=== PATIENT | female | born 1990 | race Caucasian/White ===

== ENCOUNTER 2016-10-24 19:29 | Observation (INO) | payer MEDICAID ==
[2016-10-24 19:59] LABS: APPEARANCE,URINE SLIGHTLY-CLOUDY; BILIRUBIN,URINE NEGATIVE (NEGATIVE); GLUCOSE, URINE NEGATIVE (NEGATIVE); KETONES,URINE TRACE mg/dL (NEGATIVE); LEUKOCYTE ESTERASE,URINE SMALL (NEGATIVE); NITRITE,URINE NEGATIVE (NEGATIVE); PROTEIN,URINE NEGATIVE (NEGATIVE); URINE SPECIFIC GRAVITY 1.021; UROBILINOGEN,URINE NEGATIVE mg/dL (<2.0)
--- NOTE | 2016-10-24 20:00 | L&D Flow Sheet ---
LD Flowsheet Datetime Report Generated by CPN: 10/24/2016 20:00 Datetime: 10/24/2016 19:47 Vital Signs NBP Sys/Jud/Mean (mmHg): 124 (QS system process) : 73 (QS system process) : 87 (QS system process) Pulse: 91 (QS system process) Communication LaborFlag: OB Triage (QS system process) Datetime: 10/24/2016 19:41 Pain Pain Scale: 4 (Crystal Анна, RN) Pain Presence: Constant (Crystal [place]vas, RN) Pain Type: Ache (Crystal [place]vas, RN) Pain Location: Perineum; Right Hip; Left Hip (Crystal Анна, RN) Pain Goal: 2 (Crystal Анна, RN) Pain Relief Measures: Comfort Measures (Crystal [place]vas, RN) Vaginal Exam Vaginal Bleeding: None (Crystal [place]vas, RN) Maternal Assessment Level of Consciousness: Fully Conscious (Crystal Анна, RN) DTR's/Clonus: DTRs 2+; No Clonus (Crystal Анна, RN) Headache: Denies (Crystal [place]vas, RN) Breath Sounds, Right: Clear and Equal (Crystal [place]vas, RN) Nausea/Vomiting: Denies (Crystal Анна, RN) RUQ Epigastric Pain: Denies (Crystal Анна, RN) Communication LaborFlag: OB Triage (QS system process)
[2016-10-24] MEDS ORDERED: ZOLPIDEM TARTRATE 5 MG TABLET PO ONE (20:18)
[2016-10-24 20:48] LABS: URINE BARBITURATES SCREEN NEGATIVE; URINE METHADONE SCREEN NEGATIVE; URINE PHENCYCLIDINE SCREEN NEGATIVE
[2016-10-24] MEDS ORDERED: ZOLPIDEM TARTRATE 5 MG TABLET ONE (21:00)
[2016-10-24 21:22] LABS: HEMATOCRIT 33.9 % (36.0-47.0); HEMOGLOBIN 11.4 g/dL (12.0-15.5); HGB HCT DIFFERENCE 0.3; MEAN CORPUSCULAR HEMOGLOBIN 29.2 pg (27.0-33.4); MEAN CORPUSCULAR HGB CONC 33.7 g/dL (32.0-36.0); MEAN CORPUSCULAR VOLUME 87 fl (80-97); RED BLOOD COUNT 3.91 10^6/uL (3.72-5.28); RED CELL DISTRIBUTION WIDTH 12.8 % (11.5-14.0); WHITE BLOOD COUNT 12.4 10^3/uL (4.0-10.5)
[2016-10-24 21:30] LABS: PROTHROMBIN TIME 12.8 SEC (11.4-15.4)
[2016-10-24 21:31] LABS: PARTIAL THROMBOPLASTIN TIME 28.5 SEC (23.5-35.8)
[2016-10-24 21:44] LABS: BAND NEUTROPHILS % (MANUAL) 2 % (3-5); BASOPHILS % (MANUAL) 1 % (0-2); EOSINOPHILS % (MANUAL) 2 % (0-6); LYMPHOCYTES % (MANUAL) 22 % (13-45); TOTAL CELLS COUNTED 100
[2016-10-24 21:45] LABS: TOXIC GRANULATION SLIGHT
[2016-10-24 23:26] LABS: TOTAL RBC COUNT 2103; TYPE IN FILE? TYPE IN FILE; VOL OF FETOMATERNAL HEMORRHAGE 0 ML (0)
--- NOTE | 2016-10-25 06:06 | L&D General Admission ---
General Admit Datetime Report Generated by CPN: 10/25/2016 04:45 CARE Height (in): 62 (10/24/2016 20:04:QS system process) Height (in): 62 (10/24/2016 19:41:QS system process) LABS Hemoglobin: 11.4 L (10/24/2016 21:09:QS system process) Hematocrit: 33.9 L (10/24/2016 21:09:QS system process) MCV: 87 (10/24/2016 21:09:QS system process)
--- NOTE | 2016-10-25 06:06 | L&D Current Admission ---
Current Admit Datetime Report Generated by CPN: 10/25/2016 04:45 ADMISSION INFORMATION Current Admit Date/Time: 10/24/2016 21:11 (10/24/2016 21:11:Nya Jj RN) Reason for Admission: Observation (10/24/2016 21:11:Nya Jj RN) Chief Complaint: Trauma or Fall (10/24/2016 21:11:Nya Jj RN) Chief Complaint: Trauma or Fall (10/24/2016 19:41:Nya Jj RN) Meds During -Oth: Valtrex (10/24/2016 21:11:Nya Jj RN) EGA per Dates: 38.0 (10/24/2016 21:11:QS system process) Reason for Induction: Not Applicable (10/24/2016 21:11:Nya Jj RN) Records Available: Yes (10/24/2016 21:11:Nya Jj RN) General Admission Information: Reviewed (10/24/2016 21:11:Nya Jj RN) General Admission Reviewed By: Benita Jj RN (10/24/2016 21:11:Nya Jj RN) BELONGINGS/ADVANCED DIRECTIVES Valuables/Personal Effects: Cell Phone (10/24/2016 21:11:Nya Jj RN) Disposition of Belongings: Kept with Patient (10/24/2016 21:11:Nya Jj RN) Advance Direct for Healthcare: No, and Wants No Information (10/24/2016 21:11:Nya Jj RN) Durable Power of Electrical Assemblies Supervisor: No (10/24/2016 21:11:Nya Jj RN) Living Will: No (10/24/2016 21:11:Nya Jj RN) Organ Donor: Yes (10/24/2016 21:11:Nya Jj RN) Pt Rights Information Given: Yes (10/24/2016 21:11:Nya Jj RN) Pt Understands Pt Rights: Yes (10/24/2016 21:11:Nya Jj RN) LEARNING ASSESSMENT Knowledge Level: Understands L_D Process; Understands Care Activities; Had Pre-Hospital Education; Understands Diagnosis (10/24/2016 21:11:Nya Jj RN) Barriers to Learning: None (10/24/2016 21:11:Nya Jj RN) Learning Readiness: Motivated (10/24/2016 21:11:Nya Jj RN) Learns Best By: 1 to 1 Instruction (10/24/2016 21:11:Nya Jj RN) DOMESTIC VIOLANCE SCREENING Dom Viol Threatened/Hurt: No (10/24/2016 21:11:Nya Jj RN) Hx of Abuse/Neglect past 2yrs: No (10/24/2016 21:11:Nya Jj RN) Feel Unsafe Going Home: No (10/24/2016 21:11:Nya Jj RN) Addt'l Observ Indicating Abuse: No (10/24/2016 21:11:Nya Jj RN) Reason Unable to Complete Screen: N/A, Screen Completed (10/24/2016 21:11:Nya Jj RN) Considered Personal Harm/Suicide: No (10/24/2016 21:11:Nya Jj RN) NUTRITIONAL/FUNCTIONAL SCREENING Problem with Appetite >5 Days: No (10/24/2016 21:11:Nya Jj RN) Chew/Swallow Difficulties: No (10/24/2016 21:11:Nya Jj RN) Inappropriate Wt Gain/Loss: No (10/24/2016 21:11:Nya Jj RN) Presence Skin Breakdown/Ulcer: No (10/24/2016 21:11:Nya Jj RN) Special Diet: No (10/24/2016 21:11:Nya Jj RN) Pt Requests Spine Surgeon Visit: No (10/24/2016 21:11:Nya Jj RN) Hx of Any of the Following?: N/A (10/24/2016 21:11:Nya Jj RN) New Diagnosis of: N/A (10/24/2016 21:11:Nya Jj RN) Requires Assist w/Ambulation: No (10/24/2016 21:11:Nya Jj RN) Uses Assist Device to Ambulate: No (10/24/2016 21:11:Nya Jj RN) Pt Requires Help w/ADL's: No (10/24/2016 21:11:Nya Jj RN)
--- NOTE | 2016-10-25 06:06 | L&D Admission Assessment ---
LD ADM ASMT Datetime Report Generated by CPN: 10/25/2016 04:45 PATIENT ASSESSMENT Assessment Type: Triage (10/24/2016 19:41:Crystal [place], RN) WEIGHT Weight (lb): 176 (10/24/2016 20:04:QS system process) Weight (lb): 176 (10/24/2016 19:41:QS system process) Weight (kg): 80.0 (10/24/2016 20:04:QS system process) Weight (kg): 80.0 (10/24/2016 19:41:QS system process) BMI: 32.2 (10/24/2016 20:04:QS system process) BMI: 32.2 (10/24/2016 19:41:QS system process) PAIN Pain Scale: 4 (10/24/2016 19:41:Crystal [place], RN) Pain Presence: Constant (10/24/2016 19:41:Crystal [place], RN) Pain Type: Ache (10/24/2016 19:41:Crystal Анна, RN) Pain Location: Perineum; Right Hip; Left Hip (10/24/2016 19:41:Crystal [place], RN) Pain Goal: 2 (10/24/2016 19:41:Crystal Анна, RN) Pain Related to Contraction: No (10/24/2016 19:41:Crystal Анна, RN) CONTRACTIONS Frequency (min): 1 (10/25/2016 04:15:Crystal [place], RN) Frequency (min): 0 (10/25/2016 03:15:Crystal Анна, RN) Frequency (min): 0 (10/25/2016 02:15:Crystal Анна, RN) Frequency (min): 0 (10/25/2016 01:15:Crystal Анна, RN) Frequency (min): 0 (10/25/2016 00:15:Crystal Анна, RN) Frequency (min): 0 (10/24/2016 23:15:Crystal [place], RN) Frequency (min): 0 (10/24/2016 22:00:Crystal [place], RN) Frequency (min): 0 (10/24/2016 21:00:Crystal [place], RN) Frequency (min): 0 (10/24/2016 20:00:Crystal [place], RN) Duration (sec): 110 (10/25/2016 04:15:Crystal [place], RN) Resting Tone [place]: Relaxed (10/25/2016 04:15:Crystal Анна, RN) Resting Tone [place]: Relaxed (10/25/2016 03:15:Crystal Анна, RN) Resting Tone [place]: Relaxed (10/25/2016 02:15:Crystal Анна, RN) Resting Tone [place]: Relaxed (10/25/2016 01:15:Crystal Анна, RN) Resting Tone [place]: Relaxed (10/25/2016 00:15:Crystal [place], RN) Resting Tone [place]: Relaxed (10/24/2016 23:15:Crystal Анна, RN) Resting Tone [place]: Relaxed (10/24/2016 22:00:Crystal Анна, RN) Resting Tone [place]: Relaxed (10/24/2016 21:00:Crystal Анна, RN) Resting Tone [place]: Relaxed (10/24/2016 20:00:Crystal [place], RN) NEURO Level of Consciousness: Fully Conscious (10/24/2016 19:41:Crystal Анна, RN) DTR's/Clonus: DTRs 2+; No Clonus (10/24/2016 19:41:Crystal [place], RN) Headache: Denies (10/24/2016 19:41:Crystal Анна, RN) Dizziness: No (10/24/2016 19:41:Crystal [place], RN) Blurred Vision: No (10/24/2016 19:41:Crystal Анна, RN) Extremity Numbness/Tingling : None (10/24/2016 19:41:Crystal Анна, RN) Extremity Movement: Full Range of Motion (10/24/2016 19:41:Crystal [place], RN) CARDIOVASCULAR Heart Rhythm: Regular (10/24/2016 19:41:Crystal [place], RN) Nailbeds: [place] (10/24/2016 19:41:Crystal Анна, RN) Capillary Refill: Less than 3 Seconds (10/24/2016 19:41:Crystal Анна, RN) Lower Extremities Edema: None (10/24/2016 19:41:Crystal Анна, RN) Lower Extremities Edema Degree: None (10/24/2016 19:41:Crystal [place], RN) Upper Extremities Edema: None (10/24/2016 19:41:Crystal [place], RN) Upper Extremities Edema Degree: None (10/24/2016 19:41:Nya Jj RN) Facial Edema: None (10/24/2016 19:41:Nya Jj RN) Elif's Sign Left Leg: Negative (10/24/2016 19:41:Nya Jj RN) Elif's Sign Right Leg: Negative (10/24/2016 19:41:Nya Jj RN) DVT RISK ASSESSMENT DVT Risk Age: Age less than 41 years (10/24/2016 19:41:Nya Jj RN) DVT Risk BMI: BMI<31 (10/24/2016 19:41:Nya Jj RN) DVT Risk Surgery: Minor Surgery Planned (10/24/2016 19:41:Nya Jj RN) DVT Risk Other: DNC 2015 (10/24/2016 19:41:Nya Jj RN) RESPIRATORY Respiratory Effort: Unlabored; Regular Rhythm; Equal Expansion (10/24/2016 19:41:Nya Jj RN) Breath Sounds, Right: Clear and Equal (10/24/2016 19:41:Crystal Анна RN) Cough Productivity: None (10/24/2016 19:41:Crystal Анна, RN) GASTROINTESTINAL Nausea/Vomiting: Denies (10/24/2016 19:41:Nya Jj RN) Bowel Sounds: Normoactive (10/24/2016 19:41:Nya WhiteergROBERT penny) RUQ Epigastric Pain: Denies (10/24/2016 19:41:Nya Jj RN) Response to Antacids: Pain Relieved (10/24/2016 19:41:Crystal Анна RN) Bowel Patterns: Soft, Formed Stool (10/24/2016 19:41:Nya Jj RN) Hemorrhoids: None (10/24/2016 19:41:Nya Jj RN) Diet Type: Regular diet (10/24/2016 19:41:Crystal [place], RN) Last Meal: 10/24/2016 18:00 (10/24/2016 19:41:Crystal Анна RN) GENITOURINARY Bladder: Nondistended (10/24/2016 19:41:Crystal [place], RN) Frequency of Urination: No (10/24/2016 19:41:Crystal Анна, RN) Urination Burning: No (10/24/2016 19:41:Crystal Анна, RN) CVA Tenderness: No (10/24/2016 19:41:Crystal Анна, RN) Vaginal Bleeding: None (10/24/2016 19:41:Crystal Анна, RN) Vaginal Discharge Amount: Small (10/24/2016 19:41:Crystal Анна, RN) Vaginal Discharge Color: Yellow (10/24/2016 19:41:Crystal Анна, RN) Vaginal Discharge Character: Thick (10/24/2016 19:41:Crystal [place], RN) INTEGUMENTARY Skin Color: Normal for Race (10/24/2016 19:41:Crystal Анна, RN) Skin Temperature: Warm (10/24/2016 19:41:Crystal [place], RN) Skin Moisture: Dry (10/24/2016 19:41:Crystal Анна, RN) Body Piercings/Tattoos: Tattoos (10/24/2016 19:41:Crystal Анна, RN) KARLENE SKIN ASSESSMENT Karlene Scale Sensory Perception: No Impairment- Responds to verbal commands. Has no sensory deficit which would limit ability to feel or voice pain or discomfort (10/24/2016 19:41:Nya Jj RN) Karlene Scale Moisture: Rarely Moist- Skin is usually dry. Linen only requires changing at routine intervals (10/24/2016 19:41:Nya Jj RN) Karlene Scale Activity: Walks Frequently- Walks outside the room at least twice a day and inside room at least every 2 hours during the day. (10/24/2016 19:41:Nya Jj RN) Karlene Scale Mobility: No Limitations- Makes major and frequent changes in position without assistance (10/24/2016 19:41:Nya Jj RN) Karlene Scale Nutrition: Excellent- Eats most of every meal. Never refuses a meal. Usually eats a total of 4 or more servings of meat and dairy products. Occasionally eats between meals. Does not require supplementation (10/24/2016 19:41:Nya Jj RN) Karlene Scale Friction and Shear: No Apparent Problem- Moves in bed and in chair independently and has sufficient muscle strength to lift up completely during move. Maintains good position in bed or chair at all times (10/24/2016 19:41:Nya Jj RN) Karlene Scale Total: 23 (10/24/2016 19:41:QS system process) Karlene Scale Risk: No Risk of Pressure Ulcer Noted at this Time (10/24/2016 19:41:QS system process) SUPPORT Family Support: Family supportive (10/24/2016 19:41:Nya Jj RN) Emotional State: Calm/Relaxed (10/24/2016 19:41:Crystal Анна, RN) SAFETY Call [place] Within Reach: Yes (10/24/2016 19:41:Nya Jj RN) Side Rails Up: Yes (10/24/2016 19:41:Nya Jj RN) Bed Wheels Locked: Yes (10/24/2016 19:41:Nya Jj RN) Arm Bands Present: Yes (10/24/2016 19:41:Nya Jj RN) FALL SCREEN Fall Risk History of Falling: (25) Yes (10/24/2016 19:41:Nya Jj RN) Fall Risk Secondary Diagnosis: (0) No (10/24/2016 19:41:Nya Jj RN) Fall Risk Ambulatory Aid: (0) None/Bedrest/Wheelchair/Nurse Assist (10/24/2016 19:41:Nya Jj RN) Fall Risk IV Therapy: (0) No (10/24/2016 19:41:Nya Jj RN) Fall Risk Gait: (0) Normal/Bedrest/Immobile (10/24/2016 19:41:Nya Jj RN) Fall Risk Mental Status: (0) Oriented to Own Ability (10/24/2016 19:41:Nya Jj RN) Fall Risk Score: 25 (10/24/2016 19:41:QS system process) Fall Risk Score Definition: Low Risk: Please see standard fall prevention interventions (10/24/2016 19:41:QS system process) RECENT TRAVEL/INFECTIOUS DISEASE Recent Exp Communicable Disease: No (10/24/2016 19:41:Nya Jj RN) Cough or Fever: No (10/24/2016 19:41:Nya Jj RN) Foreign Travel Past 10 Days: No (10/24/2016 19:41:Nya Jj RN) Open Wounds or Sores: No (10/24/2016 19:41:Nya Jj RN) Prior Antibiotic Resistance Tx: No (10/24/2016 19:41:Nya Jj RN) Cultures Obtained: Not Applicable (10/24/2016 19:41:Nya Jj RN) Isolation Initiated: No (10/24/2016 19:41:Nya Jj RN) Pt/Family Education: Not Applicable (10/24/2016 19:41:Nya Jj RN) BABY A FHR Baseline Rate (bpm) Baby A: 120 (10/25/2016 04:15:Nya Whiteerghemalatha RN) FHR Baseline Rate (bpm) Baby A: 125 (10/25/2016 03:15:Nya Whiteerghemalatha RN) FHR Baseline Rate (bpm) Baby A: 125 (10/25/2016 02:15:Nya Анна, RN) FHR Baseline Rate (bpm) Baby A: 120 (10/25/2016 01:15:Nya Whiteerghemalatha RN) FHR Baseline Rate (bpm) Baby A: 120 (10/25/2016 00:15:Crystal Анна RN) FHR Baseline Rate (bpm) Baby A: 130 (10/24/2016 23:15:Crystal [place] RN) FHR Baseline Rate (bpm) Baby A: 130 (10/24/2016 22:15:Crystal Анна RN) FHR Baseline Rate (bpm) Baby A: 125 (10/24/2016 22:00:Crystal [place], RN) FHR Baseline Rate (bpm) Baby A: 150 (10/24/2016 21:00:Crystal Анна RN) FHR Baseline Rate (bpm) Baby A: 130 (10/24/2016 20:00:Crystal [place], RN) Variability Baby A: Moderate 6-25 bpm (10/25/2016 04:15:Crystal [place] RN) Variability Baby A: Moderate 6-25 bpm (10/25/2016 03:15:Crystal Анна RN) Variability Baby A: Moderate 6-25 bpm (10/25/2016 02:15:Crystal [place] RN) Variability Baby A: Moderate 6-25 bpm (10/25/2016 01:15:Crystal [place], RN) Variability Baby A: Moderate 6-25 bpm (10/25/2016 00:15:Crystal [place], RN) Variability Baby A: Moderate 6-25 bpm (10/24/2016 23:15:Crystal Анна, RN) Variability Baby A: Moderate 6-25 bpm (10/24/2016 22:15:Crystal [place], RN) Variability Baby A: Moderate 6-25 bpm (10/24/2016 22:00:Crystal Анна, RN) Variability Baby A: Moderate 6-25 bpm (10/24/2016 21:00:Crystal Анна, RN) Variability Baby A: Moderate 6-25 bpm (10/24/2016 20:00:Crystal [place], RN) Accelerations Baby A: 15X15 (10/25/2016 04:15:Crystal Анна, RN) Accelerations Baby A: 15X15 (10/25/2016 03:15:Crystal Анна, RN) Accelerations Baby A: 15X15 (10/25/2016 02:15:Crystal [place], RN) Accelerations Baby A: 15X15 (10/25/2016 01:15:Crystal Анна, RN) Accelerations Baby A: 15X15 (10/25/2016 00:15:Crystal Анна, RN) Accelerations Baby A: 15X15 (10/24/2016 23:15:Crystal [place], RN) Accelerations Baby A: 15X15 (10/24/2016 22:15:Crystal Анна, RN) Accelerations Baby A: 15X15 (10/24/2016 22:00:Crystal [place], RN) Accelerations Baby A: 15X15 (10/24/2016 21:00:Crystal Анна, RN) Accelerations Baby A: 15X15 (10/24/2016 20:00:Crystal [place], RN) Decelerations Baby A: None (10/25/2016 04:15:Crystal Анна, RN) Decelerations Baby A: None (10/25/2016 03:15:Crystal Анна, RN) Decelerations Baby A: None (10/25/2016 02:15:Crystal [place], RN) Decelerations Baby A: None (10/25/2016 01:15:Nya Jj RN) Decelerations Baby A: None (10/25/2016 00:15:Nya Jj RN) Decelerations Baby A: None (10/24/2016 23:15:Nya Jj RN) Decelerations Baby A: None (10/24/2016 22:00:Nya Jj RN) Decelerations Baby A: None (10/24/2016 21:00:Nya Jj RN) Decelerations Baby A: None (10/24/2016 20:00:Nya jJ RN)
--- NOTE | 2016-10-25 06:06 | L&D Flow Sheet ---
LD Flowsheet Datetime Report Generated by CPN: 10/25/2016 04:45 Datetime: 10/25/2016 04:15 Uterine Activity Monitor Mode: External; Palpation (Crystal Анна, RN) Frequency (min): 1 (Crystal [place], RN) Duration (sec): 110 (Crystal [place], RN) Resting Tone ([place]): Relaxed (Crystal Анна, RN) Assessment A Monitor Mode: External US (Crystal [place], RN) FHR Baseline Rate : 120 (Crystal [place], RN) Variability: Moderate 6-25 bpm (Crystal [place], RN) Accelerations: 15X15 (Crystal Анна, RN) Decelerations: None (Crystal Анна, RN) Datetime: 10/25/2016 03:15 NBP Sys/Jud/Mean (mmHg): 97 (QS system process) : 56 (QS system process) : 70 (QS system process) Pulse: 83 (QS system process) Uterine Activity Monitor Mode: External (Crystal [place], RN) Frequency (min): 0 (Crystal Анна, RN) Resting Tone (Palpate): Relaxed (Crystal Анна, RN) Assessment A Monitor Mode: External US (Crystal Анна, RN) FHR Baseline Rate : 125 (Crystal Анна, RN) Variability: Moderate 6-25 bpm (Crystal [place], RN) Accelerations: 15X15 (Crystal Анна, RN) Decelerations: None (Crystal Анна, RN) LaborFlag: Antepartum (QS system process) Datetime: 10/25/2016 02:15 Uterine Activity Monitor Mode: External (Crystal Анна, RN) Frequency (min): 0 (Crystal Анна, RN) Resting Tone ([place]): Relaxed (Crystal [place], RN) Assessment A Monitor Mode: External US (Crystal Анна, RN) FHR Baseline Rate : 125 (Crystal Анна, RN) Variability: Moderate 6-25 bpm (Crystal [place], RN) Accelerations: 15X15 (Crystal Анна, RN) Decelerations: None (Crystal Анна, RN) Datetime: 10/25/2016 01:15 NBP Sys/Jud/Mean (mmHg): 107 (QS system process) : 53 (QS system process) : 73 (QS system process) Pulse: 76 (QS system process) Uterine Activity Monitor Mode: External (Crystal [place], RN) Frequency (min): 0 (Crystal [place], RN) Resting Tone ([place]): Relaxed (Crystal [place], RN) Assessment A Monitor Mode: External US (Crystal Анна, RN) FHR Baseline Rate : 120 (Crystal [place], RN) Variability: Moderate 6-25 bpm (Crystal [place], RN) Accelerations: 15X15 (Crystal [place], RN) Decelerations: None (Crystal Анна, RN) LaborFlag: Antepartum (QS system process) Datetime: 10/25/2016 00:15 Uterine Activity Monitor Mode: External; Palpation (Crystal Анна, RN) Frequency (min): 0 (Crystal Анна, RN) Resting Tone ([place]pate): Relaxed (Crystal Анна, RN) Assessment A Monitor Mode: External US (Crystal [place], RN) FHR Baseline Rate : 120 (Crystal Анна, RN) Variability: Moderate 6-25 bpm (Crystal [place], RN) Accelerations: 15X15 (Crystal Анна, RN) Decelerations: None (Crystal [place], RN) Datetime: 10/25/2016 00:09 Vital Signs Stage of : Antepartum (Crystal Анна, RN) Medication Comments: Rhogam given right gluteus (Crystal Анна, RN) Datetime: 10/24/2016 23:45 Provider Reviewed Strip: Yes (Crystal Анна, RN) Communication Communication: Provider Orders Received (Crystal Анна, RN) Provider Notified (Name): Neilsen (Crystal [place], RN) Notification Reason: Lab/Diagnostic Study (Crystal [place], RN) Communication Comments: Received orders to give rhogam. (Crystal [place], RN) Datetime: 10/24/2016 23:27 Vital Signs Stage of : Antepartum (Crystal Анна, RN) Patient Care IV/Blood Work: KB negative (Crystal Анна, RN) Datetime: 10/24/2016 23:16 NBP Sys/Jud/Mean (mmHg): 93 (QS system process) : 53 (QS system process) : 65 (QS system process) Pulse: 83 (QS system process) LaborFlag: OB Triage (QS system process) Datetime: 10/24/2016 23:15 Uterine Activity Monitor Mode: External; Palpation (Crystal Анна, RN) Frequency (min): 0 (Crystal [place], RN) Resting Tone (Palpate): Relaxed (Crystal Анна, RN) Assessment A Monitor Mode: External US (Crystal [place], RN) FHR Baseline Rate : 130 (Crystal Анна, RN) Variability: Moderate 6-25 bpm (Crystal [place], RN) Accelerations: 15X15 (Crystal Анна, RN) Decelerations: None (Crystal [place], RN) Patient Position/Activity: Left Lateral; Semi-Fowlers (Crystal Анна, RN) Datetime: 10/24/2016 22:15 Assessment A Monitor Mode: External US (Crystal [place], RN) Monitor Interventions for FHR: Ultrasound Adjusted (Crystal [place], RN) FHR Baseline Rate : 130 (Crystal [place], RN) Variability: Moderate 6-25 bpm (Crystal [place], RN) Accelerations: 15X15 (Crystal Анна, RN) Comments: Pt coughing and lying flat on her back. (Crystal Анна, RN) Datetime: 10/24/2016 22:00 Uterine Activity Monitor Mode: External; Palpation (Crystal Анна, RN) Frequency (min): 0 (Crystal [place], RN) Resting Tone (Palpate): Relaxed (Crystal [place], RN) Assessment A Monitor Mode: External US (Crystal Анна, RN) FHR Baseline Rate : 125 (Crystal Анна, RN) Variability: Moderate 6-25 bpm (Crystal [place], RN) Accelerations: 15X15 (Crystal [place], RN) Decelerations: None (Crystal [place], RN) Patient Position/Activity: Left Lateral; Semi-Fowlers (Crystal [place], RN) Datetime: 10/24/2016 21:49 I/O Interventions: Clear Liquids Given (Crystal Анна, RN) Patient Care Comments: Crackers given (Crystal [place], RN) Datetime: 10/24/2016 21:35 Temperature (F): 98.5 (Crystal Анна, RN) Temperature (C): 36.9 (QS system process) LaborFlag: OB Triage (QS system process) Datetime: 10/24/2016 21:02 Medications Analgesics/Sedatives: Ambien (mg) @ 10 (Crystal [place], RN) Datetime: 10/24/2016 21:00 Uterine Activity Monitor Mode: External; Palpation (Crystal Анна, RN) Frequency (min): 0 (Crystal [place], RN) Resting Tone (Palpate): Relaxed (Crystal [place], RN) Assessment A Monitor Mode: External US (Crystal Анна, RN) FHR Baseline Rate : 150 (Crystal [place], RN) Variability: Moderate 6-25 bpm (Crystal [place], RN) Accelerations: 15X15 (Crystal Анна, RN) Decelerations: None (Crystal [place], RN) Datetime: 10/24/2016 20:30 Vital Signs Stage of : OB Triage (Crystal Анна, RN) Communication Comments: Pt taken off of the monitors to go to ultrasound. (Crystal Анна, RN) Datetime: 10/24/2016 20:14 Communication Communication: Provider at Bedside (Crystal [place], RN) Provider Notified (Name): Neilsen (Crystal [place], RN) Datetime: 10/24/2016 20:00 Vital Signs Stage of : OB Triage (Crystal Анна, RN) Uterine Activity Monitor Mode: External; Palpation (Crystal Анна, RN) Frequency (min): 0 (Crystal Анна, RN) Resting Tone (Palpate): Relaxed (Crystal Анна, RN) Assessment A Monitor Mode: External US (Nya Coulter RN) Monitor Interventions for FHR: Ultrasound Adjusted (Nya Coulter RN) FHR Baseline Rate : 130 (Nya Coulter RN) Variability: Moderate 6-25 bpm (Nya Coulter RN) Accelerations: 15X15 (Nya Coulter RN) Decelerations: None (Nya Coulter RN) Patient Position/Activity: Right Tilt; Semi-Fowlers (Nya Coulter RN) I/O Interventions: Clear Liquids Given (Nya Coulter RN) Provider Reviewed Strip: Yes (Nya Coulter RN) Strip Reviewed by: Benita coulter RN (Nya Coulter RN) Communication Communication: Call/Page Placed to Provider (Nya Coulter RN) Provider Notified (Name): Abby (Nya Coulter RN) Notification Reason: Status Update; Status; Labor Status; Membrane Status; Uterine Activity; Pain (Nya Coulter RN) Communication Comments: Report given on pt status. (Nya Coulter RN) Datetime: 10/24/2016 19:47 NBP Sys/Jud/Mean (mmHg): 124 (QS system process) : 73 (QS system process) : 87 (QS system process) Pulse: 91 (QS system process) LaborFlag: OB Triage (QS system process) Datetime: 10/24/2016 19:41 Pain Pain Scale: 4 (Crystal Анна, RN) Pain Presence: Constant (Crystal [place], RN) Pain Type: Ache (Crystal [place], RN) Pain Location: Perineum; Right Hip; Left Hip (Crystal [place], RN) Pain Goal: 2 (Crystal [place], RN) Pain Relief Measures: Comfort Measures (Crystal Анна, RN) Vaginal Exam Vaginal Bleeding: None (Crystal [place], RN) Maternal Assessment Level of Consciousness: Fully Conscious (Crystal Анна, RN) DTR's/Clonus: DTRs 2+; No Clonus (Nya [place], RN) Headache: Denies (Nya Анна, RN) Breath Sounds, Right: Clear and Equal (Nya Анна, RN) Nausea/Vomiting: Denies (Crystal Анна, RN) RUQ Epigastric Pain: Denies (Nya [place], RN) LaborFlag: OB Triage (QS system process)
--- NOTE | 2016-10-25 06:07 | Non Stress Test Report ---
Non Stress Test Datetime Report Generated by CPN: 10/25/2016 05:59 DEMOGRAPHIC Test Number: 1 EGA NST: 38.0 INDICATION Indication for Study: Ordered by Provider; Other Indication for Study (NST) Other: Fall VITAL SIGNS Temperature - NST: 98.5 Pulse - NST: 91 RESP - NST: 18 NBPSYS NST: 124 NBPDIA NST: 73 MONITORING Monitor Explained: Monitor Explained; Test Explained; Patient Verbalized Understanding Time on Monitor: 10/24/2016 19:46 Time off Monitor: 10/25/2016 05:47 NST Duration: 601 NST INTERVENTIONS NST Interventions: PO Hydration Physician Notified NST: [place] BABY A: [id number] BABY A Movement : Present Contraction Frequency : 1 FHR Baseline : 135 Accelerations : 15X15 Decelerations : None Variability : Moderate 6-25bpm NST Review: Meets Criteria for Reactive NST NST Review and Verified By : Que Kerr, RNC NST Results: Reactive NST REPORT Report Trigger: Send Report
--- NOTE | 2016-10-25 06:24 | L&D Current Admission ---
Current Admit Datetime Report Generated by CPN: 10/25/2016 06:00 ADMISSION INFORMATION Current Admit Date/Time: 10/24/2016 21:11 (10/24/2016 21:11:Nya Jj RN) Reason for Admission: Observation (10/24/2016 21:11:Nya Jj RN) Chief Complaint: Trauma or Fall (10/24/2016 21:11:Nya Jj RN) Meds During -Oth: Valtrex (10/24/2016 21:11:Nya Jj RN) EGA per Dates: 38.0 (10/24/2016 21:11:QS system process) Reason for Induction: Not Applicable (10/24/2016 21:11:Nya Jj RN) Records Available: Yes (10/24/2016 21:11:Nya Jj RN) General Admission Information: Reviewed (10/24/2016 21:11:Nya Jj RN) General Admission Reviewed By: Benita Jj RN (10/24/2016 21:11:Nya Jj RN) BELONGINGS/ADVANCED DIRECTIVES Valuables/Personal Effects: Cell Phone (10/24/2016 21:11:Nya Jj RN) Disposition of Belongings: Kept with Patient (10/24/2016 21:11:Nya Jj RN) Advance Direct for Healthcare: No, and Wants No Information (10/24/2016 21:11:Nya Jj RN) Durable Power of Telephone Collector: No (10/24/2016 21:11:Nya Jj RN) Living Will: No (10/24/2016 21:11:Nya Jj RN) Organ Donor: Yes (10/24/2016 21:11:Nya Jj RN) Pt Rights Information Given: Yes (10/24/2016 21:11:Nya Jj RN) Pt Understands Pt Rights: Yes (10/24/2016 21:11:Nya Jj RN) LEARNING ASSESSMENT Knowledge Level: Understands L_D Process; Understands Care Activities; Had Pre-Hospital Education; Understands Diagnosis (10/24/2016 21:11:Nya Jj RN) Barriers to Learning: None (10/24/2016 21:11:Nya Jj RN) Learning Readiness: Motivated (10/24/2016 21:11:Nya Jj RN) Learns Best By: 1 to 1 Instruction (10/24/2016 21:11:Nya Jj RN) DOMESTIC VIOLANCE SCREENING Dom Viol Threatened/Hurt: No (10/24/2016 21:11:Nya Jj RN) Hx of Abuse/Neglect past 2yrs: No (10/24/2016 21:11:Nya Jj RN) Feel Unsafe Going Home: No (10/24/2016 21:11:Nya Jj RN) Addt'l Observ Indicating Abuse: No (10/24/2016 21:11:Nya Jj RN) Reason Unable to Complete Screen: N/A, Screen Completed (10/24/2016 21:11:Nya Jj RN) Considered Personal Harm/Suicide: No (10/24/2016 21:11:Nya Jj RN) NUTRITIONAL/FUNCTIONAL SCREENING Problem with Appetite >5 Days: No (10/24/2016 21:11:Nya Jj RN) Chew/Swallow Difficulties: No (10/24/2016 21:11:Nya Jj RN) Inappropriate Wt Gain/Loss: No (10/24/2016 21:11:Nya Jj RN) Presence Skin Breakdown/Ulcer: No (10/24/2016 21:11:Nya Jj RN) Special Diet: No (10/24/2016 21:11:Nya Jj RN) Pt Requests Sales Office Administrator Visit: No (10/24/2016 21:11:Nya Jj RN) Hx of Any of the Following?: N/A (10/24/2016 21:11:Nya Jj RN) New Diagnosis of: N/A (10/24/2016 21:11:Nya Jj RN) Requires Assist w/Ambulation: No (10/24/2016 21:11:Nya Jj RN) Uses Assist Device to Ambulate: No (10/24/2016 21:11:Nya Jj RN) Pt Requires Help w/ADL's: No (10/24/2016 21:11:Nya Jj RN)
--- NOTE | 2016-10-25 06:24 | L&D General Admission ---
General Admit Datetime Report Generated by CPN: 10/25/2016 06:00 INFORMATION Patient Age: 24 (09/27/2015 15:47:QS system process) EDC: 11/07/2016 00:00 (06/29/2016 19:47:Crystal [place], RN) : 5 (06/29/2016 19:47:Crystal Анна, RN) Para: 3 (10/25/2016 05:51:Crystal Анна RN) Term: 3 (06/29/2016 19:47:Crystal [place] RN) Baby, Number in Womb: 1 (10/25/2016 05:51:Crystal [place] RN) CARE Primary Soils Analyst: [facility] (06/29/2016 19:47:Nya Jj RN) Adequate Care: Yes (06/29/2016 19:47:Nya Jj RN) Height (in): 62 (10/24/2016 20:04:QS system process) ALLERGIES Medication Allergy: No (06/29/2016 19:47:Crystal ROBERT Jj) Medication Allergies: No Known Allergies (09/25/2016) (09/25/2016 19:01:QS system process) Latex Allergy: No Latex Allergies (06/29/2016 19:47:Crystal Анна RN) Food Allergies: NA (06/29/2016 19:47:Nya Jj RN) Environmental Allergies: NA (06/29/2016 19:47:Crystal Анна RN) COMMUNICATION Primary Language: Slovak (06/29/2016 19:47:Nya Jj RN) Medical Tx Preferred Language: Slovak (06/29/2016 19:47:Nya Jj RN) DEMOGRAPHICS Address: [facility] [place] [address] (06/22/2016 16:50:QS system process) Zipcode: [address] (09/27/2014 15:47:QS system process) Home (06/22/2016 16:50:QS system process) Work (08/15/2016 18:25:QS system process) SSN: [id number] (09/27/2014 15:47:QS system process) Next of Kin Name: ZAFAR ROLLE (04/21/2016 15:55:QS system process) Next of Kin (04/21/2016 15:55:QS system process) Next of Kin Relationship: MO (04/21/2016 15:55:QS system process) Date of : 1990 (09/27/2014 15:47:QS system process) Marital Status: Single (09/27/2014 15:47:QS system process) Sex: Female (09/27/2014 15:47:QS system process) Race: (09/27/2014 15:47:QS system process) Ethnicity: Non- or (09/27/2014 15:47:QS system process) Hinduism: None (04/21/2016 15:55:QS system process) DRUG AND ALCOHOL USE Alcohol: No (06/29/2016 19:47:Nya Jj RN) Cigarettes: Former Smoker. [id number] (06/29/2016 19:47:Nya Jj RN) Marijuana: No (06/29/2016 19:47:Nya Jj RN) Cocaine: No (06/29/2016 19:47:Nya Jj RN) Other Illicit Drugs: No (06/29/2016 19:47:Nya Jj RN) VACCINE HISTORY Influenza Vaccine: Uncertain (06/29/2016 19:47:Nya Jj RN) Influenza Date: 2012 (06/29/2016 19:47:Nya Jj RN) Pneumococcal Vaccine: Uncertain (06/29/2016 19:47:Nya Jj RN) Tetanus Vaccine: Uncertain (06/29/2016 19:47:Nya Jj RN) Tdap Vaccine: Uncertain (06/29/2016 19:47:Nya Jj RN) Hepatitis B Vaccine: Uncertain (06/29/2016 19:47:Nya Jj RN) Cake Mixer: [facility] (06/29/2016 19:47:Nya Jj RN) Feeding Preference: Formula (06/29/2016 19:47:Nya Jj RN) Benefit of Breast Feed Discussed: Yes (06/29/2016 19:47:Nya Jj RN) Circumcision: N/A (06/29/2016 19:47:Nya Jj RN) Classes Attended: No (06/29/2016 19:47:Nya Jj RN) Tubal Ligation: Yes (06/29/2016 19:47:Nya Jj RN) Tubal Authorization Signed: No (06/29/2016 19:47:Nya Jj RN) Consent: N/A (06/29/2016 19:47:yNa Jj RN) Consent Signed: N/A (06/29/2016 19:47:Nya Jj RN) Pain Management Plans: Natural (06/29/2016 19:47:Nya Jj RN) Plans for Labor and Delivery: None (06/29/2016 19:47:Nya Jj RN) Support Person: Ca Rolle (06/29/2016 19:47:Nya Jj RN) Support Person Relationship: Mother (06/29/2016 19:47:Nya Jj RN) Cultural/Spritual Practice: No (06/29/2016 19:47:Nya Jj RN) Spir/Cult Dietary Needs: No (06/29/2016 19:47:Nya Jj RN) LIVING SITUATION/DISCHARGE PLAN Living Arrangements: House (06/29/2016 19:47:Nya Jj RN) Adequate Access to:: Electric; Heat; Refrigeration; Plumbing/Running water; Phone; Transportation (06/29/2016 19:47:Nya Jj RN) WIC Program: Yes (06/29/2016 19:47:Nya Jj RN) Discharge Logistics Vice President Person: Ca Rolle (06/29/2016 19:47:Nya Jj RN) Person to Help after Discharge: Ca Rolle (06/29/2016 19:47:Nya Jj RN) Currently Using Commun Resources: Yes (06/29/2016 19:47:Nya Jj RN) Outside Agency/Trip Follower: No (06/29/2016 19:47:Nya Jj RN) Car Seat for Discharge: N/A (06/29/2016 19:47:Nya Jj RN) Adoption Requested: No (06/29/2016 19:47:Nya Jj RN) Pt Contact w/infant Post : N/A (06/29/2016 19:47:Nya Jj RN) LABS Blood Type: O Negative (06/29/2016 19:47:Nerissa Strickland RN) Antibody Screen: negative (06/29/2016 19:47:Nerissa Strickland RN) Rho(G) this : Yes (06/29/2016 19:47:Laney Lozada RN) Date Rho(G) Given: 10/25/2016 (06/29/2016 19:47:Nya Jj RN) Hemoglobin: 11.4 L (10/24/2016 21:09:QS system process) Hematocrit: 33.9 L (10/24/2016 21:09:QS system process) MCV: 87 (10/24/2016 21:09:QS system process) Group Beta Strep: positive (Annotations: Data stored by CPN on behalf of user) (06/29/2016 19:47:Bev Kerr RN) Gonorrhea: Negative (06/29/2016 19:47:Nerissa Strickland RN) Chlamydia: Negative (06/29/2016 19:47:Nerissa Strickland RN) HIV Results: Negative (06/29/2016 19:47:Nerissa Strickland RN) Hepatitis B: Negative (06/29/2016 19:47:Nerissa Strickland RN) Herpes Culture: Positive (06/29/2016 19:47:Nya Jj RN) Rubella: Immune (06/29/2016 19:47:Nerissa Strickland RN) Varicella: Non Susceptible (06/29/2016 19:47:Nerissa Strickland RN) OB/PREVIOUS HISTORY History of Previous : No (06/29/2016 19:47:Nya Jj RN) History of Gestational Diabetes: No (06/29/2016 19:47:Nya Jj RN) History of PIH: No (06/29/2016 19:47:Nya Jj RN) History of Incompetent Cervix: No (06/29/2016 19:47:Nya Jj RN) History of Placenta Previa/Abrup: No (06/29/2016 19:47:Nya Jj RN) History of Macrosomia: No (06/29/2016 19:47:Nya Jj RN) History of IUGR: No (06/29/2016 19:47:Nya Jj RN) History of Hemorrhage: No (06/29/2016 19:47:Nya Jj RN) History of Loss/Stillborn: No (06/29/2016 19:47:Nya Jj RN) History of : No (06/29/2016 19:47:Nya Jj RN) History of D (Rh) Sensitization: No (06/29/2016 19:47:Nya Jj RN) History Recurrent Loss/Stillborn: No (06/29/2016 19:47:Nya Jj RN) History Depression/PP Depression: Yes (06/29/2016 19:47:Nerissa Strickland RN) History of Uterine Anomaly/GRETCHEN: No (06/29/2016 19:47:Nya Jj RN) History of Infertility: No (06/29/2016 19:47:Nya Jj RN) History of ART Treatment: No (06/29/2016 19:47:Nya Jj RN) History of GRETCHEN: No (06/29/2016 19:47:Nya Jj RN) Comments Obstetrical History: G1: 2008 40 wk G2: 2010 41 wk G3: 2012 41 wk G4: 2014 missed SAB and emergency DNC G5: current CPS issues, will need d/c planning (06/29/2016 19:47:Nerissa Strickland RN) MEDICAL HISTORY Med Hx Diabetes: No (06/29/2016 19:47:Nya Jj RN) Med Hx Hypertension: No (06/29/2016 19:47:Nya Jj RN) Med Hx Heart Disease: No (06/29/2016 19:47:Nya Jj RN) Med Hx Autoimmune Disorder: No (06/29/2016 19:47:Nya Jj RN) Med Hx Kidney Disease/UTI: No (06/29/2016 19:47:Nya Jj RN) Med Hx Neurologic/Epilepsy: No (06/29/2016 19:47:Nya Jj RN) Med Hx Psychiatric Disorders: No (06/29/2016 19:47:Nya Jj RN) Med Hx Hepatitis/Liver Disease: No (06/29/2016 19:47:Nya Jj RN) Med Hx Varicosities/Phlebitis: No (06/29/2016 19:47:Nya Jj RN) Med Hx Thyroid Dysfunction: No (06/29/2016 19:47:Nya Jj RN) Med Hx Trauma/Violence: No (06/29/2016 19:47:Nya Jj RN) Med Hx Blood Transfusion: No (06/29/2016 19:47:Nya Jj RN) Med Hx Pulmonary (Asthma,TB): No (06/29/2016 19:47:Nya Jj RN) Med Hx Breast: No (06/29/2016 19:47:Nya Jj RN) Med Hx FINANCIAL INVESTMENT ADVISER Surgery: No (06/29/2016 19:47:Nya Jj RN) Med Hx Hospitalization/Surgery: No (06/29/2016 19:47:Nya Jj RN) Med Hx Anesthetic Complications: No (06/29/2016 19:47:Nya Jj RN) Med Hx Abnormal Pap Smear: No (06/29/2016 19:47:Nya Jj RN) Other Medical Diseases: No (06/29/2016 19:47:Nya Jj RN) Med Hx Significant Family Hx: No (06/29/2016 19:47:Nya Jj RN) INFECTIOUS HISTORY Inf Hx Gonorrhea: Yes (06/29/2016 19:47:Nerissa Strickland RN) Inf Hx Chlamydia: No (06/29/2016 19:47:Nya Jj RN) Inf Hx Syphilis: No (06/29/2016 19:47:Nya Jj RN) Inf Hx HIV/AIDS: No (06/29/2016 19:47:Nya Jj RN) Inf Hx Human Papilloma Virus: No (06/29/2016 19:47:Nya Jj RN) Inf Hx Pt/Partner Genital Herpes: Yes (06/29/2016 19:47:Nerissa Strickland RN) Inf Hx Tuberculosis/Exposure: No (06/29/2016 19:47:Nya Jj RN) Inf Hx Hepatitis B,C: No (06/29/2016 19:47:Nya Jj RN) Inf Hx Rash or Viral Illness: No (06/29/2016 19:47:Nya Jj RN) Details of Infectious Hx: 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 (06/29/2016 19:47:Nerissa Strickland RN) GENETIC HISTORY Gen Hx Age >=35 at MEHRAN: No (06/29/2016 19:47:Nya Jj RN) Gen Hx Thalassemia: No (06/29/2016 19:47:Nya Jj RN) Gen Hx Congenital Heart Defect: No (06/29/2016 19:47:Nya Jj RN) Gen Hx Neural Tube Defect: No (06/29/2016 19:47:Nya Jj RN) Gen Hx Down's Syndrome: No (06/29/2016 19:47:Nya Jj RN) Gen Hx Pop-Sachs: No (06/29/2016 19:47:Nya Jj RN) Gen Hx Amparo: No (06/29/2016 19:47:Nya jJ RN) Gen Hx Familial Dysautonomia: No (06/29/2016 19:47:Nya Jj RN) Gen Hx Sickle Cell Disease/Trait: No (06/29/2016 19:47:Nya Jj RN) Gen Hx Hemophilia/Blood Disorder: No (06/29/2016 19:47:Nya Jj RN) Gen Hx Muscular Dystrophy: No (06/29/2016 19:47:Nya Jj RN) Gen Hx Cystic Fibrosis: No (06/29/2016 19:47:Nya Jj RN) Gen Hx Huntingtons Chorea: No (06/29/2016 19:47:Nya Jj RN) Gen Hx Mental Retardation/Autism: No (06/29/2016 19:47:Nya Jj RN) Gen Hx Tested for Fragile X: No (06/29/2016 19:47:Nya Jj RN) Gen Hx Other Inher/Chromosomal: No (06/29/2016 19:47:Nya Jj RN) Gen Hx Maternal Metabolic DO: No (06/29/2016 19:47:Nya Jj RN) Gen Hx Pt Father or FOB Defect: No (06/29/2016 19:47:Nya Jj RN) Gen Hx Other Genetic History: No (06/29/2016 19:47:Nya Jj RN) Gen Hx Drugs/Meds since LMP: No (06/29/2016 19:47:Nya Jj RN)
--- NOTE | 2016-10-25 07:56 | Admission Physical ---
Datetime Report Generated by CPN: 10/25/2016 07:56 CURRENT ADMISSION Hx Assessment: The History has been Reviewed and is Current Chief Complaint: Trauma/Fall Admit Plan: Observation/Evaluation ALLERGIES Medication Allergies: No Medication Allergies: No Known Allergies (09/25/2016) Latex: No Latex Allergies Food Allergies: NA Environmental Allergies: NA OBSTETRICAL HISTORY EDC: 11/07/2016 00:00 : 5 Para: 3 Term: 3 Gestational Diabetes: No Rh Sensitization: No Incompetent Cervix: No GRETCHEN: No Infertility: No ART Treatment: No Uterine Anomaly: No IUGR: No Hx Previous C/S: No Macrosomia: No Hx Loss/Stillborn: No PIH: No Hx : No Placenta Previa/Abruption: No Depression/PP Depression: Yes PTL/PROM: No Post Hemorrhage: No Obstetrical History Comments: G1: 2008 40 wk G2: 2010 41 wk G3: 2012 41 wk G4: 2014 missed SAB and emergency DNC G5: current CPS issues, will need d/c planning SEE RECORDS Alcohol: No Marijuana : No Cocaine: No Other Illicit Drugs: No Cigarettes: Former Smoker. [id number] MEDICAL HISTORY Diabetes: No Blood Transfusion: No Pulmonary Disease (Asthma, TB): No Breast Disease: No Hypertension: No Metallurgical Tester Surgery: No Heart Disease: No Hosp/Surgery: No Autoimmune Disorder: No Anesthetic Complications: No Kidney Disease: No Abnormal Pap Smear: No Neuro/Epilepsy: No Psychiatric Disorders: No Other Medical Diseases: No Hepatitis/Liver Disease: No Significant Family History: No Varicosities/Phlebitis: No Trauma/Violence : No Thyroid Dysfunction: No INFECTIOUS HISTORY Gonorrhea: Yes Genital Herpes: Yes Chlamydia: No Tuberculosis: No Syphilis: No Hepatitis: No HIV/AIDS Exposure: No Rash or Viral Illness: No HPV: No Infectious History Comments: 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
--- NOTE | 2016-10-25 08:00 | L&D Flow Sheet ---
LD Flowsheet Datetime Report Generated by CPN: 10/25/2016 08:00 Datetime: 10/25/2016 05:47 Stage of : Antepartum (Nya Coulter RN) Provider Reviewed Strip: Yes (Nya Coulter RN) Strip Reviewed by: Benita coulter RN (Nya Coulter RN) Communication: RN Reviewed Strip; Provider Orders Received; Call/Page Placed to Provider (Nya Coulter RN) Provider Notified (Name): Abby (Nya Coulter RN) Notification Reason: Status Update; Status; Membrane Status; Uterine Activity; Pain; Lab/Diagnostic Study (Nya Coulter RN) Communication Comments: Received orders for pt to DC, Pt may take tylenol for pain if needed, KIck counts, Term labor and trauma education given. Pt verbalized understanding. (Nya Coulter RN) Datetime: 10/25/2016 05:15 NBP Sys/Jud/Mean (mmHg): 99 (QS system process) : 54 (QS system process) : 69 (QS system process) Pulse: 73 (QS system process) Monitor Mode: External; Palpation (Crystal Trenton, RN) Frequency (min): 0 (Crystal Анна, RN) Resting Tone (Palpate): Relaxed (Crystal Trenton, RN) Monitor Mode: External US (Crystal Trenton, RN) FHR Baseline Rate : 130 (Crystal Анна, RN) Variability: Moderate 6-25 bpm (Crystal Анна, RN) Accelerations: 15X15 (Crystal Trenton, RN) Decelerations: None (Crystal Анна, RN) LaborFlag: Antepartum (QS system process) Datetime: 10/25/2016 04:56 I/O Interventions: Up to BR (Crystal Анна, RN) Datetime: 10/25/2016 04:15 Monitor Mode: External; Palpation (Crystal Trenton, RN) Frequency (min): 1 (Crystal Trenton, RN) Duration (sec): 110 (Crystal Trenton, RN) Resting Tone (Palpate): Relaxed (Crystal Анна, RN) Monitor Mode: External US (Crystal Trenton, RN) FHR Baseline Rate : 120 (Crystal Анна, RN) Variability: Moderate 6-25 bpm (Crystal Trenton, RN) Accelerations: 15X15 (Crystal Trenton, RN) Decelerations: None (Crystal Анна, RN) Datetime: 10/25/2016 03:15 NBP Sys/Jud/Mean (mmHg): 97 (QS system process) : 56 (QS system process) : 70 (QS system process) Pulse: 83 (QS system process) Monitor Mode: External (Crystal Анна, RN) Frequency (min): 0 (Crystal Trenton, RN) Resting Tone (Palpate): Relaxed (Crystal Анна, RN) Monitor Mode: External US (Crystal Trenton, RN) FHR Baseline Rate : 125 (Crystal Trenton, RN) Variability: Moderate 6-25 bpm (Crystal Trenton, RN) Accelerations: 15X15 (Crystal Анна, RN) Decelerations: None (Crystal Trenton, RN) LaborFlag: Antepartum (QS system process) Datetime: 10/25/2016 02:15 Monitor Mode: External (Crystal Trenton, RN) Frequency (min): 0 (Crystal Анна, RN) Resting Tone (Palpate): Relaxed (Crystal Анна, RN) Monitor Mode: External US (Crystal Trenton, RN) FHR Baseline Rate : 125 (Crystal Trenton, RN) Variability: Moderate 6-25 bpm (Crystal Trenton, RN) Accelerations: 15X15 (Crystal Trenton, RN) Decelerations: None (Crystal Анна, RN) Datetime: 10/25/2016 01:15 NBP Sys/Jud/Mean (mmHg): 107 (QS system process) : 53 (QS system process) : 73 (QS system process) Pulse: 76 (QS system process) Monitor Mode: External (Crystal Анна, RN) Frequency (min): 0 (Crystal Trenton, RN) Resting Tone (Palpate): Relaxed (Crystal Trenton, RN) Monitor Mode: External US (Crystal Анна, RN) FHR Baseline Rate : 120 (Crystal Анна, RN) Variability: Moderate 6-25 bpm (Crystal Анна, RN) Accelerations: 15X15 (Crystal Анна, RN) Decelerations: None (Crystal Анна, RN) LaborFlag: Antepartum (QS system process) Datetime: 10/25/2016 00:15 Monitor Mode: External; Palpation (Crystal Анна, RN) Frequency (min): 0 (Crystal Trenton, RN) Resting Tone (Palpate): Relaxed (Crystal Trenton, RN) Monitor Mode: External US (Crystal Анна, RN) FHR Baseline Rate : 120 (Crystal Trenton, RN) Variability: Moderate 6-25 bpm (Crystal Анна, RN) Accelerations: 15X15 (Crystal Trenton, RN) Decelerations: None (Crystal Анна, RN) Datetime: 10/25/2016 00:09 Stage of : Antepartum (Crystal Анна, RN) Medication Comments: Rhogam given right gluteus (Crystal Trenton, RN) Datetime: 10/24/2016 23:45 Provider Reviewed Strip: Yes (Nya Coulter RN) Communication: Provider Orders Received (Nya Coulter RN) Provider Notified (Name): Ne[place]en (Nya Coulter RN) Notification Reason: Lab/Diagnostic Study (Nya Coulter RN) Communication Comments: Received orders to give rhogam. (Nya Coulter, ROBERT) Datetime: 10/24/2016 23:27 Stage of : Antepartum (Nya Coulter, ROBERT) IV/Blood Work: KB negative (Nya [place]er[place], RN) Datetime: 10/24/2016 23:16 NBP Sys/Jud/Mean (mmHg): 93 (QS system process) : 53 (QS system process) : 65 (QS system process) Pulse: 83 (QS system process) LaborFlag: OB Triage (QS system process) Datetime: 10/24/2016 23:15 Monitor Mode: External; Palpation (Crystal Trenton, RN) Frequency (min): 0 (Crystal Trenton, RN) Resting Tone (Palpate): Relaxed (Crystal Trenton, RN) Monitor Mode: External US (Crystal Trenton, RN) FHR Baseline Rate : 130 (Crystal Trenton, RN) Variability: Moderate 6-25 bpm (Crystal Trenton, RN) Accelerations: 15X15 (Crystal Анна, RN) Decelerations: None (Crystal Анна, RN) Patient Position/Activity: Left Lateral; Semi-Fowlers (Crystal Анна, RN) Datetime: 10/24/2016 22:15 Monitor Mode: External US (Crystal Trenton, RN) Monitor Interventions for FHR: Ultrasound Adjusted (Crystal Trenton, RN) FHR Baseline Rate : 130 (Crystal Анна, RN) Variability: Moderate 6-25 bpm (Crystal Анна, RN) Accelerations: 15X15 (Crystal Анна, RN) Comments: Pt coughing and lying flat on her back. (Crystal Trenton, RN) Datetime: 10/24/2016 22:00 Monitor Mode: External; Palpation (Crystal Trenton, RN) Frequency (min): 0 (Crystal Анна, RN) Resting Tone (Palpate): Relaxed (Crystal Анна, RN) Monitor Mode: External US (Crystal Анна, RN) FHR Baseline Rate : 125 (Crystal Trenton, RN) Variability: Moderate 6-25 bpm (Crystal Анна, RN) Accelerations: 15X15 (Crystal Анна, RN) Decelerations: None (Crystal Trenton, RN) Patient Position/Activity: Left Lateral; Semi-Fowlers (Crystal Trenton, RN) Datetime: 10/24/2016 21:49 I/O Interventions: Clear Liquids Given (Crystal Trenton, RN) Patient Care Comments: Crackers given (Crystal Trenton, RN) Datetime: 10/24/2016 21:35 Temperature (F): 98.5 (Crystal Анна, RN) Temperature (C): 36.9 (QS system process) LaborFlag: OB Triage (QS system process) Datetime: 10/24/2016 21:02 Analgesics/Sedatives: Ambien (mg) @ 10 (Crystal Trenton, RN) Datetime: 10/24/2016 21:00 Monitor Mode: External; Palpation (Crystal Анна, RN) Frequency (min): 0 (Crystal Trenton, RN) Resting Tone (Palpate): Relaxed (Crystal Анна, RN) Monitor Mode: External US (Crystal Анна, RN) FHR Baseline Rate : 150 (Crystal Анна, RN) Variability: Moderate 6-25 bpm (Crystal Trenton, RN) Accelerations: 15X15 (Crystal Анна, RN) Decelerations: None (Crystal Анна, RN) Datetime: 10/24/2016 20:30 Stage of : OB Triage (Crystal Trenton, RN) Communication Comments: Pt taken off of the monitors to go to ultrasound. (Crystal Trenton, RN) Datetime: 10/24/2016 20:14 Communication: Provider at Bedside (Nya Coulter RN) Provider Notified (Name): Abby (Nya Coulter RN) Datetime: 10/24/2016 20:00 Stage of : OB Triage (Nya Coulter RN) Monitor Mode: External; Palpation (Nya Coulter RN) Frequency (min): 0 (Nya Coulter RN) Resting Tone (Palpate): Relaxed (Nya Coulter RN) Monitor Mode: External US (Nya Coulter RN) Monitor Interventions for FHR: Ultrasound Adjusted (Nya Coulter RN) FHR Baseline Rate : 130 (Nya Coulter RN) Variability: Moderate 6-25 bpm (Nya Coulter RN) Accelerations: 15X15 (Nya Coulter RN) Decelerations: None (Nya Coulter RN) Patient Position/Activity: Right Tilt; Semi-Fowlers (Nya Coulter RN) I/O Interventions: Clear Liquids Given (Nya Coulter RN) Provider Reviewed Strip: Yes (Nya Coulter RN) Strip Reviewed by: Benita coulter RN (Nya Coulter, RN) Communication: Call/Page Placed to Provider (Nya Coulter RN) Provider Notified (Name): Abby (Nya Coulter RN) Notification Reason: Status Update; Status; Labor Status; Membrane Status; Uterine Activity; Pain (Nya Coulter RN) Communication Comments: Report given on pt status. (Nya Coulter RN)
--- NOTE | 2016-10-30 16:35 | Antepartum Discharge Summary ---
Antepartum DC Datetime Report Generated by CPN: 10/30/2016 16:35 DIET/ACTIVITY/RESTRICTIONS Diet: Regular (10/25/2016 05:51:Crystal King Salmon, RN) Activity: Normal Activity (10/25/2016 05:51:Crystal Анна, RN) TEACHING/INSTRUCTIONS/REFERRALS Instructions Given To: Solange Cortezks (10/25/2016 05:51:Crystal Анна, RN) Instructions Understood: Patient Verbalized Understanding (10/25/2016 05:51:Crystal King Salmon, RN) Referrals: None (10/25/2016 05:51:Nya Jj RN) DISCHARGE INFORMATION Discharge Date/Time: 10/25/2016 05:52 (10/25/2016 05:51:Nya Jj RN) Discharged To: Home (10/25/2016 05:51:Nya Jj RN) Discharge Provider Name: [facility] (10/25/2016 05:51:Nya Jj RN) Discharge Method: Ambulatory (10/25/2016 05:51:Nya Jj RN) Condition: Stable (10/25/2016 05:51:Nya Jj RN) FOLLOW UP INFORMATION Follow Up With: [facility] (10/25/2016 05:51:Nya Jj RN) Follow Up On: As Scheduled (10/25/2016 05:51:Nya Jj RN) Follow Up Phone Number: [facility] - (10/25/2016 05:51:Nya Jj RN)
--- NOTE | 2016-10-30 16:40 | L&D Discharge Summary ---
OB Discharge Summary Datetime Report Generated by CPN: 10/30/2016 16:40 DISCHARGE DIAGNOSIS Diagnosis/Symptoms: False Labor; Trauma/Fall Diagnoses/Symptoms Other: Received orders for pt to DC, Pt may take tylenol for pain if needed, KIck counts, Term labor and trauma education given. Pt verbalized understanding Gestation: 38.1 Number of Babies in Womb: 1 Parity: 3 DIET/ACTIVITY/RESTRICTIONS Diet: Regular Activity: Normal Activity TEACHING/INSTRUCTIONS/REFERRALS Instructions Given To: Solange Hatfield Instructions Understood: Patient Verbalized Understanding Referrals: None Educational Materials- Other: Kick counts, dehydration, round ligament pain DISCHARGE INFORMATION Discharged AMA: No Discharge Date/Time: 10/25/2016 05:52 Discharged To: Home Discharge Provider Name: Neilsen Accompanied By: Self Discharge Method: Ambulatory Condition: Stable FOLLOW UP INFORMATION Follow Up With: [facility] Follow Up On: As Scheduled Follow Up Phone Number: [facility] - Comments: See flowsheet for education GENERAL INSTR-CALL PROVIDER IF: Contractions: Contractions or cramps become more frequent than 8 in one hour or 4 in 20 minutes Pressure: Pressure in your vagina or lower abdomen that may feel like the baby is pushing down Period Like Cramps: Period-like cramps or low dull backache that may come and go Cramps/Diarrhea: Abdominal cramps that may be accompanied by diarrhea Gush of Fluid/Blood: Gush of fluid or blood from your vagina (it is normal to have spotting after vaginal exam or intercourse) Vaginal Discharge: Change in the type or amount of vaginal discharge Decreased Movement: Your baby is not moving as much as usual- 4 movements in 1 hour after drinking and resting on side Temperature: Temperature greater than 100.0(F) orally
== END 2016-10-25 06:06 | disposition home or self-care (01) ==
LOC: LC 19:29 → LR 20:23
PROVIDERS: ADMIT Specialist; ATTEND Specialist
PROC: 4A1HXCZ Monitoring of Products of Conception, Cardiac Rate, External Approach (ICD-10-PCS; principal; 2016-10-24)
DX: Z34.93 Encounter for supervision of normal pregnancy, unspecified, third trimester (principal); Z3A.38 38 weeks gestation of pregnancy
CPT/HCPCS: 59025; 86900; 86901; 36415; 86870; 86850; 85025; 85610; 85730; 81005; 85460; 80307; 76815; G0378 ×2; G0379; J2790; J3490

== ENCOUNTER 2016-11-04 18:57 | Outpatient (CLI) | payer MEDICAID ==
[2016-11-04 19:46] LABS: APPEARANCE,URINE CLOUDY; BILIRUBIN,URINE NEGATIVE (NEGATIVE); GLUCOSE, URINE NEGATIVE (NEGATIVE); KETONES,URINE TRACE mg/dL (NEGATIVE); LEUKOCYTE ESTERASE,URINE MODERATE (NEGATIVE); NITRITE,URINE NEGATIVE (NEGATIVE); PROTEIN,URINE 30 mg/dL (NEGATIVE); URINE SPECIFIC GRAVITY 1.026; UROBILINOGEN,URINE NEGATIVE mg/dL (<2.0)
[2016-11-04 19:59] LABS: AMNISURE (ROM) NEGATIVE (NEGATIVE)
[2016-11-04 20:00] LABS: URINE BARBITURATES SCREEN NEGATIVE; URINE METHADONE SCREEN NEGATIVE; URINE PHENCYCLIDINE SCREEN NEGATIVE
--- NOTE | 2016-11-04 20:00 | L&D Flow Sheet ---
LD Flowsheet Datetime Report Generated by CPN: 11/04/2016 20:00 Datetime: 11/04/2016 19:48 NBP Sys/Jud/Mean (mmHg): 96 (QS system process) : 52 (QS system process) : 67 (QS system process) Pulse: 78 (QS system process) LaborFlag: Antepartum (QS system process) Datetime: 11/04/2016 19:37 Vaginal Exam Dilatation (cm): 2.0 (Constance Morales, RN) Effacement (%): 50 (Constance Morales, RN) Station: -2 (Constance Morales, RN) Exam by: B Morales, RN (Constance Morales, RN) Vaginal Bleeding: None (Constance Morales, RN) Cervix, Consistency: Moderate (Constance Morales, RN) Cervix, Position: Posterior (Constance Morales, RN) Datetime: 11/04/2016 19:30 Vital Signs Stage of : Antepartum (Constance Morales, RN) Uterine Activity Monitor Mode: External; Palpation (Constance Morales, RN) Frequency (min): x1 (Constance Morales, RN) Quality: Mild (Constance Morales, RN) Duration (sec): 120 (Constance Morales, RN) Pattern: Normal: <= 5 Contractions in 10 Minutes (Constance Morales, RN) Resting Tone (Palpate): Relaxed (Constance Morales, RN) Assessment A Monitor Mode: External US (Constance Morales, RN) FHR Baseline Rate : 140 (Constance Morales, RN) FHR Baseline Changes: No Baseline Change (Constance Morales, RN) Variability: Moderate 6-25 bpm (Constance Morales, RN) Accelerations: 15X15 (Constance Morales, RN) Decelerations: None (Constance Morales, RN) Communication Communication: RN at Bedside; RN Reviewed Strip (Constance Morales, RN) Datetime: 11/04/2016 19:18 NBP Sys/Jud/Mean (mmHg): 108 (QS system process) : 63 (QS system process) : 79 (QS system process) Pulse: 78 (QS system process) LaborFlag: Antepartum (QS system process) Datetime: 11/04/2016 19:17 Patient Care Patient Position/Activity: Left Tilt; Semi-Fowlers (Constance Morales, RN) Datetime: 11/04/2016 19:14 Pain Pain Scale: 3 (Constance Morales, RN) Pain Presence: Intermittent (Constance Morales, RN) Pain Type: Contraction (Constance Morales, RN) Pain Location: Abdomen (Constance Morales, RN) Pain Goal: 1 (Constance Morales, RN) Pain Relief Measures: Comfort Measures (Constance Morales, RN) Vaginal Bleeding: None (Constance Morales, RN) Maternal Assessment Level of Consciousness: Fully Conscious (Constance Morales, RN) DTR's/Clonus: DTRs 2+; No Clonus (Constance Morales, RN) Headache: Frontal (Constance Morales, RN) Breath Sounds, Left: Clear and Equal (Constance Morales, RN) Breath Sounds, Right: Clear and Equal (Constance Morales, RN) Nausea/Vomiting: Denies (Constance Morales, RN) RUQ Epigastric Pain: Denies (Constance Morales, RN) LaborFlag: Antepartum (QS system process) Datetime: 11/04/2016 19:13 Teaching Instructional Method: Verbal; Patient Instructed; Verbalized Understanding (Constance Morales, RN) Plan of Care: Plan of Care Discussed (Constance Morales RN) Unit Routine: [place] to Room; Call Pierre; Bed; Unit Personnel (Constance Morales RN)
--- NOTE | 2016-11-04 21:06 | Non Stress Test Report ---
Non Stress Test Datetime Report Generated by CPN: 11/04/2016 21:05 DEMOGRAPHIC EGA NST: 39.4 INDICATION Indication for Study: Ordered by Provider URINE RESULTS Urine Protein, NST: Positive Urine Ketones - NST: Positive Urine Glucose - NST: Negative Urine Blood - NST: Positive MONITORING Monitor Explained: Monitor Explained; Test Explained; Patient Verbalized Understanding Time on Monitor: 11/04/2016 19:13 Time off Monitor: 11/04/2016 20:46 NST Duration: 93 NST INTERVENTIONS NST Interventions: PO Hydration Physician Notified NST: [place] BABY A: [id number] BABY A Movement : Present Contraction Frequency : irregular FHR Baseline : 125 Accelerations : 15X15 Decelerations : None Variability : Moderate 6-25bpm NST Review: Meets Criteria for Reactive NST NST Review and Verified By : Anais Jerez RN NST Results: Reactive NST REPORT Report Trigger: Send Report
--- NOTE | 2016-11-05 04:46 | L&D Flow Sheet ---
LD Flowsheet Datetime Report Generated by CPN: 11/05/2016 04:45 Datetime: 11/04/2016 20:46 Vital Signs Stage of : Antepartum (Constance ROBERT Morales) NBP Sys/Jud/Mean (mmHg): 112 (QS system process) : 66 (QS system process) : 83 (QS system process) Pulse: 67 (QS system process) Respirations: 18 (Constance Morales RN) Temperature (F): 98.4 (Constance Morales, RN) Temperature (C): 36.9 (QS system process) Uterine Activity Monitor Mode: External; Palpation (Constance Morales, RN) Frequency (min): x1 (Constance Morales, RN) Quality: Mild (Constance Morales, RN) Duration (sec): 100 (Constance Morales, RN) Pattern: Normal: <= 5 Contractions in 10 Minutes (Constance Morales, RN) Resting Tone (Palpate): Relaxed (Constance Morales, RN) Assessment A Monitor Mode: External US (Constance Morales, RN) FHR Baseline Rate : 130 (Constance Morales, RN) FHR Baseline Changes: No Baseline Change (Constance Morales, RN) Variability: Moderate 6-25 bpm (Constance Morales, RN) Accelerations: 15X15 (Constance Morales, RN) Decelerations: None (Constance Morales, RN) Communication Communication: RN at Bedside; RN Reviewed Strip (Constance Morales, RN) LaborFlag: Antepartum (QS system process) Datetime: 11/04/2016 20:44 Vaginal Exam Dilatation (cm): 2.0 (Constance Morales, RN) Effacement (%): 50 (Constance Morales, RN) Station: -2 (Constance Morales, RN) Exam by: B ROBERT Morales (Constance Morales, RN) Vaginal Bleeding: None (Constance Morales, RN) Cervix, Consistency: Moderate (Constance Morales, RN) Cervix, Position: Posterior (Constance Morales, RN) Datetime: 11/04/2016 20:32 Monitor Interventions for FHR: Ultrasound Adjusted (Constance Morales, RN) Datetime: 11/04/2016 20:30 Vital Signs Stage of : Antepartum (Constance Morales, RN) Uterine Activity Monitor Mode: External (Constance Morales, RN) Frequency (min): x3 (Constance Morales, RN) Quality: Mild (Constance Morales, RN) Duration (sec): 90-120 (Constance Morales, RN) Pattern: Normal: <= 5 Contractions in 10 Minutes (Constance Morales, RN) Resting Tone (Palpate): Relaxed (Constance Morales, RN) Assessment A Monitor Mode: External US (Constance Morales, RN) FHR Baseline Rate : 125 (Constance Morales, RN) FHR Baseline Changes: No Baseline Change (Constance Morales, RN) Variability: Moderate 6-25 bpm (Constance Morales, RN) Accelerations: 15X15 (Constance Morales, RN) Decelerations: None (Constance Morales, RN) Pain Pain Scale: 2 (Constance Morales, RN) Pain Presence: Intermittent (Constance Morales, RN) Pain Type: Contraction (Constance Morales, RN) Pain Location: Abdomen (Constance Morales, RN) Pain Goal: 1 (Constance Morales, RN) Pain Relief Measures: Comfort Measures (Constance Morales, RN) Pain Coping: Talking Through Contractions (Constance Morales, RN) Comfort Measures: Breathing/Relaxation (Constance Morales, RN) Communication Communication: RN at Bedside; RN Reviewed Strip (Constance Morales, RN) LaborFlag: Antepartum (QS system process) Datetime: 11/04/2016 20:27 Patient Care Patient Position/Activity: Right Tilt; Semi-Fowlers (Constance Morales, RN) Datetime: 11/04/2016 20:18 NBP Sys/Jud/Mean (mmHg): 101 (QS system process) : 61 (QS system process) : 75 (QS system process) Pulse: 82 (QS system process) LaborFlag: Antepartum (QS system process) Datetime: 11/04/2016 20:12 Communication Communication: Provider Orders Received (Constance Morales, RN) Communication Comments: Report given to Zunilda Francine re: patient pain, contraction pattern, Cervical exams, and FHR status. Orders received to recheck cervix at 2040 and D/C home if exam unchanged. Return PRN. (Constance Morales, RN) Datetime: 11/04/2016 20:00 Vital Signs Stage of : Antepartum (Constance Morales, RN) Uterine Activity Monitor Mode: External; Palpation (Constance Morales, RN) Frequency (min): 5-8 (Constance Morales, RN) Quality: Mild (Constance Morales, RN) Duration (sec): 90-120 (Constance Morales, RN) Pattern: Normal: <= 5 Contractions in 10 Minutes (Constance Morales, RN) Resting Tone (Palpate): Relaxed (Constance Morales, RN) Assessment A Monitor Mode: External US (Constance Morales, RN) FHR Baseline Rate : 125 (Constance Morales, RN) FHR Baseline Changes: No Baseline Change (Constance Morales, RN) Variability: Moderate 6-25 bpm (Constance Morales, RN) Accelerations: 15X15 (Constance Morales, RN) Decelerations: None (Constance Morales, RN) Communication Communication: RN at Bedside; RN Reviewed Strip (Constance Morales, RN) Datetime: 11/04/2016 19:48 NBP Sys/Jud/Mean (mmHg): 96 (QS system process) : 52 (QS system process) : 67 (QS system process) Pulse: 78 (QS system process) LaborFlag: Antepartum (QS system process) Datetime: 11/04/2016 19:37 Vaginal Exam Dilatation (cm): 2.0 (Constance Morales, RN) Effacement (%): 50 (Constance Morales, RN) Station: -2 (Constance Morales, RN) Exam by: B Morales, RN (Constance Morales, RN) Vaginal Bleeding: None (Constance Morales, RN) Cervix, Consistency: Moderate (Constance Morales, RN) Cervix, Position: Posterior (Constance Morales, RN) Datetime: 11/04/2016 19:30 Vital Signs Stage of : Antepartum (Constance Morales, RN) Uterine Activity Monitor Mode: External; Palpation (Constance Morales, RN) Frequency (min): x1 (Constance Morales, RN) Quality: Mild (Constance Morales, RN) Duration (sec): 120 (Constance Morales, RN) Pattern: Normal: <= 5 Contractions in 10 Minutes (Constance Morales, RN) Resting Tone (Palpate): Relaxed (Constance Morales, RN) Assessment A Monitor Mode: External US (Constance Morales, RN) FHR Baseline Rate : 140 (Constance Morales, RN) FHR Baseline Changes: No Baseline Change (Constance Morales, RN) Variability: Moderate 6-25 bpm (Constance Morales, RN) Accelerations: 15X15 (Constance Morales, RN) Decelerations: None (Constance Morales, RN) Communication Communication: RN at Bedside; RN Reviewed Strip (Constance Morales, RN) Datetime: 11/04/2016 19:18 NBP Sys/Jud/Mean (mmHg): 108 (QS system process) : 63 (QS system process) : 79 (QS system process) Pulse: 78 (QS system process) LaborFlag: Antepartum (QS system process) Datetime: 11/04/2016 19:17 Patient Care Patient Position/Activity: Left Tilt; Semi-Fowlers (Constance Morales, RN) Datetime: 11/04/2016 19:14 Pain Pain Scale: 3 (Constance Morales, RN) Pain Presence: Intermittent (Constance Morales, RN) Pain Type: Contraction (Constance Morales, RN) Pain Location: Abdomen (Constance Morales, RN) Pain Goal: 1 (Constance Morales, RN) Pain Relief Measures: Comfort Measures (Constance Morales, RN) Vaginal Bleeding: None (Constance Morales, RN) Maternal Assessment Level of Consciousness: Fully Conscious (Constance Morales, RN) DTR's/Clonus: DTRs 2+; No Clonus (Constance Morales, RN) Headache: Frontal (Constance Morales, RN) Breath Sounds, Left: Clear and Equal (Constance Morales RN) Breath Sounds, Right: Clear and Equal (Constance Morales RN) Nausea/Vomiting: Denies (Constance Morales RN) RUQ Epigastric Pain: Denies (Constance Morales RN) LaborFlag: Antepartum (QS system process) Datetime: 11/04/2016 19:13 Teaching Instructional Method: Verbal; Patient Instructed; Verbalized Understanding (Constance Morales RN) Plan of Care: Plan of Care Discussed (Constance Morales RN) Unit Routine: [place] to Room; Call Pierre; Bed; Unit Personnel (Constance Morales RN)
--- NOTE | 2016-11-05 04:46 | L&D Discharge Summary ---
OB Discharge Summary Datetime Report Generated by CPN: 11/05/2016 04:45 DISCHARGE DIAGNOSIS Diagnosis/Symptoms: False Labor Diagnoses/Symptoms Other: negative amnisure Gestation: 39.4 Number of Babies in Womb: 1 Parity: 3 DIET/ACTIVITY/RESTRICTIONS Diet: Regular Activity: Normal Activity TEACHING/INSTRUCTIONS/REFERRALS Instructions Given To: Patient Instructions Understood: Patient Verbalized Understanding Referrals: None Educational Materials- Other: Kick Counts and Round ligament pain DISCHARGE INFORMATION Discharged AMA: No Discharge Date/Time: 11/04/2016 20:58 Discharged To: Home Discharge Provider Name: Escamilla Accompanied By: self Discharge Method: Ambulatory (Annotations: Data stored by N on behalf of user) Condition: Stable FOLLOW UP INFORMATION Follow Up With: [facility] Follow Up On: As Scheduled Follow Up Phone Number: [facility] - Comments: Patient without questions at this time. Advised patient to return for decreased movement, bleeding like a period, leaking of fluid, and/or contractions every 5 minutes for an hour. GENERAL INSTR-CALL PROVIDER IF: Contractions: Contractions or cramps become more frequent than 8 in one hour or 4 in 20 minutes Pressure: Pressure in your vagina or lower abdomen that may feel like the baby is pushing down Period Like Cramps: Period-like cramps or low dull backache that may come and go Cramps/Diarrhea: Abdominal cramps that may be accompanied by diarrhea Gush of Fluid/Blood: Gush of fluid or blood from your vagina (it is normal to have spotting after vaginal exam or intercourse) Vaginal Discharge: Change in the type or amount of vaginal discharge Decreased Movement: Your baby is not moving as much as usual- 4 movements in 1 hour after drinking and resting on side Temperature: Temperature greater than 100.0(F) orally
--- NOTE | 2016-11-05 04:46 | L&D Admission Assessment ---
LD ADM ASMT Datetime Report Generated by CPN: 11/05/2016 04:45 PATIENT ASSESSMENT Assessment Type: Triage (11/04/2016 19:14:Constance Morales, RN) WEIGHT Weight (lb): 176 (11/04/2016 19:08:QS system process) Weight (kg): 80.0 (11/04/2016 19:08:QS system process) BMI: 32.2 (11/04/2016 19:08:QS system process) PAIN Pain Scale: 2 (11/04/2016 20:30:Constance Morales, RN) Pain Scale: 3 (11/04/2016 19:14:Constance Morales, RN) Pain Presence: Intermittent (11/04/2016 20:30:Constance Morales, RN) Pain Presence: Intermittent (11/04/2016 19:14:Constance Morales, RN) Pain Type: Contraction (11/04/2016 20:30:Constance Morales, RN) Pain Type: Contraction (11/04/2016 19:14:Constance Morales, RN) Pain Location: Abdomen (11/04/2016 20:30:Constance Morales, RN) Pain Location: Abdomen (11/04/2016 19:14:Constance Morales, RN) Pain Goal: 1 (11/04/2016 20:30:Constance Morales, RN) Pain Goal: 1 (11/04/2016 19:14:Constance Morales, RN) Pain Related to Contraction: Yes (11/04/2016 19:14:Constance Morales, RN) CONTRACTIONS Frequency (min): x1 (11/04/2016 20:46:Constance Morales, RN) Frequency (min): x3 (11/04/2016 20:30:Constance Morales, RN) Frequency (min): 5-8 (11/04/2016 20:00:Constance Morales, RN) Frequency (min): x1 (11/04/2016 19:30:Constance Morales, RN) Duration (sec): 100 (11/04/2016 20:46:Constance Morales, RN) Duration (sec): 90-120 (11/04/2016 20:30:Constance Morales, RN) Duration (sec): 90-120 (11/04/2016 20:00:Constance Morales, RN) Duration (sec): 120 (11/04/2016 19:30:Constance Morales, RN) Quality: Mild (11/04/2016 20:46:Constance Morales, RN) Quality: Mild (11/04/2016 20:30:Constance Morales, RN) Quality: Mild (11/04/2016 20:00:Constance Morales, RN) Quality: Mild (11/04/2016 19:30:Constance Morales, RN) Pattern: Normal: <= 5 Contractions in 10 Minutes (11/04/2016 20:46:Constance Morales, RN) Pattern: Normal: <= 5 Contractions in 10 Minutes (11/04/2016 20:30:Constance Morales, RN) Pattern: Normal: <= 5 Contractions in 10 Minutes (11/04/2016 20:00:Constance Morales, RN) Pattern: Normal: <= 5 Contractions in 10 Minutes (11/04/2016 19:30:Constance Morales, RN) Resting Tone [place]: Relaxed (11/04/2016 20:46:Constance Morales, RN) Resting Tone [place]: Relaxed (11/04/2016 20:30:Constance Morales, RN) Resting Tone [place]: Relaxed (11/04/2016 20:00:Constance Morales, RN) Resting Tone [place]: Relaxed (11/04/2016 19:30:Constance Morales, RN) VAGINAL EXAM Dilatation (cm): 2.0 (11/04/2016 20:44:Constance Morales, RN) Dilatation (cm): 2.0 (11/04/2016 19:37:Constance Morales, RN) Effacement (%): 50 (11/04/2016 20:44:Constance Morales, RN) Effacement (%): 50 (11/04/2016 19:37:Constance Morales, RN) Station: -2 (11/04/2016 20:44:Constance Morales, RN) Station: -2 (11/04/2016 19:37:Constance Morales, RN) NEURO Level of Consciousness: Fully Conscious (11/04/2016 19:14:Constance Morales, RN) DTR's/Clonus: DTRs 2+; No Clonus (11/04/2016 19:14:Constance Morales, RN) Headache: Frontal (11/04/2016 19:14:Constance Morales, RN) Dizziness: No (11/04/2016 19:14:Constance Morales, RN) Blurred Vision: No (11/04/2016 19:14:Constance Morales RN) Extremity Numbness/Tingling : None (11/04/2016 19:14:Constance Morales RN) Extremity Movement: Full Range of Motion (11/04/2016 19:14:Constance Morales, RN) CARDIOVASCULAR Heart Rhythm: Regular (11/04/2016 19:14:Constance Morales RN) Nailbeds: [place] (11/04/2016 19:14:Constance Morales RN) Capillary Refill: Less than 3 Seconds (11/04/2016 19:14:Constance Morales RN) Lower Extremities Edema: Bilateral Lower Extremities (11/04/2016 19:14:Constance Morales RN) Lower Extremities Edema Degree: Pitting; 1+ (11/04/2016 19:14:Constance Morales RN) Upper Extremities Edema: None (11/04/2016 19:14:Constance Morales RN) Upper Extremities Edema Degree: None (11/04/2016 19:14:Constance Morales RN) Facial Edema: None (11/04/2016 19:14:Constance Morales RN) Elif's Sign Left Leg: Negative (11/04/2016 19:14:Constance Morales RN) Elif's Sign Right Leg: Negative (11/04/2016 19:14:Constance Morales RN) DVT RISK ASSESSMENT DVT Risk Age: Age less than 41 years (11/04/2016 19:14:Constance Morales RN) DVT Risk BMI: BMI<31 (11/04/2016 19:14:Constance Morales RN) DVT Risk Surgery: None Applicable (11/04/2016 19:14:Constance Morales RN) DVT Risk Other: Women Only- or (<1 month) (11/04/2016 19:14:Constance Morales RN) DVT Risk Total: 1 (11/04/2016 19:14:QS system process) DVT Risk Text: Low Risk (<10%) No specific measures, early ambulation (11/04/2016 19:14:QS system process) RESPIRATORY Respiratory Effort: Unlabored; Regular Rhythm; Equal Expansion (11/04/2016 19:14:Constance Morales, RN) Breath Sounds, Left: Clear and Equal (11/04/2016 19:14:Constance Morales, RN) Breath Sounds, Right: Clear and Equal (11/04/2016 19:14:Constance Morales, RN) Cough Productivity: None (11/04/2016 19:14:Constance Morales, RN) GASTROINTESTINAL Nausea/Vomiting: Denies (11/04/2016 19:14:Constance Morales, RN) Bowel Sounds: Normoactive; All Quadrants (11/04/2016 19:14:Constance Morales, RN) RUQ Epigastric Pain: Denies (11/04/2016 19:14:Constance Morales, RN) Bowel Patterns: Constipation (11/04/2016 19:14:Constance Morales, RN) Hemorrhoids: None (11/04/2016 19:14:Constance Morales, RN) Diet Type: Regular diet (11/04/2016 19:14:Constance Morales, RN) Last Meal: 11/04/2016 13:00 (11/04/2016 19:14:Constance Morales, RN) GENITOURINARY Bladder: Nondistended (11/04/2016 19:14:Constance Morales, RN) Frequency of Urination: No (11/04/2016 19:14:Constance Morales, RN) Urination Burning: No (11/04/2016 19:14:Constance Morales, RN) CVA Tenderness: No (11/04/2016 19:14:Constance Morales, RN) INTEGUMENTARY Skin Color: Normal for Race (11/04/2016 19:14:Constance Morales RN) Skin Temperature: Warm (11/04/2016 19:14:Constance Morales, RN) Skin Moisture: Dry (11/04/2016 19:14:Constance Morales, RN) Body Piercings/Tattoos: none Tattoos- x12 (11/04/2016 19:14:Constance Morales, RN) KARLENE SKIN ASSESSMENT Karlene Scale Sensory Perception: No Impairment- Responds to verbal commands. Has no sensory deficit which would limit ability to feel or voice pain or discomfort (11/04/2016 19:14:Constance Morales RN) Karlene Scale Moisture: Rarely Moist- Skin is usually dry. Linen only requires changing at routine intervals (11/04/2016 19:14:Constance Morales RN) Karlene Scale Activity: Walks Frequently- Walks outside the room at least twice a day and inside room at least every 2 hours during the day. (11/04/2016 19:14:Constance Morales RN) Karlene Scale Mobility: No Limitations- Makes major and frequent changes in position without assistance (11/04/2016 19:14:Constance Morales RN) Karlene Scale Nutrition: Excellent- Eats most of every meal. Never refuses a meal. Usually eats a total of 4 or more servings of meat and dairy products. Occasionally eats between meals. Does not require supplementation (11/04/2016 19:14:Constance Morales RN) Karlene Scale Friction and Shear: No Apparent Problem- Moves in bed and in chair independently and has sufficient muscle strength to lift up completely during move. Maintains good position in bed or chair at all times (11/04/2016 19:14:Constance Morales RN) Karlene Scale Total: 23 (11/04/2016 19:14:QS system process) Karlene Scale Risk: No Risk of Pressure Ulcer Noted at this Time (11/04/2016 19:14:QS system process) SUPPORT Emotional State: Calm/Relaxed (11/04/2016 19:14:Constance Morales RN) SAFETY Call Pierre Within Reach: Yes (11/04/2016 19:14:Constance Morales RN) Side Rails Up: Yes (11/04/2016 19:14:Constance Morales RN) Bed Wheels Locked: Yes (11/04/2016 19:14:Constance Morales RN) Arm Bands Present: Yes (11/04/2016 19:14:Constance Morales RN) Isolation: [place] (11/04/2016 19:14:Constance Morales RN) FALL SCREEN Fall Risk History of Falling: (0) No (11/04/2016 19:14:Constance Morales RN) Fall Risk Secondary Diagnosis: (0) No (11/04/2016 19:14:Constance Morales RN) Fall Risk Ambulatory Aid: (0) None/Bedrest/Wheelchair/Nurse Assist (11/04/2016 19:14:Constance Morales RN) Fall Risk IV Therapy: (0) No (11/04/2016 19:14:Constance Morales RN) Fall Risk Gait: (0) Normal/Bedrest/Immobile (11/04/2016 19:14:Constance Morales RN) Fall Risk Mental Status: (0) Oriented to Own Ability (11/04/2016 19:14:Constance Morales RN) Fall Risk Score: 0 (11/04/2016 19:14:QS system process) Fall Risk Score Definition: No Risk: No action required (11/04/2016 19:14:QS system process) RECENT TRAVEL/INFECTIOUS DISEASE Recent Exp Communicable Disease: No (11/04/2016 19:14:Constance Morales RN) Cough or Fever: No (11/04/2016 19:14:Constance Mroales RN) Foreign Travel Past 10 Days: No (11/04/2016 19:14:Constance Morales RN) Open Wounds or Sores: No (11/04/2016 19:14:Constance Morales RN) Prior Antibiotic Resistance Tx: No (11/04/2016 19:14:Constance Morlaes RN) Cultures Obtained: Not Applicable (11/04/2016 19:14:Constance Morales RN) Isolation Initiated: No (11/04/2016 19:14:Constance Morales RN) Pt/Family Education: Handwashing Hygiene (11/04/2016 19:14:Constacne Morales RN) BABY A FHR Baseline Rate (bpm) Baby A: 130 (11/04/2016 20:46:Constancejimmy Morales RN) FHR Baseline Rate (bpm) Baby A: 125 (11/04/2016 20:30:Constance Morales RN) FHR Baseline Rate (bpm) Baby A: 125 (11/04/2016 20:00:Constance Morales RN) FHR Baseline Rate (bpm) Baby A: 140 (11/04/2016 19:30:Constance Morales RN) Variability Baby A: Moderate 6-25 bpm (11/04/2016 20:46:Constance Morales RN) Variability Baby A: Moderate 6-25 bpm (11/04/2016 20:30:Constance Morales RN) Variability Baby A: Moderate 6-25 bpm (11/04/2016 20:00:Constance Moralse RN) Variability Baby A: Moderate 6-25 bpm (11/04/2016 19:30:Constance Morales RN) Accelerations Baby A: 15X15 (11/04/2016 20:46:Constance Morales RN) Accelerations Baby A: 15X15 (11/04/2016 20:30:Constance Morales RN) Accelerations Baby A: 15X15 (11/04/2016 20:00:Constance Morales RN) Accelerations Baby A: 15X15 (11/04/2016 19:30:Constance Morales RN) Decelerations Baby A: None (11/04/2016 20:46:Constance Morales RN) Decelerations Baby A: None (11/04/2016 20:30:Constance Morales RN) Decelerations Baby A: None (11/04/2016 20:00:Constance Morales RN) Decelerations Baby A: None (11/04/2016 19:30:Constance Morales RN)
--- NOTE | 2016-11-05 04:46 | L&D Current Admission ---
Current Admit Datetime Report Generated by CPN: 11/05/2016 04:45 ADMISSION INFORMATION Chief Complaint: Contractions (11/04/2016 19:14:Constance Morales, RN)
--- NOTE | 2016-11-05 04:46 | L&D General Admission ---
General Admit Datetime Report Generated by CPN: 11/05/2016 04:45 INFORMATION Para: 3 (11/04/2016 20:53:Constance Morales, RN) Para: 3 (10/25/2016 05:51:Crystal Boron, RN) Baby, Number in Womb: 1 (11/04/2016 20:53:Constance Morales, RN) Baby, Number in Womb: 1 (10/25/2016 05:51:Crystal Boron, RN) CARE Height (in): 62 (11/04/2016 19:08:QS system process) ALLERGIES Medication Allergies: No Known Allergies (11/04/2016) (11/04/2016 19:07:QS system process)
--- NOTE | 2016-11-05 04:46 | Antepartum Discharge Summary ---
Antepartum DC Datetime Report Generated by CPN: 11/05/2016 04:45 DIET/ACTIVITY/RESTRICTIONS Diet: Regular (11/04/2016 20:53:Constance Morales, RN) Activity: Normal Activity (11/04/2016 20:53:Constance Morales, RN) TEACHING/INSTRUCTIONS/REFERRALS Instructions Given To: Patient (11/04/2016 20:53:Constance Morales, RN) Instructions Understood: Patient Verbalized Understanding (11/04/2016 20:53:Constance Morales, RN) Referrals: None (11/04/2016 20:53:Constance Morales RN) Educational Materials- Other: Kick Counts and Round ligament pain (11/04/2016 20:53:Constance Morales RN) DISCHARGE INFORMATION Discharged AMA: No (11/04/2016 20:53:Constance Morales RN) Discharge Date/Time: 11/04/2016 20:58 (11/04/2016 20:53:Constance Morales RN) Discharged To: Home (11/04/2016 20:53:Constance Morales RN) Discharge Provider Name: Escamilla (11/04/2016 20:53:Constance Morales RN) Accompanied By: self (11/04/2016 20:53:Constance Morales RN) Discharge Method: Ambulatory (Annotations: Data stored by N on behalf of user) (11/04/2016 20:53:Constance Morales RN) Condition: Stable (11/04/2016 20:53:Constance Morales RN) FOLLOW UP INFORMATION Follow Up With: [facility] (11/04/2016 20:53:Constance Morales RN) Follow Up On: As Scheduled (11/04/2016 20:53:Constance Morales RN) Comments: Patient without questions at this time. Advised patient to return for decreased movement, bleeding like a period, leaking of fluid, and/or contractions every 5 minutes for an hour. (11/04/2016 20:53:Constance Morales RN)
== END 2016-11-04 20:58 | disposition home or self-care (01) ==
LOC: LC 18:57
PROVIDERS: ATTEND Student in an Organized Health Care Education/Training Program
PROC: 4A1HXCZ Monitoring of Products of Conception, Cardiac Rate, External Approach (ICD-10-PCS; principal; 2016-11-04)
DX: O47.1 False labor at or after 37 completed weeks of gestation (principal); Z3A.39 39 weeks gestation of pregnancy
CPT/HCPCS: 80307; 81005; 84112

== ENCOUNTER 2016-11-06 06:04 | Inpatient (IN) | payer MEDICAID ==
[~2016-11-06 06:04] MED LIST: PENICILLIN G POTASSIUM 5,000,000 UNIT in DEXTROSE 5%-WATER 100 ML IV ONE
[2016-11-06] MEDS ORDERED: OXYTOCIN/NORMAL SALINE 20 UNIT/1,000 ML RTUINJ ONE (06:12)
[2016-11-06] MEDS ORDERED: PENICILLIN G-K 5 MILLION UNIT VIAL ONE ×2 (06:12→11:48)
--- NOTE | 2016-11-06 06:23 | L&D General Admission ---
General Admit Datetime Report Generated by CPN: 11/06/2016 06:00 INFORMATION Patient Age: 24 (09/27/2014 15:47:QS system process) EDC: 11/07/2016 00:00 (06/29/2016 19:47:Nya Jj RN) : 5 (06/29/2016 19:47:Nya Jj RN) Para: 3 (11/04/2016 20:53:Constance Morales RN) Term: 3 (06/29/2016 19:47:Nya Jj RN) : 0 (06/29/2016 19:47:Constance Morales RN) Spontaneous Abortions: 0 (06/29/2016 19:47:Constance Morales RN) Induced Abortions: 1 (06/29/2016 19:47:Constance Morales RN) Livin (06/29/2016 19:47:Constance Morales RN) Cesareans: 0 (06/29/2016 19:47:Constance Morales RN) VBACs: 0 (06/29/2016 19:47:Constance Morales RN) Ectopic: 0 (06/29/2016 19:47:Constance Morales RN) Multiple Births: 0 (06/29/2016 19:47:Constance Morales RN) Baby, Number in Womb: 1 (11/04/2016 20:53:Consatnce Morales RN) CARE Primary Supervisor Powdered Metal: [facility] (06/29/2016 19:47:Nya Jj RN) Adequate Care: Yes (06/29/2016 19:47:Nya Jj RN) Height (in): 62 (11/04/2016 19:08:QS system process) ALLERGIES Medication Allergy: No (06/29/2016 19:47:Nya Jj RN) Medication Allergies: No Known Allergies (11/04/2016) (11/04/2016 19:07:QS system process) Latex Allergy: No Latex Allergies (06/29/2016 19:47:Nya Jj RN) Food Allergies: NA (06/29/2016 19:47:Nya Jj RN) Environmental Allergies: NA (06/29/2016 19:47:Crystal Анна, RN) COMMUNICATION Primary Language: Egyptian (06/29/2016 19:47:Nya Jj RN) Medical Tx Preferred Language: Egyptian (06/29/2016 19:47:Crystal Анна RN) DEMOGRAPHICS Address: [address] [place] [id number] (06/22/2016 16:50:QS system process) Zipcode: [address] (09/27/2014 15:47:QS system process) Home (06/22/2016 16:50:QS system process) Work (08/15/2016 18:25:QS system process) SSN: [id number] (09/27/2014 15:47:QS system process) Next of Kin Name: ZAFAR ROLLE (04/21/2016 15:55:QS system process) Next of Kin (04/21/2016 15:55:QS system process) Next of Kin Relationship: MO (04/21/2016 15:55:QS system process) Date of : 1990 (09/27/2014 15:47:QS system process) Marital Status: Single (09/27/2014 15:47:QS system process) Sex: Female (09/27/2014 15:47:QS system process) Race: (09/27/2014 15:47:QS system process) Ethnicity: Non- or (09/27/2014 15:47:QS system process) Yarsanism: None (04/21/2016 15:55:QS system process) DRUG AND ALCOHOL USE Alcohol: No (06/29/2016 19:47:Nya Jj RN) Cigarettes: Former Smoker. [id number] (06/29/2016 19:47:Nya Jj RN) Marijuana: No (06/29/2016 19:47:Nya Jj RN) Cocaine: No (06/29/2016 19:47:Nya jJ RN) Other Illicit Drugs: No (06/29/2016 19:47:Nya Jj RN) VACCINE HISTORY Influenza Vaccine: Uncertain (06/29/2016 19:47:Nya Jj RN) Influenza Date: 2012 (06/29/2016 19:47:Nya Jj RN) Pneumococcal Vaccine: Uncertain (06/29/2016 19:47:Nya Jj RN) Tetanus Vaccine: Uncertain (06/29/2016 19:47:Nya Jj RN) Tdap Vaccine: Uncertain (06/29/2016 19:47:Nya Jj RN) Hepatitis B Vaccine: Uncertain (06/29/2016 19:47:Nya Jj RN) Outdoor Studies Professor: [facility] (06/29/2016 19:47:Nya Jj RN) Feeding Preference: Formula (06/29/2016 19:47:Nya Jj RN) Benefit of Breast Feed Discussed: Yes (06/29/2016 19:47:Nya Jj RN) Circumcision: N/A (06/29/2016 19:47:Nya Jj RN) Classes Attended: No (06/29/2016 19:47:Nya Jj RN) Tubal Ligation: Yes (06/29/2016 19:47:yNa Jj RN) Tubal Authorization Signed: No (06/29/2016 19:47:Nya Jj RN) Consent: N/A (06/29/2016 19:47:Nya Jj RN) Consent Signed: N/A (06/29/2016 19:47:Nya Jj RN) Pain Management Plans: Natural (06/29/2016 19:47:Nya Jj RN) Plans for Labor and Delivery: None (06/29/2016 19:47:Nya Jj RN) Support Person: Ca Rolle (06/29/2016 19:47:Nya Jj RN) Support Person Relationship: Mother (06/29/2016 19:47:Nya Jj RN) Cultural/Spritual Practice: No (06/29/2016 19:47:Nya Jj RN) Spir/Cult Dietary Needs: No (06/29/2016 19:47:Nya Jj RN) LIVING SITUATION/DISCHARGE PLAN Living Arrangements: House (06/29/2016 19:47:Nya Jj RN) Adequate Access to:: Electric; Heat; Refrigeration; Plumbing/Running water; Phone; Transportation (06/29/2016 19:47:Nya Jj RN) WIC Program: Yes (06/29/2016 19:47:Nya Jj RN) Discharge Fishing Rod Trimmer Person: Ca Rolle (06/29/2016 19:47:Nya Jj RN) Person to Help after Discharge: Ca Rolle (06/29/2016 19:47:Nya Jj RN) Currently Using Commun Resources: Yes (06/29/2016 19:47:Nya Jj RN) Outside Agency/Remote Control Assembler: No (06/29/2016 19:47:Nya Jj RN) Car Seat for Discharge: N/A (06/29/2016 19:47:Nya Jj RN) Adoption Requested: No (06/29/2016 19:47:Nya Jj RN) Pt Contact w/ Post : N/A (06/29/2016 19:47:Nya Jj RN) LABS Blood Type: O Negative (06/29/2016 19:47:Nerissa Strickland RN) Antibody Screen: negative (06/29/2016 19:47:Nerissa Strickland RN) Rho(G) this : Yes (06/29/2016 19:47:Laney Lozada RN) Date Rho(G) Given: 10/25/2016 (06/29/2016 19:47:Nya Jj RN) Hemoglobin: 11.4 L (10/24/2016 21:09:QS system process) Hematocrit: 33.9 L (10/24/2016 21:09:QS system process) MCV: 87 (10/24/2016 21:09:QS system process) Group Beta Strep: positive (Annotations: Data stored by N on behalf of user) (06/29/2016 19:47:Bev Kerr RN) Gonorrhea: Negative (06/29/2016 19:47:Nerissa Strickland RN) Chlamydia: Negative (06/29/2016 19:47:Nerissa Strickland RN) RPR/VDRL: Nonreactive (06/29/2016 19:47:Sherlyn Jerez RN) HIV Results: Negative (06/29/2016 19:47:Nerissa Strickland RN) Hepatitis B: Negative (06/29/2016 19:47:Nerissa Strickland RN) Herpes Culture: Positive (06/29/2016 19:47:Nya Jj RN) Rubella: Immune (06/29/2016 19:47:Nerissa Strickland RN) Varicella: Non Susceptible (06/29/2016 19:47:Nerissa Strickland RN) OB/PREVIOUS HISTORY Previous Procedures: Ultrasound; NST (06/29/2016 19:47:Constance Morales RN) Current Procedures: Ultrasound; NST (06/29/2016 19:47:Constance Morales RN) History of Previous : No (06/29/2016 19:47:Nya Jj RN) History of Gestational Diabetes: No (06/29/2016 19:47:Nya Jj RN) History of PIH: No (06/29/2016 19:47:Nya Jj RN) History of Incompetent Cervix: No (06/29/2016 19:47:yNa Jj RN) History of Placenta Previa/Abrup: No (06/29/2016 19:47:Nya Jj RN) History of Macrosomia: No (06/29/2016 19:47:Nya Jj RN) History of IUGR: No (06/29/2016 19:47:Nya Jj RN) History of Hemorrhage: No (06/29/2016 19:47:Nya Jj RN) History of Loss/Stillborn: No (06/29/2016 19:47:Nya Jj RN) History of : No (06/29/2016 19:47:Nya Jj RN) History of D (Rh) Sensitization: No (06/29/2016 19:47:Nya Jj RN) History Recurrent Loss/Stillborn: No (06/29/2016 19:47:Nya Jj RN) History Depression/PP Depression: Yes (06/29/2016 19:47:Nerissa Strickland RN) History of Uterine Anomaly/GRETCHEN: No (06/29/2016 19:47:Nya Jj RN) History of Infertility: No (06/29/2016 19:47:Nya Jj RN) History of ART Treatment: No (06/29/2016 19:47:Nya Jj RN) History of GRETCHEN: No (06/29/2016 19:47:Nya Jj RN) Comments Obstetrical History: G1: 2008 40 wk G2: 2010 41 wk G3: 2012 41 wk G4: 2014 missed SAB and emergency DNC G5: current CPS issues, will need d/c planning (06/29/2016 19:47:Nerissa Strickland RN) MEDICAL HISTORY Med Hx Diabetes: No (06/29/2016 19:47:Nya Jj RN) Med Hx Hypertension: No (06/29/2016 19:47:Nya Jj RN) Med Hx Heart Disease: No (06/29/2016 19:47:Nya Jj RN) Med Hx Autoimmune Disorder: No (06/29/2016 19:47:Nya Jj RN) Med Hx Kidney Disease/UTI: No (06/29/2016 19:47:Nya Jj RN) Med Hx Neurologic/Epilepsy: No (06/29/2016 19:47:Nya Jj RN) Med Hx Psychiatric Disorders: No (06/29/2016 19:47:Nya Jj RN) Med Hx Hepatitis/Liver Disease: No (06/29/2016 19:47:Nya Jj RN) Med Hx Varicosities/Phlebitis: No (06/29/2016 19:47:Nya Jj RN) Med Hx Thyroid Dysfunction: No (06/29/2016 19:47:Nya Jj RN) Med Hx Trauma/Violence: No (06/29/2016 19:47:Nya Jj RN) Med Hx Blood Transfusion: No (06/29/2016 19:47:Nya Jj RN) Med Hx Pulmonary (Asthma,TB): No (06/29/2016 19:47:Nya Jj RN) Med Hx Breast: No (06/29/2016 19:47:Nya Jj RN) Med Hx RN FAMILY Surgery: No (06/29/2016 19:47:Nya Jj RN) Med Hx Hospitalization/Surgery: No (06/29/2016 19:47:Nya Jj RN) Med Hx Anesthetic Complications: No (06/29/2016 19:47:Nya Jj RN) Med Hx Abnormal Pap Smear: No (06/29/2016 19:47:Nya Jj RN) Other Medical Diseases: No (06/29/2016 19:47:Nya Jj RN) Med Hx Significant Family Hx: No (06/29/2016 19:47:Nya Jj RN) Details of Med/Surg Hx: Depression not treated- with second (06/29/2016 19:47:Constance Morales RN) INFECTIOUS HISTORY Inf Hx Gonorrhea: Yes (06/29/2016 19:47:Nerissa Strickland RN) Inf Hx Chlamydia: No (06/29/2016 19:47:Nya Jj RN) Inf Hx Syphilis: No (06/29/2016 19:47:Nya Jj RN) Inf Hx HIV/AIDS: No (06/29/2016 19:47:Nya Jj RN) Inf Hx Human Papilloma Virus: No (06/29/2016 19:47:Nya Jj RN) Inf Hx Pt/Partner Genital Herpes: Yes (06/29/2016 19:47:Nerissa Strickland RN) Inf Hx Tuberculosis/Exposure: No (06/29/2016 19:47:Nya Jj RN) Inf Hx Hepatitis B,C: No (06/29/2016 19:47:Nya Jj RN) Inf Hx Rash or Viral Illness: No (06/29/2016 19:47:Nya Jj RN) Details of Infectious Hx: 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 (06/29/2016 19:47:Nerissa Strickland RN) GENETIC HISTORY Gen Hx Age >=35 at MEHRAN: No (06/29/2016 19:47:Nya Jj RN) Gen Hx Thalassemia: No (06/29/2016 19:47:Nya Jj RN) Gen Hx Congenital Heart Defect: No (06/29/2016 19:47:Nya Jj RN) Gen Hx Neural Tube Defect: No (06/29/2016 19:47:Nya Jj RN) Gen Hx Down's Syndrome: No (06/29/2016 19:47:Nya Jj RN) Gen Hx Pop-Sachs: No (06/29/2016 19:47:Nya Jj RN) Gen Hx Amparo: No (06/29/2016 19:47:Nya Jj RN) Gen Hx Familial Dysautonomia: No (06/29/2016 19:47:Nya Jj RN) Gen Hx Sickle Cell Disease/Trait: No (06/29/2016 19:47:Nya Jj RN) Gen Hx Hemophilia/Blood Disorder: No (06/29/2016 19:47:Nya Jj RN) Gen Hx Muscular Dystrophy: No (06/29/2016 19:47:Nya Jj RN) Gen Hx Cystic Fibrosis: No (06/29/2016 19:47:Nya Jj RN) Gen Hx Huntingtons Chorea: No (06/29/2016 19:47:Nya Jj RN) Gen Hx Mental Retardation/Autism: No (06/29/2016 19:47:Nya Jj RN) Gen Hx Tested for Fragile X: No (06/29/2016 19:47:Nya jJ RN) Gen Hx Other Inher/Chromosomal: No (06/29/2016 19:47:Nya Jj RN) Gen Hx Maternal Metabolic DO: No (06/29/2016 19:47:Nya Jj RN) Gen Hx Pt Father or FOB Defect: No (06/29/2016 19:47:Nya Jj RN) Gen Hx Other Genetic History: No (06/29/2016 19:47:Nya Jj RN) Gen Hx Drugs/Meds since LMP: No (06/29/2016 19:47:Nya Jj RN)
--- NOTE | 2016-11-06 06:23 | L&D Current Admission ---
Current Admit Datetime Report Generated by CPN: 11/06/2016 06:00 ADMISSION INFORMATION Current Admit Date/Time: 10/24/2016 21:11 (10/24/2016 21:11:Nya Jj RN) Reason for Admission: Observation (10/24/2016 21:11:Nya Jj RN) Chief Complaint: Contractions (11/04/2016 19:14:Constance Morales RN) Meds During -Oth: Valtrex (10/24/2016 21:11:Nya Jj RN) EGA per Dates: 38.0 (10/24/2016 21:11:QS system process) Reason for Induction: Not Applicable (10/24/2016 21:11:Nya Jj RN) Records Available: Yes (10/24/2016 21:11:Nya Jj RN) General Admission Information: Reviewed (10/24/2016 21:11:Nya Jj RN) General Admission Reviewed By: Benita Jj RN (10/24/2016 21:11:Nya Jj RN) BELONGINGS/ADVANCED DIRECTIVES Valuables/Personal Effects: Cell Phone (10/24/2016 21:11:Nya Jj RN) Disposition of Belongings: Kept with Patient (10/24/2016 21:11:Nya Jj RN) Advance Direct for Healthcare: No, and Wants No Information (10/24/2016 21:11:Nya Jj RN) Durable Power of Population Health Coach: No (10/24/2016 21:11:Nya Jj RN) Living Will: No (10/24/2016 21:11:Nya Jj RN) Organ Donor: Yes (10/24/2016 21:11:Nya Jj RN) Pt Rights Information Given: Yes (10/24/2016 21:11:Nya Jj RN) Pt Understands Pt Rights: Yes (10/24/2016 21:11:Nya Jj RN) LEARNING ASSESSMENT Knowledge Level: Understands L_D Process; Understands Care Activities; Had Pre-Hospital Education; Understands Diagnosis (10/24/2016 21:11:Nya Jj RN) Barriers to Learning: None (10/24/2016 21:11:Nya Jj RN) Learning Readiness: Motivated (10/24/2016 21:11:Nya Jj RN) Learns Best By: 1 to 1 Instruction (10/24/2016 21:11:Nya Jj RN) DOMESTIC VIOLANCE SCREENING Dom Viol Threatened/Hurt: No (10/24/2016 21:11:Nya Jj RN) Hx of Abuse/Neglect past 2yrs: No (10/24/2016 21:11:Nya Jj RN) Feel Unsafe Going Home: No (10/24/2016 21:11:Nya Jj RN) Addt'l Observ Indicating Abuse: No (10/24/2016 21:11:Nya Jj RN) Reason Unable to Complete Screen: N/A, Screen Completed (10/24/2016 21:11:Nya Jj RN) Considered Personal Harm/Suicide: No (10/24/2016 21:11:Nya Jj RN) NUTRITIONAL/FUNCTIONAL SCREENING Problem with Appetite >5 Days: No (10/24/2016 21:11:Nya Jj RN) Chew/Swallow Difficulties: No (10/24/2016 21:11:Nya Jj RN) Inappropriate Wt Gain/Loss: No (10/24/2016 21:11:Nya Jj RN) Presence Skin Breakdown/Ulcer: No (10/24/2016 21:11:Nya Jj RN) Special Diet: No (10/24/2016 21:11:Nya Jj RN) Pt Requests Buffing Machine Tender Visit: No (10/24/2016 21:11:Nya Jj RN) Hx of Any of the Following?: N/A (10/24/2016 21:11:Nya Jj RN) New Diagnosis of: N/A (10/24/2016 21:11:Nya Jj RN) Requires Assist w/Ambulation: No (10/24/2016 21:11:Nya Jj RN) Uses Assist Device to Ambulate: No (10/24/2016 21:11:Nya Jj RN) Pt Requires Help w/ADL's: No (10/24/2016 21:11:Nya Jj RN)
[2016-11-06] MEDS ORDERED: OXYTOCIN/NORMAL SALINE 1,000 ML IV PRN ×2 (06:33→15:19)
[2016-11-06 06:52] LABS: APPEARANCE,URINE CLOUDY; BILIRUBIN,URINE NEGATIVE (NEGATIVE); GLUCOSE, URINE NEGATIVE (NEGATIVE); KETONES,URINE NEGATIVE (NEGATIVE); LEUKOCYTE ESTERASE,URINE SMALL (NEGATIVE); NITRITE,URINE NEGATIVE (NEGATIVE); PROTEIN,URINE NEGATIVE (NEGATIVE); URINE SPECIFIC GRAVITY 1.016; UROBILINOGEN,URINE NEGATIVE mg/dL (<2.0)
[2016-11-06 07:07] LABS: URINE BARBITURATES SCREEN NEGATIVE; URINE METHADONE SCREEN NEGATIVE; URINE PHENCYCLIDINE SCREEN NEGATIVE
[2016-11-06 07:22] LABS: ABSOLUTE BASOPHILS # (AUTO) 0.1 10^3/uL (0.0-0.2); ABSOLUTE EOSINOPHILS # (AUTO) 0.2 10^3/uL (0.0-0.6); ABSOLUTE LYMPHOCYTES (AUTO) 3.1 10^3/uL (0.5-4.7); ABSOLUTE MONOCYTES (AUTO) 1.2 10^3/uL (0.1-1.4); ABSOLUTE NEUT (AUTO) 8.7 10^3/uL (1.7-8.2); BASOPHILS % (AUTO) 0.4 % (0-2); EOSINOPHILS % (AUTO) 1.5 % (0-6); HEMATOCRIT 33.1 % (36.0-47.0); HEMOGLOBIN 11.3 g/dL (12.0-15.5); HGB HCT DIFFERENCE 0.8; LYMPHOCYTES % (AUTO) 23.1 % (13-45); MEAN CORPUSCULAR HEMOGLOBIN 29.7 pg (27.0-33.4); MEAN CORPUSCULAR HGB CONC 34.2 g/dL (32.0-36.0); MEAN CORPUSCULAR VOLUME 87 fl (80-97); MONOCYTES % (AUTO) 9.4 % (3-13); RED BLOOD COUNT 3.81 10^6/uL (3.72-5.28); RED CELL DISTRIBUTION WIDTH 13.2 % (11.5-14.0); SEGMENTED NEUTROPHILS % (AUTO) 65.6 % (42-78); WHITE BLOOD COUNT 13.2 10^3/uL (4.0-10.5)
[2016-11-06] MEDS ORDERED: PENICILLIN G POTASSIUM 2,500,000 UNIT in DEXTROSE 5%-WATER 50 ML IV SCH (07:52)
--- NOTE | 2016-11-06 08:00 | L&D Flow Sheet ---
LD Flowsheet Datetime Report Generated by CPN: 11/06/2016 08:00 Datetime: 11/06/2016 07:50 NBP Sys/Jud/Mean (mmHg): 101 (QS system process) : 64 (QS system process) : 77 (QS system process) Pulse: 78 (QS system process) LaborFlag: Antepartum (QS system process) Datetime: 11/06/2016 07:35 NBP Sys/Jud/Mean (mmHg): 108 (QS system process) : 65 (QS system process) : 81 (QS system process) Pulse: 80 (QS system process) LaborFlag: Antepartum (QS system process) Datetime: 11/06/2016 07:26 Stage of : Antepartum (Ibeth Almanzar RN) Respirations: 18 (Ibeth Almanzar RN) Monitor Mode: External (Ibeth Almanzar RN) Frequency (min): OCC (Ibeth Almanzar RN) Quality: Mild (Ibeth Almanzar RN) Duration (sec): 60-80 (Ibeth Almanzar RN) Resting Tone (Palpate): Relaxed (Ibeth Almanzar RN) Monitor Mode: External US (Ibeth Almanzar RN) Monitor Interventions for FHR: Ultrasound Adjusted (Ibeth Almanzar RN) FHR Baseline Rate : 125 (Ibeth Almanzar RN) FHR Baseline Changes: No Baseline Change (Ibeth Almanzar RN) Variability: Moderate 6-25 bpm (Ibeth Almanzar RN) Accelerations: 15X15 (Ibeth Almanzar, ROBERT) Decelerations: None (Ibeth Almanzar, ROBERT) Pain Scale: 0 (Ibeth Almanzar RN) Pain Presence: None/Denies (Ibeth Almanzar RN) Pain Type: N/A (Ibeth Almanzar RN) Pain Relief Measures: Comfort Measures (Ibeth Almanzar RN) Pain Coping: Talking Through Contractions (Ibeth Almanzar RN) Antibiotics: Penicillin IV (Units) @ 5 MILLION (Ibeth Almanzar, RN) IV/Blood Work: IV Started; IV Bolus Started; New IV Bag Hung (Ibeth Almanzar, RN) Patient Position/Activity: Right Tilt; Semi-Fowlers (Ibeth Almanzar, RN) Comfort Measures: Family Support (Ibeth Almanzar, RN) I/O Interventions: Clear Liquids Given (Ibeth Almanzar, RN) Instructional Method: Verbal; Patient Instructed; Family/Support Person Instructed; Verbalized Understanding (Ibeth Almanzar, RN) Plan of Care: Plan of Care Discussed; Induction (Ibeth Almanzar, RN) Unit Routine: [place] to Room; [place]; Bed; Visiting Policy; Phone/Cell Phone Use; Photography; Unit Personnel; Handwashing; Monitoring; Safety/Fall Risk Prevention; Diet/Nutrition Services; Bathroom Privileges (Ibeth Almanzar, RN) Labor/Induction: Labor Stages; Induction (Ibeth Almanzar, RN) Pain Management: IV Narcotics; Epidural; Pain Scale/Goals; Comfort Measures (Ibeth Almanzar, RN) Medications: Antibiotics; Pitocin (Ibeth Almanzar, RN) Related: Common Discomforts of ; Maternal Physical Changes; Maternal Emotional Changes; Nutrition; Hydration; Activity and Rest (Ibeth Almanzar, RN) Communication: RN at Bedside; RN Reviewed Strip (Ibeth Almanzar, RN) LaborFlag: Antepartum (QS system process) Datetime: 11/06/2016 07:20 NBP Sys/Jud/Mean (mmHg): 110 (QS system process) : 69 (QS system process) : 84 (QS system process) Pulse: 83 (QS system process) LaborFlag: Antepartum (QS system process) Datetime: 11/06/2016 07:08 NBP Sys/Jud/Mean (mmHg): 117 (QS system process) : 76 (QS system process) : 91 (QS system process) Pulse: 78 (QS system process) LaborFlag: Antepartum (QS system process) Datetime: 11/06/2016 06:52 Pain Scale: 0 (Zulma De León RN) Pain Presence: None/Denies (Zulma De León RN) Pain Type: N/A (Zulma De León RN) Pain Location: Abdomen (Zulma De León RN) Membrane Status: Intact (Zulma De León RN) Vaginal Bleeding: None (Zulma De León RN) Level of Consciousness: Fully Conscious (Zulma De León RN) DTR's/Clonus: DTRs 1+ (Zulma De León RN) Headache: Denies (Zulma De León RN) Breath Sounds, Left: Clear and Equal (Zulma De León RN) Breath Sounds, Right: Clear and Equal (Zulma De León RN) Nausea/Vomiting: Denies (Zulma De León RN) RUQ Epigastric Pain: Denies (Zulma De León RN) LaborFlag: Antepartum (QS system process) Datetime: 11/06/2016 06:49 NBP Sys/Jud/Mean (mmHg): 112 (QS system process) : 71 (QS system process) : 85 (QS system process) Pulse: 86 (QS system process) LaborFlag: Antepartum (QS system process)
[2016-11-06] MEDS: RINGERS SOLUTION,LACTATED 1,000 ML IV PRN ×2 (08:29→09:20)
--- NOTE | 2016-11-06 12:00 | L&D Flow Sheet ---
LD Flowsheet Datetime Report Generated by CPN: 11/06/2016 12:00 Datetime: 11/06/2016 11:44 Stage of : Labor (Ibeth Almanzar RN) Respirations: 18 (Ibeth Almanzar RN) Monitor Mode: External (Ibeth Almanzar RN) Frequency (min): 2-3 (Ibeth Almanzar RN) Quality: Mild/Moderate (Ibeth Almanzar RN) Duration (sec): 55-70 (Ibeth Almanzar RN) Resting Tone (Palpate): Relaxed (Ibeth Almanzar RN) Monitor Mode: External US (Ibeth Almanzar RN) FHR Baseline Rate : 140 (Ibeth Almanzar RN) FHR Baseline Changes: No Baseline Change (Ibeth Almanzar RN) Variability: Moderate 6-25 bpm (Ibeth Almanzar RN) Accelerations: 15X15 (Ibeth Almanzar RN) Decelerations: None (Ibeth Almanzar RN) Pain Relief Measures: Comfort Measures (Ibeth Almanzar RN) Pain Coping: Talking Through Contractions; Breathing Through Contractions (Ibeth Almanzar RN) Pitocin (milliunit): Pitocin Remains (milliunits) @ 20 (Ibeth Almanzar RN) IV/Blood Work: IV Infusing per Order (Ibeth Almanzar, ROBERT) Patient Position/Activity: Birthing Ball (Ibeth Almanzar RN) Comfort Measures: Family Support (Ibeth Almanzar RN) Communication: RN at Bedside; RN Reviewed Strip (Ibeth Almanzar RN) LaborFlag: Labor (QS system process) Datetime: 11/06/2016 11:30 I/O Interventions: Clear Liquids Given (Ibeth Almanzar RN) Datetime: 11/06/2016 11:29 Stage of : Labor (Ibeth Almanzar RN) NBP Sys/Jud/Mean (mmHg): 121 (QS system process) : 75 (QS system process) : 93 (QS system process) Pulse: 73 (QS system process) Respirations: 18 (Ibeth Almanzar, ROBERT) Monitor Mode: External (Ibeth Almanzar RN) Frequency (min): 2-2.5 (Ibeth Almanzar RN) Quality: Mild/Moderate (Ibeth Almanzar RN) Duration (sec): 55-65 (Ibeth Almanzar, ROBERT) Resting Tone (Palpate): Relaxed (Ibeth Almanzar RN) Monitor Mode: External US (Ibeth Almanzar RN) Monitor Interventions for FHR: Ultrasound Adjusted (Ibeth Almanzar RN) FHR Baseline Rate : 140 (Ibeth Almanzar RN) FHR Baseline Changes: No Baseline Change (Ibeth Almanzar RN) Variability: Moderate 6-25 bpm (Ibeth Almanzar, ORBERT) Accelerations: None (Ibeth Almanzar RN) Decelerations: None (Ibeth Almanzar RN) Pain Scale: 2 (Ibeth Almanzar RN) Pain Presence: Intermittent (Ibeth Almanzar, ROBERT) Pain Type: Cramping (Ibeth Almanzar, ROBERT) Pain Location: Abdomen (Ibeth Almanzar, ROBERT) Pain Relief Measures: Comfort Measures (Ibeth Almanzar, ROBERT) Pain Coping: Breathing Through Contractions (Ibeth Almanzar, ROBERT) Pitocin (milliunit): Pitocin Remains (milliunits) @ 20 (Ibeth Almanzar, ROBERT) IV/Blood Work: IV Infusing per Order (Ibeth Almanzar, ROBERT) Patient Position/Activity: Birthing Ball (Ibeth Almanzar, ROBERT) Comfort Measures: Breathing/Relaxation; Family Support (Ibeth Almanzar, ROBERT) Communication: RN at Bedside; RN Reviewed Strip (Ibeth Almanzar RN) LaborFlag: Labor (QS system process) Datetime: 11/06/2016 11:15 Stage of : Labor (Ibeth Almanzar RN) Monitor Mode: External (Ibeth Almanzar RN) Frequency (min): 2-3 (Ibeth Almanzar, RN) Quality: Mild/Moderate (Ibeth Almanzar, RN) Duration (sec): 55-65 (Ibeth Almanzar, RN) Resting Tone (Palpate): Relaxed (Ibeht Almanzar, RN) Monitor Mode: External US (Ibeth Almanzar, RN) Monitor Interventions for FHR: Ultrasound Adjusted (Ibeth Almanzar RN) FHR Baseline Rate : 140 (Ibeth Almanzar RN) FHR Baseline Changes: No Baseline Change (Ibeth Almanzar, RN) Variability: Moderate 6-25 bpm (Ibeth Almanzar, RN) Accelerations: 15X15 (Ibeth Almanzar, RN) Decelerations: None (Ibeth Almanzar, RN) Pain Relief Measures: Comfort Measures (Ibeth Almanzar, ROBERT) Pain Coping: Talking Through Contractions (Ibeth Almanzar, ROBERT) Pitocin (milliunit): Pitocin Remains (milliunits) @ 20 (Ibeth Almanzar, RN) IV/Blood Work: IV Infusing per Order (Ibeth Almanzar, RN) Patient Position/Activity: Birthing Ball (Ibeth Almanzar, ROBERT) Comfort Measures: Family Support (Ibeth Almanzar, ROBERT) Communication: RN at Bedside; RN Reviewed Strip (Ibeth Almanzar RN) LaborFlag: Labor (QS system process) Datetime: 11/06/2016 11:02 I/O Interventions: Popsicle (Ibeth Almanzar, RN) Datetime: 11/06/2016 11:01 NBP Sys/Jud/Mean (mmHg): 112 (QS system process) : 80 (QS system process) : 91 (QS system process) Pulse: 84 (QS system process) LaborFlag: Labor (QS system process) Datetime: 11/06/2016 11:00 Stage of : Labor (Ibeth Almanzar RN) Respirations: 18 (Ibeth Almanzar RN) Temperature (F): 97.9 (Ibeth Almanzar, ROBERT) Temperature (C): 36.6 (QS system process) Monitor Mode: External (Ibeth Almanzar, ROBERT) Monitor Interventions for UA: [place] Adjusted (Ibeth Almanzar, ROBERT) Frequency (min): 2-2.5 (Ibeth Almanzar, ROBERT) Quality: Mild/Moderate (Ibeth Almanzar RN) Duration (sec): 55-65 (Ibeth Almanzar, ROBERT) Resting Tone (Palpate): Relaxed (Ibeth Almanzar, ROBERT) Monitor Mode: External US (Ibeth Almanzar, ROBERT) Monitor Interventions for FHR: Ultrasound Adjusted (Ibeth Almanzar RN) FHR Baseline Rate : 140 (Ibeth Almanzar, ROBERT) FHR Baseline Changes: No Baseline Change (Ibeth Almanzar, ROBERT) Variability: Moderate 6-25 bpm (Ibeth Almanzar, ROBERT) Accelerations: None (Ibeth Almanzar, ROBERT) Decelerations: None (Ibeth Almanzar, ROBERT) Pain Scale: 2 (Ibeth Almanzar, ROBERT) Pain Presence: Intermittent (Ibeth Almanzar, ROBERT) Pain Type: Cramping (Ibeth Almanzar, ROBERT) Pain Location: Abdomen (Ibeth Almanzar, ROBERT) Pain Relief Measures: Comfort Measures (Ibeth Almanzar, ROBERT) Pain Coping: Talking Through Contractions (Ibeth Almanzar, ROBERT) Pitocin (milliunit): Pitocin Remains (milliunits) @ 20 (Ibeth Almanzar, RN) IV/Blood Work: IV Infusing per Order (Ibeth Almanzar, RN) Patient Position/Activity: Birthing Ball (Ibeth Almanzar, RN) Comfort Measures: Family Support (Ibeth Almanzar, ROBERT) Communication: RN at Bedside; RN Reviewed Strip (Ibeth Almanzar, ROBERT) LaborFlag: Labor (QS system process) Datetime: 11/06/2016 10:45 Stage of : Antepartum (Ibeth Almanzar RN) Respirations: 18 (Ibeth Almanzar RN) Monitor Mode: External (Ibeth Almanzar RN) Frequency (min): 2-3 (Ibeth Almanzar RN) Quality: Mild/Moderate (Ibeth Almanzar RN) Duration (sec): 55-65 (Ibeth Almanzar, ROBERT) Resting Tone (Palpate): Relaxed (Ibeth Almanzar RN) Monitor Mode: External US (Ibeth Almanzar RN) FHR Baseline Rate : 140 (Ibeth Almanzar RN) FHR Baseline Changes: No Baseline Change (Ibeth Almanzar, ROBERT) Variability: Moderate 6-25 bpm (Ibeth Almanzar, ROBERT) Accelerations: None (Ibeth Almanzar, ROBERT) Decelerations: None (Ibeth Almanzar, ROBERT) Pain Relief Measures: Comfort Measures (Ibeth Almanzar RN) Pain Coping: Talking Through Contractions (Ibeth Almanzar, ROBERT) Pitocin (milliunit): Pitocin Remains (milliunits) @ 20 (bIeth Almanzar, RN) IV/Blood Work: IV Infusing per Order (Ibeth Almanzar, ROBERT) Patient Position/Activity: Birthing Ball (Ibeth Almanzar, ROBERT) Comfort Measures: Family Support (Ibeth Almanzar, ROBERT) Communication: RN at Bedside; RN Reviewed Strip (Ibeth Almanzar RN) LaborFlag: Antepartum (QS system process) Datetime: 11/06/2016 10:30 Stage of : Antepartum (Ibeth Almanzar RN) NBP Sys/Jud/Mean (mmHg): 119 (QS system process) : 68 (QS system process) : 87 (QS system process) Pulse: 71 (QS system process) Respirations: 18 (Ibeth Almanzar RN) Monitor Mode: External (Ibeth Almanzar RN) Frequency (min): 2-3 (Ibeth Almanzar RN) Quality: Mild/Moderate (Ibeth Almanzar RN) Duration (sec): 55-65 (Ibeth Almanzar, RN) Resting Tone (Palpate): Relaxed (Ibeth Almanzar, ROBERT) Monitor Mode: External US (Ibeth Almanzar RN) FHR Baseline Rate : 135 (Ibeth Almanzar RN) FHR Baseline Changes: No Baseline Change (Ibeth Almanzar, RN) Variability: Moderate 6-25 bpm (Ibeth Almanzar, RN) Accelerations: 15X15 (Ibeth Almanzar, RN) Decelerations: None (Ibeth Almanzar, RN) Pain Relief Measures: Comfort Measures (Ibeth Almanzar, ROBERT) Pain Coping: Talking Through Contractions (Ibeth Almanzar RN) Pitocin (milliunit): Pitocin Remains (milliunits) @ 20 (Ibeth Almanzar, RN) IV/Blood Work: IV Infusing per Order (Ibeth Almanzar, ROBERT) Patient Position/Activity: Birthing Ball (Ibeth Almanzar, ROBERT) Comfort Measures: Family Support (Ibeth Almanzar RN) Communication: RN at Bedside; RN Reviewed Strip (Ibeth Almanzar RN) LaborFlag: Antepartum (QS system process) Datetime: 11/06/2016 10:15 Stage of : Antepartum (Ibeth Almanzar RN) Respirations: 18 (Ibeth Almanzar RN) Monitor Mode: External (Ibeth Almanzar RN) Frequency (min): 2-2.5 (Ibeth Almanzar RN) Quality: Mild/Moderate (Ibeth Almanzar RN) Duration (sec): 55-65 (Ibeth Almanzar, ROBERT) Resting Tone (Palpate): Relaxed (Ibeth Almanzar RN) Monitor Mode: External US (Ibeth Almanzar RN) FHR Baseline Rate : 135 (Ibeth Almanzar RN) FHR Baseline Changes: No Baseline Change (Ibeth Almanzar RN) Variability: Moderate 6-25 bpm (Ibeth Almanzar RN) Accelerations: 15X15 (Ibeth Almanzar, RN) Decelerations: None (Ibeth Almanzar, ROBERT) Pain Relief Measures: Comfort Measures (Ibeth Almanzar RN) Pain Coping: Talking Through Contractions (Ibeth Almanzar RN) Pitocin (milliunit): Pitocin Increased to (milliunits) @ 20 (Ibeth Almanzar, ROBERT) IV/Blood Work: IV Infusing per Order (Ibeth Almanzar RN) Patient Position/Activity: Birthing Ball (Ibeth Almanzar RN) Comfort Measures: Family Support (Ibeth Almanzar, ROBERT) Communication: RN at Bedside; RN Reviewed Strip (Ibeth Almanzar RN) LaborFlag: Antepartum (QS system process) Datetime: 11/06/2016 10:00 Stage of : Antepartum (Ibeth Almanzar RN) Respirations: 18 (Ibeth Almanzar RN) Monitor Mode: External (Ibeth Almanzar RN) Monitor Interventions for UA: [place] Adjusted (Ibeth Almanzar RN) Frequency (min): 2-2.5 (Ibeth Almanzar RN) Quality: Mild/Moderate (Ibeth Almanzar RN) Duration (sec): 55-65 (Ibeth Almanzar, ROBERT) Resting Tone (Palpate): Relaxed (Ibeth Almanzar, ROBERT) Monitor Mode: External US (Ibeth Almanzar RN) FHR Baseline Rate : 135 (Ibeth Almanzar RN) FHR Baseline Changes: No Baseline Change (Ibeth Almanzar, ROBERT) Variability: Moderate 6-25 bpm (Ibeth Almanzar, ROBERT) Accelerations: None (Ibeth Almanzar RN) Decelerations: None (Ibeth Almanzar RN) Pain Scale: 0 (Ibeth Almanzar RN) Pain Presence: Intermittent (Ibeth Almanzar RN) Pain Type: Cramping (Ibeth Almanzar RN) Pain Location: Abdomen (Ibeth Almanzar RN) Pain Relief Measures: Comfort Measures (Ibeth Almanzar RN) Pain Coping: Talking Through Contractions (Ibeth Almanzar RN) Pitocin (milliunit): Pitocin Increased to (milliunits) @ 18 (Ibeth Almanzar, ROBERT) IV/Blood Work: IV Infusing per Order (Ibeth Almanzar, RN) Patient Position/Activity: Birthing Ball (Ibeth Almanzar RN) Comfort Measures: Family Support (Ibeth Almanzar RN) Communication: RN at Bedside; RN Reviewed Strip (Ibeth Almanzar RN) LaborFlag: Antepartum (QS system process) Datetime: 11/06/2016 09:59 NBP Sys/Jud/Mean (mmHg): 112 (QS system process) : 76 (QS system process) : 86 (QS system process) Pulse: 78 (QS system process) LaborFlag: Antepartum (QS system process) Datetime: 11/06/2016 09:45 Stage of : Antepartum (Ibeth Almanzar RN) Respirations: 18 (Ibeth Almanzar RN) Monitor Mode: External (Ibeth Almanzar RN) Frequency (min): 2-2.5 (Ibeth Almanzar RN) Quality: Mild/Moderate (Ibeth Almanzar RN) Duration (sec): 55-65 (Ibeth Almanzar RN) Resting Tone (Palpate): Relaxed (Ibeth Almanzar RN) Monitor Mode: External US (Ibeth Almanzar RN) FHR Baseline Rate : 145 (Ibeth Almanzar RN) FHR Baseline Changes: No Baseline Change (Ibeth Almanzar RN) Variability: Moderate 6-25 bpm (Ibeth Almanzar RN) Accelerations: None (Ibeth Almanzar RN) Decelerations: None (Ibeth Almanzar RN) Pain Relief Measures: Comfort Measures (Ibeth Almanzar RN) Pain Coping: Talking Through Contractions (Ibeth Almanzar, ROBERT) Pitocin (milliunit): Pitocin Increased to (milliunits) @ 16 (Ibeth Almanzar, RN) IV/Blood Work: IV Infusing per Order (Ibeth Almanzar, ROBERT) Patient Position/Activity: Birthing Ball (Ibeth Almanzar, ROBERT) Comfort Measures: Family Support (Ibeth Almanzar RN) Communication: RN at Bedside; RN Reviewed Strip (Ibeth Almanzar RN) LaborFlag: Antepartum (QS system process) Datetime: 11/06/2016 09:30 Stage of : Antepartum (Ibeth Almanzar RN) NBP Sys/Jud/Mean (mmHg): 151 (QS system process) : 81 (QS system process) : 105 (QS system process) Pulse: 76 (QS system process) Respirations: 18 (Ibeth Almanzar, ROBERT) Monitor Mode: External (Ibeth Almanzar, RN) Monitor Interventions for UA: [place] Adjusted (Ibeth Almanzar RN) Frequency (min): 1.5-3 (Ibeth Almanzar, ROBERT) Quality: Mild (Ibeth Almanzar, RN) Resting Tone (Palpate): Relaxed (Ibeth Almanzar, ROBERT) Monitor Mode: External US (Ibeth Almanzar RN) Monitor Interventions for FHR: Ultrasound Adjusted (Ibeth Almanzar RN) FHR Baseline Rate : 145 (Ibeth Almanzar, ROBERT) FHR Baseline Changes: No Baseline Change (Ibeth Almanzar, ROBERT) Variability: Moderate 6-25 bpm (Ibeth Almanzar, ROBERT) Accelerations: None (Ibeth Almanzar, ROBERT) Decelerations: None (Ibeth Almanzar, ROBERT) Pain Scale: 1 (Ibeth Almanzar RN) Pain Presence: Intermittent (Ibeth Almanzar, ROBERT) Pain Type: Cramping (Ibeth Almanzar, ROBERT) Pain Location: Abdomen (Ibeth Almanzar, ROBERT) Pain Relief Measures: Comfort Measures (Ibeth Almanzar, ROBERT) Pain Coping: Talking Through Contractions (Ibeth Almanzar, ROBERT) Pitocin (milliunit): Pitocin Increased to (milliunits) @ 14 (Ibeth Almanzar, RN) IV/Blood Work: IV Infusing per Order (Ibeth Almanzar, ROBERT) Patient Position/Activity: Birthing Ball (Ibeth Almanzar, ROBERT) Comfort Measures: Family Support (Ibeth Almanzar, ROBERT) Communication: RN at Bedside; RN Reviewed Strip (Ibeth Almanzar RN) LaborFlag: Antepartum (QS system process) Datetime: 11/06/2016 09:15 Stage of : Antepartum (Ibeth Almanzar RN) Respirations: 18 (Ibeth Almanzar RN) Monitor Mode: External (Ibeth Almanzar RN) Monitor Interventions for UA: [place] Adjusted (Ibeth Almanzar RN) Frequency (min): irreg (Ibeth Almanzar, ROBERT) Quality: Mild (Ibeth Almanzar RN) Duration (sec): 55-70 (Ibeth Almanzar, RN) Resting Tone (Palpate): Relaxed (Ibeth Almanzar, ROBERT) Monitor Mode: External US (Ibeth Almanzar RN) Monitor Interventions for FHR: Ultrasound Adjusted (Ibeth Almanzar RN) FHR Baseline Rate : 125 (Ibeth Almanzar RN) FHR Baseline Changes: No Baseline Change (Ibeth Almanzar, ROBERT) Variability: Moderate 6-25 bpm (Ibeth Almanzar, RN) Accelerations: 15X15 (Ibeth Almanzar, RN) Decelerations: None (Ibeth Almanzar, RN) Pain Relief Measures: Comfort Measures (Ibeth Almanzar, ROBERT) Pain Coping: Talking Through Contractions (Ibeth Almanzar, ROBERT) Pitocin (milliunit): Pitocin Increased to (milliunits) @ 12 (Ibeth Almanzar, ROBERT) IV/Blood Work: IV Infusing per Order; New IV Bag Hung (Ibeth Almanzar, ROBERT) Patient Position/Activity: Right Lateral; Low Fowlers (Ibeth Almanzar RN) Comfort Measures: Family Support (Ibeth Almanzar RN) I/O Interventions: Up to BR (Ibeth Almanzar RN) Communication: RN at Bedside; RN Reviewed Strip (Ibeth Almanzar RN) LaborFlag: Antepartum (QS system process) Datetime: 11/06/2016 09:05 NBP Sys/Jud/Mean (mmHg): 113 (QS system process) : 71 (QS system process) : 86 (QS system process) Pulse: 86 (QS system process) LaborFlag: Antepartum (QS system process) Datetime: 11/06/2016 09:00 Stage of : Antepartum (Ibeth Almanzar RN) Respirations: 18 (Ibeth Almanzar RN) Monitor Mode: External (Ibeth Almanzar RN) Frequency (min): occ (Ibeth Almanzar RN) Quality: Mild (Ibeth Almanzar RN) Resting Tone (Palpate): Relaxed (Ibeth Gail Roulund, RN) Monitor Mode: External US (Ibeth Almanzar RN) FHR Baseline Rate : 125 (Ibeth Almanzar, RN) FHR Baseline Changes: No Baseline Change (Ibeth Almanzar RN) Variability: Moderate 6-25 bpm (Ibeth Almanzar, RN) Accelerations: 15X15 (Ibeth Almanzar, RN) Decelerations: None (Ibeth Almanzar RN) Pain Scale: 1 (Ibeth Almanzar RN) Pain Presence: Intermittent (Ibeth Almanzar, RN) Pain Type: Cramping (Ibeth Almanzar, RN) Pain Location: Abdomen (Ibeth Almanzar, RN) Pain Relief Measures: Comfort Measures (Ibeth Almanzar, ROBERT) Pain Coping: Talking Through Contractions (Ibeth Almanzar, RN) Pitocin (milliunit): Pitocin Increased to (milliunits) @ 10 (Ibeth Almanzar, RN) IV/Blood Work: IV Infusing per Order (Ibeth Almanzar, RN) Patient Position/Activity: Right Lateral; Low Fowlers (Ibeth Almanzar, RN) Comfort Measures: Family Support (Ibeth Almanzar, RN) Instructional Method: Verbal; Patient Instructed; Family/Support Person Instructed; Verbalized Understanding (Ibeth Almanzar, ROBERT) Plan of Care: Plan of Care Discussed; Labor (Ibeth Almanzar, RN) Labor/Induction: Labor Stages (Ibeth Almanzar, RN) Communication: RN at Bedside; RN Reviewed Strip (Ibeth Almanzar, RN) LaborFlag: Antepartum (QS system process) Datetime: 11/06/2016 08:50 NBP Sys/Jud/Mean (mmHg): 111 (QS system process) : 72 (QS system process) : 87 (QS system process) Pulse: 78 (QS system process) LaborFlag: Antepartum (QS system process) Datetime: 11/06/2016 08:45 Stage of : Antepartum (Ibeth Almanzar RN) Respirations: 18 (Ibeth Almanzar RN) Monitor Mode: External (Ibeth Almanzar RN) Frequency (min): OCC (Ibeth Almanzar RN) Quality: Mild (Ibeth Almanzar RN) Duration (sec): 50-60 (Ibeth Almanzar RN) Resting Tone (Palpate): Relaxed (Ibeth Almanzar RN) Monitor Mode: External US (Ibeth Almanzar RN) FHR Baseline Rate : 125 (Ibeth Almanzar RN) FHR Baseline Changes: No Baseline Change (Ibeth Almanzar RN) Variability: Moderate 6-25 bpm (Ibeth Almanzar RN) Accelerations: 15X15 (Ibeth Almanzar RN) Decelerations: None (Ibeth Almanzar RN) Pain Relief Measures: Comfort Measures (Ibeth Almanzar RN) Pain Coping: Talking Through Contractions (Ibeth Almanzar RN) Pitocin (milliunit): Pitocin Increased to (milliunits) @ 8 (Ibeth Almanzar RN) IV/Blood Work: IV Infusing per Order (Ibeth Almanzar, RN) Patient Position/Activity: Right Tilt; Semi-Fowlers (Ibeth Almanzar, ROBERT) Comfort Measures: Family Support (Ibeth Almanzar, RN) Communication: RN at Bedside; RN Reviewed Strip (Ibeth Almanzar RN) LaborFlag: Antepartum (QS system process) Datetime: 11/06/2016 08:35 NBP Sys/Jud/Mean (mmHg): 114 (QS system process) : 72 (QS system process) : 88 (QS system process) Pulse: 78 (QS system process) LaborFlag: Antepartum (QS system process) Datetime: 11/06/2016 08:30 Stage of : Antepartum (Ibeth Almanzar RN) Respirations: 18 (Ibeth Almanzar RN) Monitor Mode: External (Ibeth Almanzar RN) Monitor Interventions for UA: [place] Adjusted (Ibeth Gail Roulund, RN) Frequency (min): OCC (Ibeth Almanzar, RN) Quality: Mild (Ibeth Almanzar, RN) Duration (sec): 50-90 (Ibeth Almanzar, RN) Resting Tone (Palpate): Relaxed (Ibeth Almanzar, RN) Monitor Mode: External US (Ibeth Almanzar RN) FHR Baseline Rate : 125 (Ibeth Almanzar, RN) FHR Baseline Changes: No Baseline Change (Ibeth Almanzar, ROBERT) Variability: Moderate 6-25 bpm (Ibeth Almanzar, RN) Accelerations: 15X15 (Ibeth Almanzar, RN) Decelerations: None (Ibeth Almanzar, RN) Pain Relief Measures: Comfort Measures (Ibeth Almanzar, RN) Pain Coping: Talking Through Contractions (Ibeth Almanzar, RN) Pitocin (milliunit): Pitocin Increased to (milliunits) @ 6 (Ibeth Almanzar, RN) IV/Blood Work: IV Infusing per Order (Ibeth Almanzar, RN) Patient Position/Activity: Right Tilt; Semi-Fowlers (Ibeth Almanzar, RN) Comfort Measures: Family Support (Ibeth Almanzar, RN) Provider Reviewed Strip: Yes (Ibeth Almanzar, RN) Communication: RN at Bedside; RN Reviewed Strip; Provider at Bedside (Ibeth Almanzar, RN) LaborFlag: Antepartum (QS system process) Datetime: 11/06/2016 08:21 NBP Sys/Jud/Mean (mmHg): 109 (QS system process) : 66 (QS system process) : 82 (QS system process) Pulse: 77 (QS system process) LaborFlag: Antepartum (QS system process) Datetime: 11/06/2016 08:15 Stage of : Antepartum (Ibeth Almanzar RN) Respirations: 18 (Ibeth Almanzar RN) Monitor Mode: External (Ibeth Almanzar RN) Monitor Interventions for UA: [place] Adjusted (Ibeth Almanzar RN) Frequency (min): OCC (Ibeth Almanzar RN) Quality: Mild (Ibeth Almanzar, ROBERT) Resting Tone (Palpate): Relaxed (Ibeth Almanzar, ROBERT) Monitor Mode: External US (Ibeth Almanzar RN) Monitor Interventions for FHR: Ultrasound Adjusted (Ibeth Almanzar RN) FHR Baseline Rate : 125 (Ibeth Almanzar RN) FHR Baseline Changes: No Baseline Change (Ibeth Almanzar RN) Variability: Moderate 6-25 bpm (Ibeth Almanzar, RN) Accelerations: 15X15 (Ibeth Almanzar, RN) Decelerations: None (Ibeth Almanzar, ROBERT) Pain Relief Measures: Comfort Measures (Ibeth Almanzar RN) Pain Coping: Talking Through Contractions (Ibeth Almanzar, ROBERT) Pitocin (milliunit): Pitocin Increased to (milliunits) @ 4 (Ibeth Almanzar RN) IV/Blood Work: IV Infusing per Order (Ibeth Almanzar RN) Patient Position/Activity: Right Tilt; Semi-Fowlers (Ibeth Almanzar RN) Comfort Measures: Family Support (Ibeth Almnazar RN) Communication: RN at Bedside; RN Reviewed Strip (Ibeth Almanzar RN) LaborFlag: Antepartum (QS system process) Datetime: 11/06/2016 08:05 NBP Sys/Jud/Mean (mmHg): 104 (QS system process) : 66 (QS system process) : 81 (QS system process) Pulse: 77 (QS system process) LaborFlag: Antepartum (QS system process) Datetime: 11/06/2016 08:00 Stage of : Antepartum (Ibeth Almanzar RN) Respirations: 18 (Ibeth Almanzar RN) Monitor Mode: External (Ibeth Almanzar RN) Monitor Interventions for UA: [place] Adjusted (Ibeth Almanzar RN) Frequency (min): OCC (Ibeth Almanzar RN) Quality: Mild (Ibeth Almanzar RN) Resting Tone (Palpate): Relaxed (Ibeth Almanzar RN) Monitor Mode: External US (Ibeth Almanzar RN) Monitor Interventions for FHR: Ultrasound Adjusted (Ibeth Almanzar RN) FHR Baseline Rate : 125 (Ibeth Almanzar RN) FHR Baseline Changes: No Baseline Change (Ibeth Almanzar RN) Variability: Moderate 6-25 bpm (Ibeth Almanzar, ROBERT) Accelerations: 15X15 (Ibeth Almanzar, ROBERT) Decelerations: None (Ibeth Almanzar RN) Pain Scale: 0 (Ibeth Almanzar, ROBERT) Pain Presence: None/Denies (Ibeth Almanzar, ROBERT) Pain Type: N/A (Ibeth Almanzar, ROBERT) Pain Relief Measures: Comfort Measures (Ibeth Almanzar RN) Pain Coping: Talking Through Contractions (Ibeth Almanzar, ROBERT) Pitocin (milliunit): Pitocin Started (milliunits) @ 2 (Ibeth Almanzar, ROBERT) IV/Blood Work: IV Infusing per Order (Ibeth Almanzar, ROBERT) Patient Position/Activity: Right Tilt; Low Fowlers (Ibeth Almanzar, ROBERT) Comfort Measures: Family Support (Ibeth Almanzar, ROBERT) Instructional Method: Verbal; Patient Instructed; Family/Support Person Instructed; Verbalized Understanding (Ibeth Almanzar, ROBERT) Plan of Care: Induction (Ibeth Almanzar RN) Labor/Induction: Induction (Ibeth Almanzar, ROBERT) Medications: Pitocin (Ibeth Almanzar, ROBERT) Communication: RN at Bedside; RN Reviewed Strip (Ibeth Almanzar, ROBERT) LaborFlag: Antepartum (QS system process)
--- NOTE | 2016-11-06 14:09 | L&D Progress Notes ---
PROGRESS NOTES Datetime Report Generated by CPN: 11/06/2016 14:08 PROGRESS NOTE Impression: Normal Progression of Labor Procedures: Artificial ROM; Sterile Vag Exam Plan: Continue Present Management Vital Signs : Reviewed; Within Normal Limits Comment: Epidural in place. AROM clear fluid. Comfortable w epidural. VAGINAL EXAM Dilatation: 9 Effacement: 100 Station: -2 MEMBRANES Membranes: Ruptured Amniotic Fluid Color: Clear FETUS A FHR - Baseline: 120 Monitoring: External US Variability: Moderate 6-25bpm SIGNATURE SIGNATURE: [id number] SIGNATURE: [id number] SIGNATURE: ,[id number] SIGNATURE: [id number] SIGNATURE: [id number] Assignment: Jignesh Flores MD Signature: with User ID: Steve Signature: with User ID: Steve : with User ID: Steve : with User ID: Steve : I personally evaluated and examined the patient in conjunction with the MLP and agree with the assessment, treatment plan and disposition.
[2016-11-06] MEDS ORDERED: MAGNESIUM HYDROXIDE SUSP 30 ML UDCUP PO PRN (15:19)
[2016-11-06] MEDS ORDERED: PROMETHAZINE HCL 25 MG TABLET PO PRN (15:19)
[2016-11-06] MEDS ORDERED: ACETAMINOPHEN WITH CODEINE #3 TABLET PO PRN (15:19)
[2016-11-06] MEDS ORDERED: PSEUDOEPHEDRINE HCL 30 MG TABLET PO PRN (15:19)
[2016-11-06] MEDS ORDERED: NA PHOS,M-B/NA PHOS,DI-BA (ADULT) 133 ML ENEMA PR PRN (15:19)
[2016-11-06] MEDS ORDERED: ZOLPIDEM TARTRATE 5 MG TABLET PO PRN (15:19)
[2016-11-06] MEDS ORDERED: PROMETHAZINE HCL 25 MG SUPP.RECT PR PRN (15:19)
[2016-11-06] MEDS ORDERED: BENZOCAINE/MENTHOL AEROSOL SPRAY 56 ML TOP PRN (15:19)
[2016-11-06] MEDS ORDERED: MEASLES,MUMPS&RUBELLA VACC/PF 0.5 ML VIAL SUBCUT PRN (15:19)
[2016-11-06] MEDS ORDERED: PROMETHAZINE HCL INJ 25 MG/1 ML VIAL IV PRN (15:19)
[2016-11-06] MEDS ORDERED: GLYCERIN/WITCH HAZEL LEAF 1 EACH MED..PAD TP PRN (15:19)
[2016-11-06] MEDS ORDERED: DIBUCAINE 1% OINTMENT 28 GM TP PRN (15:19)
[2016-11-06] MEDS ORDERED: ACETAMINOPHEN 650 MG SUPP.RECT PR PRN (15:19)
[2016-11-06] MEDS ORDERED: DIPHENHYDRAMINE HCL 25 MG CAPSULE PO PRN (15:19)
[2016-11-06] MEDS ORDERED: DIPH/PERTUSS(ACELL)/TETANUS VAC/PF 0.5 ML SYR (>=10YO) IM PRN (15:19)
--- NOTE | 2016-11-06 16:00 | L&D Flow Sheet ---
LD Flowsheet Datetime Report Generated by CPN: 11/06/2016 16:00 Datetime: 11/06/2016 15:45 Stage of : Recovery (Ibeth Almanzar RN) NBP Sys/Jud/Mean (mmHg): 98 (QS system process) : 53 (QS system process) : 71 (QS system process) Pulse: 75 (QS system process) Respirations: 18 (Ibeth Almanzar RN) Pain Scale: 0 (Ibeth Almanzar RN) Pain Presence: None/Denies (Ibeth Almanzar RN) Pain Type: N/A (Ibeth Almanzar RN) Pain Relief Measures: Comfort Measures (Ibeth Almanzar RN) Datetime: 11/06/2016 15:34 Stage of : Recovery (Ibeth Almanzar, RN) NBP Sys/Jud/Mean (mmHg): 94 (QS system process) : 55 (QS system process) : 72 (QS system process) Pulse: 72 (QS system process) Respirations: 18 (Ibeth Almanzar, RN) Pain Scale: 0 (Ibeth Almanzar, RN) Pain Presence: None/Denies (Ibeth Johnsonlund, RN) Pain Type: N/A (Ibeth Johnsonlund, RN) Pain Relief Measures: Comfort Measures (Ibeth Johnsonlund, RN) Datetime: 11/06/2016 15:15 Stage of : Recovery (Ibeth Almanzar, RN) Respirations: 18 (Ibeth Almanzar, RN) Pain Scale: 0 (Ibeth Almanzar, RN) Pain Presence: None/Denies (Ibeth Johnsonlund, RN) Pain Type: N/A (Ibeth Johnsonlund, RN) Pain Relief Measures: Comfort Measures (Ibeth Johnsonlund, RN) Datetime: 11/06/2016 15:00 Stage of : Recovery (Ibeth Almanzar RN) NBP Sys/Jud/Mean (mmHg): 103 (QS system process) : 65 (QS system process) : 79 (QS system process) Pulse: 77 (QS system process) Respirations: 18 (Ibeth Almanzar RN) Pain Scale: 0 (Ibeth Almanzar RN) Pain Presence: None/Denies (Ibeth Almanzar RN) Pain Type: N/A (Ibeth Almanzar RN) Pain Goal: 1 (Ibeth Almanzar RN) Pain Relief Measures: Comfort Measures (Ibeth Almanzar RN) Datetime: 11/06/2016 14:53 Pushing: Coached on Pushing; Urge to Push (Ibeth Almanzar RN) Pushing Position: Pushing with Contractions; Pushing Lithotomy (Ibeth Almanzar RN) Pushing Progress: Descent with Pushing; Perineal Bulging; Rectal Bulging; with Pushing; Pushing Effectively with Contractions (Ibeth Almanzar RN) Stage 2 Comments: OF VIABLE MALE @ 1453, APGARS- 8/9. SEE DELIVERY SUMMARY (Ibeth Almanzar RN) Datetime: 11/06/2016 14:52 Stage of : Labor (Ibeth Almanzar RN) I/O Interventions: Nguyen Discontinued (Ibeth Almanzar RN) Pushing: Coached on Pushing; Urge to Push (Ibeth Almanzar RN) Pushing Position: Pushing with Contractions; Pushing Lithotomy (Ibeth Almanzar RN) Communication: RN at Bedside; RN Reviewed Strip; Provider at Bedside (Ibeth Almanzar RN) Datetime: 11/06/2016 14:45 Stage of : Labor (Ibeth Almanzar RN) NBP Sys/Jud/Mean (mmHg): 104 (QS system process) : 63 (QS system process) : 78 (QS system process) Pulse: 78 (QS system process) Respirations: 20 (Ibeth Almanzar RN) Respirations: 18 (Ibeth Almanzar RN) Monitor Mode: External (Ibeth Almanzar RN) Monitor Interventions for UA: Hitchita Adjusted (Ibeth Almanzar, ROBERT) Frequency (min): 1.5-2.5 (Ibeth Almanzar, RN) Quality: Moderate to Strong (Ibeth Almanzar RN) Duration (sec): 55-70 (Ibeth Almanzar, RN) Resting Tone (Palpate): Relaxed (Ibeth Almanzar, RN) Monitor Mode: External US (Ibeth Almanzar, RN) Monitor Interventions for FHR: Ultrasound Adjusted (Ibeth Almanzar RN) FHR Baseline Rate : 135 (Ibeth Almanzar RN) FHR Baseline Changes: No Baseline Change (Ibeth Almanzar, RN) Variability: Moderate 6-25 bpm (Ibeth Almanzar, ROBERT) Accelerations: None (Ibeth Almanzar, RN) Decelerations: None (Ibeth Almanzar, ROBERT) Pain Scale: 1 (Ibeth Almanzar RN) Pain Presence: Intermittent (Ibeth Almanzar RN) Pain Type: Pressure (Ibeth Almnazar, ROBERT) Pain Location: Perineum (Ibeth Almanzar, RN) Pain Relief Measures: Comfort Measures (Ibeth Almanzar, ROBERT) Pain Coping: Talking Through Contractions (Ibeth Almanzar, ROBERT) Pitocin (milliunit): Pitocin Remains (milliunits) @ 20 (Ibeth Almanzar, ROBERT) IV/Blood Work: IV Infusing per Order (Ibeth Almanzar, RN) Patient Position/Activity: Right Tilt; Low Fowlers (Ibeth Almanzar, RN) Comfort Measures: Family Support (Ibeth Almanzar, ROBERT) Communication: RN at Bedside; RN Reviewed Strip (Ibeth Almanzar, ROBERT) LaborFlag: Labor (QS system process) Datetime: 11/06/2016 14:44 Stage of : Labor (Ibeth Almanzar RN) Dilatation (cm): 10.0 (Ibeth Almanzar RN) Effacement (%): 100 (Ibeth Almanzar RN) Station: 3 (Ibeth Almanzar RN) Exam by: EVE ALMANZAR RN (Ibeth Almanzar, RN) Procedures: Sterile Vag Exam (Ibeth Almanzar, ROBERT) Communication: RN at Bedside; RN Reviewed Strip; Report Given to @ Noé NARAYAN CNM (Ibeth Almanzar RN) Notification Reason: Status Update (Ibeth Almanzar RN) Datetime: 11/06/2016 14:31 NBP Sys/Jud/Mean (mmHg): 103 (QS system process) : 65 (QS system process) : 81 (QS system process) Pulse: 88 (QS system process) LaborFlag: Labor (QS system process) Datetime: 11/06/2016 14:30 Stage of : Labor (Ibeth Almanzar RN) Respirations: 20 (Ibeth Almanzar RN) Monitor Mode: External (Ibeth Almanzar RN) Frequency (min): 1.5-2 (Ibeth Almanzar RN) Quality: Moderate to Strong (Ibeth Almanzar RN) Duration (sec): 55-70 (Ibeth Almanzar, ROBERT) Resting Tone (Palpate): Relaxed (Ibeth Almanzar, ROBERT) Monitor Mode: External US (Ibeth Almanzar RN) FHR Baseline Rate : 125 (Ibeth Almanzar RN) FHR Baseline Changes: No Baseline Change (Ibeth Almanzar RN) Variability: Moderate 6-25 bpm (Ibeth Almanzar, ROBERT) Accelerations: None (Ibeth Almanzar RN) Decelerations: None (Ibeth Almanzar, ROBERT) Pain Scale: 1 (Ibeth Almanzar RN) Pain Presence: Intermittent (Ibeth Almanzar RN) Pain Type: Pressure (Ibeth Almanzar, ROBERT) Pain Location: Abdomen; Perineum (Ibeth Almanzar, ROBERT) Pain Relief Measures: Comfort Measures (Ibeth Almanzar, ROBERT) Pain Coping: Talking Through Contractions (Ibeth Almanzar, ROBERT) Pitocin (milliunit): Pitocin Remains (milliunits) @ 20 (Ibeth Almanzar, ROBERT) IV/Blood Work: IV Infusing per Order (Ibeth Almanzar, ROBERT) Patient Position/Activity: Right Tilt; Low Fowlers (Ibeth Almanzar, ROBERT) Comfort Measures: Family Support (Ibeth Almanzar, ROBERT) Communication: RN at Bedside; RN Reviewed Strip (Ibeth Almanzar, RBOERT) LaborFlag: Labor (QS system process) Datetime: 11/06/2016 14:15 Stage of : Labor (Ibeth Almanzar RN) NBP Sys/Jud/Mean (mmHg): 113 (QS system process) : 71 (QS system process) : 87 (QS system process) Pulse: 87 (QS system process) Respirations: 18 (Ibeth Almanzar RN) Monitor Mode: External (Ibeth Almanzar RN) Frequency (min): 1.5-2 (Ibeth Almanzar RN) Quality: Moderate to Strong (Ibeth Almanzar RN) Duration (sec): 55-70 (Ibeth Almanzar RN) Pattern: Normal: <= 5 Contractions in 10 Minutes (Ibeth Almanzar RN) Resting Tone (Palpate): Relaxed (Ibeth Almanzar RN) Monitor Mode: External US (Ibeth Almanzar RN) FHR Baseline Rate : 135 (Ibeth Almanzar RN) FHR Baseline Changes: No Baseline Change (Ibeth Almanzar RN) Variability: Moderate 6-25 bpm (Ibeth Almanzar RN) Accelerations: 15X15 (Ibeth Almanzar RN) Decelerations: Early (Ibeth Almanzar RN) Pain Scale: 0 (Ibeth Almanzar RN) Pain Presence: Intermittent (Ibeth Almanzar RN) Pain Type: Pressure (Ibeth Almanzar RN) Pain Location: Perineum (Ibeth Almanzar RN) Pain Relief Measures: Comfort Measures (Ibeth Almanzar RN) Pain Coping: Talking Through Contractions (Ibeth Almanzar RN) Pitocin (milliunit): Pitocin Remains (milliunits) @ 20 (Ibeth Almanzar, ROBERT) IV/Blood Work: IV Infusing per Order (Ibeth Almanzar RN) Patient Position/Activity: Right Tilt; Low Fowlers (Ibeth Almanzar, ROBERT) Comfort Measures: Family Support (Ibeth Almanzar RN) Communication: RN at Bedside; RN Reviewed Strip (Ibeth Almanzar RN) LaborFlag: Labor (QS system process) Datetime: 11/06/2016 14:11 NBP Sys/Jud/Mean (mmHg): 106 (QS system process) : 68 (QS system process) : 82 (QS system process) Pulse: 76 (QS system process) LaborFlag: Labor (QS system process) Datetime: 11/06/2016 14:05 NBP Sys/Jud/Mean (mmHg): 121 (QS system process) : 71 (QS system process) : 90 (QS system process) Pulse: 71 (QS system process) LaborFlag: Labor (QS system process) Datetime: 11/06/2016 14:02 Stage of : Labor (Ibeth Almanzar RN) Respirations: 18 (Ibeth Almanzar RN) Monitor Mode: External (Ibeth Almanzar RN) Monitor Interventions for UA: Hitchita Adjusted (Ibeth Almanzar RN) Frequency (min): 1.5-2 (Ibeth Almanzar RN) Quality: Moderate (Ibeth Almanzar RN) Duration (sec): 60-70 (Ibeth Almanzar, ROBERT) Resting Tone (Palpate): Relaxed (Ibeth Almanzar, ROBERT) Monitor Mode: External US (Ibeth Almanzar RN) Monitor Interventions for FHR: Ultrasound Adjusted (Ibeth Almanzar RN) FHR Baseline Rate : 125 (Ibeth Almanzar RN) FHR Baseline Changes: No Baseline Change (Ibeth Almanzar, ROBERT) Variability: Moderate 6-25 bpm (Ibeth Almanzar, ROBERT) Accelerations: 10X10 (Ibeth Almanzar, ROBERT) Decelerations: Early (Ibeth Almanzar, ROBERT) Pain Scale: 0 (Ibeth Almanzar RN) Pain Presence: Intermittent (Ibeth Almanzar RN) Pain Type: Pressure (Ibeth Almanzar RN) Pain Location: Abdomen (Ibeth Almanzar RN) Pain Relief Measures: Comfort Measures (Ibeth Almanzar RN) Pain Coping: Talking Through Contractions (Ibeth Gail Roulund, RN) Dilatation (cm): 8.5 (Ibeth Almanzar, ROBERT) Effacement (%): 90 (Ibeth Almanzar, RN) Exam by: Noé NARAYAN CNM (Ibeth Almanzar, ROBERT) Membrane Status: Ruptured (Ibeth Almanzar RN) Membranes Rupture Method: Artificial (Ibeth Almanzar RN) Amniotic Fluid Color: Clear (Ibeth Almanzar, ROBERT) Amniotic Fluid Amount: Moderate (Ibeth Almanzar RN) Amniotic Fluid Odor: None (Ibeth Almanzar, RN) Vaginal Bleeding: None (Ibeth Almanzar RN) Cervix, Consistency: Soft (Ibeth Almanzar, ROBERT) Cervix, Position: Anterior (Ibeth Almanzar, ROBERT) Pitocin (milliunit): Pitocin Remains (milliunits) @ 20 (Ibeth Almanzar, ROBERT) IV/Blood Work: IV Infusing per Order (Ibeth Almanzar, ROBERT) Procedures: Sterile Vag Exam (Ibeth Almanzar, ROBERT) Patient Position/Activity: Right Tilt; Low Fowlers (Ibeth Almanzar, ROBERT) Comfort Measures: Family Support (Ibeth Almanzar, ROBERT) Communication: RN at Bedside; RN Reviewed Strip (Ibeth Almanzar, ROBERT) LaborFlag: Labor (QS system process) Datetime: 11/06/2016 14:01 NBP Sys/Jud/Mean (mmHg): 119 (QS system process) : 76 (QS system process) : 91 (QS system process) Pulse: 75 (QS system process) LaborFlag: Labor (QS system process) Datetime: 11/06/2016 13:57 Stage of : Labor (Ibeth Almanzar RN) NBP Sys/Jud/Mean (mmHg): 122 (QS system process) : 69 (QS system process) : 90 (QS system process) Pulse: 75 (QS system process) Dilatation (cm): 8.0 (Ibeth Almanzar RN) Effacement (%): 90 (Ibeth Almanzar RN) Exam by: EVE ALMANZAR RN (Ibeth Almanzar RN) Vaginal Bleeding: None (Ibeth Almanzar RN) Cervix, Consistency: Soft (Ibeth Almanzar RN) Cervix, Position: Anterior (Ibeth Almanzar RN) Vaginal Exam Comments: BOW PALP (Ibeth Almanzar RN) Communication: Report Given to @ Noé NARAYAN CNM (Ibeth Almanzar RN) Notification Reason: Status Update; Membrane Status; Pain (Ibeth Almanzar RN) LaborFlag: Labor (QS system process) Datetime: 11/06/2016 13:50 NBP Sys/Jud/Mean (mmHg): 116 (QS system process) : 77 (QS system process) : 92 (QS system process) Pulse: 78 (QS system process) I/O Interventions: Nguyen Cath Inserted (Ibeth Almanzar RN) LaborFlag: Labor (QS system process) Datetime: 11/06/2016 13:46 Anesthesia Plans: Epidural (Sanaz Spears RN) Epidural Positioning: Side Lying (Sanaz Spears RN) Epidural Procedure Other: Pump Started (Sanaz Spears RN) Datetime: 11/06/2016 13:45 Stage of : Labor (Ibeth Almanzar RN) Respirations: 22 (Ibeth Almanzar RN) Monitor Mode: External (Ibeth Almanzar RN) Monitor Interventions for UA: Hitchita Adjusted (Ibeth Almanzar RN) Quality: Moderate (Ibeth Almanzar RN) Resting Tone (Palpate): Relaxed (Ibeth Gail Roulund, RN) Monitor Mode: External US (Ibeth Almanzar, RN) Monitor Interventions for FHR: Ultrasound Adjusted (Ibeth Almanzar, RN) FHR Baseline Rate : 125 (Ibeth Almanzar, RN) Pain Scale: 4 (Ibeth Almanzar, RN) Pain Presence: Intermittent (Ibeth Almanzar, RN) Pain Type: Contraction (Ibeth Almanzar, RN) Pain Location: Abdomen (Ibeth Almanzar, RN) Pain Relief Measures: Comfort Measures (Ibeth Almanzar, RN) Pain Coping: Breathing Through Contractions (Ibeth Almanzar, RN) Pitocin (milliunit): Pitocin Remains (milliunits) @ 20 (Ibeth Almanzar, RN) IV/Blood Work: IV Infusing per Order (Ibeth Almanzar, RN) Patient Position/Activity: Low Fowlers (Ibeth Almanzar, RN) Comfort Measures: Breathing/Relaxation; Coaching; Family Support (Ibeth Almanzar, ROBERT) Communication: RN at Bedside; RN Reviewed Strip (Ibeth Almanzar, RN) LaborFlag: Labor (QS system process) Datetime: 11/06/2016 13:44 NBP Sys/Jud/Mean (mmHg): 119 (QS system process) : 71 (QS system process) : 88 (QS system process) Pulse: 131 (QS system process) LaborFlag: Labor (QS system process) Datetime: 11/06/2016 13:43 NBP Sys/Jud/Mean (mmHg): 117 (QS system process) : 66 (QS system process) : 86 (QS system process) Pulse: 75 (QS system process) Anesthesia Plans: Epidural (Sanaz Spears RN) Epidural Positioning: Sitting (Sanaz Spears RN) Epidural Procedure: Loading Dose (Sanaz Spears RN) LaborFlag: Labor (QS system process) Datetime: 11/06/2016 13:42 NBP Sys/Jud/Mean (mmHg): 114 (QS system process) : 59 (QS system process) : 78 (QS system process) Pulse: 75 (QS system process) Pulse: 73 (QS system process) SpO2 (%): 97 (QS system process) Anesthesia Plans: Epidural (Sanaz Spears RN) Epidural Positioning: Sitting (Sanaz Spears RN) Epidural Procedure: Test Dose (Sanaz Spears RN) Epidural Procedure: Cath Placed (Sanaz Spears RN) LaborFlag: Labor (QS system process) Datetime: 11/06/2016 13:41 NBP Sys/Jud/Mean (mmHg): 119 (QS system process) : 57 (QS system process) : 85 (QS system process) Pulse: 84 (QS system process) LaborFlag: Labor (QS system process) Datetime: 11/06/2016 13:40 NBP Sys/Jud/Mean (mmHg): 123 (QS system process) : 72 (QS system process) : 93 (QS system process) Pulse: 73 (QS system process) LaborFlag: Labor (QS system process) Datetime: 11/06/2016 13:39 NBP Sys/Jud/Mean (mmHg): 125 (QS system process) : 81 (QS system process) : 98 (QS system process) Pulse: 84 (QS system process) LaborFlag: Labor (QS system process) Datetime: 11/06/2016 13:38 NBP Sys/Jud/Mean (mmHg): 129 (QS system process) : 64 (QS system process) : 89 (QS system process) Pulse: 77 (QS system process) LaborFlag: Labor (QS system process) Datetime: 11/06/2016 13:37 Pulse: 81 (QS system process) SpO2 (%): 96 (QS system process) LaborFlag: Labor (QS system process) Datetime: 11/06/2016 13:36 NBP Sys/Jud/Mean (mmHg): 131 (QS system process) : 63 (QS system process) : 90 (QS system process) Pulse: 77 (QS system process) Comments: tracing maternal heart rate (Ibeth Almanzar RN) Comments: RN at bedside continuously assessing FHT while epidural being placed (Ibeth Almanzar RN) Procedure Verify: Correct Patient Identity; Correct Side and Site are Marked; Accurate Procedure Consent Form; Agreement on Procedure to be Done; Correct Patient Position; Relevant Images and Results are Properly Labeled and Displayed; Addressed Need to Administer Antibiotics or Fluids for Irrigation; Safety Precautions Based on Patient History or Medication Use (Ibeth Almanzar RN) Procedure Verify: Correct Patient Identity; Correct Side and Site are Marked; Accurate Procedure Consent Form; Agreement on Procedure to be Done; Correct Patient Position (Ibeth Almanzar RN) Anesthesia Plans: Epidural (Ibeth Almanzar RN) Epidural Positioning: Sitting (Ibeth Almanzar RN) Communication: RN at Bedside (Ibeth Almanzar RN) LaborFlag: Labor (QS system process) Datetime: 11/06/2016 13:34 NBP Sys/Jud/Mean (mmHg): 119 (QS system process) NBP Sys/Jud/Mean (mmHg): 130 (QS system process) : 78 (QS system process) : 75 (QS system process) : 92 (QS system process) : 95 (QS system process) Pulse: 88 (QS system process) Pulse: 85 (QS system process) Anesthesia Plans: Epidural (Ibeth Almanzar RN) Epidural Positioning: Sitting (Ibeth Almanzar RN) Anesthesia Comments: Dr. Silva at bedside (Ibeth Almanzar RN) LaborFlag: Labor (QS system process) Datetime: 11/06/2016 13:32 NBP Sys/Jud/Mean (mmHg): 130 (QS system process) : 70 (QS system process) : 93 (QS system process) Pulse: 81 (QS system process) Pulse: 78 (QS system process) SpO2 (%): 97 (QS system process) LaborFlag: Labor (QS system process) Datetime: 11/06/2016 13:30 Stage of : Labor (Ibeth Almanzar RN) Monitor Mode: External (Ibeth Almanzar RN) Monitor Interventions for UA: Hitchita Adjusted (Ibeth Almanzar RN) Frequency (min): 1.5-2 (Ibeth Almanzar RN) Quality: Moderate (Ibeth Almanzar RN) Duration (sec): 60-70 (Ibeth Gail Roulund, RN) Resting Tone (Palpate): Relaxed (Ibeth Almanzar, RN) Comments: UTD- EFM MOVED FREQUENTLY, PT MOVING (Ibeth Almanzar, RN) Pain Scale: 5 (Ibeth Almanzar, RN) Pitocin (milliunit): Pitocin Remains (milliunits) @ 20 (Ibeth Almanzar, RN) IV/Blood Work: IV Infusing per Order (Ibeth Almanzar, RN) Procedure Verify: Correct Patient Identity; Correct Side and Site are Marked; Accurate Procedure Consent Form; Agreement on Procedure to be Done; Correct Patient Position; Relevant Images and Results are Properly Labeled and Displayed (Ibeth Almanzar, RN) Anesthesia Plans: Epidural (Ibeth Almanzar, ROBERT) Epidural Positioning: Sitting (Ibeth Almanzar, RN) Communication: RN at Bedside; RN Reviewed Strip; Provider at Bedside (Ibeth Almanzar, ROBERT) LaborFlag: Labor (QS system process) Datetime: 11/06/2016 13:15 Stage of : Labor (Ibeth Almanzar, ROBERT) Respirations: 22 (Ibeth Almanzar, ROBERT) Monitor Mode: External (Ibeth Almanzar, ROBERT) Frequency (min): 1.5-2 (Ibeth Almanzar, ROBERT) Quality: Moderate (Ibeth Almanzar RN) Duration (sec): 60-80 (Ibeth Almanzar, RN) Resting Tone (Palpate): Relaxed (Ibeth Almanzar, ROBERT) Monitor Mode: External US (Ibeth Almanzar, RN) Monitor Interventions for FHR: Ultrasound Adjusted (Ibeth Almanzar RN) FHR Baseline Rate : 140 (Ibeth Almanzar RN) FHR Baseline Changes: No Baseline Change (Ibeth Almanzar RN) Variability: Moderate 6-25 bpm (Ibeth Almanzar, ROBERT) Accelerations: 15X15 (Ibeth Almanzar, RN) Decelerations: None (Ibeth Almanzar RN) Pain Scale: 5 (Ibeth Almanzar RN) Pain Presence: Intermittent (Ibeth Almanzar RN) Pain Type: Contraction (Ibeth Almanzar, ROBERT) Pain Location: Abdomen (Ibeth Almanzar RN) Pain Relief Measures: Comfort Measures (Ibeth Almanzar RN) Pain Coping: Breathing Through Contractions; Crying; Writhing (Ibeth Almanzar, ROBERT) Pitocin (milliunit): Pitocin Remains (milliunits) @ 20 (Ibeth Almanzar, ROBERT) Patient Position/Activity: Left Lateral; Low Fowlers (Ibeth Almanzar, ROBERT) Comfort Measures: Breathing/Relaxation; Coaching; Family Support (Ibeth Almanzar, ROBERT) Communication: RN at Bedside; RN Reviewed Strip (Ibeth Almanzar RN) LaborFlag: Labor (QS system process) Datetime: 11/06/2016 13:09 Anesthesia Comments: DR SILVA NOTIFIED OF EPIDURAL REQUEST- ANTICIPATES 15-20 MIN (Ibeth Almanzar RN) Datetime: 11/06/2016 13:00 Stage of : Labor (Ibeth Almanzar RN) NBP Sys/Jud/Mean (mmHg): 121 (QS system process) : 71 (QS system process) : 91 (QS system process) Pulse: 75 (QS system process) Respirations: 22 (Ibeth Almanzar RN) Monitor Mode: External (Ibeth Almanzar RN) Frequency (min): 1.5-2 (Ibeth Almanzar RN) Quality: Moderate (Ibeth Almanzar RN) Duration (sec): 55-80 (Ibeth Almanzar RN) Resting Tone (Palpate): Relaxed (Ibeth Almanzar RN) Monitor Mode: External US (Ibeth Almanzar RN) FHR Baseline Rate : 135 (Ibeth Almanzar RN) FHR Baseline Changes: No Baseline Change (Ibeth Almanzar RN) Variability: Moderate 6-25 bpm (Ibeth Almanzar RN) Accelerations: 15X15 (Ibeth Almanzar RN) Decelerations: None (Ibeth Almanzar RN) Pain Scale: 5 (Ibeth Almanzar RN) Pain Presence: Intermittent (Ibeth Almanzar RN) Pain Type: Contraction (Ibeth Almanzar RN) Pain Location: Abdomen (Ibeth Almanzar RN) Pain Relief Measures: Comfort Measures (Ibeth Almanzar RN) Pain Coping: Breathing Through Contractions; Crying; Writhing (Ibeth Almanzar RN) Pitocin (milliunit): Pitocin Remains (milliunits) @ 20 (Ibeth Almanzar, RN) IV/Blood Work: New IV Bag Hung (Ibeth Almanzar, RN) Patient Position/Activity: Left Lateral; Low Fowlers (Ibeth Almanzar, RN) Comfort Measures: Breathing/Relaxation; Coaching; Family Support (Ibeth Almanzar, RN) Procedure Type: EPIDURAL (Ibeth Almanzar, ROBERT) Procedure Verify: Correct Patient Identity; Agreement on Procedure to be Done (Ibeth Almanzar, ROBERT) Anesthesia Plans: Epidural (Ibeth Almanzar, RN) Communication: RN at Bedside; RN Reviewed Strip (Ibeth Almanzar, RN) LaborFlag: Labor (QS system process) Datetime: 11/06/2016 12:45 Stage of : Labor (Ibeth Almanzar RN) Respirations: 18 (Ibeth Almanzar RN) Monitor Mode: External (Ibeth Almanzar RN) Frequency (min): 1.5-2.5 (Ibeth Almanzar RN) Quality: Moderate (Ibeth Almanzar RN) Resting Tone (Palpate): Relaxed (Ibeth Almanzar, ROBERT) Monitor Mode: External US (Ibeth Almanzar RN) FHR Baseline Rate : 135 (Ibeth Almanzar RN) FHR Baseline Changes: No Baseline Change (Ibeth Almanzar RN) Variability: Moderate 6-25 bpm (Ibeth Almanzar, ROBERT) Accelerations: 15X15 (Ibeth Almanzar RN) Decelerations: None (Ibeth Almanzar, ROBERT) Pain Scale: 4 (Ibeth Almanzar, RN) Pain Presence: Intermittent (Ibeth Almanzar, ROBERT) Pain Type: Contraction (Ibeth Almanzar, ROBERT) Pain Location: Abdomen (Ibeth Almanzar, RN) Pain Relief Measures: Comfort Measures (Ibeth Almanzar, RN) Pain Coping: Breathing Through Contractions; Requesting Pain Medication or Epidural (Ibeth Almanzar, RN) Pitocin (milliunit): Pitocin Remains (milliunits) @ 20 (Ibeth Almanzar, RN) IV/Blood Work: IV Bolus Started (Ibeth Almanzar, RN) Patient Position/Activity: Left Tilt; Low Fowlers (Ibeth Almanzar, RN) Comfort Measures: Breathing/Relaxation; Family Support (Ibeth Almanzar, RN) Procedure Type: EPIDURAL (Ibeth Almanzar, RN) Procedure Verify: Correct Patient Identity; Agreement on Procedure to be Done; Relevant Images and Results are Properly Labeled and Displayed (Ibeth Almanzar, ROBERT) Anesthesia Plans: Epidural (Ibeth Almanzar, RN) Communication: RN at Bedside; RN Reviewed Strip; Provider Orders Received; Report Given to @ Noé NARAYAN CNM (Ibeth Almanzar, RN) Notification Reason: Status Update; Labor Status; Membrane Status; Pain (Ibeth Almanzar, ROBERT) LaborFlag: Labor (QS system process) Datetime: 11/06/2016 12:30 Stage of : Labor (Ibeth Almanzar, ROBERT) NBP Sys/Jud/Mean (mmHg): 127 (QS system process) : 86 (QS system process) : 102 (QS system process) Pulse: 72 (QS system process) Respirations: 20 (Ibeth Almanzar RN) Monitor Mode: External (Ibeth Almanzar RN) Frequency (min): 2 (Ibeth Almanzar RN) Quality: Moderate (Ibeth Almanzar RN) Duration (sec): 55-70 (Ibeth Almanzar RN) Resting Tone (Palpate): Relaxed (Ibeth Almanzar RN) Monitor Mode: External US (Ibeth Almanzar RN) FHR Baseline Rate : 135 (Ibeth Almanzar RN) FHR Baseline Changes: No Baseline Change (Ibeth Almanzar RN) Variability: Moderate 6-25 bpm (Ibeth Almanzar RN) Accelerations: 15X15 (Ibeth Almanzar RN) Decelerations: None (Ibeth Almanzar RN) Pain Scale: 3 (Ibeth Almanzar RN) Pain Presence: Intermittent (Ibeth Almanzar RN) Pain Type: Contraction (Ibeth Almanzar, ROBERT) Pain Location: Abdomen (Ibeth Almanzar, ROBERT) Pain Relief Measures: Comfort Measures (Ibeth Almanzar RN) Pain Coping: Breathing Through Contractions (Ibeth Almanzar RN) Pitocin (milliunit): Pitocin Remains (milliunits) @ 20 (Ibeth Almanzar, ROBERT) IV/Blood Work: IV Infusing per Order (Ibeth Almanzar, ROBERT) Patient Position/Activity: Left Tilt; Low Fowlers (Ibeth Almanzar, RN) Comfort Measures: Breathing/Relaxation; Family Support (Ibeth Almanzar, ROBERT) Communication: RN at Bedside; RN Reviewed Strip (Ibeth Almanzar RN) LaborFlag: Labor (QS system process) Datetime: 11/06/2016 12:16 Stage of : Labor (Ibeth Almanzar RN) Respirations: 18 (Ibeth Almanzar, ROBERT) Monitor Mode: External (Ibeth Almanzar, RN) Monitor Interventions for UA: Hitchita Adjusted (Ibeth Almanzar, ROBERT) Frequency (min): 1.5-2.5 (Ibeth Almanzar, ROBERT) Quality: Moderate (Ibeth Almanzar RN) Duration (sec): 55-70 (Ibeth Almanzar, RN) Resting Tone (Palpate): Relaxed (Ibeth Almanzar, ROBERT) Monitor Mode: External US (Ibeth Almanzar RN) Monitor Interventions for FHR: Ultrasound Adjusted (Ibeth Almanzar, ROBERT) FHR Baseline Rate : 135 (Ibeth Almanzar RN) FHR Baseline Changes: No Baseline Change (Ibeth Almanzar RN) Variability: Moderate 6-25 bpm (Ibeth Almanzar, ROBERT) Accelerations: 15X15 (Ibeth Almanzar, ROBERT) Decelerations: None (Ibeth Almanzar, ROBERT) Pain Relief Measures: Comfort Measures (Ibeth Almanzar RN) Pain Coping: Talking Through Contractions; Breathing Through Contractions (Ibeth Almanzar, ROBERT) Pitocin (milliunit): Pitocin Remains (milliunits) @ 20 (Ibeth Almanzar, ROBERT) IV/Blood Work: IV Infusing per Order (Ibeth Almanzar, ROBERT) Patient Position/Activity: Left Tilt; Low Fowlers (Ibeth Almanzar, ROBERT) Comfort Measures: Breathing/Relaxation; Family Support (Ibeth Almanzar, ROBERT) Communication: RN at Bedside; RN Reviewed Strip (Ibeth Almanzar RN) LaborFlag: Labor (QS system process) Datetime: 11/06/2016 12:04 Stage of : Labor (Ibeth Almanzar RN) Respirations: 18 (Ibeth Almanzar RN) Monitor Mode: External (Ibeth Almanzar RN) Monitor Interventions for UA: [place] Adjusted (Ibeth Almanzar RN) Frequency (min): 1.5-2.5 (Ibeth Almanzar RN) Quality: Moderate (Ibeth Almanzar RN) Duration (sec): 55-70 (Ibeth Almanzar RN) Resting Tone (Palpate): Relaxed (Ibeth Almanzar RN) Monitor Mode: External US (Ibeth Almanzar RN) Monitor Interventions for FHR: Ultrasound Adjusted (Ibeth Almanzar RN) FHR Baseline Rate : 135 (Ibeth Almanzar RN) FHR Baseline Changes: No Baseline Change (Ibeth Almanzar RN) Variability: Moderate 6-25 bpm (Ibeth Almanzar RN) Accelerations: 15X15 (Ibeth Almanzar, ROBERT) Decelerations: None (Ibeth Almanzar RN) Pain Scale: 3 (Ibeth Almanzar RN) Pain Presence: Intermittent (Ibeth Almanzar RN) Pain Type: Contraction (Ibeth Almanzar RN) Pain Location: Abdomen (Ibeth Almanzar RN) Pain Relief Measures: Comfort Measures (Ibeth Gail Roulund, RN) Pain Coping: Talking Through Contractions; Breathing Through Contractions (Ibeth Almanzar, RN) Dilatation (cm): 3.0 (Ibeth Almanzar, RN) Effacement (%): 50 (Ibeth Almanzar, RN) Station: -1 (Ibeth Almanzar, ROBERT) Exam by: Noé NARAYAN CNWes (Ibeth Almanzar, RN) Membrane Status: Ruptured (Ibeth Almanzar RN) Membranes Rupture Method: Artificial (Ibeth Almanzar RN) Amniotic Fluid Amount: None (Ibeth Almanzar, ROBERT) Vaginal Bleeding: None (Ibeth Almanzar, ROBERT) Cervix, Consistency: Moderate (Ibeth Almanzar, ROBERT) Cervix, Position: Posterior (Ibeth Almanzar, RN) Membrane Comments: CNM ATTEMPTED AROM- NO FLUID NOTED (Ibeth Almanzar, ROBERT) Pitocin (milliunit): Pitocin Remains (milliunits) @ 20 (Ibeth Almanzar, ROBERT) IV/Blood Work: IV Infusing per Order (Ibeth Almanzar, ROBERT) Procedures: Sterile Vag Exam (Ibeth Almanzar, ROBERT) Patient Position/Activity: Left Tilt; Low Fowlers (Ibeth Almanzar, RN) Comfort Measures: Breathing/Relaxation; Family Support (Ibeth Almanzar, ROBERT) Provider Reviewed Strip: Yes (Ibeth Almanzar, ROBERT) Instructional Method: Verbal; Patient Instructed; Family/Support Person Instructed; Verbalized Understanding (Ibeth Almanzar, ROBERT) Plan of Care: Plan of Care Discussed; Labor (Ibeth Almanzar, ROBERT) Labor/Induction: Artificial Rupture of Membranes (Ibeth Almanzar, RN) Pain Management: Epidural; Pain Scale/Goals; Comfort Measures (Ibeth Almanzar, ROBERT) Communication: RN at Bedside; RN Reviewed Strip; Provider at Bedside (Ibeth Almanzar, ROBERT) LaborFlag: Labor (QS system process) Datetime: 11/06/2016 12:01 NBP Sys/Jud/Mean (mmHg): 125 (QS system process) : 78 (QS system process) : 98 (QS system process) Pulse: 74 (QS system process) LaborFlag: Labor (QS system process)
--- NOTE | 2016-11-06 16:27 | Delivery Summary ---
Del Sum A-C Datetime Report Generated by CPN: 11/06/2016 16:27 ADMISSION DATA Chief Complaint: Trauma/Fall Admission Impression: Observation/Evaluation Admit Provider Comments: obs-check abruption labs and sono DELIVERY PERSONNEL Delivery Doctor:: Yumiko De Leon CNM Labor and Delivery Nurse:: Ibeth Almanzar RN Labor and Delivery Nurse:: Laney Sorensen RN Rotogravure Press Operator/SHOPPING INSPECTOR: Jennifer Morgan CNA II Rotogravure Press Operator/SHOPPING INSPECTOR: Cha Youngblood, TURBO OPERATOR MATERNAL INFORMATION Delivery Anesthesia: Epidural Medications After Delivery: Pitocin Bolus-Please Comment; Pitocin Drip 20 Units/1000ml NSS Estimated Blood Loss (ml): 175 Maternal Complications: None Provider Comments: live male in vertex OA to KHADRA at 1453 under epidural anesthesia. Compound right hand presentation reduced before delivery of shoulders. Spontaneous respirations and cry. 3 vessel cord. Apgars 8-9. Cord clamped x2, after 2 min delay, then cut by female visitor. Placenta, membranes, and cord expelled at 1500, Styles presentation. Perineum intact. FF at U-2. Patient tolerated procedure well. LABOR SUMMARY EDC: 11/01/2016 00:00 No. Babies in Womb: 1 Attempted: No Labor Anesthesia: Epidural LABOR INFORMATION Reason for Induction: Post Dates Onset of Labor: 11/06/2016 11:00 Complete Dilatation: 11/06/2016 14:45 Oxytocin: Induction Group B Beta Strep: positive (Annotations: Data stored by [facility] on behalf of user) Antibiotics # of Doses: 2 Antibiotics Time of Last Dose: 1152 Name of Antibiotic Given: PENICILLIN G Steroids Given: None Reason Steroids Not Administered: Not Applicable MEMBRANES Membranes Rupture Method: Artificial Rupture of Membranes: 11/06/2016 14:00 Length of Rupture (hr): 0.88 Amniotic Fluid Color: Clear Amniotic Fluid Amount: Moderate Amniotic Fluid Odor: None STAGES OF LABOR Stage 1 hr: 3 Stage 1 min: 45 Stage 2 hr: 0 Stage 2 min: 8 Stage 3 hr: 0 Stage 3 min: 7 Total Time in Labor hr: 4 Total Time in Labor min: 0 VAGINAL DELIVERY Episiotomy: None Laceration Extension: N/A Laceration Type: None Laceration Repair: Not Applicable Sponge Count Correct: N/A Sharps Count Correct: Yes BABY A INFORMATION Delivery Date/Time: 11/06/2016 14:53 Method of Delivery: Vaginal Born in Route : No : N/A Forceps: N/A Vacuum Extraction: N/A Shoulder Dystocia : No PRESENTATION/POSITION BABY A Presentation: Cephalic Cephalic Presentation: Vertex Vertex Position: Left Occipital Transverse WITH COMPOUND RT HAND Breech Presentation: N/A PLACENTA INFORMATION BABY A Placenta Delivery Time : 11/06/2016 15:00 Placenta Method of Delivery: Spontaneous Placenta Status: Delivered SCORES BABY A Heart Rate 1 min: >100 bpm Resp Effort 1 min: [place] Reflex Irritability 1 min: Cough or Sneeze or Pulls Away Muscle Tone 1 min: Active Motion Color 1 min: Blue/Pale Resuscitation Effort 1 min: Tactile Stimulation SCORE 1 MIN: 8 Heart Rate 5 min: >100 bpm Resp Effort 5 min: [place] Reflex Irritability 5 min: Cough or Sneeze or Pulls Away Muscle Tone 5 min: Active Motion Color 5 min: Body [place], Extremities Blue Resuscitation Effort 5 min: Tactile Stimulation SCORE 5 MIN: 9 INFANT INFORMATION BABY A Gestational Age at Delivery: 40.5 Gestational Status: Full Term- 39- 40.6 Weeks Outcome : Liveborn Infant Condition : Stable Sex: Male IDENTIFICATION BABY A Infant Verification Date/Time: 11/06/2016 15:25 ID Band Number: [id number] Mother's Name Verified: Yes RN Verifying : K Marlett RN/D [place] RNC WEIGHT/LENGTH BABY A Birthweight (gm): 3540 Infant Weight (lb): 7 Weight (oz): 13 Length (in): 19.25 Infant Length (cm): 48.90 CORD INFORMATION BABY A No. Cord Vessels: 3 Nuchal Cord : N/A Cord Blood Taken: Yes-For Eval (Mom's Blood Type - or O+) Suction: Mouth; Nose ASSESSMENT BABY A Complications: None Physical Findings at Delivery: Within Normal Limits Infant Respirations: Appears Normal Skin to Skin: Yes Skin to Skin Time (min): 55 Director Of Compliance/ALS Called : No Infant Care By: Wendy SORENSEN RN Transferred To: [facility] BABY B INFORMATION : N/A SIGNATURES Assignment: Jignesh Flores MD Signature: with User ID: Steve : with User ID: Steve : I personally evaluated and examined the patient in conjunction with the MLP and agree with the assessment, treatment plan and disposition.
[2016-11-06] MEDS ORDERED: BUPIVACAINE HCL 0.25 % INJ/PF (2.5 MG/1 ML) 30 ML VIAL ONE (17:01)
[2016-11-06] MEDS ORDERED: FENTANYL/BUPIVACAINE/NS/PF 200 MCG/100 ML RTUINJ EPI ONE (17:01)
[2016-11-06] MEDS: FERROUS SULFATE 325 MG TABLET PO SCH (18:13)
[2016-11-06] MEDS: ACETAMINOPHEN WITH CODEINE #3 TABLET PO PRN (18:13)
[2016-11-06] MEDS: DOCUSATE SODIUM 100 MG CAPSULE PO SCH (18:13)
--- NOTE | 2016-11-06 19:00 | L&D Flow Sheet ---
LD Flowsheet Datetime Report Generated by CPN: 11/06/2016 19:00 Datetime: 11/06/2016 17:00 Stage of : Recovery (Ibeth Almanzar, ROBERT) Pain Scale: 0 (Ibeth Almanzar, ROEBRT) Pain Presence: None/Denies (Ibeth Almanzar, ROBERT) Pain Type: N/A (Ibeth Almanzar, ROBERT) Pain Relief Measures: Comfort Measures (Ibeth Almanzar, RN) Datetime: 11/06/2016 16:45 NBP Sys/Jud/Mean (mmHg): 112 (QS system process) : 68 (QS system process) : 83 (QS system process) Pulse: 61 (QS system process) Datetime: 11/06/2016 16:30 Stage of : Recovery (Ibeth Almanzar RN) NBP Sys/Jud/Mean (mmHg): 102 (QS system process) : 63 (QS system process) : 78 (QS system process) Pulse: 64 (QS system process) Respirations: 18 (Ibeth Almanzar RN) Pain Scale: 0 (Ibeth Almanzar RN) Pain Presence: None/Denies (Ibeth Almanzar RN) Pain Type: N/A (Ibeth Almanzar RN) Pain Relief Measures: Comfort Measures (Ibeth Almanzar RN) Datetime: 11/06/2016 16:15 NBP Sys/Jud/Mean (mmHg): 101 (QS system process) : 62 (QS system process) : 75 (QS system process) Pulse: 68 (QS system process) Datetime: 11/06/2016 16:00 Stage of : Recovery (Ibeth Almanazr RN) NBP Sys/Jud/Mean (mmHg): 99 (QS system process) : 58 (QS system process) : 74 (QS system process) Pulse: 69 (QS system process) Respirations: 18 (Ibeth Almanzar RN) Pain Scale: 0 (Ibeth Almanzar RN) Pain Presence: None/Denies (Ibeth Almanzar RN) Pain Type: N/A (Ibeth Almanzar RN) Pain Relief Measures: Comfort Measures (Ibeth Almanzar RN) Datetime: 11/06/2016 15:45 Stage of : Recovery (Ibeth Almanzar RN) NBP Sys/Jud/Mean (mmHg): 98 (QS system process) : 53 (QS system process) : 71 (QS system process) Pulse: 75 (QS system process) Respirations: 18 (Ibeth Almanzar RN) Pain Scale: 0 (Ibeth Almanzar RN) Pain Presence: None/Denies (Ibeth Almanzar RN) Pain Type: N/A (Ibeth Almanzar RN) Pain Relief Measures: Comfort Measures (Ibeth Almanzar RN) Datetime: 11/06/2016 15:34 Stage of : Recovery (Ibeth Almanzar RN) NBP Sys/Jud/Mean (mmHg): 94 (QS system process) : 55 (QS system process) : 72 (QS system process) Pulse: 72 (QS system process) Respirations: 18 (Ibeth Almanzar RN) Pain Scale: 0 (Ibeth Almanzar RN) Pain Presence: None/Denies (Ibeth Almanzar RN) Pain Type: N/A (Ibeth Almanzar RN) Pain Relief Measures: Comfort Measures (Ibeth Almanzar RN) Datetime: 11/06/2016 15:15 Stage of : Recovery (Ibeth Almanzar RN) Respirations: 18 (Ibeth Almanzar RN) Pain Scale: 0 (Ibeth Almanzar RN) Pain Presence: None/Denies (Ibeth Almanzar RN) Pain Type: N/A (Ibeth Almanzar RN) Pain Relief Measures: Comfort Measures (Ibeth Almanzar, ROBERT) Datetime: 11/06/2016 15:00 Stage of : Recovery (Ibeth Almanzar RN) NBP Sys/Jud/Mean (mmHg): 103 (QS system process) : 65 (QS system process) : 79 (QS system process) Pulse: 77 (QS system process) Respirations: 18 (Ibeth Almanzar RN) Pain Scale: 0 (Ibeth Almanzar RN) Pain Presence: None/Denies (Ibeth Almanzar RN) Pain Type: N/A (Ibeth Almanzar RN) Pain Goal: 1 (Ibeth Almanzar RN) Pain Relief Measures: Comfort Measures (Ibeth Almanzar RN) Datetime: 11/06/2016 14:53 Pushing: Coached on Pushing; Urge to Push (Ibeth Almanzar RN) Pushing Position: Pushing with Contractions; Pushing Lithotomy (Ibeth Almanzar RN) Pushing Progress: Descent with Pushing; Perineal Bulging; Rectal Bulging; with Pushing; Pushing Effectively with Contractions (Ibeth Almanzar RN) Stage 2 Comments: OF VIABLE MALE @ 1453, APGARS- 8/9. SEE DELIVERY SUMMARY (Ibeth Almanzar RN) Datetime: 11/06/2016 14:52 Stage of : Labor (Ibeth Almanzar RN) I/O Interventions: Nguyen Discontinued (Ibeth Almanzar RN) Pushing: Coached on Pushing; Urge to Push (Ibeth Almanzar RN) Pushing Position: Pushing with Contractions; Pushing Lithotomy (Ibeth Almanzar RN) Communication: RN at Bedside; RN Reviewed Strip; Provider at Bedside (Ibeth Almanzar RN) Datetime: 11/06/2016 14:45 Stage of : Labor (Ibeth Almanzar RN) NBP Sys/Jud/Mean (mmHg): 104 (QS system process) : 63 (QS system process) : 78 (QS system process) Pulse: 78 (QS system process) Respirations: 20 (Ibeth Almanzar RN) Respirations: 18 (Ibeth Almanzar, ROBERT) Monitor Mode: External (Ibeth Almanzar RN) Monitor Interventions for UA: [place] Adjusted (Ibeth Almanzar, ROBERT) Frequency (min): 1.5-2.5 (Ibeth Almanzar RN) Quality: Moderate to Strong (Ibeth Almanzar RN) Duration (sec): 55-70 (Ibeth Almanzar, ROBERT) Resting Tone (Palpate): Relaxed (Ibeth Almanzar RN) Monitor Mode: External US (Ibeth Almanzar RN) Monitor Interventions for FHR: Ultrasound Adjusted (Ibeth Almanzar RN) FHR Baseline Rate : 135 (Ibeth Almanzar RN) FHR Baseline Changes: No Baseline Change (Ibeth Almanzar RN) Variability: Moderate 6-25 bpm (Ibeth Almanzar, ROBERT) Accelerations: None (Ibeth Almanzar RN) Decelerations: None (Ibeth Almanzar, ROBERT) Pain Scale: 1 (Ibeth Almanzar RN) Pain Presence: Intermittent (Ibeth Almanzar RN) Pain Type: Pressure (Ibeth Almanzar, ROBERT) Pain Location: Perineum (Ibeth Almanzar, ROBERT) Pain Relief Measures: Comfort Measures (Ibeth Almanzar, ROBERT) Pain Coping: Talking Through Contractions (Ibeth Almanzar RN) Pitocin (milliunit): Pitocin Remains (milliunits) @ 20 (Ibeth Almanzar, ROBERT) IV/Blood Work: IV Infusing per Order (Ibeth Almanzar RN) Patient Position/Activity: Right Tilt; Low Fowlers (Ibeth Almanzar RN) Comfort Measures: Family Support (Ibeth Almanzar RN) Communication: RN at Bedside; RN Reviewed Strip (Ibeth Almanzar RN) LaborFlag: Labor (QS system process) Datetime: 11/06/2016 14:44 Stage of : Labor (Ibeth Almanzar RN) Dilatation (cm): 10.0 (Ibeth Almanzar RN) Effacement (%): 100 (Ibeth Almanzar RN) Station: 3 (Ibeth Almanzar RN) Exam by: EVE ALMANZAR RN (Ibeth Almanzar, RN) Procedures: Sterile Vag Exam (Ibeth Almanzar RN) Communication: RN at Bedside; RN Reviewed Strip; Report Given to @ Noé NARAYAN CNM (Ibeth Almanzar RN) Notification Reason: Status Update (Ibeth Almanzar RN) Datetime: 11/06/2016 14:31 NBP Sys/Jud/Mean (mmHg): 103 (QS system process) : 65 (QS system process) : 81 (QS system process) Pulse: 88 (QS system process) LaborFlag: Labor (QS system process) Datetime: 11/06/2016 14:30 Stage of : Labor (Ibeth Almanzar RN) Respirations: 20 (Ibeth Almanzar RN) Monitor Mode: External (Ibeth Almanzar RN) Frequency (min): 1.5-2 (Ibeth Almanzar RN) Quality: Moderate to Strong (Ibeth Almanzar RN) Duration (sec): 55-70 (Ibeth Almanzar RN) Resting Tone (Palpate): Relaxed (Ibeth Almanzar RN) Monitor Mode: External US (Ibeth Almanzar RN) FHR Baseline Rate : 125 (Ibeth Almanzar RN) FHR Baseline Changes: No Baseline Change (Ibeth Almanzar RN) Variability: Moderate 6-25 bpm (Ibeth Almanzar RN) Accelerations: None (Ibeth Almanzar RN) Decelerations: None (Ibeth Almanzar RN) Pain Scale: 1 (Ibeth Almanzar RN) Pain Presence: Intermittent (Ibeth Almanzar RN) Pain Type: Pressure (Ibeth Almanzar RN) Pain Location: Abdomen; Perineum (Ibeth Almanzar RN) Pain Relief Measures: Comfort Measures (Ibeth Almanzar RN) Pain Coping: Talking Through Contractions (Ibeth Almanzar RN) Pitocin (milliunit): Pitocin Remains (milliunits) @ 20 (Ibeth Almanzar, RN) IV/Blood Work: IV Infusing per Order (Ibeth Almanzar RN) Patient Position/Activity: Right Tilt; Low Fowlers (Ibeth Almanzar, ROBERT) Comfort Measures: Family Support (Ibeth Almanzar RN) Communication: RN at Bedside; RN Reviewed Strip (Ibeth Almanzar RN) LaborFlag: Labor (QS system process) Datetime: 11/06/2016 14:15 Stage of : Labor (Ibeth Almanzar RN) NBP Sys/Jud/Mean (mmHg): 113 (QS system process) : 71 (QS system process) : 87 (QS system process) Pulse: 87 (QS system process) Respirations: 18 (Ibeth Almanzar RN) Monitor Mode: External (Ibeth Almanzar RN) Frequency (min): 1.5-2 (Ibeth Almanzar RN) Quality: Moderate to Strong (Ibeth Almanzar RN) Duration (sec): 55-70 (Ibeth Almanzar, ROBERT) Pattern: Normal: <= 5 Contractions in 10 Minutes (Ibeth Almanzar RN) Resting Tone (Palpate): Relaxed (Ibeth Almanzar RN) Monitor Mode: External US (Ibeth Almanzar RN) FHR Baseline Rate : 135 (Ibeth Almanzar RN) FHR Baseline Changes: No Baseline Change (Ibeth Almanzar RN) Variability: Moderate 6-25 bpm (Ibeth Almanzar, ROBERT) Accelerations: 15X15 (Ibeth Almanzar, RN) Decelerations: Early (Ibeth Almanzar, ROBERT) Pain Scale: 0 (Ibeth Almanzar, ROBERT) Pain Presence: Intermittent (Ibeth Almanzar, ROBERT) Pain Type: Pressure (Ibeth Almanzar, RN) Pain Location: Perineum (Ibeth Almanzar, RN) Pain Relief Measures: Comfort Measures (Ibeth Almanzar, ROBERT) Pain Coping: Talking Through Contractions (Ibeth Almanzar RN) Pitocin (milliunit): Pitocin Remains (milliunits) @ 20 (Ibeth Almanzar, ROBERT) IV/Blood Work: IV Infusing per Order (Ibeht Almanzar, ROBERT) Patient Position/Activity: Right Tilt; Low Fowlers (Ibeth Almanzar, RN) Comfort Measures: Family Support (Ibeth Almanzar, ROBERT) Communication: RN at Bedside; RN Reviewed Strip (Ibeth Almanzar, ROBERT) LaborFlag: Labor (QS system process) Datetime: 11/06/2016 14:11 NBP Sys/Jud/Mean (mmHg): 106 (QS system process) : 68 (QS system process) : 82 (QS system process) Pulse: 76 (QS system process) LaborFlag: Labor (QS system process) Datetime: 11/06/2016 14:05 NBP Sys/Jud/Mean (mmHg): 121 (QS system process) : 71 (QS system process) : 90 (QS system process) Pulse: 71 (QS system process) LaborFlag: Labor (QS system process) Datetime: 11/06/2016 14:02 Stage of : Labor (Ibeth Almanzar RN) Respirations: 18 (Ibeth Almanzar RN) Monitor Mode: External (Ibeth Almanzar RN) Monitor Interventions for UA: [place] Adjusted (Ibeth Almanzar RN) Frequency (min): 1.5-2 (Ibeth Almanzar RN) Quality: Moderate (Ibeth Almanzar RN) Duration (sec): 60-70 (Ibeth Almanzar, ROBERT) Resting Tone (Palpate): Relaxed (Ibeth Almanzar RN) Monitor Mode: External US (Ibeth Almanzar RN) Monitor Interventions for FHR: Ultrasound Adjusted (Ibeth Almanzar RN) FHR Baseline Rate : 125 (Ibeth Almanzar RN) FHR Baseline Changes: No Baseline Change (Ibeth Almanzar RN) Variability: Moderate 6-25 bpm (Ibeth Almanzar RN) Accelerations: 10X10 (Ibeth Almanzar, ROBERT) Decelerations: Early (Ibeth Almanzar RN) Pain Scale: 0 (Ibeth Almanzar RN) Pain Presence: Intermittent (Ibeth Almanzar RN) Pain Type: Pressure (Ibeth Almanzar RN) Pain Location: Abdomen (Ibeth Almanzar RN) Pain Relief Measures: Comfort Measures (Ibeth Almanzar RN) Pain Coping: Talking Through Contractions (Ibeth Almanzar RN) Dilatation (cm): 8.5 (Ibeth Almanzar RN) Effacement (%): 90 (Ibeth Almanzar RN) Exam by: Noé NARAYAN CNM (Ibeth Almanzar, ROBERT) Membrane Status: Ruptured (Ibeth Almanzar RN) Membranes Rupture Method: Artificial (Ibeth Almanzar RN) Amniotic Fluid Color: Clear (Ibeth Almanzar RN) Amniotic Fluid Amount: Moderate (Ibeth Almanzar RN) Amniotic Fluid Odor: None (Ibeth Almanzar RN) Vaginal Bleeding: None (Ibeth Almanzar RN) Cervix, Consistency: Soft (Ibeth Almanzar RN) Cervix, Position: Anterior (Ibeth Almanzar RN) Pitocin (milliunit): Pitocin Remains (milliunits) @ 20 (Ibeth Almanzar, ROBERT) IV/Blood Work: IV Infusing per Order (Ibeth Almanzar RN) Procedures: Sterile Vag Exam (Ibeth Almanzar RN) Patient Position/Activity: Right Tilt; Low Fowlers (Ibeth Almanzar, ROBERT) Comfort Measures: Family Support (Ibeth Almanzar, ROBERT) Communication: RN at Bedside; RN Reviewed Strip (Ibeth Almanzar RN) LaborFlag: Labor (QS system process) Datetime: 11/06/2016 14:01 NBP Sys/Jud/Mean (mmHg): 119 (QS system process) : 76 (QS system process) : 91 (QS system process) Pulse: 75 (QS system process) LaborFlag: Labor (QS system process) Datetime: 11/06/2016 13:57 Stage of : Labor (Ibeth Almanzar RN) NBP Sys/Jud/Mean (mmHg): 122 (QS system process) : 69 (QS system process) : 90 (QS system process) Pulse: 75 (QS system process) Dilatation (cm): 8.0 (Ibeth Almanzar RN) Effacement (%): 90 (Ibeth Almanzar RN) Exam by: EVE ALMANZAR RN (Ibeth Almanzar, RN) Vaginal Bleeding: None (Ibeth Almanzar RN) Cervix, Consistency: Soft (Ibeth Almanzar RN) Cervix, Position: Anterior (Ibeth Almanzar, RN) Vaginal Exam Comments: BOW PALP (Ibeth Almanzar RN) Communication: Report Given to @ Noé NARAYAN CNM (Ibeth Almanzar RN) Notification Reason: Status Update; Membrane Status; Pain (Ibeth Almanzar RN) LaborFlag: Labor (QS system process) Datetime: 11/06/2016 13:50 NBP Sys/Jud/Mean (mmHg): 116 (QS system process) : 77 (QS system process) : 92 (QS system process) Pulse: 78 (QS system process) I/O Interventions: Nguyen Cath Inserted (Ibeth Almanzar RN) LaborFlag: Labor (QS system process) Datetime: 11/06/2016 13:46 Anesthesia Plans: Epidural (Sanaz Spears RN) Epidural Positioning: Side Lying (Sanaz Spears RN) Epidural Procedure Other: Pump Started (Sanaz Spears, ROBERT) Datetime: 11/06/2016 13:45 Stage of : Labor (Ibeth Almanzar RN) Respirations: 22 (Ibeth Almanzar RN) Monitor Mode: External (Ibeth Almanzar, RN) Monitor Interventions for UA: [place] Adjusted (Ibeth Almanzar RN) Quality: Moderate (Ibeth Almanzar, RN) Resting Tone (Palpate): Relaxed (Ibeth Almanzar, RN) Monitor Mode: External US (Ibeth Almanzar, RN) Monitor Interventions for FHR: Ultrasound Adjusted (Ibeth Almanzar RN) FHR Baseline Rate : 125 (Ibeth Almanzar RN) Pain Scale: 4 (Ibeth Almanzar, RN) Pain Presence: Intermittent (Ibeth Almanzar RN) Pain Type: Contraction (Ibeth Almanzar RN) Pain Location: Abdomen (Ibeth Almanzar, ROBERT) Pain Relief Measures: Comfort Measures (Ibeth Almanzar, ROBERT) Pain Coping: Breathing Through Contractions (Ibeth Almanzar, ROBERT) Pitocin (milliunit): Pitocin Remains (milliunits) @ 20 (Ibeth Almanzar, ROBERT) IV/Blood Work: IV Infusing per Order (Ibeth Almanzar, ROBERT) Patient Position/Activity: Low Fowlers (Ibeth Almanzar, ROBERT) Comfort Measures: Breathing/Relaxation; Coaching; Family Support (Ibeth Almanzar, ROBERT) Communication: RN at Bedside; RN Reviewed Strip (Ibeth Almanzar RN) LaborFlag: Labor (QS system process) Datetime: 11/06/2016 13:44 NBP Sys/Jud/Mean (mmHg): 119 (QS system process) : 71 (QS system process) : 88 (QS system process) Pulse: 131 (QS system process) LaborFlag: Labor (QS system process) Datetime: 11/06/2016 13:43 NBP Sys/Jud/Mean (mmHg): 117 (QS system process) : 66 (QS system process) : 86 (QS system process) Pulse: 75 (QS system process) Anesthesia Plans: Epidural (Sanaz Spears RN) Epidural Positioning: Sitting (Sanaz Spears RN) Epidural Procedure: Loading Dose (Sanaz Spears RN) LaborFlag: Labor (QS system process) Datetime: 11/06/2016 13:42 NBP Sys/Jud/Mean (mmHg): 114 (QS system process) : 59 (QS system process) : 78 (QS system process) Pulse: 75 (QS system process) Pulse: 73 (QS system process) SpO2 (%): 97 (QS system process) Anesthesia Plans: Epidural (Sanaz Spears RN) Epidural Positioning: Sitting (Sanaz Spears RN) Epidural Procedure: Test Dose (Sanaz Spears RN) Epidural Procedure: Cath Placed (Sanaz Spears RN) LaborFlag: Labor (QS system process) Datetime: 11/06/2016 13:41 NBP Sys/Jud/Mean (mmHg): 119 (QS system process) : 57 (QS system process) : 85 (QS system process) Pulse: 84 (QS system process) LaborFlag: Labor (QS system process) Datetime: 11/06/2016 13:40 NBP Sys/Jud/Mean (mmHg): 123 (QS system process) : 72 (QS system process) : 93 (QS system process) Pulse: 73 (QS system process) LaborFlag: Labor (QS system process) Datetime: 11/06/2016 13:39 NBP Sys/Jud/Mean (mmHg): 125 (QS system process) : 81 (QS system process) : 98 (QS system process) Pulse: 84 (QS system process) LaborFlag: Labor (QS system process) Datetime: 11/06/2016 13:38 NBP Sys/Jud/Mean (mmHg): 129 (QS system process) : 64 (QS system process) : 89 (QS system process) Pulse: 77 (QS system process) LaborFlag: Labor (QS system process) Datetime: 11/06/2016 13:37 Pulse: 81 (QS system process) SpO2 (%): 96 (QS system process) LaborFlag: Labor (QS system process) Datetime: 11/06/2016 13:36 NBP Sys/Jud/Mean (mmHg): 131 (QS system process) : 63 (QS system process) : 90 (QS system process) Pulse: 77 (QS system process) Comments: tracing maternal heart rate (Ibeth Almanzar RN) Comments: RN at bedside continuously assessing FHT while epidural being placed (Ibeth Almanzar RN) Procedure Verify: Correct Patient Identity; Correct Side and Site are Marked; Accurate Procedure Consent Form; Agreement on Procedure to be Done; Correct Patient Position; Relevant Images and Results are Properly Labeled and Displayed; Addressed Need to Administer Antibiotics or Fluids for Irrigation; Safety Precautions Based on Patient History or Medication Use (Ibeth Almanzar RN) Procedure Verify: Correct Patient Identity; Correct Side and Site are Marked; Accurate Procedure Consent Form; Agreement on Procedure to be Done; Correct Patient Position (Ibeth Almanzar RN) Anesthesia Plans: Epidural (Ibeth Almanzar RN) Epidural Positioning: Sitting (Ibeth Almanzar RN) Communication: RN at Bedside (Ibeth Almanzar RN) LaborFlag: Labor (QS system process) Datetime: 11/06/2016 13:34 NBP Sys/Jud/Mean (mmHg): 119 (QS system process) NBP Sys/Jud/Mean (mmHg): 130 (QS system process) : 78 (QS system process) : 75 (QS system process) : 92 (QS system process) : 95 (QS system process) Pulse: 88 (QS system process) Pulse: 85 (QS system process) Anesthesia Plans: Epidural (Ibeth Almanzar RN) Epidural Positioning: Sitting (Ibeth Almanzar RN) Anesthesia Comments: Dr. Silva at bedside (Ibeth Almanzar RN) LaborFlag: Labor (QS system process) Datetime: 11/06/2016 13:32 NBP Sys/Jud/Mean (mmHg): 130 (QS system process) : 70 (QS system process) : 93 (QS system process) Pulse: 81 (QS system process) Pulse: 78 (QS system process) SpO2 (%): 97 (QS system process) LaborFlag: Labor (QS system process) Datetime: 11/06/2016 13:30 Stage of : Labor (Ibeth Almanzar, ROBERT) Monitor Mode: External (Ibeth Almanzar, RN) Monitor Interventions for UA: [place] Adjusted (Ibeth Almanzar, RN) Frequency (min): 1.5-2 (Ibeth Almanzar, RN) Quality: Moderate (Ibeth Almanzar, RN) Duration (sec): 60-70 (Ibeth Almanzar, RN) Resting Tone (Palpate): Relaxed (Ibeth Almanzar, RN) Comments: UTD- EFM MOVED FREQUENTLY, PT MOVING (Ibeth Almanzar, RN) Pain Scale: 5 (Ibeth Almanzar, RN) Pitocin (milliunit): Pitocin Remains (milliunits) @ 20 (Ibeth Almanzar, RN) IV/Blood Work: IV Infusing per Order (Ibeth Almanazr, ROBERT) Procedure Verify: Correct Patient Identity; Correct Side and Site are Marked; Accurate Procedure Consent Form; Agreement on Procedure to be Done; Correct Patient Position; Relevant Images and Results are Properly Labeled and Displayed (Ibeth Almanzar, ROBERT) Anesthesia Plans: Epidural (Ibeth Almanzar, ROBERT) Epidural Positioning: Sitting (Ibeth Almanzar, RN) Communication: RN at Bedside; RN Reviewed Strip; Provider at Bedside (Ibeth Almanzar, ROBERT) LaborFlag: Labor (QS system process) Datetime: 11/06/2016 13:15 Stage of : Labor (Ibeth Almanzar RN) Respirations: 22 (Ibeth Almanzar RN) Monitor Mode: External (Ibeth Almanzar RN) Frequency (min): 1.5-2 (Ibeth Almanzar RN) Quality: Moderate (Ibeth Almanzar RN) Duration (sec): 60-80 (Ibeth Almanzar RN) Resting Tone (Palpate): Relaxed (Ibeth Almanzar RN) Monitor Mode: External US (Ibeth Almanzar RN) Monitor Interventions for FHR: Ultrasound Adjusted (Ibeth Almanzar RN) FHR Baseline Rate : 140 (Ibeth Almanzar RN) FHR Baseline Changes: No Baseline Change (Ibeth Almanzar RN) Variability: Moderate 6-25 bpm (Ibeth Almanzar RN) Accelerations: 15X15 (Ibeth Almanzar RN) Decelerations: None (Ibeth Almanzar RN) Pain Scale: 5 (Ibeth Almanzar RN) Pain Presence: Intermittent (Ibeth Almanzar RN) Pain Type: Contraction (Ibeth Almanzar RN) Pain Location: Abdomen (Ibeth Almanzar RN) Pain Relief Measures: Comfort Measures (Ibeth Almanzar RN) Pain Coping: Breathing Through Contractions; Crying; Writhing (Ibeth Almanzar, ROBERT) Pitocin (milliunit): Pitocin Remains (milliunits) @ 20 (Ibeth Almanzar, ROBERT) Patient Position/Activity: Left Lateral; Low Fowlers (Ibeth Almanzar, ROBERT) Comfort Measures: Breathing/Relaxation; Coaching; Family Support (Ibeth Almanzar, ROBERT) Communication: RN at Bedside; RN Reviewed Strip (Ibeth Almanzar RN) LaborFlag: Labor (QS system process) Datetime: 11/06/2016 13:09 Anesthesia Comments: DR SILVA NOTIFIED OF EPIDURAL REQUEST- ANTICIPATES 15-20 MIN (Ibeth Almanzar RN) Datetime: 11/06/2016 13:00 Stage of : Labor (Ibeth Almanzar RN) NBP Sys/Jud/Mean (mmHg): 121 (QS system process) : 71 (QS system process) : 91 (QS system process) Pulse: 75 (QS system process) Respirations: 22 (Ibeth Almanzar RN) Monitor Mode: External (Ibeth Almanzar RN) Frequency (min): 1.5-2 (Ibeth Almanzar RN) Quality: Moderate (Ibeth Almanzar RN) Duration (sec): 55-80 (Ibeth Almanzar RN) Resting Tone (Palpate): Relaxed (Ibeth Almanzar RN) Monitor Mode: External US (Ibeth Almanzar RN) FHR Baseline Rate : 135 (Ibeth Almanzar RN) FHR Baseline Changes: No Baseline Change (Ibeth Almanzar RN) Variability: Moderate 6-25 bpm (Ibeth Gail Roulund, RN) Accelerations: 15X15 (Ibeth Almanzar, ROBERT) Decelerations: None (Ibeth Almanzar, RN) Pain Scale: 5 (Ibeth Almanzar, RN) Pain Presence: Intermittent (Ibeth Almanzar RN) Pain Type: Contraction (Ibeth Almanzar RN) Pain Location: Abdomen (Ibeth Almanzar, RN) Pain Relief Measures: Comfort Measures (Ibeth Almanzar, RN) Pain Coping: Breathing Through Contractions; Crying; Writhing (Ibeth Almanzar, RN) Pitocin (milliunit): Pitocin Remains (milliunits) @ 20 (Ibeth Almanzar, RN) IV/Blood Work: New IV Bag Hung (Ibeth Almanzar, RN) Patient Position/Activity: Left Lateral; Low Fowlers (Ibeth Almanzar, RN) Comfort Measures: Breathing/Relaxation; Coaching; Family Support (Ibeth Almanzar, ROBERT) Procedure Type: EPIDURAL (Ibeth Almanzar, ROBERT) Procedure Verify: Correct Patient Identity; Agreement on Procedure to be Done (Ibeth Almanzar, ROBERT) Anesthesia Plans: Epidural (Ibeth Almanzar, RN) Communication: RN at Bedside; RN Reviewed Strip (Ibeth Almanzar, ROBERT) LaborFlag: Labor (QS system process) Datetime: 11/06/2016 12:45 Stage of : Labor (Ibeth Almanzar RN) Respirations: 18 (Ibeth Almanzar RN) Monitor Mode: External (Ibeth Gail Roulund, RN) Frequency (min): 1.5-2.5 (Ibeth Almanzar RN) Quality: Moderate (Ibeth Almanzar RN) Resting Tone (Palpate): Relaxed (Ibeth Almanzar RN) Monitor Mode: External US (Ibeth Almanzar RN) FHR Baseline Rate : 135 (Ibeth Almanzar RN) FHR Baseline Changes: No Baseline Change (Ibeth Almanzar RN) Variability: Moderate 6-25 bpm (Ibeth Almanzar RN) Accelerations: 15X15 (Ibeth Almanzar RN) Decelerations: None (Ibeth Almanzar RN) Pain Scale: 4 (Ibeth Almanzar RN) Pain Presence: Intermittent (Ibeth Almanzar RN) Pain Type: Contraction (Ibeth Almanzar RN) Pain Location: Abdomen (Ibeth Almanzar RN) Pain Relief Measures: Comfort Measures (Ibeth Almanzar RN) Pain Coping: Breathing Through Contractions; Requesting Pain Medication or Epidural (Ibeth Almanzar, ROBERT) Pitocin (milliunit): Pitocin Remains (milliunits) @ 20 (Ibeth Almanzar, ROBERT) IV/Blood Work: IV Bolus Started (Ibeth Almanzar, ROBERT) Patient Position/Activity: Left Tilt; Low Fowlers (Ibeth Almanzar, ROBERT) Comfort Measures: Breathing/Relaxation; Family Support (Ibeth Almanzar, ROBERT) Procedure Type: EPIDURAL (Ibeth Almanzar RN) Procedure Verify: Correct Patient Identity; Agreement on Procedure to be Done; Relevant Images and Results are Properly Labeled and Displayed (Ibeth Almanzar, ROBERT) Anesthesia Plans: Epidural (Ibeth Almanzar, ROBERT) Communication: RN at Bedside; RN Reviewed Strip; Provider Orders Received; Report Given to @ Noé NARAYAN CNM (Ibeth Almanzar, ROBERT) Notification Reason: Status Update; Labor Status; Membrane Status; Pain (Ibeth Almanzar, ROBERT) LaborFlag: Labor (QS system process) Datetime: 11/06/2016 12:30 Stage of : Labor (Ibeth Almanzar RN) NBP Sys/Jud/Mean (mmHg): 127 (QS system process) : 86 (QS system process) : 102 (QS system process) Pulse: 72 (QS system process) Respirations: 20 (Ibeth Almanzar RN) Monitor Mode: External (Ibeth Almanzar RN) Frequency (min): 2 (Ibeth Almanzar RN) Quality: Moderate (Ibeth Almanzar RN) Duration (sec): 55-70 (Ibeth Almanzar RN) Resting Tone (Palpate): Relaxed (Ibeth Almanzar RN) Monitor Mode: External US (Ibeth Almanzar RN) FHR Baseline Rate : 135 (Ibeth Almanzar RN) FHR Baseline Changes: No Baseline Change (Ibeth Almanzar RN) Variability: Moderate 6-25 bpm (Ibeth Almanzar RN) Accelerations: 15X15 (Ibeth Almanzar RN) Decelerations: None (Ibeth Almanzar RN) Pain Scale: 3 (Ibeth Almanzar RN) Pain Presence: Intermittent (Ibeth Almanzar RN) Pain Type: Contraction (Ibeth Almanzar RN) Pain Location: Abdomen (Ibeth Almanzar RN) Pain Relief Measures: Comfort Measures (Ibeth Almanzar RN) Pain Coping: Breathing Through Contractions (Ibeth Almanzar RN) Pitocin (milliunit): Pitocin Remains (milliunits) @ 20 (Ibeth Almanzar RN) IV/Blood Work: IV Infusing per Order (Ibeth Almanzar, RN) Patient Position/Activity: Left Tilt; Low Fowlers (Ibeth Almanzar, RN) Comfort Measures: Breathing/Relaxation; Family Support (Ibeth Almanzar, RN) Communication: RN at Bedside; RN Reviewed Strip (Ibeth Almanzar, RN) LaborFlag: Labor (QS system process) Datetime: 11/06/2016 12:16 Stage of : Labor (Ibeth Almanzar RN) Respirations: 18 (Ibeth Almanzar, ROBERT) Monitor Mode: External (Ibeth Almanzar, RN) Monitor Interventions for UA: [place] Adjusted (Ibeth Almanzar RN) Frequency (min): 1.5-2.5 (Ibeth Almanzar, ROBERT) Quality: Moderate (Ibeth Almanzar, ROBERT) Duration (sec): 55-70 (Ibeth Almanzar, RN) Resting Tone (Palpate): Relaxed (Ibeth Almanzar, RN) Monitor Mode: External US (Ibeth Almanzar, RN) Monitor Interventions for FHR: Ultrasound Adjusted (Ibeth Almanzar RN) FHR Baseline Rate : 135 (Ibeth Almanzar RN) FHR Baseline Changes: No Baseline Change (Ibeth Almanzar RN) Variability: Moderate 6-25 bpm (Ibeth Almanzar, ROBERT) Accelerations: 15X15 (Ibeth Almanzar RN) Decelerations: None (Ibeth Gail Roulund, RN) Pain Relief Measures: Comfort Measures (Ibeth Almanzar, RN) Pain Coping: Talking Through Contractions; Breathing Through Contractions (Ibeth Almanzar, RN) Pitocin (milliunit): Pitocin Remains (milliunits) @ 20 (Ibeth Almanzar, RN) IV/Blood Work: IV Infusing per Order (Ibeth Almanzar, RN) Patient Position/Activity: Left Tilt; Low Fowlers (Ibeth Almanzar, RN) Comfort Measures: Breathing/Relaxation; Family Support (Ibeth Almanzar, RN) Communication: RN at Bedside; RN Reviewed Strip (Ibeth Almanzar, RN) LaborFlag: Labor (QS system process) Datetime: 11/06/2016 12:04 Stage of : Labor (Ibeth Almanzar, ROBERT) Respirations: 18 (Ibeth Almanzar, ROBERT) Monitor Mode: External (Ibeth Almanzar, RN) Monitor Interventions for UA: [place] Adjusted (Ibeth Almanzar, ROBERT) Frequency (min): 1.5-2.5 (Ibeth Almanzar, RN) Quality: Moderate (Ibeth Almanzar, RN) Duration (sec): 55-70 (Ibeth Almanzar, RN) Resting Tone (Palpate): Relaxed (Ibeth Almanzar, RN) Monitor Mode: External US (Ibeth Almanzar, RN) Monitor Interventions for FHR: Ultrasound Adjusted (Ibeth Almanzar RN) FHR Baseline Rate : 135 (Ibeth Almanzar RN) FHR Baseline Changes: No Baseline Change (Ibeth Almanzar RN) Variability: Moderate 6-25 bpm (Ibeth Almanzar RN) Accelerations: 15X15 (Ibeth Almanzar RN) Decelerations: None (Ibeth Almanzar RN) Pain Scale: 3 (Ibeth Almanzar RN) Pain Presence: Intermittent (Ibeth Almanzar RN) Pain Type: Contraction (Ibeth Almanzar RN) Pain Location: Abdomen (Ibeth Almanzar RN) Pain Relief Measures: Comfort Measures (Ibeth Almanzar RN) Pain Coping: Talking Through Contractions; Breathing Through Contractions (Ibeth Almanzar RN) Dilatation (cm): 3.0 (Ibeth Almanzar RN) Effacement (%): 50 (Ibeth Almanzar RN) Station: -1 (Ibeth Almanzar RN) Exam by: Noé NARAYAN CNWes (Ibeth Almanzar RN) Membrane Status: Ruptured (Ibeth Almanzar RN) Membranes Rupture Method: Artificial (Ibeth Almanzar RN) Amniotic Fluid Amount: None (Ibeth Almanzar RN) Vaginal Bleeding: None (Ibeth Almanzar RN) Cervix, Consistency: Moderate (Ibeth Almanzar RN) Cervix, Position: Posterior (Ibeth Almanzar RN) Membrane Comments: CNM ATTEMPTED AROM- NO FLUID NOTED (Ibeth Almanzar RN) Pitocin (milliunit): Pitocin Remains (milliunits) @ 20 (Ibeth Almanzar, ROBERT) IV/Blood Work: IV Infusing per Order (Ibeth Almanzar, ROBERT) Procedures: Sterile Vag Exam (Ibeth Almanzar RN) Patient Position/Activity: Left Tilt; Low Fowlers (Ibeth Almanzar RN) Comfort Measures: Breathing/Relaxation; Family Support (Ibeth Almanzar RN) Provider Reviewed Strip: Yes (Ibeth Almanzar RN) Instructional Method: Verbal; Patient Instructed; Family/Support Person Instructed; Verbalized Understanding (Ibeth Almanzar RN) Plan of Care: Plan of Care Discussed; Labor (Ibeth Almanzar, RN) Labor/Induction: Artificial Rupture of Membranes (Ibeth Almanzar, RN) Pain Management: Epidural; Pain Scale/Goals; Comfort Measures (Ibeth Almanzar, RN) Communication: RN at Bedside; RN Reviewed Strip; Provider at Bedside (Ibeth Almanzar, ROBERT) LaborFlag: Labor (QS system process) Datetime: 11/06/2016 12:01 NBP Sys/Jud/Mean (mmHg): 125 (QS system process) : 78 (QS system process) : 98 (QS system process) Pulse: 74 (QS system process) LaborFlag: Labor (QS system process) Datetime: 11/06/2016 11:55 Antibiotics: Penicillin IV (Units) @ 2.5 MILLION UNITS (Ibeth Almanzar RN) I/O Interventions: Up to BR (Ibeth Almanzar RN) Datetime: 11/06/2016 11:52 Stage of : Labor (Ibeth Almanzar, ROBERT) Datetime: 11/06/2016 11:44 Stage of : Labor (Ibeth Almanzar RN) Respirations: 18 (Ibeth Almanzar RN) Monitor Mode: External (Ibeth Almanzar RN) Frequency (min): 2-3 (Ibeth Almanzar RN) Quality: Mild/Moderate (Ibeth Almanzar RN) Duration (sec): 55-70 (Ibeth Almanzar RN) Resting Tone (Palpate): Relaxed (Ibeth Almanzar RN) Monitor Mode: External US (Ibeth Almanzar RN) FHR Baseline Rate : 140 (Ibeth Almanzar RN) FHR Baseline Changes: No Baseline Change (Ibeth Almanzar RN) Variability: Moderate 6-25 bpm (Ibeth Almanzar RN) Accelerations: 15X15 (Ibeth Almanzar RN) Decelerations: None (Ibeth Gail Roulund, RN) Pain Relief Measures: Comfort Measures (Ibeth Almanzar RN) Pain Coping: Talking Through Contractions; Breathing Through Contractions (Ibeth Almanzar RN) Pitocin (milliunit): Pitocin Remains (milliunits) @ 20 (Ibeth Almanzar RN) IV/Blood Work: IV Infusing per Order (Ibeth Almanzar RN) Patient Position/Activity: Birthing Ball (Ibeth Almanzar RN) Comfort Measures: Family Support (Ibeth Almanzar RN) Communication: RN at Bedside; RN Reviewed Strip (Ibeth Almanzar RN) LaborFlag: Labor (QS system process) Datetime: 11/06/2016 11:30 I/O Interventions: Clear Liquids Given (Ibeth Almanzar RN) Datetime: 11/06/2016 11:29 Stage of : Labor (Ibeth Almanzar RN) NBP Sys/Jud/Mean (mmHg): 121 (QS system process) : 75 (QS system process) : 93 (QS system process) Pulse: 73 (QS system process) Respirations: 18 (Ibeth Almanzar RN) Monitor Mode: External (Ibeth Almanzar RN) Frequency (min): 2-2.5 (Ibeth Almanzar RN) Quality: Mild/Moderate (Ibeth Almanzar RN) Duration (sec): 55-65 (Ibeth Almanzar, ROBERT) Resting Tone (Palpate): Relaxed (Ibeth Almanzar, ROBERT) Monitor Mode: External US (Ibeth Almanzar RN) Monitor Interventions for FHR: Ultrasound Adjusted (Ibeth Almanzar RN) FHR Baseline Rate : 140 (Ibeth Almanzar RN) FHR Baseline Changes: No Baseline Change (Ibeth Almanzar RN) Variability: Moderate 6-25 bpm (Ibeth Almanzar, ROBERT) Accelerations: None (Ibeth Almanzar RN) Decelerations: None (Ibeth Almanzar, ROBERT) Pain Scale: 2 (Ibeth Almanzar RN) Pain Presence: Intermittent (Ibeth Almanzar, ROBERT) Pain Type: Cramping (Ibeth Almanzar, ROBERT) Pain Location: Abdomen (Ibeth Almanzar, ROBERT) Pain Relief Measures: Comfort Measures (Ibeth Almanzar, ROBERT) Pain Coping: Breathing Through Contractions (Ibeth Almanzar, ROBERT) Pitocin (milliunit): Pitocin Remains (milliunits) @ 20 (Ibeth Almanzar, RN) IV/Blood Work: IV Infusing per Order (Ibeth Almanzar, RN) Patient Position/Activity: Birthing Ball (Ibeth Almanzar, RN) Comfort Measures: Breathing/Relaxation; Family Support (Ibeth Almanzar, ROBERT) Communication: RN at Bedside; RN Reviewed Strip (Ibeth Almanzar, ROBERT) LaborFlag: Labor (QS system process) Datetime: 11/06/2016 11:15 Stage of : Labor (Ibeth Almanzar RN) Monitor Mode: External (Ibeth Almanzar RN) Frequency (min): 2-3 (Ibeth Almanzar RN) Quality: Mild/Moderate (Ibeth Almanzar, RN) Duration (sec): 55-65 (Ibeth Almanzar, RN) Resting Tone (Palpate): Relaxed (Ibeth Almanzar, ROBERT) Monitor Mode: External US (Ibeth Almanzar, ROBERT) Monitor Interventions for FHR: Ultrasound Adjusted (Ibeth Almanzar RN) FHR Baseline Rate : 140 (Ibeth Almanzar RN) FHR Baseline Changes: No Baseline Change (Ibeth Almanzar, ROBERT) Variability: Moderate 6-25 bpm (Ibeth Almanzar, RN) Accelerations: 15X15 (Ibeth Almanzar, ROBERT) Decelerations: None (Ibeth Almanzar, ROBERT) Pain Relief Measures: Comfort Measures (Ibeth Almanzar, ROBERT) Pain Coping: Talking Through Contractions (Ibeth Almanzar, ROBERT) Pitocin (milliunit): Pitocin Remains (milliunits) @ 20 (Ibeth Almanzar, RN) IV/Blood Work: IV Infusing per Order (Ibeth Almanzar, RN) Patient Position/Activity: Birthing Ball (Ibeth Almanzar, ROBERT) Comfort Measures: Family Support (Ibeth Almanzar, ROBERT) Communication: RN at Bedside; RN Reviewed Strip (Ibeth Almanzar RN) LaborFlag: Labor (QS system process) Datetime: 11/06/2016 11:02 I/O Interventions: Popsicle (Ibeth Almanzar, RN) Datetime: 11/06/2016 11:01 NBP Sys/Jud/Mean (mmHg): 112 (QS system process) : 80 (QS system process) : 91 (QS system process) Pulse: 84 (QS system process) LaborFlag: Labor (QS system process) Datetime: 11/06/2016 11:00 Stage of : Labor (Ibeth Almanzar RN) Respirations: 18 (Ibeth Almanzar RN) Temperature (F): 97.9 (Ibeth Almanzar ROBERT) Temperature (C): 36.6 (QS system process) Monitor Mode: External (Ibeth Almanzar, RN) Monitor Interventions for UA: [place] Adjusted (Ibeth Almanzar, ROBERT) Frequency (min): 2-2.5 (Ibeth Almanzar, ROBERT) Quality: Mild/Moderate (Ibeth Almanzar, ROBERT) Duration (sec): 55-65 (Ibeth Almanzar, RN) Resting Tone (Palpate): Relaxed (Ibeth Almanzar, RN) Monitor Mode: External US (Ibeth Almanzar RN) Monitor Interventions for FHR: Ultrasound Adjusted (Ibeth Almanzar RN) FHR Baseline Rate : 140 (Ibeth Almanzar, ROBERT) FHR Baseline Changes: No Baseline Change (Ibeth Almanzar, ROBERT) Variability: Moderate 6-25 bpm (Ibeth Almanzar, ROBERT) Accelerations: None (Ibeth Almanzar, ROBERT) Decelerations: None (Ibeth Almanzar, ROBERT) Pain Scale: 2 (Ibeth Almanzar, ROBERT) Pain Presence: Intermittent (Ibeth Almanzar, RN) Pain Type: Cramping (Ibeth Almanzar, RN) Pain Location: Abdomen (Ibeth Almanzar, ROBERT) Pain Relief Measures: Comfort Measures (Ibeth Almanzar, ROBERT) Pain Coping: Talking Through Contractions (Ibeth Almanzar, ROBERT) Pitocin (milliunit): Pitocin Remains (milliunits) @ 20 (Ibeth Almanzar, RN) IV/Blood Work: IV Infusing per Order (Ibeth Almanzar, RN) Patient Position/Activity: Birthing Ball (Ibeth Almanzar, RN) Comfort Measures: Family Support (Ibeth Almanzar, ROBERT) Communication: RN at Bedside; RN Reviewed Strip (Ibeth Almanzar, ROBERT) LaborFlag: Labor (QS system process) Datetime: 11/06/2016 10:45 Stage of : Antepartum (Ibeth Almanzar RN) Respirations: 18 (Ibeth Almanzar RN) Monitor Mode: External (Ibeth Almanzar RN) Frequency (min): 2-3 (Ibeth Almanzar RN) Quality: Mild/Moderate (Ibeth Almanzar RN) Duration (sec): 55-65 (Ibeth Almanzar, RN) Resting Tone (Palpate): Relaxed (Ibeth Almanzar, ROBERT) Monitor Mode: External US (Ibeth Almanzar RN) FHR Baseline Rate : 140 (Ibeth Almanzar RN) FHR Baseline Changes: No Baseline Change (Ibeth Almanzar, ROBERT) Variability: Moderate 6-25 bpm (Ibeth Almanzar, ROBERT) Accelerations: None (Ibeth Almanzar, ROBERT) Decelerations: None (Ibeth Almanzar, ORBERT) Pain Relief Measures: Comfort Measures (Ibeth Almanzar, ROBERT) Pain Coping: Talking Through Contractions (Ibeth Almanzar, ROBERT) Pitocin (milliunit): Pitocin Remains (milliunits) @ 20 (Ibeth Almanzar, RN) IV/Blood Work: IV Infusing per Order (Ibeth Almanzar, ROBERT) Patient Position/Activity: Birthing Ball (Ibeth Almanzar, ROBERT) Comfort Measures: Family Support (Ibeth Almanzar, ROBERT) Communication: RN at Bedside; RN Reviewed Strip (Ibeth Almanzar RN) LaborFlag: Antepartum (QS system process) Datetime: 11/06/2016 10:30 Stage of : Antepartum (Ibeth Almanzar RN) NBP Sys/Jud/Mean (mmHg): 119 (QS system process) : 68 (QS system process) : 87 (QS system process) Pulse: 71 (QS system process) Respirations: 18 (Ibeth Almanzar RN) Monitor Mode: External (Ibeth Almanzar RN) Frequency (min): 2-3 (Ibeth Almanzar RN) Quality: Mild/Moderate (Ibeth Almanzar RN) Duration (sec): 55-65 (Ibeth Almanzar, ROBERT) Resting Tone (Palpate): Relaxed (Ibeth Almanzar, RN) Monitor Mode: External US (Ibeth Almanzar RN) FHR Baseline Rate : 135 (Ibeth Almanzar RN) FHR Baseline Changes: No Baseline Change (Ibeth Almanzar RN) Variability: Moderate 6-25 bpm (Ibeth Almanzar, RN) Accelerations: 15X15 (Ibeth Almanzar, RN) Decelerations: None (Ibeth Almanzar, ROBERT) Pain Relief Measures: Comfort Measures (Ibeth Almanzar RN) Pain Coping: Talking Through Contractions (Ibeth Almanzar, ROBERT) Pitocin (milliunit): Pitocin Remains (milliunits) @ 20 (Ibeth Almanzar, ROBERT) IV/Blood Work: IV Infusing per Order (Ibeth Almanzar, ROBERT) Patient Position/Activity: Birthing Ball (Ibeth Almanzar, ROBERT) Comfort Measures: Family Support (Ibeth Almanzar, ROBERT) Communication: RN at Bedside; RN Reviewed Strip (Ibeth Almanzar RN) LaborFlag: Antepartum (QS system process) Datetime: 11/06/2016 10:15 Stage of : Antepartum (Ibeth Almanzar RN) Respirations: 18 (Ibeth Almanzar RN) Monitor Mode: External (Ibeth Almanzar RN) Frequency (min): 2-2.5 (Ibeth Almanzar RN) Quality: Mild/Moderate (Ibeth Almanzar RN) Duration (sec): 55-65 (Ibeth Almanzar, RN) Resting Tone (Palpate): Relaxed (Ibeth Almanzar RN) Monitor Mode: External US (Ibeth Almanzar RN) FHR Baseline Rate : 135 (Ibeth Almanzar RN) FHR Baseline Changes: No Baseline Change (Ibeth Almanzar RN) Variability: Moderate 6-25 bpm (Ibeth Almanzar, ROBERT) Accelerations: 15X15 (Ibeth Almanzar, RN) Decelerations: None (Ibeth Almanzar, ROBERT) Pain Relief Measures: Comfort Measures (Ibeth Almanzar, ROBERT) Pain Coping: Talking Through Contractions (Ibeth Almanzar, ROBERT) Pitocin (milliunit): Pitocin Increased to (milliunits) @ 20 (Ibeth Almanzar, RBOERT) IV/Blood Work: IV Infusing per Order (Ibeth Almanzar, ROBERT) Patient Position/Activity: Birthing Ball (Ibeth Almanzar, ROBERT) Comfort Measures: Family Support (Ibeth Almanzar RN) Communication: RN at Bedside; RN Reviewed Strip (Ibeth Almanzar RN) LaborFlag: Antepartum (QS system process) Datetime: 11/06/2016 10:00 Stage of : Antepartum (Ibeth Almanzar RN) Respirations: 18 (Ibeth Almanzar RN) Monitor Mode: External (Ibeth Almanzar RN) Monitor Interventions for UA: [place] Adjusted (Ibeth Almanzar RN) Frequency (min): 2-2.5 (Ibeth Almanzar RN) Quality: Mild/Moderate (Ibeth Almanzar RN) Duration (sec): 55-65 (Ibeth Almanzar, ROBERT) Resting Tone (Palpate): Relaxed (Ibeth Almanzar RN) Monitor Mode: External US (Ibeth Almanzar RN) FHR Baseline Rate : 135 (Ibeth Almanzar RN) FHR Baseline Changes: No Baseline Change (Ibeth Almanzar, ROBERT) Variability: Moderate 6-25 bpm (Ibeth Almanzar, RN) Accelerations: None (Ibeth Almanzar RN) Decelerations: None (Ibeth Almanzar, ROBERT) Pain Scale: 0 (Ibeth Almanzar RN) Pain Presence: Intermittent (Ibeth Almanzar RN) Pain Type: Cramping (Ibeth Almanzar RN) Pain Location: Abdomen (Ibeth Almanzar RN) Pain Relief Measures: Comfort Measures (Ibeth Almanzar RN) Pain Coping: Talking Through Contractions (Ibeth Almanzar RN) Pitocin (milliunit): Pitocin Increased to (milliunits) @ 18 (Ibeth Almanzar RN) IV/Blood Work: IV Infusing per Order (Ibeth Almanzar RN) Patient Position/Activity: Birthing Ball (Ibeth Almanzar RN) Comfort Measures: Family Support (Ibeth Almanzar RN) Communication: RN at Bedside; RN Reviewed Strip (Ibeth Almanzar RN) LaborFlag: Antepartum (QS system process) Datetime: 11/06/2016 09:59 NBP Sys/Jud/Mean (mmHg): 112 (QS system process) : 76 (QS system process) : 86 (QS system process) Pulse: 78 (QS system process) LaborFlag: Antepartum (QS system process) Datetime: 11/06/2016 09:45 Stage of : Antepartum (Ibeth Almanzar RN) Respirations: 18 (Ibeth Almanzar RN) Monitor Mode: External (Ibeth Almanzar RN) Frequency (min): 2-2.5 (Ibeth Almanzar RN) Quality: Mild/Moderate (Ibeth Almanzar RN) Duration (sec): 55-65 (Ibeth Almanzar, RN) Resting Tone (Palpate): Relaxed (Ibeth Almanzar, ROBERT) Monitor Mode: External US (Ibeth Almanzar RN) FHR Baseline Rate : 145 (Ibeth Almanzar RN) FHR Baseline Changes: No Baseline Change (Ibeth Almanzar, ROBERT) Variability: Moderate 6-25 bpm (Ibeth Almanzar, ROBERT) Accelerations: None (Ibeth Almanzar, ROBERT) Decelerations: None (Ibeth Almanzar, ROBERT) Pain Relief Measures: Comfort Measures (Ibeth Almanzar RN) Pain Coping: Talking Through Contractions (Ibeth Almanzar, ROBERT) Pitocin (milliunit): Pitocin Increased to (milliunits) @ 16 (Ibeth Almanzar, RN) IV/Blood Work: IV Infusing per Order (Ibeth Almanzar, RN) Patient Position/Activity: Birthing Ball (Ibeth Almanzar, RN) Comfort Measures: Family Support (Ibeth Almanzar, RN) Communication: RN at Bedside; RN Reviewed Strip (Ibeth Almanzar, RN) LaborFlag: Antepartum (QS system process) Datetime: 11/06/2016 09:30 Stage of : Antepartum (Ibeth Almanzar, ROBERT) NBP Sys/Jud/Mean (mmHg): 151 (QS system process) : 81 (QS system process) : 105 (QS system process) Pulse: 76 (QS system process) Respirations: 18 (Ibeth Almanzar, ROBERT) Monitor Mode: External (Ibeth Almanzar, ROBERT) Monitor Interventions for UA: [place] Adjusted (Ibeth Almanzar, ROBERT) Frequency (min): 1.5-3 (Ibeth Almanzar, ROBERT) Quality: Mild (Ibeth Almanzar, RN) Resting Tone (Palpate): Relaxed (Ibeth Almanzar, RN) Monitor Mode: External US (Ibeth Almanzar, ROBERT) Monitor Interventions for FHR: Ultrasound Adjusted (Ibeth Almanzar RN) FHR Baseline Rate : 145 (Ibeth Almanzar, ROBERT) FHR Baseline Changes: No Baseline Change (Ibeth Almanzar, ROBERT) Variability: Moderate 6-25 bpm (Ibeth Almanzar, ROBERT) Accelerations: None (Ibeth Almanzar, ROBERT) Decelerations: None (Ibeth Almanzar, ROBERT) Pain Scale: 1 (Ibeth Almanzar, ROBERT) Pain Presence: Intermittent (Ibeth Almanzar, ROBERT) Pain Type: Cramping (Ibeth Almanzar, RN) Pain Location: Abdomen (Ibeth Almanzar, ROBETR) Pain Relief Measures: Comfort Measures (Ibeth Almanzar, ROBERT) Pain Coping: Talking Through Contractions (Ibeth Almanzar, ROBERT) Pitocin (milliunit): Pitocin Increased to (milliunits) @ 14 (Ibeth Almanzar, RN) IV/Blood Work: IV Infusing per Order (Ibeth Almanzar, ROBERT) Patient Position/Activity: Birthing Ball (Ibeth Almanzar, ROBERT) Comfort Measures: Family Support (Ibeth Almanzar, ROBERT) Communication: RN at Bedside; RN Reviewed Strip (Ibeth Almanzar, ROBERT) LaborFlag: Antepartum (QS system process) Datetime: 11/06/2016 09:15 Stage of : Antepartum (Ibeth Almanzar, ROBERT) Respirations: 18 (Ibeth Almanzar, RN) Monitor Mode: External (Ibeth Almanzar, RN) Monitor Interventions for UA: [place] Adjusted (Ibeth Almanzar, RN) Frequency (min): irreg (Ibeth Almanzar, RN) Quality: Mild (Ibeth Almanzar, RN) Duration (sec): 55-70 (Ibeth Almanzar, RN) Resting Tone (Palpate): Relaxed (Ibeth Almanzar, ROBERT) Monitor Mode: External US (Ibeth Almanzar, RN) Monitor Interventions for FHR: Ultrasound Adjusted (Ibeth Almanzar RN) FHR Baseline Rate : 125 (Ibeth Almanzar, RN) FHR Baseline Changes: No Baseline Change (Ibeth Almanzar, RN) Variability: Moderate 6-25 bpm (Ibeth Almanzar, RN) Accelerations: 15X15 (Ibeth Almanzar, RN) Decelerations: None (Ibeth Almanzar, RN) Pain Relief Measures: Comfort Measures (Ibeth Almanzar, RN) Pain Coping: Talking Through Contractions (Ibeth Almanzar, ROBERT) Pitocin (milliunit): Pitocin Increased to (milliunits) @ 12 (Ibeth Almanzar, ROBERT) IV/Blood Work: IV Infusing per Order; New IV Bag Hung (Ibeth Almanzar, RN) Patient Position/Activity: Right Lateral; Low Fowlers (Ibeth Almanzar, RN) Comfort Measures: Family Support (Ibeth Almanzar RN) I/O Interventions: Up to BR (Ibeth Almanzar RN) Communication: RN at Bedside; RN Reviewed Strip (Ibeth Almanzar RN) LaborFlag: Antepartum (QS system process) Datetime: 11/06/2016 09:05 NBP Sys/Ujd/Mean (mmHg): 113 (QS system process) : 71 (QS system process) : 86 (QS system process) Pulse: 86 (QS system process) LaborFlag: Antepartum (QS system process) Datetime: 11/06/2016 09:00 Stage of : Antepartum (Ibeth Almanzar RN) Respirations: 18 (Ibeth Almanzar RN) Monitor Mode: External (Ibeth Almanzar RN) Frequency (min): occ (Ibeth Almanzar RN) Quality: Mild (Ibeth Almanzar RN) Resting Tone (Palpate): Relaxed (Ibeth Almanzar RN) Monitor Mode: External US (Ibeth Almanzar RN) FHR Baseline Rate : 125 (Ibeth Almanzar RN) FHR Baseline Changes: No Baseline Change (Ibeth Almanzar RN) Variability: Moderate 6-25 bpm (Ibeth Almanzar, ROBERT) Accelerations: 15X15 (Ibeth Almanzar, RN) Decelerations: None (Ibeth Almanzar, ROBERT) Pain Scale: 1 (Ibeth Almanzar RN) Pain Presence: Intermittent (Ibeth Almanzar, ROBERT) Pain Type: Cramping (Ibeth Almanzar, RN) Pain Location: Abdomen (Ibeth Almanzar, RN) Pain Relief Measures: Comfort Measures (Ibeth Almanzar, ROBERT) Pain Coping: Talking Through Contractions (Ibeth Almanzar, ROBERT) Pitocin (milliunit): Pitocin Increased to (milliunits) @ 10 (Ibeth Almanzar, ROBERT) IV/Blood Work: IV Infusing per Order (Ibeth Almanzar, ROBERT) Patient Position/Activity: Right Lateral; Low Fowlers (Ibeth Almanzar, RN) Comfort Measures: Family Support (Ibeth Almanzar, ROBERT) Instructional Method: Verbal; Patient Instructed; Family/Support Person Instructed; Verbalized Understanding (Ibeth Almanzar, ROBERT) Plan of Care: Plan of Care Discussed; Labor (Ibeth Almanzar, RN) Labor/Induction: Labor Stages (Ibeth Almanzar, ROBERT) Communication: RN at Bedside; RN Reviewed Strip (Ibeth Almanzar RN) LaborFlag: Antepartum (QS system process) Datetime: 11/06/2016 08:50 NBP Sys/Jud/Mean (mmHg): 111 (QS system process) : 72 (QS system process) : 87 (QS system process) Pulse: 78 (QS system process) LaborFlag: Antepartum (QS system process) Datetime: 11/06/2016 08:45 Stage of : Antepartum (Ibeth Almanzar RN) Respirations: 18 (Ibeth Almanzar RN) Monitor Mode: External (Ibeth Almanzar RN) Frequency (min): OCC (Ibeth Almanzar RN) Quality: Mild (Ibeth Almanzar RN) Duration (sec): 50-60 (Ibeth Almanzar RN) Resting Tone (Palpate): Relaxed (Ibeth Almanzar RN) Monitor Mode: External US (Ibeth Almanzar RN) FHR Baseline Rate : 125 (Ibeth Almanzar RN) FHR Baseline Changes: No Baseline Change (Ibeth Almanzar RN) Variability: Moderate 6-25 bpm (Ibeth Almanzar, RN) Accelerations: 15X15 (Ibeth Almanzar RN) Decelerations: None (Ibeth Almanzar RN) Pain Relief Measures: Comfort Measures (Ibeth Almanzar RN) Pain Coping: Talking Through Contractions (Ibeth Almanzar RN) Pitocin (milliunit): Pitocin Increased to (milliunits) @ 8 (Ibeth Almanzar RN) IV/Blood Work: IV Infusing per Order (Ibeth Almanzar RN) Patient Position/Activity: Right Tilt; Semi-Fowlers (Ibeth Almanzar, ROBERT) Comfort Measures: Family Support (Ibeth Almanzar, ROBERT) Communication: RN at Bedside; RN Reviewed Strip (Ibeth Almanzar RN) LaborFlag: Antepartum (QS system process) Datetime: 11/06/2016 08:35 NBP Sys/Jud/Mean (mmHg): 114 (QS system process) : 72 (QS system process) : 88 (QS system process) Pulse: 78 (QS system process) LaborFlag: Antepartum (QS system process) Datetime: 11/06/2016 08:30 Stage of : Antepartum (Ibeth Almanzar RN) Respirations: 18 (Ibeth Almanzar RN) Monitor Mode: External (Ibeth Almanzar RN) Monitor Interventions for UA: [place] Adjusted (Ibeth Almanzar RN) Frequency (min): OCC (Ibeth Almanzar RN) Quality: Mild (Ibeth Almanzar, RN) Duration (sec): 50-90 (Ibeth Almanzar, RN) Resting Tone (Palpate): Relaxed (Ibeth Almanzar, RN) Monitor Mode: External US (Ibeth Almanzar RN) FHR Baseline Rate : 125 (Ibeth Almanzar, RN) FHR Baseline Changes: No Baseline Change (Ibeth Almanzar, ROBERT) Variability: Moderate 6-25 bpm (Ibeth Almanzar, RN) Accelerations: 15X15 (Ibeth Almanzar, RN) Decelerations: None (Ibeth Almanzar, RN) Pain Relief Measures: Comfort Measures (Ibeth Almanzar, RN) Pain Coping: Talking Through Contractions (Ibeth Almanzar, RN) Pitocin (milliunit): Pitocin Increased to (milliunits) @ 6 (Ibeth Almanzar, RN) IV/Blood Work: IV Infusing per Order (Ibeth Almanzar, RN) Patient Position/Activity: Right Tilt; Semi-Fowlers (Ibeth Almanzar, RN) Comfort Measures: Family Support (Ibeth Almanzar, RN) Provider Reviewed Strip: Yes (Ibeth Almanzar, RN) Communication: RN at Bedside; RN Reviewed Strip; Provider at Bedside (Ibeth Almanzar, RN) LaborFlag: Antepartum (QS system process) Datetime: 11/06/2016 08:21 NBP Sys/Jud/Mean (mmHg): 109 (QS system process) : 66 (QS system process) : 82 (QS system process) Pulse: 77 (QS system process) LaborFlag: Antepartum (QS system process) Datetime: 11/06/2016 08:15 Stage of : Antepartum (Ibeth Almanzar RN) Respirations: 18 (Ibeth Almanzar RN) Monitor Mode: External (Ibeth Almanzar RN) Monitor Interventions for UA: [place] Adjusted (Ibeth Almanzar RN) Frequency (min): OCC (Ibeth lAmanzar RN) Quality: Mild (Ibeth Almanzar RN) Resting Tone (Palpate): Relaxed (Ibeth Almanzar, ROBERT) Monitor Mode: External US (Ibeth Almanazr RN) Monitor Interventions for FHR: Ultrasound Adjusted (Ibeth Almanzar RN) FHR Baseline Rate : 125 (Ibeth Almanzar RN) FHR Baseline Changes: No Baseline Change (Ibeth Almanzar, ROBERT) Variability: Moderate 6-25 bpm (Ibeth Almanzar, ROBERT) Accelerations: 15X15 (Ibeth Almanzar, RN) Decelerations: None (Ibeth Almanzar, ROBERT) Pain Relief Measures: Comfort Measures (Ibeth Almanzar RN) Pain Coping: Talking Through Contractions (Ibeth Almanzar RN) Pitocin (milliunit): Pitocin Increased to (milliunits) @ 4 (Ibeth Almanzar, ROBERT) IV/Blood Work: IV Infusing per Order (Ibeth Almanzar RN) Patient Position/Activity: Right Tilt; Semi-Fowlers (Ibeth Almanzar RN) Comfort Measures: Family Support (Ibeth Almanzar RN) Communication: RN at Bedside; RN Reviewed Strip (Ibeth Almanzar RN) LaborFlag: Antepartum (QS system process) Datetime: 11/06/2016 08:05 NBP Sys/Jud/Mean (mmHg): 104 (QS system process) : 66 (QS system process) : 81 (QS system process) Pulse: 77 (QS system process) LaborFlag: Antepartum (QS system process) Datetime: 11/06/2016 08:00 Stage of : Antepartum (Ibeth Almanzar RN) Respirations: 18 (Ibeth Almanzar RN) Monitor Mode: External (Ibeth Almanzar RN) Monitor Interventions for UA: [place] Adjusted (Ibeth Almanzar RN) Frequency (min): OCC (Ibeth Almanzar RN) Quality: Mild (Ibeth Almanzar RN) Resting Tone (Palpate): Relaxed (Ibeth Almanzar, RN) Monitor Mode: External US (Ibeth Almanzar, RN) Monitor Interventions for FHR: Ultrasound Adjusted (Ibeth Almanzar, RN) FHR Baseline Rate : 125 (Ibeth Almanzar, RN) FHR Baseline Changes: No Baseline Change (Ibeth Almanzar, RN) Variability: Moderate 6-25 bpm (Ibeth Almanzar, RN) Accelerations: 15X15 (Ibeth Almanzar, RN) Decelerations: None (Ibeth Almanzar, RN) Pain Scale: 0 (Ibeth Almanzar, RN) Pain Presence: None/Denies (Ibeth Almanzar, RN) Pain Type: N/A (Ibeth Almanzar, RN) Pain Relief Measures: Comfort Measures (Ibeth Almanzar, ROBERT) Pain Coping: Talking Through Contractions (Ibeth Almanzar, RN) Pitocin (milliunit): Pitocin Started (milliunits) @ 2 (Ibeth Almanzar, ROBERT) IV/Blood Work: IV Infusing per Order (Ibeth Almanzar, RN) Patient Position/Activity: Right Tilt; Low Fowlers (Ibeth Almanzar, RN) Comfort Measures: Family Support (Ibeth Almanzar, RN) Instructional Method: Verbal; Patient Instructed; Family/Support Person Instructed; Verbalized Understanding (Ibeth Almanzar, RN) Plan of Care: Induction (Ibeth Almanzar, ROBERT) Labor/Induction: Induction (Ibeth Almanzar, ROBERT) Medications: Pitocin (Ibeth Almanzar, RN) Communication: RN at Bedside; RN Reviewed Strip (Ibeth Almanzar, RN) LaborFlag: Antepartum (QS system process) Datetime: 11/06/2016 07:50 NBP Sys/Jud/Mean (mmHg): 101 (QS system process) : 64 (QS system process) : 77 (QS system process) Pulse: 78 (QS system process) LaborFlag: Antepartum (QS system process) Datetime: 11/06/2016 07:35 NBP Sys/Jud/Mean (mmHg): 108 (QS system process) : 65 (QS system process) : 81 (QS system process) Pulse: 80 (QS system process) LaborFlag: Antepartum (QS system process) Datetime: 11/06/2016 07:26 Stage of : Antepartum (Ibeth Almanzar RN) Respirations: 18 (Ibeth Almanzar RN) Monitor Mode: External (Ibeth Almanzar RN) Frequency (min): OCC (Ibeth Almanzar RN) Quality: Mild (Ibeth Almanzar, ROBERT) Duration (sec): 60-80 (Ibeth Almanzar, RN) Resting Tone (Palpate): Relaxed (Ibeth Almanzar RN) Monitor Mode: External US (Ibeth Almanzar RN) Monitor Interventions for FHR: Ultrasound Adjusted (Ibeth Almanzar RN) FHR Baseline Rate : 125 (Ibeth Almanzar RN) FHR Baseline Changes: No Baseline Change (Ibeth Almanzar RN) Variability: Moderate 6-25 bpm (Ibeth Almanzar, ROBERT) Accelerations: 15X15 (Ibeth Almanzar, RN) Decelerations: None (Ibeth Almanzar RN) Pain Scale: 0 (Ibeth Almanzar RN) Pain Presence: None/Denies (Ibeth Almanzar RN) Pain Type: N/A (Ibeth Almanzar RN) Pain Relief Measures: Comfort Measures (Ibeth Almanzar RN) Pain Coping: Talking Through Contractions (Ibeth Almanzar, ROBERT) Antibiotics: Penicillin IV (Units) @ 5 MILLION (Ibeth Almanzar, ROBERT) IV/Blood Work: IV Started; IV Bolus Started; New IV Bag Hung (Ibeth Almanzar, RN) Patient Position/Activity: Right Tilt; Semi-Fowlers (Ibeth Almanzar, RN) Comfort Measures: Family Support (Ibeth Almanzar RN) I/O Interventions: Clear Liquids Given (Ibeth Almanzar, ROBERT) Instructional Method: Verbal; Patient Instructed; Family/Support Person Instructed; Verbalized Understanding (Ibeth Almanzar, RN) Plan of Care: Plan of Care Discussed; Induction (Ibeth Almanzar, ROBERT) Unit Routine: [place] to Room; [place]; Bed; Visiting Policy; Phone/Cell Phone Use; Photography; Unit Personnel; Handwashing; Monitoring; Safety/Fall Risk Prevention; Diet/Nutrition Services; Bathroom Privileges (Ibeth Almanzar RN) Labor/Induction: Labor Stages; Induction (Ibeth Gail Roulund, RN) Pain Management: IV Narcotics; Epidural; Pain Scale/Goals; Comfort Measures (Ibeth Almanzar RN) Medications: Antibiotics; Pitocin (Ibeth Almanzar RN) Related: Common Discomforts of ; Maternal Physical Changes; Maternal Emotional Changes; Nutrition; Hydration; Activity and Rest (Ibeth Almanzar RN) Communication: RN at Bedside; RN Reviewed Strip (Ibeth Almanzar RN) LaborFlag: Antepartum (QS system process) Datetime: 11/06/2016 07:20 NBP Sys/Jud/Mean (mmHg): 110 (QS system process) : 69 (QS system process) : 84 (QS system process) Pulse: 83 (QS system process) LaborFlag: Antepartum (QS system process) Datetime: 11/06/2016 07:08 NBP Sys/Jud/Mean (mmHg): 117 (QS system process) : 76 (QS system process) : 91 (QS system process) Pulse: 78 (QS system process) LaborFlag: Antepartum (QS system process)
[2016-11-06] MEDS: FAMOTIDINE 20 MG TABLET PO SCH (21:50)
[2016-11-06] MEDS: IBUPROFEN 800 MG TABLET PO SCH (21:51)
[2016-11-07] MEDS: ACETAMINOPHEN WITH CODEINE #3 TABLET PO PRN ×3 (00:51→20:43)
[2016-11-07] MEDS: IBUPROFEN 800 MG TABLET PO SCH ×3 (05:01→21:56)
--- NOTE | 2016-11-07 06:00 | L&D General Admission ---
General Admit Datetime Report Generated by CPN: 11/07/2016 06:00 INFORMATION Patient Age: 24 (09/27/2015 15:47:QS system process) EDC: 11/01/2016 00:00 (06/29/2016 19:47:Ibeth Almanzar RN) : 5 (06/29/2016 19:47:Nya Jj RN) Para: 3 (11/04/2016 20:53:Constance Morales RN) Term: 3 (06/29/2016 19:47:Nya Jj RN) : 0 (06/29/2016 19:47:Constance Morales RN) Spontaneous Abortions: 0 (06/29/2016 19:47:Constance Morales RN) Induced Abortions: 1 (06/29/2016 19:47:Constance Morales RN) Livin (06/29/2016 19:47:Constance Morales RN) Cesareans: 0 (06/29/2016 19:47:Constance Morales RN) VBACs: 0 (06/29/2016 19:47:Constance Morales RN) Ectopic: 0 (06/29/2016 19:47:Constance Morales RN) Multiple Births: 0 (06/29/2016 19:47:Constance Morales RN) Baby, Number in Womb: 1 (11/04/2016 20:53:Constance Morales RN) CARE Primary Manager Staffing: [facility] (06/29/2016 19:47:Nya Jj RN) Adequate Care: Yes (06/29/2016 19:47:Nya Jj RN) Height (in): 62 (11/06/2016 17:38:QS system process) ALLERGIES Medication Allergy: No (06/29/2016 19:47:Nya Jj RN) Medication Allergies: No Known Allergies (11/04/2016) (11/04/2016 19:07:QS system process) Latex Allergy: No Latex Allergies (06/29/2016 19:47:Nya Jj RN) Food Allergies: NA (06/29/2016 19:47:Nya Jj RN) Environmental Allergies: NA (06/29/2016 19:47:Nya Jj RN) COMMUNICATION Primary Language: Albanian (06/29/2016 19:47:Nya Jj RN) Medical Tx Preferred Language: Albanian (06/29/2016 19:47:Nya Jj RN) Communication Barrier(s): None (Annotations: Data stored by N on behalf of user) (06/29/2016 19:47:Ibeth Almanzar RN) DEMOGRAPHICS Address: [address] [place] [id number] (06/22/2016 16:50:QS system process) Zipcode: [address] (09/27/2014 15:47:QS system process) Home (06/22/2016 16:50:QS system process) Work (08/15/2016 18:25:QS system process) [facility]: [phone] (09/27/2014 15:47:QS system process) Next of Kin Name: ZAFAR ROLLE (04/21/2016 15:55:QS system process) Next of Kin (04/21/2016 15:55:QS system process) Next of Kin Relationship: MO (04/21/2016 15:55:QS system process) Date of : 1990 (09/27/2014 15:47:QS system process) Marital Status: Single (09/27/2014 15:47:QS system process) Sex: Female (09/27/2014 15:47:QS system process) Race: (09/27/2014 15:47:QS system process) Ethnicity: Non- or (09/27/2014 15:47:QS system process) Mu-Ism: None (04/21/2016 15:55:QS system process) DRUG AND ALCOHOL USE Alcohol: No (06/29/2016 19:47:Nya Jj RN) Cigarettes: Former Smoker. [id number] (06/29/2016 19:47:Nya Jj RN) Marijuana: No (06/29/2016 19:47:Nya Jj RN) Cocaine: No (06/29/2016 19:47:Nya Jj RN) Other Illicit Drugs: No (06/29/2016 19:47:Nya Jj RN) VACCINE HISTORY Influenza Vaccine: Uncertain (06/29/2016 19:47:Nya Jj RN) Influenza Date: 2012 (06/29/2016 19:47:Nya Jj RN) Pneumococcal Vaccine: Uncertain (06/29/2016 19:47:Nya Jj RN) Tetanus Vaccine: Uncertain (06/29/2016 19:47:Nya Jj RN) Tdap Vaccine: Uncertain (06/29/2016 19:47:Nya Jj RN) Hepatitis B Vaccine: Uncertain (06/29/2016 19:47:Nya Jj RN) Mold Clamper: [facility] (06/29/2016 19:47:Nya Jj RN) Feeding Preference: Formula (06/29/2016 19:47:Nya Jj RN) Benefit of Breast Feed Discussed: Yes (06/29/2016 19:47:Nya Jj RN) Circumcision: N/A (06/29/2016 19:47:Nya Jj RN) Classes Attended: No (06/29/2016 19:47:Nya Jj RN) Tubal Ligation: Yes (06/29/2016 19:47:Nya Jj RN) Tubal Authorization Signed: No (06/29/2016 19:47:Nya Jj RN) Consent: N/A (06/29/2016 19:47:Nya Jj RN) Consent Signed: N/A (06/29/2016 19:47:Nya Jj RN) Pain Management Plans: Natural (06/29/2016 19:47:Nya Jj RN) Plans for Labor and Delivery: None (06/29/2016 19:47:Nya Jj RN) Support Person: Ca Rolle (06/29/2016 19:47:Nya Jj RN) Support Person Relationship: Mother (06/29/2016 19:47:Nya Jj RN) Cultural/Spritual Practice: No (06/29/2016 19:47:Nya jJ RN) Spir/Cult Dietary Needs: No (06/29/2016 19:47:Nya Jj RN) LIVING SITUATION/DISCHARGE PLAN Living Arrangements: House (06/29/2016 19:47:Nya Jj RN) Adequate Access to:: Electric; Heat; Refrigeration; Plumbing/Running water; Phone; Transportation (06/29/2016 19:47:Nya Jj RN) WIC Program: Yes (06/29/2016 19:47:Nya Jj RN) Discharge Oracle Applications Analyst Person: aC Rolle (06/29/2016 19:47:Nya Jj RN) Person to Help after Discharge: Ca Rolle (06/29/2016 19:47:Nya Jj RN) Currently Using Commun Resources: Yes (06/29/2016 19:47:Nya Jj RN) Outside Agency/Project Geophysicist: No (06/29/2016 19:47:Nya Jj RN) Car Seat for Discharge: N/A (06/29/2016 19:47:Nya Jj RN) Adoption Requested: No (06/29/2016 19:47:Nya Jj RN) Pt Contact w/ Post : N/A (06/29/2016 19:47:Nya Jj RN) LABS Blood Type: O Negative (06/29/2016 19:47:Nerissa Strickland RN) Antibody Screen: negative (06/29/2016 19:47:Nerissa Strickland RN) Rho(G) this : Yes (06/29/2016 19:47:Laney Lozada RN) Date Rho(G) Given: 10/25/2016 (06/29/2016 19:47:Nya Jj RN) Hemoglobin: 11.3 L (11/06/2016 07:06:QS system process) Hematocrit: 33.1 L (11/06/2016 07:06:QS system process) MCV: 87 (11/06/2016 07:06:QS system process) Group Beta Strep: positive (Annotations: Data stored by N on behalf of user) (06/29/2016 19:47:Bev Kerr RN) Gonorrhea: Negative (06/29/2016 19:47:Nerissa Strickland RN) Chlamydia: Negative (06/29/2016 19:47:Nerissa Strickland RN) RPR/VDRL: Nonreactive (06/29/2016 19:47:Sherlyn Jerez RN) HIV Results: Negative (06/29/2016 19:47:Nerissa Strickland RN) Hepatitis B: Negative (06/29/2016 19:47:Nerissa Strickland RN) Herpes Culture: Positive (06/29/2016 19:47:Nya Jj RN) Rubella: Immune (06/29/2016 19:47:Nerissa Strickland RN) Varicella: Non Susceptible (06/29/2016 19:47:Nerissa Strickland RN) OB/PREVIOUS HISTORY Previous Procedures: Ultrasound; NST (06/29/2016 19:47:Constance Morales RN) Current Procedures: Ultrasound; NST (06/29/2016 19:47:Constance Morales RN) History of Previous : No (06/29/2016 19:47:Nya Jj RN) History of Gestational Diabetes: No (06/29/2016 19:47:Nya Jj RN) History of PIH: No (06/29/2016 19:47:Nya Jj RN) History of Incompetent Cervix: No (06/29/2016 19:47:Nya Jj RN) History of Placenta Previa/Abrup: No (06/29/2016 19:47:Nya Jj RN) History of Macrosomia: No (06/29/2016 19:47:Nya Jj RN) History of IUGR: No (06/29/2016 19:47:Nya Jj RN) History of Hemorrhage: No (06/29/2016 19:47:Nya Jj RN) History of Loss/Stillborn: No (06/29/2016 19:47:Nya Jj RN) History of : No (06/29/2016 19:47:Nya Jj RN) History of D (Rh) Sensitization: No (06/29/2016 19:47:Nya Jj RN) History Recurrent Loss/Stillborn: No (06/29/2016 19:47:Nya Jj RN) History Depression/PP Depression: Yes (06/29/2016 19:47:Nerissa Strickland RN) History of Uterine Anomaly/GRETCHEN: No (06/29/2016 19:47:Nya Jj RN) History of Infertility: No (06/29/2016 19:47:Nya Jj RN) History of ART Treatment: No (06/29/2016 19:47:Nya Jj RN) History of GRETCHEN: No (06/29/2016 19:47:Nya Jj RN) Comments Obstetrical History: G1: 2008 40 wk G2: 2010 41 wk G3: 2012 41 wk G4: 2014 missed SAB and emergency DNC G5: current CPS issues, will need d/c planning (06/29/2016 19:47:Nerissa Strickland RN) MEDICAL HISTORY Med Hx Diabetes: No (06/29/2016 19:47:Nya Jj RN) Med Hx Hypertension: No (06/29/2016 19:47:Nya Jj RN) Med Hx Heart Disease: No (06/29/2016 19:47:Nya Jj RN) Med Hx Autoimmune Disorder: No (06/29/2016 19:47:Nya Jj RN) Med Hx Kidney Disease/UTI: No (06/29/2016 19:47:Nya Jj RN) Med Hx Neurologic/Epilepsy: No (06/29/2016 19:47:Nya Jj RN) Med Hx Psychiatric Disorders: No (06/29/2016 19:47:Nya Jj RN) Med Hx Hepatitis/Liver Disease: No (06/29/2016 19:47:Nya Jj RN) Med Hx Varicosities/Phlebitis: No (06/29/2016 19:47:Nya Jj RN) Med Hx Thyroid Dysfunction: No (06/29/2016 19:47:Nya Jj RN) Med Hx Trauma/Violence: No (06/29/2016 19:47:Nya Jj RN) Med Hx Blood Transfusion: No (06/29/2016 19:47:Nya Jj RN) Med Hx Pulmonary (Asthma,TB): No (06/29/2016 19:47:Nya Jj RN) Med Hx Breast: No (06/29/2016 19:47:Nya Jj RN) Med Hx REAL ESTATE EXECUTIVE ASSISTANT Surgery: No (06/29/2016 19:47:Nya Jj RN) Med Hx Hospitalization/Surgery: Yes (06/29/2016 19:47:Ibeth Almanzar RN) Med Hx Anesthetic Complications: No (06/29/2016 19:47:Nya Jj RN) Med Hx Abnormal Pap Smear: No (06/29/2016 19:47:Nya Jj RN) Other Medical Diseases: No (06/29/2016 19:47:Nya Jj RN) Med Hx Significant Family Hx: No (06/29/2016 19:47:Nya Jj RN) Details of Med/Surg Hx: Depression not treated- with second CHILDBIRTH (06/29/2016 19:47:Ibeth Almanzar RN) INFECTIOUS HISTORY Inf Hx Gonorrhea: Yes (06/29/2016 19:47:Nerissa Strickland RN) Inf Hx Chlamydia: No (06/29/2016 19:47:Nya Jj RN) Inf Hx Syphilis: No (06/29/2016 19:47:Nya Jj RN) Inf Hx HIV/AIDS: No (06/29/2016 19:47:Nya Jj RN) Inf Hx Human Papilloma Virus: No (06/29/2016 19:47:Nya Jj RN) Inf Hx Pt/Partner Genital Herpes: Yes (06/29/2016 19:47:Nerissa Strickland RN) Inf Hx Tuberculosis/Exposure: No (06/29/2016 19:47:Nya Jj RN) Inf Hx Hepatitis B,C: No (06/29/2016 19:47:Nya Jj RN) Inf Hx Rash or Viral Illness: No (06/29/2016 19:47:Nya Jj RN) Details of Infectious Hx: 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 (06/29/2016 19:47:Nerissa Strickland RN) GENETIC HISTORY Gen Hx Age >=35 at [place]: No (06/29/2016 19:47:Nya Jj RN) Gen Hx Thalassemia: No (06/29/2016 19:47:Nya Jj RN) Gen Hx Congenital Heart Defect: No (06/29/2016 19:47:Nya Jj RN) Gen Hx Neural Tube Defect: No (06/29/2016 19:47:Nya Jj RN) Gen Hx Down's Syndrome: No (06/29/2016 19:47:Nya Jj RN) Gen Hx Pop-Sachs: No (06/29/2016 19:47:Nya Jj RN) Gen Hx Amparo: No (06/29/2016 19:47:Nya Jj RN) Gen Hx Familial Dysautonomia: No (06/29/2016 19:47:Nya Jj RN) Gen Hx Sickle Cell Disease/Trait: No (06/29/2016 19:47:Nya Jj RN) Gen Hx Hemophilia/Blood Disorder: No (06/29/2016 19:47:Nya Jj RN) Gen Hx Muscular Dystrophy: No (06/29/2016 19:47:Nya Jj RN) Gen Hx Cystic Fibrosis: No (06/29/2016 19:47:Nya Jj RN) Gen Hx Huntingtons Chorea: No (06/29/2016 19:47:Nya Jj RN) Gen Hx Mental Retardation/Autism: No (06/29/2016 19:47:Nya Jj RN) Gen Hx Tested for Fragile X: No (06/29/2016 19:47:Nya Jj RN) Gen Hx Other Inher/Chromosomal: No (06/29/2016 19:47:Nya Jj RN) Gen Hx Maternal Metabolic DO: No (06/29/2016 19:47:Nya Jj RN) Gen Hx Pt Father or FOB Defect: No (06/29/2016 19:47:Nya Jj RN) Gen Hx Other Genetic History: No (06/29/2016 19:47:Nya Jj RN) Gen Hx Drugs/Meds since LMP: No (06/29/2016 19:47:Nya Jj RN)
--- NOTE | 2016-11-07 06:00 | L&D Current Admission ---
Current Admit Datetime Report Generated by CPN: 11/07/2016 06:00 ADMISSION INFORMATION Current Admit Date/Time: 11/06/2016 06:12 (11/06/2016 06:52:Ibeth Almanzar RN) Reason for Admission: Induction of Labor (11/06/2016 06:52:Ibeth Almanzar RN) Chief Complaint: Scheduled Induction of Labor (11/06/2016 06:52:Zulma De León RN) Medications During : Vitamin (11/06/2016 06:52:Ibeth Almanzar RN) Meds During -Oth: Valtrex (11/04/2016 19:14:Zulma De León RN) EGA per Dates: 40.5 (11/06/2016 06:52:QS system process) Method of Arrival: Ambulatory (11/06/2016 06:52:Ibeth Almanzar RN) Admitted From: Home (11/04/2016 19:14:Zulma De León RN) Reason for Induction: Other (11/06/2016 06:52:Ibeth Almanzar RN) Reason for Induction- Other: ELECTIVE (11/06/2016 06:52:Ibeth Almanzar RN) Records Available: Yes (11/06/2016 06:52:Ibeth Almanzar RN) General Admission Information: Reviewed (11/06/2016 06:52:Ibeth Almanzar RN) General Admission Reviewed By: Maria D De León RN (11/04/2016 19:14:Zulma De León RN) BELONGINGS/ADVANCED DIRECTIVES Valuables/Personal Effects: Purse/Wallet; Cell Phone; Jewelry (11/04/2016 19:14:Zulma De León RN) Other Belongings: SEE VALUABLES CONSENT (11/06/2016 06:52:Ibeth Almanzar RN) Disposition of Belongings: Kept with Patient (11/06/2016 06:52:Ibeth Almanzar RN) Advance Direct for Healthcare: No, and Wants No Information (11/06/2016 06:52:Ibeth Almanzar RN) Indicate Intent if Not With Pt: RECEIVED IN REGISTRATION (11/06/2016 06:52:Ibeth Almanzar RN) Durable Power of Assistant Casino Shift Manager: No (11/06/2016 06:52:Ibeth Almanzar RN) Living Will: No (11/06/2016 06:52:Ibeth Almanzar RN) Organ Donor: No (11/06/2016 06:52:Ibeth Almanzar RN) Pt Rights Information Given: Yes (11/06/2016 06:52:Ibeth Almanzar RN) Pt Understands Pt Rights: Yes (11/06/2016 06:52:Ibeth Almanzar RN) LEARNING ASSESSMENT Knowledge Level: Understands L_D Process; Understands Care Activities; Understands Diagnosis (11/06/2016 06:52:Ibeth Almanzar RN) Barriers to Learning: None (11/06/2016 06:52:Ibeth Almanzar RN) Learning Readiness: Motivated (11/06/2016 06:52:Ibeth Almanzar RN) Learns Best By: 1 to 1 Instruction; Reading; Videos; Demonstration (11/06/2016 06:52:Ibeth Almanzar RN) Learning Needs: Labor and Delivery Process; Pain Management; Symptoms to Report; Treatment Plan; Medication; Diagnosis; Nutrition; Equipment; Care; Community Resources (11/06/2016 06:52:Ibeth Almanzar RN) DOMESTIC VIOLANCE SCREENING Dom Viol Threatened/Hurt: No (11/06/2016 06:52:Ibeth Almanzar RN) Hx of Abuse/Neglect past 2yrs: No (11/06/2016 06:52:Ibeth Almanzar RN) Feel Unsafe Going Home: No (11/06/2016 06:52:Ibeth Almanzar RN) Addt'l Observ Indicating Abuse: No (11/06/2016 06:52:Ibeth Almanzar RN) Reason Unable to Complete Screen: N/A, Screen Completed (11/06/2016 06:52:Ibeth Almanzar RN) Considered Personal Harm/Suicide: No (11/06/2016 06:52:Ibeth Almanzar RN) NUTRITIONAL/FUNCTIONAL SCREENING Problem with Appetite >5 Days: No (11/06/2016 06:52:Ibeth Almanzar RN) Chew/Swallow Difficulties: No (11/06/2016 06:52:Ibeth Almanzar RN) Inappropriate Wt Gain/Loss: No (11/06/2016 06:52:Ibeth Almanzar RN) Presence Skin Breakdown/Ulcer: No (11/06/2016 06:52:Ibeth Almanzar RN) Special Diet: No (11/06/2016 06:52:Ibeth Almanzar RN) Pt Requests Dressing Room Attendant Visit: No (11/06/2016 06:52:Ibeth Almanzar RN) Hx of Any of the Following?: N/A (11/06/2016 06:52:Ibeth Almanzar RN) New Diagnosis of: N/A (11/06/2016 06:52:Ibeth Almanzar RN) Requires Assist w/Ambulation: No (11/06/2016 06:52:Ibeth Almanzar RN) Uses Assist Device to Ambulate: No (11/06/2016 06:52:Ibeth Almanzar RN) Pt Requires Help w/ADL's: No (11/06/2016 06:52:Ibeth Almanzar RN)
--- NOTE | 2016-11-07 06:23 | L&D Care Plan ---
LD CARE PLANS Datetime Report Generated by CPN: 11/07/2016 06:15 Datetime: 11/06/2016 03:49 Pain State: Risk For (Sherlyn Jerez RN) Related To: Labor and Delivery Process; Surgical Procedure; Complication(s) of ; Disease Process; Treatment and Procedures; Post (Sherlyn Jerez RN) Goal(s): Patients Pain will be Assessed and Managed; Patient will Verbalize Adequate Relief of Pain or the Ability to [place] with Current Pain (Sherlyn Jerez RN) Interventions: Assess Pain Severity on Scale of 0 (None) to 5 (Severe); Assess Type, Location and Intensity of Pain Each Time Client Reports Discomfort and Notify Provider if Unusal Pain Develops; Encourage Proper Breathing and Relaxation Techniques; Offer Alternatives Such as Repositioning, Calm Environment, Massages, Diversional Activities, Ice Pack, Splinting, and Ambulation; Administer Analgesics as Ordered; Assist with Epidural Placement as Appropriate; Evaluate Therapeutic Effectiveness of Medication and Treatments (Sherlyn Jerez RN) Outcome: Patient will Report Absence or Relief of Pain Consistent with Established Pain Goal (Sherlyn Jerez RN) Status: Ongoing (Sherlyn Jerez RN) Outcome: Patient will have a Decrease in Signs and Symptoms of Discomfort (Sherlyn Jerez RN) Status: Ongoing (Sherlyn Jerez RN) Outcome: Pain will be Controlled During Procedures (Sherlyn Jerez RN) Status: Ongoing (Sherlyn Jerez RN) Anxiety State: Risk For (Sherlyn Jerez RN) Related To: Labor and Delivery Process; Surgical Procedure; Perceived or Actual Threat to ; Fear of Unknown; Situational Crisis; Medical Interventions; Significant Life Event (Sherlyn Jerez RN) Goal(s): Patient will have Decreased Anxiety and be able to Function at Acceptable Levels (Sherlyn Jerez RN) Interventions: Assess Verbal and Nonverbal Behavioral Indicators of Anxiety; Assist Patient to Identify and Verbalize Symptoms of Anxiety; Identify and Demonstrate Techniques to Control Anxiety; Assist Patient with Coping Mechanisms to Manage Anxiety; Provide Theraputic Touch for the Patient; Explain to Patient, Using a Calm Reassuring Approach and Nonmedical Terms, All Activities, Procedures, and Concerns; Instruct Patient and Family about Post Discharge Care, Limitations, Symptoms to Report and Resources Available (Sherlyn Jerez RN) Outcome: Patient will Identify, Verbalize and Demonstrate Techniques to Control Anxiety (Sherlyn Jerez RN) Status: Ongoing (Sherlyn Jerez RN) Outcome: Patient's Posture, Facial Expressions, Gestures and Activity Level will Reflect Decreased Anxiety (Sherlyn Jerez RN) Status: Ongoing (Sherlyn Jerez RN) Outcome: Patient will Verbalize a Sense of Control and/or Acceptance of the Situation (Sherlyn Jerez RN) Status: Ongoing (Sherlyn Jerez RN) Outcome: Patient will Identify and Utilize Support Person (Sherlyn Jerez RN) Status: Ongoing (Sherlyn Jerez RN) Knowledge Deficit State: Risk For (Sherlyn Jerez RN) Related To: Labor and Delivery Process; Surgical Procedures; Treatment and Procedures; Impending Alterations in Family Dynamics; Feeding and Infant Care; Community Resources and Available Support Mechanisms (Sherlyn Jerez RN) Goal(s): Patient will Accurately Verbalize Understanding of Plan of Care and Treatment; Patient and Family will Accurately Verbalize Understanding of the Disease Process (Sherlyn Jerez RN) Interventions: Assess Motivation and Willingness of Patient/Family to Learn; Assess Preferred Learning Mode: One to One Instruction, Reading, Videos, Group Discussion or Demonstration; Assess Barriers to Learning: Pain, Emotional State, Language Barrier, Cognitive Impairment, Visual or Hearing Deficits; Assess Patient and Family Knowledge of Disease Process, Medications and Treatment; Discuss Therapy and/or Treatment Options, Describe Rationale Behind Management, Therapy and Treatment Recommendations; Instruct Patient and Family on Signs and Symptoms to Report; Instruct Patient and Family on Medication Effects and Side Effects; Provide Appropriate and Timely Education Using Multiple Techniques; Provide Patient and Family with Support Group Information and Resources; Give Clear and Thorough Explanations and Demonstrations (Sherlyn Jerez RN) Outcome: Patient and Family will Verbalize Understanding of Condition, Treatment and Signs and Symptoms to Report (Sherlyn Jerez RN) Status: Ongoing (Sherlyn Jerez RN) Outcome: Patient will Identify Perceived Learning Needs and Express Motivation to Learn (Sherlyn Jerez RN) Status: Ongoing (Sherlyn Jerez RN) Outcome: Patient will Verbalize Understanding of Desired Content, and/or Performs Desired Skill Prior to Discharge (Sherlyn Jerez RN) Status: Ongoing (Sherlyn Jerez RN) Infection State: Risk For (Sherlyn Jerez RN) Related To: Surgical Procedures; Prolonged Labor or Induction; Premature/Prolonged Rupture of Membranes; Invasive Procedures; Altered Tissue Integrity (Sherlyn Jerez RN) Goal(s): The Patient will be Free of Infection, Vital Signs Stable and Lab Work within Normal Parameters (Sherlyn Jerez RN) Interventions: Instruct and Reinforce Proper Handwashing, Hygiene, and Care Techniques to Patient and Family; Monitor Vital Signs; Monitor Patient for the Following Signs of Infection: Fever, Abdominal Tenderness, Unusual Discharge; Monitor Aminiotic Fluid, Urine and Lochia for Color and Odor; Observe Wounds, Incisions and Invasive Line Sites for Redness, Drainage and Edema; Assess IV Sites per Hospital Policy; Monitor Lab and Test Results and Notify Provider of Abnormal Findings; Assess Nutritional Status and Promote Good Nutrition (Sherlyn Jerez RN) Outcome: Patient will Remain Free of Infection (Sherlyn Jerez RN) Status: Ongoing (Sherlyn Jerez RN) Outcome: Infection will be Recognized Early to Allow for Prompt Treatment (Sherlyn Jerez RN) Status: Ongoing (Sherlyn Jerez RN) Outcome: Patient will have Vital Signs Within Expected Range (Sherlyn Jerez RN) Status: Ongoing (Sherlyn Jerez RN) Fluid Volume State: Risk For (Sherlyn Jerez RN) Related To: Gestational Hypertension; Surgical Procedures; Prolonged Labor or Induction; Hemorrhage; Disease Process; Anesthesia; Altered Renal Function (Sherlyn Jerez RN) Goal(s): Patient will Achieve and Maintain a Balanced Fluid Volume Status; Hemodynamically Stable (Sherlyn Jerez RN) Interventions: Monitor Vital Signs; Auscultate Breath Sounds; Monitor Patient for Skin Turgor, Mucous Membranes, Dry Skin, Weakness, Headaches and Confusion; Provide Oral Fluids as Ordered; Initiate and Maintain Intravenous Fluids as Ordered; Monitor Intake and Output as Indicated Per Patient Status; Accurately Measure Blood Loss; Monitor Lab and Test Results as Obtained and Notify Provider of Abnormal Findings; Monitor Patient's Weight (Sherlyn Jerez RN) Outcome: Patient will have Clear Lung Sounds (Sherlyn Jerez RN) Status: Ongoing (Sherlyn Jerez RN) Outcome: Patient will have Vital Signs within Expected Range (Sherlyn Jerez RN) Status: Ongoing (Sherlyn Jerez RN) Outcome: Urine Output will be within Expected Range (Sherlyn Jerez RN) Status: Ongoing (Sherlyn Jerez RN) Outcome: Patient will have Minimal Generalized or Upper Extremity Edema (Sherlyn Jerez RN) Status: Ongoing (Sherlyn Jerez RN) Injury State: Risk For (Sherlyn Jerez RN) Related To: Labor and Delivery Process; Gestational Hypertension or Eclampsia; Anesthesia; Altered Coagulation; Risk to Status; Uteroplacental Perfusion; Decreased Mobility; Hemorrhage, Placenta Previa and or Placental Abruption; Uterine Rupture (Sherlyn Jerez RN) Goal(s): Patient will Remain Free from Injury (Sherlyn Jerez RN)
[2016-11-07 07:36] LABS: MEAN CORPUSCULAR HEMOGLOBIN 28.9 pg (27.0-33.4); MEAN CORPUSCULAR HGB CONC 33.3 g/dL (32.0-36.0); MEAN CORPUSCULAR VOLUME 87 fl (80-97); RED BLOOD COUNT 3.46 10^6/uL (3.72-5.28); RED CELL DISTRIBUTION WIDTH 13.1 % (11.5-14.0); WHITE BLOOD COUNT 14.4 10^3/uL (4.0-10.5)
[2016-11-07] MEDS ORDERED: FERROUS FUMARATE PO SCH (08:00)
[2016-11-07] MEDS ORDERED: [UNRECOGNIZED DRUG - OTHER] PO SCH (08:00)
[2016-11-07] MEDS ORDERED: PNV95 PO SCH (08:00)
[2016-11-07] MEDS: FERROUS SULFATE 325 MG TABLET PO SCH ×2 (09:29→17:23)
[2016-11-07] MEDS: FAMOTIDINE 20 MG TABLET PO SCH ×2 (09:29→21:56)
[2016-11-07] MEDS: DOCUSATE SODIUM 100 MG CAPSULE PO SCH ×2 (09:29→17:23)
[2016-11-07] MEDS: SENNOSIDES/DOCUSATE 8.6-50 MG 1 EACH TABLET PO SCH (09:30)
[2016-11-07] MEDS: PRENATAL VITAMIN W-O CA NO5/FE FUMARATE/FA CAPSULE PO SCH (09:30)
--- NOTE | 2016-11-07 13:14 | PDOC PROGRESS REPORT ---
Subjective-OB Subjective: Post Delivery Day: 26 year old. Denies any needs at this time pt bottlefeeding bonding well with ff@u-1 mild lochia offers no complaint RH negative rhogam given per RN anticipate D/c in AM Physical Exam (OB) Vital Signs: Temp Pulse Resp BP Pulse Ox 97.3 F 79 16 119/67 100 11/07/16 07:56 11/07/16 07:56 11/07/16 07:56 11/07/16 07:56 11/07/16 07:56 Intake & Output 11/06/16 11/07/16 11/08/16 06:59 06:59 06:59 Intake Total 300 Balance 300 Weight 81.8 kg - Lochia Lochia Amount: Scant < 10 ml Lochia Color: Rubra/Red - Abdomen Description: Soft, Round Hernia Present: No Fundal Description: Firm, Midline Fundal Height: u/u - u/2 Objective-Diagnostic Laboratory: 11/07/16 07:04 11/07/16 11/07/16 07:04 07:04 WBC 14.4 H RBC 3.46 L Hgb 10.0 L Hct 30.0 L MCV 87 MCH 28.9 MCHC 33.3 RDW 13.1 Plt Count 218 Blood Type O NEGATIVE
--- NOTE | 2016-11-07 18:01 | L&D General Admission ---
General Admit Datetime Report Generated by CPN: 11/07/2016 18:00 INFORMATION Patient Age: 24 (09/27/2015 15:47:QS system process) EDC: 11/01/2016 00:00 (06/29/2016 19:47:Ibeth Almanzar RN) : 5 (06/29/2016 19:47:Nya Jj RN) Para: 3 (11/04/2016 20:53:Constance Morales RN) Term: 3 (06/29/2016 19:47:Nya Jj RN) : 0 (06/29/2016 19:47:Constance Morales RN) Spontaneous Abortions: 0 (06/29/2016 19:47:Constance Morales RN) Induced Abortions: 1 (06/29/2016 19:47:Constance Morales RN) Livin (06/29/2016 19:47:Constance Morales RN) Cesareans: 0 (06/29/2016 19:47:Constance Morales RN) VBACs: 0 (06/29/2016 19:47:Constance Morales RN) Ectopic: 0 (06/29/2016 19:47:Constance Morales RN) Multiple Births: 0 (06/29/2016 19:47:Constance Morales RN) Baby, Number in Womb: 1 (11/04/2016 20:53:Constance Morales RN) CARE Primary Information Technology Audit Manager: [facility] (06/29/2016 19:47:Nya Jj RN) Adequate Care: Yes (06/29/2016 19:47:Nya Jj RN) Height (in): 62 (11/06/2016 17:38:QS system process) ALLERGIES Medication Allergy: No (06/29/2016 19:47:Nya Jj RN) Medication Allergies: No Known Allergies (11/04/2016) (11/04/2016 19:07:QS system process) Latex Allergy: No Latex Allergies (06/29/2016 19:47:Nya Jj RN) Food Allergies: NA (06/29/2016 19:47:Nya Jj RN) Environmental Allergies: NA (06/29/2016 19:47:Nya Jj RN) COMMUNICATION Primary Language: Slovenian (06/29/2016 19:47:Nya Jj RN) Medical Tx Preferred Language: Slovenian (06/29/2016 19:47:Nya Jj RN) Communication Barrier(s): None (Annotations: Data stored by N on behalf of user) (06/29/2016 19:47:Ibeth Almanzar RN) DEMOGRAPHICS Address: [address] [place] [id number] (06/22/2016 16:50:QS system process) Zipcode: [address] (09/27/2014 15:47:QS system process) Home (06/22/2016 16:50:QS system process) Work (08/15/2016 18:25:QS system process) [facility]: [phone] (09/27/2014 15:47:QS system process) Next of Kin Name: ZAFAR ROLLE (04/21/2016 15:55:QS system process) Next of Kin (04/21/2016 15:55:QS system process) Next of Kin Relationship: MO (04/21/2016 15:55:QS system process) Date of : 1990 (09/27/2014 15:47:QS system process) Marital Status: Single (09/27/2014 15:47:QS system process) Sex: Female (09/27/2014 15:47:QS system process) Race: (09/27/2014 15:47:QS system process) Ethnicity: Non- or (09/27/2014 15:47:QS system process) Sabianism: None (04/21/2016 15:55:QS system process) DRUG AND ALCOHOL USE Alcohol: No (06/29/2016 19:47:Nya Jj RN) Cigarettes: Former Smoker. [id number] (06/29/2016 19:47:Nya Jj RN) Marijuana: No (06/29/2016 19:47:Nya Jj RN) Cocaine: No (06/29/2016 19:47:Nya Jj RN) Other Illicit Drugs: No (06/29/2016 19:47:Nya Jj RN) VACCINE HISTORY Influenza Vaccine: Uncertain (06/29/2016 19:47:Nya Jj RN) Influenza Date: 2012 (06/29/2016 19:47:Nya Jj RN) Pneumococcal Vaccine: Uncertain (06/29/2016 19:47:Nya Jj RN) Tetanus Vaccine: Uncertain (06/29/2016 19:47:Nya Jj RN) Tdap Vaccine: Uncertain (06/29/2016 19:47:Nya Jj RN) Hepatitis B Vaccine: Uncertain (06/29/2016 19:47:Nya Jj RN) Computer Peripheral Equipment Operator: [facility] (06/29/2016 19:47:Nya Jj RN) Feeding Preference: Formula (06/29/2016 19:47:Nya Jj RN) Benefit of Breast Feed Discussed: Yes (06/29/2016 19:47:Nya Jj RN) Circumcision: N/A (06/29/2016 19:47:Nya Jj RN) Classes Attended: No (06/29/2016 19:47:Nya Jj RN) Tubal Ligation: Yes (06/29/2016 19:47:Nya Jj RN) Tubal Authorization Signed: No (06/29/2016 19:47:Nya Jj RN) Consent: N/A (06/29/2016 19:47:Nya Jj RN) Consent Signed: N/A (06/29/2016 19:47:Nya Jj RN) Pain Management Plans: Natural (06/29/2016 19:47:Nya Jj RN) Plans for Labor and Delivery: None (06/29/2016 19:47:Nya Jj RN) Support Person: Ca Rolle (06/29/2016 19:47:Nya Jj RN) Support Person Relationship: Mother (06/29/2016 19:47:Nya Jj RN) Cultural/Spritual Practice: No (06/29/2016 19:47:Nya Jj RN) Spir/Cult Dietary Needs: No (06/29/2016 19:47:Nya Jj RN) LIVING SITUATION/DISCHARGE PLAN Living Arrangements: House (06/29/2016 19:47:Nya Jj RN) Adequate Access to:: Electric; Heat; Refrigeration; Plumbing/Running water; Phone; Transportation (06/29/2016 19:47:Nya Jj RN) WIC Program: Yes (06/29/2016 19:47:Nya Jj RN) Discharge Sand Caster Person: Ca Rolle (06/29/2016 19:47:Nya Jj RN) Person to Help after Discharge: Ca Rolle (06/29/2016 19:47:Nya Jj RN) Currently Using Commun Resources: Yes (06/29/2016 19:47:Nya Jj RN) Outside Agency/[employer] Consultant: No (06/29/2016 19:47:Nya Jj RN) Car Seat for Discharge: N/A (06/29/2016 19:47:Nya Jj RN) Adoption Requested: No (06/29/2016 19:47:Nya Jj RN) Pt Contact w/ Post : N/A (06/29/2016 19:47:Nya Jj RN) LABS Blood Type: O Negative (06/29/2016 19:47:Nerissa Strickland RN) Antibody Screen: negative (06/29/2016 19:47:Nerissa Strickland RN) Rho(G) this : Yes (06/29/2016 19:47:Laney Lozada RN) Date Rho(G) Given: 10/25/2016 (06/29/2016 19:47:Nya Jj RN) Hemoglobin: 10.0 L (11/07/2016 07:04:QS system process) Hematocrit: 30.0 L (11/07/2016 07:04:QS system process) MCV: 87 (11/07/2016 07:04:QS system process) Group Beta Strep: positive (Annotations: Data stored by N on behalf of user) (06/29/2016 19:47:Bev Kerr RN) Gonorrhea: Negative (06/29/2016 19:47:Nerissa Strickland RN) Chlamydia: Negative (06/29/2016 19:47:Nerissa Strickland RN) RPR/VDRL: Nonreactive (06/29/2016 19:47:Sherlyn Jerez RN) HIV Results: Negative (06/29/2016 19:47:Nerissa Strickland RN) Hepatitis B: Negative (06/29/2016 19:47:Nerissa Strickland RN) Herpes Culture: Positive (06/29/2016 19:47:Nya Jj RN) Rubella: Immune (06/29/2016 19:47:Nerissa Strickland RN) Varicella: Non Susceptible (06/29/2016 19:47:Nerissa Strickland RN) OB/PREVIOUS HISTORY Previous Procedures: Ultrasound; NST (06/29/2016 19:47:Constance Morales RN) Current Procedures: Ultrasound; NST (06/29/2016 19:47:Constance Morales RN) History of Previous : No (06/29/2016 19:47:Nya Jj RN) History of Gestational Diabetes: No (06/29/2016 19:47:Nya Jj RN) History of PIH: No (06/29/2016 19:47:Nya Jj RN) History of Incompetent Cervix: No (06/29/2016 19:47:Nya Jj RN) History of Placenta Previa/Abrup: No (06/29/2016 19:47:Nya Jj RN) History of Macrosomia: No (06/29/2016 19:47:Nya Jj RN) History of IUGR: No (06/29/2016 19:47:Nya Jj RN) History of Hemorrhage: No (06/29/2016 19:47:Nya Jj RN) History of Loss/Stillborn: No (06/29/2016 19:47:Nya Jj RN) History of : No (06/29/2016 19:47:Nya Jj RN) History of D (Rh) Sensitization: No (06/29/2016 19:47:Nya Jj RN) History Recurrent Loss/Stillborn: No (06/29/2016 19:47:Nya Jj RN) History Depression/PP Depression: Yes (06/29/2016 19:47:Nerissa Strickland RN) History of Uterine Anomaly/GRETCHEN: No (06/29/2016 19:47:Nya Jj RN) History of Infertility: No (06/29/2016 19:47:Nya Jj RN) History of ART Treatment: No (06/29/2016 19:47:Nya Jj RN) History of GRETCHEN: No (06/29/2016 19:47:Nya Jj RN) Comments Obstetrical History: G1: 2008 40 wk G2: 2010 41 wk G3: 2012 41 wk G4: 2014 missed SAB and emergency DNC G5: current CPS issues, will need d/c planning (06/29/2016 19:47:Nerissa Strickland RN) MEDICAL HISTORY Med Hx Diabetes: No (06/29/2016 19:47:Nya Jj RN) Med Hx Hypertension: No (06/29/2016 19:47:Nya Jj RN) Med Hx Heart Disease: No (06/29/2016 19:47:Nya Jj RN) Med Hx Autoimmune Disorder: No (06/29/2016 19:47:Nya Jj RN) Med Hx Kidney Disease/UTI: No (06/29/2016 19:47:Nya Jj RN) Med Hx Neurologic/Epilepsy: No (06/29/2016 19:47:Nya Jj RN) Med Hx Psychiatric Disorders: No (06/29/2016 19:47:Nya Jj RN) Med Hx Hepatitis/Liver Disease: No (06/29/2016 19:47:Nya Jj RN) Med Hx Varicosities/Phlebitis: No (06/29/2016 19:47:yNa Jj RN) Med Hx Thyroid Dysfunction: No (06/29/2016 19:47:Nya Jj RN) Med Hx Trauma/Violence: No (06/29/2016 19:47:Nya Jj RN) Med Hx Blood Transfusion: No (06/29/2016 19:47:Nya Jj RN) Med Hx Pulmonary (Asthma,TB): No (06/29/2016 19:47:Nya Jj RN) Med Hx Breast: No (06/29/2016 19:47:Nya Jj RN) Med 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: No (06/29/2016 19:47:Nya Jj RN) Med Hx Hospitalization/Surgery: Yes (06/29/2016 19:47:Ibeth Almanzar RN) Med Hx Anesthetic Complications: No (06/29/2016 19:47:Nya Jj RN) Med Hx Abnormal Pap Smear: No (06/29/2016 19:47:Nya Jj RN) Other Medical Diseases: No (06/29/2016 19:47:Nya Jj RN) Med Hx Significant Family Hx: No (06/29/2016 19:47:Nya Jj RN) Details of Med/Surg Hx: Depression not treated- with second CHILDBIRTH (06/29/2016 19:47:Ibeth Almanzar RN) INFECTIOUS HISTORY Inf Hx Gonorrhea: Yes (06/29/2016 19:47:Nerissa Strickland RN) Inf Hx Chlamydia: No (06/29/2016 19:47:Nya Jj RN) Inf Hx Syphilis: No (06/29/2016 19:47:Nya Jj RN) Inf Hx HIV/AIDS: No (06/29/2016 19:47:Nya Jj RN) Inf Hx Human Papilloma Virus: No (06/29/2016 19:47:Nya Jj RN) Inf Hx Pt/Partner Genital Herpes: Yes (06/29/2016 19:47:Nerissa Strickland RN) Inf Hx Tuberculosis/Exposure: No (06/29/2016 19:47:Nya Jj RN) Inf Hx Hepatitis B,C: No (06/29/2016 19:47:Nya Jj RN) Inf Hx Rash or Viral Illness: No (06/29/2016 19:47:Nya Jj RN) Details of Infectious Hx: 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 (06/29/2016 19:47:Nerissa Strickland RN) GENETIC HISTORY Gen Hx Age >=35 at [place]: No (06/29/2016 19:47:Nya Jj RN) Gen Hx Thalassemia: No (06/29/2016 19:47:Nya Jj RN) Gen Hx Congenital Heart Defect: No (06/29/2016 19:47:Nya Jj RN) Gen Hx Neural Tube Defect: No (06/29/2016 19:47:Nya Jj RN) Gen Hx Down's Syndrome: No (06/29/2016 19:47:Nya Jj RN) Gen Hx Pop-Sachs: No (06/29/2016 19:47:Nya Jj RN) Gen Hx Amparo: No (06/29/2016 19:47:Nya Jj RN) Gen Hx Familial Dysautonomia: No (06/29/2016 19:47:Nya Jj RN) Gen Hx Sickle Cell Disease/Trait: No (06/29/2016 19:47:Nya Jj RN) Gen Hx Hemophilia/Blood Disorder: No (06/29/2016 19:47:Nya Jj RN) Gen Hx Muscular Dystrophy: No (06/29/2016 19:47:Nya Jj RN) Gen Hx Cystic Fibrosis: No (06/29/2016 19:47:Nya Jj RN) Gen Hx Huntingtons Chorea: No (06/29/2016 19:47:Nya Jj RN) Gen Hx Mental Retardation/Autism: No (06/29/2016 19:47:Nya Jj RN) Gen Hx Tested for Fragile X: No (06/29/2016 19:47:Nya Jj RN) Gen Hx Other Inher/Chromosomal: No (06/29/2016 19:47:Nya Jj RN) Gen Hx Maternal Metabolic DO: No (06/29/2016 19:47:Nya Jj RN) Gen Hx Pt Father or FOB Defect: No (06/29/2016 19:47:Nya Jj RN) Gen Hx Other Genetic History: No (06/29/2016 19:47:Nya Jj RN) Gen Hx Drugs/Meds since LMP: No (06/29/2016 19:47:Nya Jj RN)
[2016-11-08] MEDS: IBUPROFEN 800 MG TABLET PO SCH ×2 (06:00→14:13)
--- NOTE | 2016-11-08 06:01 | L&D General Admission ---
General Admit Datetime Report Generated by CPN: 11/08/2016 06:00 INFORMATION Patient Age: 24 (09/27/2014 15:47:QS system process) EDC: 11/01/2016 00:00 (06/29/2016 19:47:Ibeth Almanzar RN) : 5 (06/29/2016 19:47:Nya Jj RN) Para: 3 (11/04/2016 20:53:Constance Morales RN) Term: 3 (06/29/2016 19:47:Nya Jj RN) : 0 (06/29/2016 19:47:Constance Morales RN) Spontaneous Abortions: 0 (06/29/2016 19:47:Constance Morales RN) Induced Abortions: 1 (06/29/2016 19:47:Constance Morales RN) Livin (06/29/2016 19:47:Constance Morales RN) Cesareans: 0 (06/29/2016 19:47:Constance Morales RN) VBACs: 0 (06/29/2016 19:47:Constance Morales RN) Ectopic: 0 (06/29/2016 19:47:Constance Morales RN) Multiple Births: 0 (06/29/2016 19:47:Constance Morales RN) Baby, Number in Womb: 1 (11/04/2016 20:53:Constance Morales RN) CARE Primary Music Worker: [facility] (06/29/2016 19:47:Nya Jj RN) Adequate Care: Yes (06/29/2016 19:47:Nya Jj RN) Height (in): 62 (11/06/2016 17:38:QS system process) ALLERGIES Medication Allergy: No (06/29/2016 19:47:Nya Jj RN) Medication Allergies: No Known Allergies (11/04/2016) (11/04/2016 19:07:QS system process) Latex Allergy: No Latex Allergies (06/29/2016 19:47:Nya Jj RN) Food Allergies: NA (06/29/2016 19:47:Nya Jj RN) Environmental Allergies: NA (06/29/2016 19:47:Nya Jj RN) COMMUNICATION Primary Language: Pashto (06/29/2016 19:47:Nya Jj RN) Medical Tx Preferred Language: Pashto (06/29/2016 19:47:Nya Jj RN) Communication Barrier(s): None (Annotations: Data stored by N on behalf of user) (06/29/2016 19:47:Ibeth Almanzar RN) DEMOGRAPHICS Address: [address] [place] [id number] (06/22/2016 16:50:QS system process) Zipcode: [address] (09/27/2014 15:47:QS system process) Home (06/22/2016 16:50:QS system process) Work (08/15/2016 18:25:QS system process) [facility]: [phone] (09/27/2014 15:47:QS system process) Next of Kin Name: ZAFAR ROLLE (04/21/2016 15:55:QS system process) Next of Kin (04/21/2016 15:55:QS system process) Next of Kin Relationship: MO (04/21/2016 15:55:QS system process) Date of : 1990 (09/27/2014 15:47:QS system process) Marital Status: Single (09/27/2014 15:47:QS system process) Sex: Female (09/27/2014 15:47:QS system process) Race: (09/27/2014 15:47:QS system process) Ethnicity: Non- or (09/27/2014 15:47:QS system process) Holiness: None (04/21/2016 15:55:QS system process) DRUG AND ALCOHOL USE Alcohol: No (06/29/2016 19:47:Nya Jj RN) Cigarettes: Former Smoker. [id number] (06/29/2016 19:47:Nya Jj RN) Marijuana: No (06/29/2016 19:47:Nya Jj RN) Cocaine: No (06/29/2016 19:47:Nya Jj RN) Other Illicit Drugs: No (06/29/2016 19:47:Nya Jj RN) VACCINE HISTORY Influenza Vaccine: Uncertain (06/29/2016 19:47:Nya Jj RN) Influenza Date: 2012 (06/29/2016 19:47:Nya Jj RN) Pneumococcal Vaccine: Uncertain (06/29/2016 19:47:Nya Jj RN) Tetanus Vaccine: Uncertain (06/29/2016 19:47:Nya Jj RN) Tdap Vaccine: Uncertain (06/29/2016 19:47:Nya Jj RN) Hepatitis B Vaccine: Uncertain (06/29/2016 19:47:Nya Jj RN) Bench Repair Technician: [facility] (06/29/2016 19:47:Nya Jj RN) Feeding Preference: Formula (06/29/2016 19:47:Nya Jj RN) Benefit of Breast Feed Discussed: Yes (06/29/2016 19:47:Nya Jj RN) Circumcision: N/A (06/29/2016 19:47:Nya Jj RN) Classes Attended: No (06/29/2016 19:47:Nya Jj RN) Tubal Ligation: Yes (06/29/2016 19:47:Nya Jj RN) Tubal Authorization Signed: No (06/29/2016 19:47:Nya Jj RN) Consent: N/A (06/29/2016 19:47:Nya Jj RN) Consent Signed: N/A (06/29/2016 19:47:Nya Jj RN) Pain Management Plans: Natural (06/29/2016 19:47:Nya Jj RN) Plans for Labor and Delivery: None (06/29/2016 19:47:Nya Jj RN) Support Person: Ca Rolle (06/29/2016 19:47:Nya Jj RN) Support Person Relationship: Mother (06/29/2016 19:47:Nya Jj RN) Cultural/Spritual Practice: No (06/29/2016 19:47:Nya Jj RN) Spir/Cult Dietary Needs: No (06/29/2016 19:47:Nya Jj RN) LIVING SITUATION/DISCHARGE PLAN Living Arrangements: House (06/29/2016 19:47:Nya Jj RN) Adequate Access to:: Electric; Heat; Refrigeration; Plumbing/Running water; Phone; Transportation (06/29/2016 19:47:Nya Jj RN) WIC Program: Yes (06/29/2016 19:47:Nya Jj RN) Discharge Multineedle Shirrer Person: Ca Rolle (06/29/2016 19:47:Nya Jj RN) Person to Help after Discharge: Ca Rolle (06/29/2016 19:47:Nya Jj RN) Currently Using Commun Resources: Yes (06/29/2016 19:47:Nya Jj RN) Outside Agency/Sr. Vendor Management Associate: No (06/29/2016 19:47:Nya Jj RN) Car Seat for Discharge: N/A (06/29/2016 19:47:Nya Jj RN) Adoption Requested: No (06/29/2016 19:47:Nya Jj RN) Pt Contact w/ Post : N/A (06/29/2016 19:47:Nya Jj RN) LABS Blood Type: O Negative (06/29/2016 19:47:Nerissa Strickland RN) Antibody Screen: negative (06/29/2016 19:47:Nerissa Strickland RN) Rho(G) this : Yes (06/29/2016 19:47:Laney Lozada RN) Date Rho(G) Given: 10/25/2016 (06/29/2016 19:47:Nya Jj RN) Hemoglobin: 10.0 L (11/07/2016 07:04:QS system process) Hematocrit: 30.0 L (11/07/2016 07:04:QS system process) MCV: 87 (11/07/2016 07:04:QS system process) Group Beta Strep: positive (Annotations: Data stored by N on behalf of user) (06/29/2016 19:47:Bev Kerr RN) Gonorrhea: Negative (06/29/2016 19:47:Nerissa Strickland RN) Chlamydia: Negative (06/29/2016 19:47:Nerissa Strickland RN) RPR/VDRL: Nonreactive (06/29/2016 19:47:Sherlyn Jerez RN) HIV Results: Negative (06/29/2016 19:47:Nerissa Strickland RN) Hepatitis B: Negative (06/29/2016 19:47:Nerissa Strickland RN) Herpes Culture: Positive (06/29/2016 19:47:Nya Jj RN) Rubella: Immune (06/29/2016 19:47:Nerissa Strickland RN) Varicella: Non Susceptible (06/29/2016 19:47:Nerissa Strickland RN) OB/PREVIOUS HISTORY Previous Procedures: Ultrasound; NST (06/29/2016 19:47:Constance Morales RN) Current Procedures: Ultrasound; NST (06/29/2016 19:47:Constance Morales RN) History of Previous : No (06/29/2016 19:47:Nya Jj RN) History of Gestational Diabetes: No (06/29/2016 19:47:Nya Jj RN) History of PIH: No (06/29/2016 19:47:Nya Jj RN) History of Incompetent Cervix: No (06/29/2016 19:47:Nya Jj RN) History of Placenta Previa/Abrup: No (06/29/2016 19:47:Nya Jj RN) History of Macrosomia: No (06/29/2016 19:47:Nya Jj RN) History of IUGR: No (06/29/2016 19:47:Nya Jj RN) History of Hemorrhage: No (06/29/2016 19:47:Nya Jj RN) History of Loss/Stillborn: No (06/29/2016 19:47:Nya Jj RN) History of : No (06/29/2016 19:47:Nya Jj RN) History of D (Rh) Sensitization: No (06/29/2016 19:47:Nya Jj RN) History Recurrent Loss/Stillborn: No (06/29/2016 19:47:Nya Jj RN) History Depression/PP Depression: Yes (06/29/2016 19:47:Nerissa Strickland RN) History of Uterine Anomaly/GRETCHEN: No (06/29/2016 19:47:Nya Jj RN) History of Infertility: No (06/29/2016 19:47:Nya Jj RN) History of ART Treatment: No (06/29/2016 19:47:Nya Jj RN) History of GRETCHEN: No (06/29/2016 19:47:Nya Jj RN) Comments Obstetrical History: G1: 2008 40 wk G2: 2010 41 wk G3: 2012 41 wk G4: 2014 missed SAB and emergency DNC G5: current CPS issues, will need d/c planning (06/29/2016 19:47:Nerissa Strickland RN) MEDICAL HISTORY Med Hx Diabetes: No (06/29/2016 19:47:Nya Jj RN) Med Hx Hypertension: No (06/29/2016 19:47:Nya Jj RN) Med Hx Heart Disease: No (06/29/2016 19:47:Nya Jj RN) Med Hx Autoimmune Disorder: No (06/29/2016 19:47:Nya Jj RN) Med Hx Kidney Disease/UTI: No (06/29/2016 19:47:Nya Jj RN) Med Hx Neurologic/Epilepsy: No (06/29/2016 19:47:Nya Jj RN) Med Hx Psychiatric Disorders: No (06/29/2016 19:47:Nya Jj RN) Med Hx Hepatitis/Liver Disease: No (06/29/2016 19:47:Nya Jj RN) Med Hx Varicosities/Phlebitis: No (06/29/2016 19:47:Nya Jj RN) Med Hx Thyroid Dysfunction: No (06/29/2016 19:47:Nya Jj RN) Med Hx Trauma/Violence: No (06/29/2016 19:47:Nya Jj RN) Med Hx Blood Transfusion: No (06/29/2016 19:47:Nya Jj RN) Med Hx Pulmonary (Asthma,TB): No (06/29/2016 19:47:Nya Jj RN) Med Hx Breast: No (06/29/2016 19:47:Nya Jj RN) Med Hx AGENCY MANAGER Surgery: No (06/29/2016 19:47:Nya Jj RN) Med Hx Hospitalization/Surgery: Yes (06/29/2016 19:47:Ibeth Almanzar RN) Med Hx Anesthetic Complications: No (06/29/2016 19:47:Nya Jj RN) Med Hx Abnormal Pap Smear: No (06/29/2016 19:47:Nya Jj RN) Other Medical Diseases: No (06/29/2016 19:47:Nya jJ RN) Med Hx Significant Family Hx: No (06/29/2016 19:47:Nya Jj RN) Details of Med/Surg Hx: Depression not treated- with second CHILDBIRTH (06/29/2016 19:47:Ibeth Almanzar RN) INFECTIOUS HISTORY Inf Hx Gonorrhea: Yes (06/29/2016 19:47:Nerissa Strickland RN) Inf Hx Chlamydia: No (06/29/2016 19:47:Nya Jj RN) Inf Hx Syphilis: No (06/29/2016 19:47:Nya Jj RN) Inf Hx HIV/AIDS: No (06/29/2016 19:47:Nya Jj RN) Inf Hx Human Papilloma Virus: No (06/29/2016 19:47:Nya Jj RN) Inf Hx Pt/Partner Genital Herpes: Yes (06/29/2016 19:47:Nerissa Strickland RN) Inf Hx Tuberculosis/Exposure: No (06/29/2016 19:47:Nya Jj RN) Inf Hx Hepatitis B,C: No (06/29/2016 19:47:Nya Jj RN) Inf Hx Rash or Viral Illness: No (06/29/2016 19:47:Nya Jj RN) Details of Infectious Hx: 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 (06/29/2016 19:47:Nerissa Strickland RN) GENETIC HISTORY Gen Hx Age >=35 at MEHRAN: No (06/29/2016 19:47:Nya Jj RN) Gen Hx Thalassemia: No (06/29/2016 19:47:Nya Jj RN) Gen Hx Congenital Heart Defect: No (06/29/2016 19:47:Nya Jj RN) Gen Hx Neural Tube Defect: No (06/29/2016 19:47:Nya Jj RN) Gen Hx Down's Syndrome: No (06/29/2016 19:47:Nya Jj RN) Gen Hx Pop-Sachs: No (06/29/2016 19:47:Nya Jj RN) Gen Hx Amparo: No (06/29/2016 19:47:Nya Jj RN) Gen Hx Familial Dysautonomia: No (06/29/2016 19:47:Nya Jj RN) Gen Hx Sickle Cell Disease/Trait: No (06/29/2016 19:47:Nya Jj RN) Gen Hx Hemophilia/Blood Disorder: No (06/29/2016 19:47:Nya Jj RN) Gen Hx Muscular Dystrophy: No (06/29/2016 19:47:Nya Jj RN) Gen Hx Cystic Fibrosis: No (06/29/2016 19:47:Nya Jj RN) Gen Hx Huntingtons Chorea: No (06/29/2016 19:47:Nya Jj RN) Gen Hx Mental Retardation/Autism: No (06/29/2016 19:47:Nya Jj RN) Gen Hx Tested for Fragile X: No (06/29/2016 19:47:Nya Jj RN) Gen Hx Other Inher/Chromosomal: No (06/29/2016 19:47:Nya Jj RN) Gen Hx Maternal Metabolic DO: No (06/29/2016 19:47:Nya Jj RN) Gen Hx Pt Father or FOB Defect: No (06/29/2016 19:47:Nya Jj RN) Gen Hx Other Genetic History: No (06/29/2016 19:47:Nya Jj RN) Gen Hx Drugs/Meds since LMP: No (06/29/2016 19:47:Nya Jj RN)
[2016-11-08 08:58] VITALS: BP 111/67
[2016-11-08] MEDS: FAMOTIDINE 20 MG TABLET PO SCH (09:41)
[2016-11-08] MEDS: DOCUSATE SODIUM 100 MG CAPSULE PO SCH ×2 (09:41→17:18)
[2016-11-08] MEDS: PRENATAL VITAMIN W-O CA NO5/FE FUMARATE/FA CAPSULE PO SCH (09:42)
[2016-11-08] MEDS: FERROUS SULFATE 325 MG TABLET PO SCH ×2 (09:42→17:18)
[2016-11-08] MEDS: SENNOSIDES/DOCUSATE 8.6-50 MG 1 EACH TABLET PO SCH (09:42)
--- NOTE | 2016-11-08 10:53 | PDOC DISCHARGE SUMMARY ---
Final Diagnosis Discharge Date: 11/08/16 - Final Diagnosis (1) Delivery normal Is this a current diagnosis for this admission?: Yes Discharge Data - Discharge Medication Home Medications: Pnv95/Ferrous Fumarate/FA [ Formula Tablet] 1 ea PO QAM 06/29/16 Valacyclovir HCl [Valtrex 500 mg Tablet] 1,000 mg PO BID 09/25/16 Acetaminophen with Codeine [Tylenol #3 Tablet] 1 each PO Q6HP PRN #10 tablet Docusate Sodium [Colace 100 mg Capsule] 100 mg PO BID #60 capsule 11/08/16 Ferrous Sulfate [Feosol 325 mg Tablet] 325 mg PO BID #60 tablet 11/08/16 Ibuprofen [Motrin 800 mg Tablet] 800 mg PO Q8HP PRN #90 tablet 11/08/16 Reason(s) for Admission: Induction of Labor Procedures: NST, Ultrasound Intrapartum Procedure(s): Spontaneous Vaginal Delivery - [place] Data Baby 1 Male at 1 minute: 8 at 5 minutes: 9 Weight: 3650 kg Home with Mother: Yes Complications: No - Diagnosis Test Laboratory: Temp Pulse Resp BP Pulse Ox 97.8 F 81 17 111/67 98 11/08/16 08:34 11/08/16 08:34 11/08/16 08:34 11/08/16 08:34 11/08/16 08:34 11/06/16 11/06/16 11/07/16 06:30 07:06 07:04 RBC 3.81 3.46 L Hgb 11.3 L 10.0 L Hct 33.1 L 30.0 L Urine Opiates Screen NEGATIVE - Discharge information/Instructions Discharge Activity: Activity As Tolerated, No Lifting Over 10 Pounds, No Lifting /Push/Pulling, Pelvic Rest, No tub bath Discharge Diet: As Tolerated, Regular Disposition: HOME, SELF-CARE [facility] in: 4, Weeks Physical Exam (OB) Vital Signs: Temp Pulse Resp BP Pulse Ox 97.8 F 81 17 111/67 98 11/08/16 08:34 11/08/16 08:34 11/08/16 08:34 11/08/16 08:34 11/08/16 08:34 Intake & Output 11/07/16 11/08/16 11/09/16 06:59 06:59 06:59 Intake Total 300 Balance 300 - General General Appearance: Appears well In distress: None - Episiotomy/Laceration Site Condition: N/A - Lochia Lochia Amount: Scant < 10 ml Lochia Color: Rubra/Red - Abdomen Description: Soft, Round Hernia Present: No Flatus Presence: Present Stool: No Fundal Description: Firm, Midline Fundal Height: u/u - u/2 - Respiratory Respiratory Status: No respiratory distress - Extremities Upper extremity: Normal inspection Lower extremities: Edema - right lower extremities mild edema Thigh: Normal Ankle: Normal Foot: Normal - Psychological Associated symptoms: Normal affect, Normal mood
== END 2016-11-08 17:35 | disposition home or self-care (01) | DRG 775 ==
LOC: LR 06:04 → 2S 17:37
PROVIDERS: ADMIT Obstetrics & Gynecology; ATTEND Obstetrics & Gynecology
PROC: 10E0XZZ Delivery of Products of Conception, External Approach (ICD-10-PCS; principal; 2016-11-06)
PROC: 10907ZC Drainage of Amniotic Fluid, Therapeutic from Products of Conception, Via Natural or Artificial Opening (ICD-10-PCS; 2016-11-06)
PROC: 4A1HXCZ Monitoring of Products of Conception, Cardiac Rate, External Approach (ICD-10-PCS; 2016-11-06)
DX: O32.6XX0 Maternal care for compound presentation, not applicable or unspecified (principal); O48.0 Post-term pregnancy; O26.893 Other specified pregnancy related conditions, third trimester; O99.824 Streptococcus B carrier state complicating childbirth; Z67.41 Type O blood, Rh negative; Z3A.40 40 weeks gestation of pregnancy; Z37.0 Single live birth
CPT/HCPCS: 36415; 80307; 81005; 85025; 85027; 85461; 86592; 86850; 86870; 86900; 86901; 86920; 86922; 88307; J2540; J2590; J2790; J3490

== ENCOUNTER 2017-02-27 07:31 | Emergency (ER) | payer MEDICAID ==
[2017-02-27 07:37] VITALS: BP 103/76
[2017-02-27] MEDS ORDERED: IBUPROFEN 600 MG TABLET PO ONE (08:06)
--- NOTE | 2017-02-27 08:07 | ER Document Report ---
HPI - HPI Patient complains to provider of: volar right wrist swelling Onset: Other - 3 days Onset/Duration: Gradual Quality of pain: Throbbing Pain Level: 4 Context: 26-year-old female with recurrent swelling to her volar right wrist for 4 days. She did not have it looked at when she had it 2 months ago. No injury. Associated Symptoms: None Exacerbated by: Movement Relieved by: Denies Similar symptoms previously: Yes Recently seen / treated by doctor: No - ROS ROS below otherwise negative: Yes Systems Reviewed and Negative: Yes All other systems reviewed and negative - REPRODUCTIVE LMP: January 20 Reproductive: REPORTS: : - DERM Skin Color: Normal Past Medical History - General Information source: Patient - Social History Smoking Status: Unknown if Ever Smoked Frequency of alcohol use: None Drug Abuse: None Lives with: Family Family History: Reviewed & Not Pertinent - Medical History Medical History: Negative Renal/ Medical History: Reports: Hx Pelvic Inflammatory Disease. Denies: Hx Peritoneal Dialysis Musculoskeltal Medical History: Reports Hx Musculoskeletal Trauma Psychiatric Medical History: Reports: Hx Anxiety Past Surgical History: Reports: Hx Adenoidectomy, Hx Dilation and Curettage, Hx Gynecologic Surgery - D&C, Hx Tonsillectomy - and adenoids - Immunizations Immunizations up to date: Yes Hx Diphtheria, Pertussis, Tetanus Vaccination: Yes Vertical Provider Document - CONSTITUTIONAL Agree With Documented VS: Yes Exam Limitations: No Limitations - INFECTION CONTROL TRAVEL OUTSIDE OF THE [place] IN LAST 30 DAYS: No - HEENT HEENT: Normocephalic - NECK Neck: Supple. negative: Lymphadenopathy-Left, Lymphadenopathy-Right - RESPIRATORY Respiratory: Breath Sounds Normal, No Respiratory Distress O2 Sat by Pulse Oximetry: 97 - CARDIOVASCULAR Cardiovascular: Regular Rate, Regular Rhythm - MUSCULOSKELETAL/EXTREMETIES Musculoskeletal/Extremeties: MAEW, FROM, Tender - right volar wrist ganglion cyst - NEURO Level of Consciousness: Awake, Alert, Appropriate Motor/Sensory: No Motor Deficit - DERM Integumentary: Warm, Dry, No Rash Course - Vital Signs Vital signs: Temp Pulse Resp BP Pulse Ox 97.5 F 89 16 103/76 97 02/27/17 07:36 02/27/17 07:36 02/27/17 07:36 02/27/17 07:36 02/27/17 07:36 Discharge - Discharge Clinical Impression: Ganglion cyst of volar aspect of right wrist Condition: Good Disposition: HOME, SELF-CARE Instructions: Temporary Splint ([facility]), Ganglion Cyst ([facility]) Additional Instructions: to er if worse splint for comfort see the orthpedist doctor for evaluation and options Please complete the patient satisfaction survey if you get one, and return it.. If you do not receive a survey, then you can go to the [facility] website, [email or web address] and place your comments about your very good care. Thank you very much. It was a pleasure being your medical provider today. Prescriptions: Ibuprofen [Motrin 600 mg Tablet] 600 mg PO Q8HP PRN #30 tablet PRN Reason: Forms: Return to Work Referrals: ZAKIA MARCIAL MD [Primary Care Provider] - Follow up as needed LIZABETH PEACOCK DO [ACTIVE STAFF] - Follow up as needed
== END 2017-02-27 08:15 | disposition home or self-care (01) ==
LOC: ER 07:31
DX: M67.431 Ganglion, right wrist (principal); M79.89 Other specified soft tissue disorders; M25.531 Pain in right wrist
CPT/HCPCS: 99282; L3984; J3490

== ENCOUNTER 2017-03-01 17:13 | Emergency (ER) | payer MEDICAID ==
--- NOTE | 2017-03-01 18:25 | ER Document Report ---
ED Extremity Problem, Upper - General Chief Complaint: Wrist Pain Stated Complaint: RIGHT WRIST PAIN Time Seen by Provider: 03/01/17 18:02 Mode of Arrival: Ambulatory Information source: Patient Notes: 9-year-old female presents to ED for pain to her right wrist. She states she was seen on Sunday for the same. She was given a cock-up splint and told to follow-up with [facility]. She states she was given a prescription for ibuprofen which has not given her any relief and that she cannot get an appointment with [facility] for 2 weeks. TRAVEL OUTSIDE OF THE [place] IN LAST 30 DAYS: No - HPI Patient complains to provider of: Pain, Right, Wrist Onset: Other - The Recent injury: No Quality of pain: Sharp, Throbbing Severity of pain: Severe, Worse Pain Level: 5 Associated symptoms: None Exacerbated by: Movement, Exertion Relieved by: Rest Similar symptoms previously: Yes Recently seen / treated by doctor: Yes - Related Data Allergies/Adverse Reactions: No Known Allergies Allergy (Verified 03/01/17 17:24) Past Medical History - General Information source: Patient - Social History Smoking Status: Current Every Day Smoker Cigarette use (# per day): Yes - 3-4 cigarettes a day Chew tobacco use (# tins/day): No Smoking Education Provided: Yes - less Then 2 minute Frequency of alcohol use: None Drug Abuse: None Occupation: [employer] Lives with: Family Family History: Arthritis, COPD, DM, Hypertension Patient has suicidal ideation: No Patient has homicidal ideation: No - Past Medical History Cardiac Medical History: Reports: None Pulmonary Medical History: Reports: None EENT Medical History: Reports: None Neurological Medical History: Reports: None Endocrine Medical History: Reports: None Renal/ Medical History: Reports: Hx Ovarian Cysts, Hx Pelvic Inflammatory Disease Malignancy Medical History: Reports: None GI Medical History: Reports: None Musculoskeltal Medical History: Reports Hx Musculoskeletal Trauma Skin Medical History: Reports Hx Eczema Psychiatric Medical History: Reports: Hx Anxiety Traumatic Medical History: Reports: None Infectious Medical History: Reports: None Past Surgical History: Reports: Hx Adenoidectomy, Hx Dilation and Curettage, Hx Tonsillectomy - and adenoids - Immunizations Immunizations up to date: Yes Hx Diphtheria, Pertussis, Tetanus Vaccination: Yes Review of Systems - Review of Systems Constitutional: No symptoms reported EENT: No symptoms reported Cardiovascular: No symptoms reported Respiratory: No symptoms reported Gastrointestinal: No symptoms reported Genitourinary: No symptoms reported Female Genitourinary: No symptoms reported Musculoskeletal: Other - The right wrist cyst Skin: No symptoms reported Hematologic/Lymphatic: No symptoms reported Neurological/Psychological: No symptoms reported -: Yes All other systems reviewed and negative Physical Exam - Vital signs Vitals: Temp Pulse Resp BP Pulse Ox 97.6 F 75 16 115/73 100 03/01/17 17:24 03/01/17 17:24 03/01/17 17:24 03/01/17 17:24 03/01/17 17:24 Interpretation: Normal - General General appearance: Appears well, Alert - HEENT Head: Normocephalic, Atraumatic Eyes: Normal Pupils: PERRL - Respiratory Respiratory status: No respiratory distress Chest status: Nontender Breath sounds: Normal Chest palpation: Normal - Cardiovascular Rhythm: Regular Heart sounds: Normal auscultation Murmur: No - Abdominal Inspection: Normal Distension: No distension Bowel sounds: Normal Tenderness: Nontender Organomegaly: No organomegaly - Back Back: Normal, Nontender - Extremities General upper extremity: Normal color, Normal temperature General lower extremity: Normal inspection, Nontender, Normal color, Normal ROM , Normal temperature, Normal weight bearing. No: Elif's sign Wrist: Tender - Cyst on right wrist, Other - Cyst on right wrist she has decreased range of motion to the wrist due to the pain but has full range of motion. No: Axial load of thumb pain - Neurological Neuro grossly intact: Yes Cognition: Normal Orientation: AAOx4 [place] Coma Scale Eye Opening: Spontaneous [place] Coma Scale Verbal: Oriented Maya Coma Scale Motor: Obeys Commands Maya Coma Scale Total: 15 Speech: Normal Motor strength normal: LUE, RUE, LLE, RLE Sensory: Normal - Psychological Associated symptoms: Normal affect, Normal mood - Skin Skin Temperature: Warm Skin Moisture: Dry Skin Color: Normal Course - Vital Signs Vital signs: Temp Pulse Resp BP Pulse Ox 97.6 F 64 18 103/65 98 03/01/17 17:24 03/01/17 18:43 03/01/17 18:43 03/01/17 18:43 03/01/17 18:43 Discharge - Discharge Clinical Impression: Ganglion cyst of volar aspect of right wrist Condition: Stable Disposition: HOME, SELF-CARE Additional Instructions: You have a ganglion cyst to your right wrist. SPLINT PRECAUTIONS: A splint has been placed. This will protect the area while healing begins. Your problem does NOT normally require a cast. It MUST, however, be held still! Keep the splint on ALL THE TIME until instructed to remove it by the doctor. As you begin to use the area, be careful. You shouldn't do anything which causes discomfort -- you may disturb the injury even with the splint in place. After the initial period of rest and elevation, if splint does not prevent pain when you move, come back. You may require placement of a different splint , or a cast. If there is unexpected severe pain, or numbness, discoloration, or swelling beyond the splint, you should return at once. If you feel that the splint has broken or become loose, come back. ICE & ELEVATION: Apply ice packs frequently against the painful area. Many different schedules are recommended, such as "20 minutes on, 20 minutes off" or "one hour ice, two hours rest." If you need to work, you may need to go longer between ice treatments. You should plan to have the area ice packed AT LEAST one- fourth of the time. The ice should be applied over the wrap, tape, or splint, or over a layer of cloth -- not directly against the skin. Some ice bags have a built-in cloth and can be put directly on the skin. Your injured part should be elevated as much as possible over the next 48 hours. Try to keep the injury above the level of the heart. Avoid use of the injured area. Elevation and rest will decrease the swelling. USE OF [id number] IBUPROFEN: Ibuprofen (Advil, Nuprin, Medipren, Motrin IB) is a medication for fever and pain control. In addition, it has anti- inflammatory effects which may be beneficial, especially in the treatment of injuries. It's best to take ibuprofen with food. Persons with ulcer disease or allergy to aspirin should notify their physician of this before taking ibuprofen. Ibuprofen can be given every four to six hours, for a total of four doses daily. Age Pain or fever dose Antiinflammatory dose 6-8 yr 200 mg (1 tab) 200 mg (1 tab) 9-11 yr 200 mg (1 tab) 200-400 mg (1-2 tab) 11-14 yr 200-400 mg (1-2 tab) 400 mg (2 tab) 15-adult 400 mg (2 tab) 600 mg (3 tab) ORAL NARCOTIC MEDICATION: You have been given a prescription for pain control. This medication is a narcotic. It's best taken with food, as nausea can result if taken on an empty stomach. Don't operate machinery or drive within six hours of taking this medication. Do not combine this medicine with alcohol, or with any medication which can cause sedation (such as cold tablets or sleeping pills) unless you get permission from the physician. Narcotics tend to cause constipation. If possible, drink plenty of fluids and eat a diet high in fiber and fruits. Please be aware that prescription narcotics also have the potential for abuse. People become addicted to these medications because of the general sense of wellbeing that they induce. This feeling along with a significant reduction in tension, anxiety, and aggression provides a stimulating seductive quality to these drugs. Once your pain is under control, we encourage you to discard your unused narcotics. FOLLOW-UP CARE: If you have been referred to a physician for follow-up care, call the physician s office for an appointment as you were instructed or within the next two days. If you experience worsening or a significant change in your symptoms, notify the physician immediately or return to the Emergency Department at any time for re-evaluation. Prescriptions: Hydrocodone/Acetaminophen [Effie 5-325 mg Tablet] 1 tab PO BIDP PRN #14 tablet PRN Reason: Forms: Smoking Cessation Education, Return to Work Referrals: LIZABETH PEACOCK DO [ACTIVE STAFF] - Follow up as needed
[2017-03-01 18:44] VITALS: BP 103/65
== END 2017-03-01 18:44 | disposition home or self-care (01) ==
LOC: ER 17:13
DX: M67.431 Ganglion, right wrist (principal); M25.531 Pain in right wrist; F17.210 Nicotine dependence, cigarettes, uncomplicated; Z71.6 Tobacco abuse counseling
CPT/HCPCS: 99283

== ENCOUNTER 2017-05-10 12:24 | Emergency (ER) | payer MEDICAID ==
[2017-05-10 12:31] VITALS: BP 114/71
--- NOTE | 2017-05-10 12:48 | ER Document Report ---
HPI - HPI Patient complains to provider of: r wrist cyst Onset: Other - 2 mo Onset/Duration: Persistent Quality of pain: Pressure Pain Level: 5 Context: Patient presents complaining of cyst to right wrist area for the past 2 months. Denies any injury. Patient complains of increased pain with range of motion. 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 Denies: Hx Peritoneal Dialysis Musculoskeltal Medical History: Reports Hx Musculoskeletal Trauma Skin Medical History: Reports Hx Eczema Psychiatric Medical History: Reports: Hx Anxiety Past Surgical History: Reports: Hx Adenoidectomy, Hx Dilation and Curettage, Hx Gynecologic Surgery - D&C, Hx Tonsillectomy - and adenoids - Immunizations Immunizations up to date: Yes Hx Diphtheria, Pertussis, Tetanus Vaccination: Yes Vertical Provider Document - CONSTITUTIONAL Agree With Documented VS: Yes Exam Limitations: No Limitations General Appearance: WD/WN, No Apparent Distress - INFECTION CONTROL TRAVEL OUTSIDE OF THE [place] IN LAST 30 DAYS: No - HEENT HEENT: Atraumatic - NECK Neck: Normal Inspection - RESPIRATORY Respiratory: No Respiratory Distress O2 Sat by Pulse Oximetry: 97 - CARDIOVASCULAR Pulses: Normal: Radial - MUSCULOSKELETAL/EXTREMETIES Musculoskeletal/Extremeties: MAEW, FROM, Tender Notes: radial aspect of r wrist tender with mobile cystic lesion, normal skin color and temperature overlying area - NEURO Level of Consciousness: Awake, Alert, Appropriate Motor/Sensory: No Motor Deficit - DERM Integumentary: Warm, Dry Course - Vital Signs Vital signs: Temp Pulse Resp BP Pulse Ox 98.0 F 86 20 114/71 97 05/10/17 12:30 05/10/17 12:30 05/10/17 12:30 05/10/17 12:30 05/10/17 12:30 Discharge - Discharge Clinical Impression: Ganglion cyst of wrist Qualifiers: Laterality: right Qualified Code(s): M67.431 - Ganglion, right wrist Condition: Stable Disposition: HOME, SELF-CARE Instructions: Ganglion Cyst ([facility]), Anti-Inflammatory Medication ([facility]) Additional Instructions: Return immediately for any new or worsening symptoms Followup with your primary care provider, call tomorrow to make a followup appointment Follow-up with a surgeon for removal of cyst Prescriptions: Naproxen [Naprosyn 250 Nmg Tablet] 1 tab PO BID #14 tablet Referrals: [facility] [Provider Group] - Follow up as needed
== END 2017-05-10 12:50 | disposition home or self-care (01) ==
LOC: ER 12:24
DX: M67.431 Ganglion, right wrist (principal); F17.200 Nicotine dependence, unspecified, uncomplicated
CPT/HCPCS: 99283

== ENCOUNTER 2017-11-04 16:51 | Emergency (ER) | payer MEDICAID ==
--- NOTE | 2017-11-04 17:08 | ER Document Report ---
HPI - HPI Patient complains to provider of: Swollen and painful upper lip Onset: This morning Onset/Duration: Gradual Pain Level: 5 Context: 27-year-old female woke up this morning with a swollen and painful lip. She does not take RAMIRO inhibitors. When she lifted up the lip she saw a sore. No history of HSV. No fever. Mr. Lara shot in September had a 2 day menses 2 weeks ago. Associated Symptoms: None Exacerbated by: Movement - of the lip Relieved by: Denies Similar symptoms previously: No Recently seen / treated by doctor: No - ROS ROS below otherwise negative: Yes Systems Reviewed and Negative: Yes All other systems reviewed and negative - REPRODUCTIVE Reproductive: REPORTS: : Past Medical History - General Information source: Patient - Social History Smoking Status: Current Every Day Smoker Frequency of alcohol use: None Drug Abuse: None Lives with: Family Family History: Arthritis, COPD, DM, Hypertension Renal/ Medical History: Reports: Hx Ovarian Cysts, Hx Pelvic Inflammatory Disease. Denies: Hx Peritoneal Dialysis Musculoskeltal Medical History: Reports Hx Musculoskeletal Trauma Skin Medical History: Reports Hx Eczema Psychiatric Medical History: Reports: Hx Anxiety Past Surgical History: Reports: Hx Adenoidectomy, Hx Dilation and Curettage, Hx Gynecologic Surgery - D&C, Hx Tonsillectomy - and adenoids - Immunizations Immunizations up to date: Yes Hx Diphtheria, Pertussis, Tetanus Vaccination: Yes Vertical Provider Document - CONSTITUTIONAL Agree With Documented VS: Yes Exam Limitations: No Limitations - INFECTION CONTROL TRAVEL OUTSIDE OF THE [place] IN LAST 30 DAYS: No - HEENT HEENT: negative: Conjuctival Injection, Pharyngeal Erythema Notes: inflamed lower gum gingiva (pt states that is normal), upper right lip with shallow ulcer and erythem. No submental nodes - NECK Neck: Supple. negative: Lymphadenopathy-Left, Lymphadenopathy-Right - RESPIRATORY O2 Sat by Pulse Oximetry: 97 - NEURO Level of Consciousness: Awake, Alert, Appropriate - DERM Integumentary: Warm, Dry, Rash - see above Course - Re-evaluation Re-evalutation: 11/04/17 17:29 Urine hCG is negative - Vital Signs Vital signs: Temp Pulse Resp BP Pulse Ox 98.3 F 92 16 106/68 97 11/04/17 16:54 11/04/17 16:54 11/04/17 16:54 11/04/17 16:54 11/04/17 16:54 Discharge - Discharge Clinical Impression: Herpes labialis without complication Condition: Good Disposition: HOME, SELF-CARE Instructions: Acetaminophen, Herpes Simplex ([facility]) Additional Instructions: 1 day treatment of valtrex keep the lip moist with vasoline motrin and tylenol for pain return if symptoms worsen Prescriptions: Valacyclovir HCl [Valtrex] 2,000 mg PO Q12 #4 tablet
[2017-11-04 17:44] VITALS: BP 105/71
== END 2017-11-04 17:44 | disposition home or self-care (01) ==
LOC: ER 16:51
DX: B00.1 Herpesviral vesicular dermatitis (principal); R22.0 Localized swelling, mass and lump, head; F17.200 Nicotine dependence, unspecified, uncomplicated
CPT/HCPCS: 81025; 99282

== ENCOUNTER 2018-12-23 14:58 | Emergency (ER) | payer SELFPAY ==
--- NOTE | 2018-12-23 16:47 | RADIOLOGY REPORT (SQ) ---
EXAM DESCRIPTION: WRIST RIGHT 3 VIEWS COMPLETED DATE/TIME: 12/23/2018 4:35 pm REASON FOR STUDY: right wrist pain after hitting dog cage COMPARISON: 09/25/2011. NUMBER OF VIEWS: Three views. TECHNIQUE: AP, lateral, and oblique radiographic images acquired of the right wrist. LIMITATIONS: None. FINDINGS: MINERALIZATION: Normal. BONES: No acute fracture or dislocation. No worrisome bone lesions. Normal alignment. SOFT TISSUES: No soft tissue swelling. No foreign body. OTHER: No other significant finding. IMPRESSION: NEGATIVE STUDY OF THE RIGHT WRIST. NO RADIOGRAPHIC EVIDENCE OF ACUTE INJURY. TECHNICAL DOCUMENTATION: JOB ID: [id number] [employer]- All Rights Reserved Reading location - IP/workstation name: [email or web address]
[2018-12-23] MEDS ORDERED: ACETAMINOPHEN 325 MG TABLET PO ONE (17:16)
[2018-12-23] MEDS ORDERED: IBUPROFEN 600 MG TABLET PO ONE (17:16)
--- NOTE | 2018-12-23 17:16 | ER Document Report ---
HPI - HPI Time Seen by Provider: 12/23/18 15:51 Pain Level: 4 Notes: Patient is a 28-year-old female who presents with chief complaint of right wrist pain. Patient states the pain started last night after she accidentally hit her dog's kennel while she was trying to hit her dog. Patient reports history of ganglion cyst in this area, states she recently had it drained. Patient reports increased pain and swelling to the area. Has not taken any medication for same. - REPRODUCTIVE Reproductive: DENIES: : Past Medical History - General Information source: Patient - Social History Smoking Status: Never Smoker Frequency of alcohol use: None Drug Abuse: None Family History: Arthritis, COPD, DM, Hypertension Renal/ Medical History: Reports: Hx Ovarian Cysts, Hx Pelvic Inflammatory Disease. Denies: Hx Peritoneal Dialysis Musculoskeletal Medical History: Reports Hx Musculoskeletal Trauma Skin Medical History: Reports Hx Eczema Psychiatric Medical History: Reports: Hx Anxiety Past Surgical History: Reports: Hx Adenoidectomy, Hx Dilation and Curettage, Hx Gynecologic Surgery - D&C, Hx Tonsillectomy - and adenoids - Immunizations Immunizations up to date: Yes Hx Diphtheria, Pertussis, Tetanus Vaccination: Yes Vertical Provider Document - CONSTITUTIONAL Notes: PHYSICAL EXAMINATION: GENERAL: Well-appearing, well-nourished and in no acute distress. HEAD: Atraumatic, normocephalic. EYES: Pupils equal round extraocular movements intact, conjunctiva are normal. ENT: Nares patent NECK: Normal range of motion LUNGS: No respiratory distress Musculoskeletal: Normal range of motion, swelling with mild erythema noted to right wrist on the dorsal surface, cap refill less than 3 seconds, normal motor and sensation distal to injury. No snuffbox tenderness. NEUROLOGICAL: Normal speech, normal gait. PSYCH: Normal mood, normal affect. SKIN: Warm, Dry, normal turgor, no rashes or lesions noted. - INFECTION CONTROL TRAVEL OUTSIDE OF THE [place] IN LAST 30 DAYS: No Course - Re-evaluation Re-evalutation: X-ray is negative for any acute findings. Placed in cockup splint for comfort and support. - Vital Signs Vital signs: Temp Pulse Resp BP Pulse Ox 98 F 76 16 107/61 100 12/23/18 15:10 12/23/18 15:10 12/23/18 15:10 12/23/18 15:10 12/23/18 15:10 Procedures - Immobilization Right wrist Pre-Proc Neuro Vasc Exam: Normal Immobilizer type: Cock-up Performed by: PCT Post-Proc Neuro Vasc Exam: Normal Alignment checked and good: Yes Discharge - Discharge Clinical Impression: Contusion of right wrist Qualifiers: Encounter type: initial encounter Qualified Code(s): S60.211A - Contusion of right wrist, initial encounter Condition: Stable Disposition: HOME, SELF-CARE Additional Instructions: Contusion Your injury has resulted in a contusion -- a crushing of the deep tissues. No injury to important structures was detected during the physician's exam. Contusions vary in the amount of pain they cause, and in the length of time required for healing. Typically, the area will become bruised, and will remain painful to touch for two or three weeks. However, most patients are back to working and playing within a few days. After the initial period of rest and cold-packs, your symptoms (together with the doctor's recommendations) will determine how rapidly you can get back to full activity. Usually this means "do what feels okay, but don't do things that hurt." If re-examination was recommended, it's important to follow up as instructed. Call the doctor or return any time if pain increases, if swelling becomes severe, if you develop numbness or weakness in an injured extremity, or if any other alarming symptoms occur. Ice & Elevation Apply ice packs frequently against the painful area. Many different schedules are recommended, such as "20 minutes on, 20 minutes off" or "one hour ice, two hours rest." If you need to work, you may need to go longer between ice treatments. You should plan to have the area ice packed AT LEAST one-fourth of the time. The ice should be applied over the wrap, tape, or splint, or over a layer of cloth -- not directly against the skin. Some ice bags have a built-in cloth and can be put directly on the skin. Your injured part should be elevated as much as possible over the next 48 hours. Try to keep the injury above the level of the heart. Avoid use of the injured area. Elevation and rest will decrease the swelling. Ibuprofen Ibuprofen is an excellent, safe drug for pain control. In addition, it has potent antiinflammatory effects which are beneficial, especially in the treatment of injuries, arthritis, or tendonitis. It's best to take ibuprofen with food. Persons with ulcer disease or allergy to aspirin should notify their physician of this before taking ibuprofen. Take the medication exactly as prescribed. Don't take additional doses unless instructed to do so by your doctor. If you develop wheezing, shortness of breath, hives, faintness, stomach pain, vomiting, or dark black stools, return for re-evaluation at once. The x-rays were negative for any fracture or dislocation. Please take ibuprofen [id number] as directed to help with pain and inflammation. Wear the splint as needed for comfort and protection. Follow-up with orthopedics if your pain does not improve significantly over the next 3-5 days.
[2018-12-23 17:29] VITALS: BP 115/75
== END 2018-12-23 17:25 | disposition home or self-care (01) ==
LOC: ER 14:58
DX: S60.211A Contusion of right wrist, initial encounter (principal); M25.531 Pain in right wrist; W22.09XA Striking against other stationary object, initial encounter; Y93.89 Activity, other specified; Z98.890 Other specified postprocedural states
CPT/HCPCS: 99283; 73110; L3908

== ENCOUNTER 2019-02-14 21:20 | Emergency (ER) | payer SELFPAY ==
[2019-02-14] MEDS ORDERED: HYDROCODONE/ACETAMINOPHEN 5-325 MG TABLET PO ONE (22:45)
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
[2019-02-15] MEDS ORDERED: HYDROCODONE/ACETAMINOPHEN 5-325 MG TABLET PO ONE (02:13)
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
[2019-02-15 02:37] VITALS: BP 100/77
== END 2019-02-15 02:37 | disposition home or self-care (01) ==
LOC: ER 21:20
DX: R51 Headache (principal); M54.2 Cervicalgia; R07.81 Pleurodynia; Y04.2XXA Assault by strike against or bumped into by another person, initial encounter; F17.200 Nicotine dependence, unspecified, uncomplicated
CPT/HCPCS: 99284; 71046; 70450; 72125; L0120

== ENCOUNTER 2019-03-20 19:01 | Emergency (ER) | payer SELFPAY ==
[2019-03-20] MEDS ORDERED: KETOROLAC TROMETHAMINE INJ/PF 30 MG/1 ML SDV IV ONE (19:59)
[2019-03-20] MEDS ORDERED: ONDANSETRON HCL INJ/PF 4 MG/2 ML SDV IV ONE (19:59)
--- NOTE | 2019-03-20 20:03 | ER Document Report ---
ED Medical Screen (RME) - General Chief Complaint: Nausea/Vomiting Stated Complaint: BACK PAIN/RIB PAIN/HEADACHE Time Seen by Provider: 03/20/19 19:54 Mode of Arrival: Wheelchair Information source: Patient Notes: 28-year-old female no for complaint of headache low back pain and bilateral rib pain since morning. She states that she went to her daughter's graduation from preschool and she started vomiting which has caused her pain to her head back and ribs. She states the back pain feels like back labor. She did not fall at any time. She does have a history of chronic back pain since 2010 and migraine headaches but is never been formally diagnosed with migraines. Patient is alert oriented respirations regular and unlabored speaking in full sentences. I have greeted and performed a rapid initial assessment of this patient. A comprehensive ED assessment and evaluation of the patient, analysis of test results and completion of medical decision making process will be conducted by an additional ED providers. This Dictation of this chart was performed using voice recognition software; therefore, there may be some unintended grammatical errors. TRAVEL OUTSIDE OF THE [place] IN LAST 30 DAYS: No - Related Data Allergies/Adverse Reactions: No Known Allergies Allergy (Verified 03/20/19 19:06) Past Medical History Renal/ Medical History: Reports: Hx Ovarian Cysts, Hx Pelvic Inflammatory Disease. Denies: Hx Peritoneal Dialysis Musculoskeltal Medical History: Reports Hx Musculoskeletal Trauma Skin Medical History: Reports Hx Eczema Psychiatric Medical History: Reports: Hx Anxiety Past Surgical History: Reports: Hx Adenoidectomy, Hx Dilation and Curettage, Hx Gynecologic Surgery - D&C, Hx Tonsillectomy - and adenoids - Immunizations Immunizations up to date: Yes Hx Diphtheria, Pertussis, Tetanus Vaccination: Yes Physical Exam - Vital signs Vitals: Temp Pulse Resp BP Pulse Ox 100.6 F H 86 16 99/61 L 96 03/20/19 19:05 03/20/19 19:05 03/20/19 19:05 03/20/19 19:05 03/20/19 19:05 Course - Vital Signs Vital signs: Temp Pulse Resp BP Pulse Ox 100.6 F H 86 16 99/61 L 96 03/20/19 19:05 03/20/19 19:05 03/20/19 19:05 03/20/19 19:05 03/20/19 19:05
[2019-03-20 21:18] LABS: ABSOLUTE LYMPHOCYTES (AUTO) 1.2 10^3/uL (0.5-4.7); ABSOLUTE MONOCYTES (AUTO) 1.1 10^3/uL (0.1-1.4); ABSOLUTE NEUT (AUTO) 11.5 10^3/uL (1.7-8.2); BASOPHILS % (AUTO) 0.1 % (0-2); HEMATOCRIT 42.4 % (36.0-47.0); HEMOGLOBIN 14.5 g/dL (12.0-15.5); LYMPHOCYTES % (AUTO) 8.8 % (13-45); MEAN CORPUSCULAR HEMOGLOBIN 29.7 pg (27.0-33.4); MEAN CORPUSCULAR HGB CONC 34.2 g/dL (32.0-36.0); MEAN CORPUSCULAR VOLUME 87 fl (80-97); MONOCYTES % (AUTO) 8.1 % (3-13); PLATELET COUNT 249 10^3/uL (150-450); RED BLOOD COUNT 4.89 10^6/uL (3.72-5.28); RED CELL DISTRIBUTION WIDTH 12.9 % (11.5-14.0); TOTAL CELLS COUNTED % (AUTO) 100 %; WHITE BLOOD COUNT 13.9 10^3/uL (4.0-10.5)
[2019-03-20 21:35] LABS: APPEARANCE,URINE CLOUDY; BILIRUBIN,URINE NEGATIVE (NEGATIVE); COLOR,URINE AMBER; GLUCOSE, URINE NEGATIVE (NEGATIVE); KETONES,URINE 80 mg/dL (NEGATIVE); LEUKOCYTE ESTERASE,URINE TRACE (NEGATIVE); NITRITE,URINE POSITIVE (NEGATIVE); PROTEIN,URINE 30 mg/dL (NEGATIVE); URINE SPECIFIC GRAVITY 1.024; UROBILINOGEN,URINE NEGATIVE mg/dL (<2.0)
[2019-03-20 21:44] LABS: ALANINE AMINOTRANSFERASE 24 U/L (9-52); ALBUMIN 4.9 g/dL (3.5-5.0); ALKALINE PHOSPHATASE 76 U/L (38-126); ANION GAP 14 (5-19); ASPARTATE AMINO TRANSFERASE 22 U/L (14-36); BILIRUBIN,DIRECT 0.2 mg/dL (0.0-0.4); BILIRUBIN,TOTAL 1.3 mg/dL (0.2-1.3); BLOOD UREA NITROGEN 11 mg/dL (7-20); CALCIUM 9.9 mg/dL (8.4-10.2); CARBON DIOXIDE 26 mmol/L (22-30); CHLORIDE 100 mmol/L (98-107); GLUCOSE 81 mg/dL (75-110); SODIUM 139.6 mmol/L (137-145); TOTAL PROTEIN 8.1 g/dL (6.3-8.2)
--- NOTE | 2019-03-20 22:38 | RADIOLOGY REPORT (SQ) ---
EXAM DESCRIPTION: ACUTE ABDOMEN SERIES RadLex: XR ABDOMEN SUPINE AND ERECT WITH CHEST (ABD ACUTE SERIES) Views: 3 CLINICAL HISTORY: 28 years Female, Pain to back ribs after vomiting this a.m. COMPARISON: None. FINDINGS: AP Chest: Lungs are clear without infiltrate, effusion, pneumothorax. Mediastinum is within normal limits for positioning. There is a mild dextroscoliosis of the thoracic spine. Compensatory lumbar levocurvature is also noted. Supine and erect AP abdomen: Bowel gas pattern is normal, with no air-fluid levels or small bowel distention. No free intraperitoneal air. No suspicious calcifications. IMPRESSION: 1. No acute findings. 2. Thoracolumbar scoliosis
[2019-03-20] MEDS ORDERED: METOCLOPRAMIDE HCL INJ/PF 10 MG/2 ML SDV IV ONE (22:39)
[2019-03-20] MEDS ORDERED: MORPHINE SULFATE 10 MG/ML INJ IV ONE (22:39)
[2019-03-20] MEDS ORDERED: DIPHENHYDRAMINE HCL 50 MG/ML VIAL IV ONE (22:39)
[2019-03-21] MEDS ORDERED: NORMAL SALINE 1000 ML 1,000 ML IV ONE ×2 (00:43→02:05)
[2019-03-21] MEDS ORDERED: CEFTRIAXONE 1 GM/D5W RTU 1 GM/50 ML RTUPB IV ONE (00:47)
--- NOTE | 2019-03-21 00:54 | ER Document Report ---
ED General - General Chief Complaint: Nausea/Vomiting Stated Complaint: BACK PAIN/RIB PAIN/HEADACHE Time Seen by Provider: 03/20/19 19:54 Mode of Arrival: Wheelchair Information source: Patient Notes: This is a 28-year-old female with story of migraine headaches who presents to the emergency room with lower back pain, low-grade fever, nausea and vomiting. Patient states that symptoms started over the last day. She states that she has had 4 epidurals in the past and that is where the pain is most in her lower back. She denies any weakness to the lower legs. She denies any numbness to t he saddle area or to the lower legs. She denies any cough, or shortness of breath. She does report some nausea. She does state she was having a headache similar to previous migraines. She denies any photophobia. She denies any neck stiffness. She denies any rash. She has no difficulty during the interview and the lighted room. TRAVEL OUTSIDE OF THE [place] IN LAST 30 DAYS: No - HPI Onset: This morning Onset/Duration: Gradual Quality of pain: Dull Severity: Moderate Pain Level: 3 Associated symptoms: Fever, Nausea, Other - Back pain. denies: Chest pain, Shortness of breath Exacerbated by: Denies Relieved by: Denies Similar symptoms previously: No Recently seen / treated by doctor: No - Related Data Allergies/Adverse Reactions: No Known Allergies Allergy (Verified 03/20/19 19:06) Past Medical History - General Information source: Patient - Social History Smoking Status: Current Every Day Smoker Cigarette use (# per day): Yes - Half pack per day Chew tobacco use (# tins/day): No Frequency of alcohol use: None Drug Abuse: None Lives with: Family Family History: Arthritis, COPD, DM, Hypertension Patient has suicidal ideation: No Patient has homicidal ideation: No - Past Medical History Cardiac Medical History: Reports: None Pulmonary Medical History: Reports: None EENT Medical History: Reports: None Neurological Medical History: Reports: Hx Migraine Endocrine Medical History: Reports: None Renal/ Medical History: Reports: Hx Ovarian Cysts, Hx Pelvic Inflammatory Disease. Denies: Hx Peritoneal Dialysis Malignancy Medical History: Reports: None GI Medical History: Reports: None Musculoskeletal Medical History: Reports Hx Musculoskeletal Trauma Skin Medical History: Reports Hx Eczema Psychiatric Medical History: Reports: Hx Anxiety Past Surgical History: Reports: Hx Adenoidectomy, Hx Dilation and Curettage, Hx Gynecologic Surgery - D&C, Hx Tonsillectomy - and adenoids - Immunizations Immunizations up to date: Yes Hx Diphtheria, Pertussis, Tetanus Vaccination: Yes Review of Systems - Review of Systems Constitutional: Fever. denies: Chills EENT: denies: Eye pain, Blurred vision, Double vision, Ear pain, Sinus pressure Cardiovascular: No symptoms reported Respiratory: No symptoms reported Gastrointestinal: See HPI Genitourinary: No symptoms reported Female Genitourinary: No symptoms reported Musculoskeletal: See HPI Skin: No symptoms reported Hematologic/Lymphatic: No symptoms reported Neurological/Psychological: Headaches. denies: Confusion, Sensory change, Weakness, Gait changes, Loss of power, Paralysis, Numbness, Tingling Physical Exam - Vital signs Vitals: Temp Pulse Resp BP Pulse Ox 100.6 F H 86 16 99/61 L 96 03/20/19 19:05 03/20/19 19:05 03/20/19 19:05 03/20/19 19:05 03/20/19 19:05 Notes: Physical exam: GENERAL: Temperature 100.6, blood pressure 99/61, pulse 86 HEAD: Atraumatic, normocephalic. EYES: Pupils equal round and reactive to light, extraocular movements intact, sclera anicteric, conjunctiva are normal. ENT: TMs normal, nares patent, oropharynx clear without exudates. Moist mucous membranes. NECK: Normal range of motion, supple without obvious mass or JVD. LUNGS: Breath sounds clear to auscultation bilaterally and equal. No wheezes rales or rhonchi. HEART: Regular rate and rhythm without murmurs, rubs or gallops. ABDOMEN: Soft, normoactive bowel sounds. No tenderness to palpation. No guarding, no rebound. No masses appreciated. Back: There is no erythema or bogginess to the back. She has paraspinal tenderness to the lumbar area. There is no tenderness over the thoracic region or paraspinal thoracic region. Her neck is supple and there is no tenderness over the cervical or paracervical muscles. EXTREMITIES: Normal range of motion, no pitting or edema. No clubbing or cyanosis. NEUROLOGICAL: Cranial nerves II through XII grossly intact. Patient has no photophobia. Her neck is supple. Negative Brudzinski's. Negative Kernig's. Normal speech, moving all extremities. PSYCH: Normal mood, normal affect. SKIN: Warm, Dry, normal turgor, no rashes or lesions noted. Course - Re-evaluation Re-evalutation: 03/21/19 00:53 Reassessed patient: She is alert and oriented x3. She does state that her nausea is a little bit better and she is requesting some food to eat. On repeat exam, she denies headache, neck stiffness and she is not photophobic. Her lungs are clear, heart regular and her abdomen is soft and nontender. Her main complaint is low back pain. She has had low-grade fever and she does have a white count of 13,000. She does have some white cells and red cells in her urine and I am giving her some ceftriaxone while we wait for the MRI of the lumbar spine. The pain is all in her lower lumbar spine at this time. Her motor exam to the lower extremities is 5/5 her sensory is grossly intact. - Vital Signs Vital signs: Temp Pulse Resp BP Pulse Ox 98.4 F 68 16 94/51 L 100 03/21/19 02:03 03/21/19 02:03 03/21/19 02:03 03/21/19 02:03 03/21/19 02:03 - Laboratory Result Diagrams: 03/20/19 20:47 03/20/19 20:47 Laboratory results interpreted by me: 03/20/19 03/20/19 20:37 20:47 WBC 13.9 H Seg Neutrophils % 83.0 H Lymphocytes % 8.8 L Absolute Neutrophils 11.5 H Urine Protein 30 H Urine Ketones 80 H Urine Blood MODERATE H Urine Nitrite POSITIVE H Ur Leukocyte Esterase TRACE H - Diagnostic Test Radiology reviewed: Image reviewed, Reports reviewed - MRI of the lower spine with and without shows no evidence of pathology. Discharge - Discharge Clinical Impression: UTI Condition: Stable Disposition: HOME, SELF-CARE Additional Instructions: Take the antibiotics as prescribed. Take the nausea medicine as needed. Take the pain medicine as needed. Take ibuprofen in addition to the narcotic. I want you to return to the emergency room at once if you get worsening headache with fever, neck pain, rash, numbness to the legs or weakness to legs or any concerns or getting worse. Otherwise I want you to follow-up with your primary care doctor: If you do not have one, call the number provided on the chart. The pain medicine you're taking prescribed as a narcotic. There are several important things you should know about this medicine: 1. This medicine contains Tylenol: It is important that you do not take Tylenol (or acetaminophen) while on this medicine. Tylenol is metabolized by the liver and taking too much Tylenol (acetaminophen) can lay to liver damage and even liver failure. 2. Taking narcotics for too long can lead to physical and mental dependence. Take this medicine only if really needed and in the lowest quantity to achieve pain relief. 3. Do not drink alcohol while on this medicine. Alcohol interacts with narcotics and the combination can be dangerous. 4. Do not drive or operate machinery while on this medicine. 5. Narcotics do cause constipation, so drink plenty of fluids and daily stool softeners. Prescriptions: Hydrocodone/Acetaminophen [[place] 5-325 mg Tablet] 1 tab PO Q6HP PRN #20 tablet PRN Reason: Cephalexin Monohydrate [Keflex 500 mg Capsule] 500 mg PO Q6H 7 Days #28 capsule Forms: Return to Work Referrals: AUGUSTIN BUTLER DO [NO LOCAL MD] - Follow up in 3-5 days (Call for follow-up appointment)
--- NOTE | 2019-03-21 01:12 | RADIOLOGY REPORT (SQ) ---
EXAM: MRI LUMBAR SPINE WITH AND WITHOUT CONTRAST DATE: 03/20/2019 10:30 PM CDT . CLINICAL INDICATION: fever, lumbar pain. TECHNIQUE: Multiplanar, multisequence MRI lumbar spine with and without IV contrast COMPARISON: Unavailable FINDINGS: The lumbar vertebral bodies have normal height, shape, and alignment. There is no worrisome marrow signal abnormality. The conus terminates normally at L1-L2. The paravertebral soft tissues are within normal limits. There are no areas of abnormal enhancement. Disc spaces, spinal canal, and neural foramina: L1-L2. Intervertebral disc height and signal are maintained. Posterior elements are normal. There is no stenosis. L2-L3. Intervertebral disc height and signal are maintained. Posterior elements are normal. There is no stenosis. L3-L4. Intervertebral disc height and signal are maintained. Posterior elements are normal. There is no stenosis. L4-L5. Intervertebral disc height and signal are maintained. Posterior elements are normal. There is no stenosis. L5-S1. Intervertebral disc height and signal are maintained. Posterior elements are normal. There is no stenosis. IMPRESSION: Normal MRI of the lumbar spine with and without contrast. copyright 2010 [employer]- All Rights Reserved
[2019-03-21] MEDS ORDERED: ONDANSETRON ODT 4 MG TAB (6 TAB/ER DISP) PO PRN (03:50)
[2019-03-21 04:12] VITALS: BP 95/57
== END 2019-03-21 04:10 | disposition home or self-care (01) ==
LOC: ER 19:01
DX: N39.0 Urinary tract infection, site not specified (principal); R11.2 Nausea with vomiting, unspecified; M54.9 Dorsalgia, unspecified; R51 Headache; R50.9 Fever, unspecified; F17.210 Nicotine dependence, cigarettes, uncomplicated
CPT/HCPCS: 99284; 96361; 96375; 96365; 36415; 87070; 87086; 87880; 84703; 85025; 87077; 80053; 81001; 72158; 74022; J1200; J1885; J2765; J2270; J2405; J7030; J0696

== ENCOUNTER 2020-04-09 16:10 | Emergency (ER) | payer SELFPAY ==
--- NOTE | 2020-04-09 17:44 | RADIOLOGY REPORT (SQ) ---
EXAM DESCRIPTION: CHEST SINGLE VIEW IMAGES COMPLETED DATE/TIME: 04/09/2020 4:28 pm REASON FOR STUDY: shortness of breath COMPARISON: 06/29/2016 EXAM PARAMETERS: NUMBER OF VIEWS: One view. TECHNIQUE: Single frontal radiographic view of the chest acquired. RADIATION DOSE: NA LIMITATIONS: None. FINDINGS: LUNGS AND PLEURA: No opacities, masses or pneumothorax. No pleural effusion. MEDIASTINUM AND HILAR STRUCTURES: No masses. Contour normal. HEART AND VASCULAR STRUCTURES: Heart normal in size. Normal vasculature. BONES: No acute findings. HARDWARE: None in the chest. OTHER: No other significant finding. IMPRESSION: NO ACUTE RADIOGRAPHIC FINDING IN THE CHEST. TECHNICAL DOCUMENTATION: JOB ID: [id number] 2010 [employer]- All Rights Reserved Reading location - IP/workstation name: [email or web address]
[2020-04-09] MEDS ORDERED: PROCHLORPERAZINE EDISYLATE INJ 10 MG/2 ML VIAL IV ONE (18:07)
[2020-04-09] MEDS ORDERED: DIPHENHYDRAMINE HCL 50 MG/ML VIAL IV ONE (18:07)
[2020-04-09] MEDS ORDERED: NORMAL SALINE 1000 ML 1,000 ML IV ONE ×2 (18:07→18:48)
--- NOTE | 2020-04-09 18:19 | ER Document Report ---
ED GI/ - General Chief Complaint: Nausea/Vomiting Stated Complaint: NAUSEA/VOMITING/HEADACHES/SHORTNESS OF BREATH Time Seen by Provider: 04/09/20 17:28 Mode of Arrival: Ambulatory Information source: Patient Notes: Patient presents complaining of nausea and vomiting for the past 4 days with headache pain. Patient states she has chronic frequent headaches. Patient complains of generalized body aches. No fever or cough. Patient denies any urinary symptoms. Patient states that she is currently late on her menstrual cycle. TRAVEL OUTSIDE OF THE [place] IN LAST 30 DAYS: No - HPI Patient complains to provider of: Vomiting Onset: Other - 4 days Timing/Duration: Persistent Pain Level: 3 Associated symptoms: Nausea, Vomiting. denies: Dysuria, Urinary hesitancy, Urinary frequency, Urinary retention, Urinary urgency Exacerbated by: Denies Relieved by: Denies - Related Data Allergies/Adverse Reactions: No Known Allergies Allergy (Verified 03/20/19 19:06) Past Medical History - General Information source: Patient - Social History Smoking Status: Current Every Day Smoker Frequency of alcohol use: None Drug Abuse: Marijuana Occupation: none Lives with: Family Family History: Arthritis, COPD, DM, Hypertension Neurological Medical History: Reports: Hx Migraine Renal/ Medical History: Reports: Hx Ovarian Cysts, Hx Pelvic Inflammatory Disease. Denies: Hx Peritoneal Dialysis Musculoskeletal Medical History: Reports Hx Musculoskeletal Trauma Skin Medical History: Reports Hx Eczema Psychiatric Medical History: Reports: Hx Anxiety Past Surgical History: Reports: Hx Adenoidectomy, Hx Dilation and Curettage, Hx Gynecologic Surgery - D&C, Hx Tonsillectomy - and adenoids - Immunizations Immunizations up to date: Yes Hx Diphtheria, Pertussis, Tetanus Vaccination: Yes Review of Systems - Review of Systems Constitutional: No symptoms reported. denies: Fever EENT: No symptoms reported Cardiovascular: No symptoms reported. denies: Chest pain Respiratory: No symptoms reported. denies: Cough Gastrointestinal: Abdominal pain, Nausea, Vomiting Genitourinary: No symptoms reported. denies: Dysuria, Flank pain Female Genitourinary: No symptoms reported Musculoskeletal: No symptoms reported. denies: Back pain Skin: No symptoms reported Hematologic/Lymphatic: No symptoms reported Neurological/Psychological: Headaches Physical Exam - Vital signs Vitals: Temp Pulse Resp BP Pulse Ox 97.5 F 79 16 97/62 L 98 04/09/20 16:38 04/09/20 16:38 04/09/20 16:38 04/09/20 16:38 04/09/20 16:38 - General General appearance: Appears well, Alert In distress: None - HEENT Head: Normocephalic, Atraumatic Eyes: Normal Conjunctiva: Normal Eyelashes: Normal Pupils: PERRL Ears: Normal External canal: Normal Tympanic membrane: Normal Nasal: Normal Mouth/Lips: Normal Mucous membranes: Normal Pharynx: Normal Neck: Normal, Supple. No: Brudzinski, Lymphadenopathy, Meningismus - Respiratory Respiratory status: No respiratory distress Chest status: Nontender Breath sounds: Normal. No: Rales, Rhonchi, Stridor, Wheezing Chest palpation: Normal - Cardiovascular Rhythm: Regular Heart sounds: S1 appreciated, S2 appreciated - Abdominal Inspection: Normal Distension: No distension Bowel sounds: Normal Tenderness: Tender - Diffuse tenderness, no focal area of tenderness Organomegaly: No organomegaly - Back Back: Normal, Nontender. No: CVA tenderness - Extremities General upper extremity: Normal inspection, Normal strength General lower extremity: Normal inspection, Normal strength - Neurological Neuro grossly intact: Yes Cognition: Normal [place] Coma Scale Eye Opening: Spontaneous [place] Coma Scale Verbal: Oriented [place] Coma Scale Motor: Obeys Commands [place] Coma Scale Total: 15 - Psychological Associated symptoms: Normal affect, Normal mood - Skin Skin Temperature: Warm Skin Moisture: Dry Skin Color: Normal Course - Re-evaluation Re-evalutation: 04/09/20 19:58 Patient reports headache pain is resolved at this time. Patient reports feeling improved. Patient mildly dehydrated, patient was given 2 L of IV fluids and given a dose of Rocephin for UTI. Will culture urine at this time. Patient nontoxic in appearance, no concern for sepsis. Good return precautions discussed with patient. - Vital Signs Vital signs: Temp Pulse Resp BP Pulse Ox 97.5 F 79 16 97/62 L 98 04/09/20 17:55 04/09/20 16:38 04/09/20 16:38 04/09/20 16:38 04/09/20 16:38 - Laboratory Result Diagrams: 04/09/20 18:45 04/09/20 18:45 Laboratory results interpreted by me: 04/09/20 04/09/20 17:24 18:45 Sodium 136.5 L Urine Protein 30 H Urine Ketones 20 H Urine Blood SMALL H Urine Urobilinogen 4.0 H Ur Leukocyte Esterase SMALL H Labs- All tests 24 hr 04/09/20 04/09/20 04/09/20 17:24 18:45 18:45 WBC 7.4 RBC 4.74 Hgb 14.4 Hct 41.9 MCV 88 MCH 30.5 MCHC 34.5 RDW 12.6 Plt Count 269 Lymph % (Auto) 35.8 [place] % (Auto) 6.0 Eos % (Auto) 0.8 Baso % (Auto) 0.7 Absolute Neuts (auto) 4.2 Absolute Lymphs (auto) 2.6 Absolute Monos (auto) 0.4 Absolute Eos (auto) 0.1 Absolute Basos (auto) 0.1 Seg Neutrophils % 56.7 Sodium 136.5 L Potassium 4.2 Chloride 103 Carbon Dioxide 26 Anion Gap 8 BUN 12 Creatinine 0.70 Est GFR ( Amer) > 60 Est GFR (MDRD) Non-Af > 60 Glucose 75 Calcium 9.6 Total Bilirubin 0.8 Direct Bilirubin 0.0 Neonat Total Bilirubin Not Reportable Neonat Direct Bilirubin Not Reportable Neonat Indirect Bili Not Reportable AST 26 ALT 20 Alkaline Phosphatase 65 Total Protein 7.9 Albumin 5.0 Lipase 55.6 Urine Color YELLOW Urine Appearance SLIGHTLY-CLOUDY Urine pH 6.0 Ur Specific [place] 1.029 Urine Protein 30 H Urine Glucose (UA) NEGATIVE Urine Ketones 20 H Urine Blood SMALL H Urine Nitrite NEGATIVE Urine Bilirubin NEGATIVE Urine Urobilinogen 4.0 H Ur Leukocyte Esterase SMALL H Urine WBC (Auto) 47 Urine RBC (Auto) 8 U Hyaline Cast (Auto) 5 Squamous Epi Cells Auto 6 Urine Mucus (Auto) MANY Urine Ascorbic Acid NEGATIVE Urine HCG, Qual NEGATIVE Discharge - Discharge Clinical Impression: Headache Qualifiers: Headache type: unspecified Headache chronicity pattern: unspecified pattern Intractability: not intractable Qualified Code(s): R51 - Headache UTI (urinary tract infection) Qualifiers: Urinary tract infection type: site unspecified Hematuria presence: with hematuria Qualified Code(s): N39.0 - Urinary tract infection, site not specified; R31.9 - Hematuria, unspecified Nausea and vomiting Qualifiers: Vomiting type: unspecified Vomiting Intractability: non-intractable Qualified Code(s): R11.2 - Nausea with vomiting, unspecified Condition: Stable Disposition: HOME, SELF-CARE Instructions: Antinausea Medication ([facility]), Headache ([facility]), Use of Diphenhydramine, Intravenous (IV) Fluids ([facility]), Urinary Tract Infection ([facility]), Vomiting ([facility]) Additional Instructions: Return immediately for any new or worsening symptoms Followup with your primary care provider, call tomorrow to make a followup appointment Urine culture is pending, we will call if you need any different treatment Prescriptions: Cephalexin Monohydrate [Keflex 500 mg Capsule] 500 mg PO BID 7 Days #14 capsule Promethazine HCl [Phenergan 25 mg Tablet] 25 mg PO Q6H PRN #10 tablet PRN Reason: [facility]errals: [facility] [Provider Group] - Follow up as needed
[2020-04-09 18:20] LABS: APPEARANCE,URINE SLIGHTLY-CLOUDY; BILIRUBIN,URINE NEGATIVE (NEGATIVE); COLOR,URINE YELLOW; GLUCOSE, URINE NEGATIVE (NEGATIVE); KETONES,URINE 20 mg/dL (NEGATIVE); LEUKOCYTE ESTERASE,URINE SMALL (NEGATIVE); NITRITE,URINE NEGATIVE (NEGATIVE); PROTEIN,URINE 30 mg/dL (NEGATIVE); URINE SPECIFIC GRAVITY 1.029
[2020-04-09] MEDS ORDERED: CEFTRIAXONE 1 GM/D5W RTU 1 GM/50 ML RTUPB IV ONE (18:49)
[2020-04-09 19:23] LABS: ABSOLUTE BASOPHILS # (AUTO) 0.1 10^3/uL (0.0-0.2); ABSOLUTE EOSINOPHILS # (AUTO) 0.1 10^3/uL (0.0-0.6); ABSOLUTE LYMPHOCYTES (AUTO) 2.6 10^3/uL (0.5-4.7); ABSOLUTE MONOCYTES (AUTO) 0.4 10^3/uL (0.1-1.4); ABSOLUTE NEUT (AUTO) 4.2 10^3/uL (1.7-8.2); BASOPHILS % (AUTO) 0.7 % (0-2); EOSINOPHILS % (AUTO) 0.8 % (0-6); HEMATOCRIT 41.9 % (36.0-47.0); HEMOGLOBIN 14.4 g/dL (12.0-15.5); LYMPHOCYTES % (AUTO) 35.8 % (13-45); MEAN CORPUSCULAR HEMOGLOBIN 30.5 pg (27.0-33.4); MEAN CORPUSCULAR HGB CONC 34.5 g/dL (32.0-36.0); MEAN CORPUSCULAR VOLUME 88 fl (80-97); PLATELET COUNT 269 10^3/uL (150-450); RED BLOOD COUNT 4.74 10^6/uL (3.72-5.28); RED CELL DISTRIBUTION WIDTH 12.6 % (11.5-14.0); SEGMENTED NEUTROPHILS % (AUTO) 56.7 % (42-78); TOTAL CELLS COUNTED % (AUTO) 100 %; WHITE BLOOD COUNT 7.4 10^3/uL (4.0-10.5)
[2020-04-09 19:33] LABS: ALKALINE PHOSPHATASE 65 U/L (38-126); ANION GAP 8 (5-19); ASPARTATE AMINO TRANSFERASE 26 U/L (14-36); BILIRUBIN,TOTAL 0.8 mg/dL (0.2-1.3); BLOOD UREA NITROGEN 12 mg/dL (7-20); CALCIUM 9.6 mg/dL (8.4-10.2); CARBON DIOXIDE 26 mmol/L (22-30); CHLORIDE 103 mmol/L (98-107); GLUCOSE 75 mg/dL (75-110); POTASSIUM 4.2 mmol/L (3.6-5.0); TOTAL PROTEIN 7.9 g/dL (6.3-8.2)
[2020-04-09 22:09] VITALS: BP 111/63
== END 2020-04-09 22:16 | disposition home or self-care (01) ==
LOC: ER 16:10
DX: N39.0 Urinary tract infection, site not specified (principal); R31.9 Hematuria, unspecified; R51 Headache; R11.2 Nausea with vomiting, unspecified; R06.02 Shortness of breath; M79.10 Myalgia, unspecified site; E86.0 Dehydration; F17.200 Nicotine dependence, unspecified, uncomplicated
CPT/HCPCS: 99283; 96361; 96375; 96365; 36415; 87086; 83690; 85025; 81025; 87088; 80053; 81001; 71045; J1200; J0780; J7030; J0696; 87186

== ENCOUNTER 2020-06-11 16:10 | Emergency (ER) | payer SELFPAY ==
[2020-06-11] MEDS ORDERED: NORMAL SALINE 1000 ML 1,000 ML IV ONE ×2 (16:35→20:56)
[2020-06-11] MEDS ORDERED: PROMETHAZINE HCL 25 MG TABLET PO ONE (16:35)
--- NOTE | 2020-06-11 16:36 | ER Document Report ---
ED Medical Screen (RME) - General Chief Complaint: Vomiting Stated Complaint: VOMITING BLOOD Time Seen by Provider: 06/11/20 16:32 Mode of Arrival: Ambulatory Information source: Patient Notes: Patient presents stating that she is G6, P4. Patient states that she developed vaginal bleeding today and passed a blood clot. Patient also complains of nausea and vomiting for the past 3 days. Patient reports vomiting 5 times today. Patient complains of upper abdominal pain she attributes to the vomiting and lower abdominal pain she attributes to her . Patient denies any urinary symptoms. I have greeted and performed a rapid initial assessment of this patient. A comprehensive ED assessment and evaluation of the patient, analysis of test results and completion of the medical decision making process will be conducted by additional ED providers. TRAVEL OUTSIDE OF THE [place] IN LAST 30 DAYS: No - Related Data Allergies/Adverse Reactions: No Known Allergies Allergy (Verified 03/20/19 19:06) Past Medical History Neurological Medical History: Reports: Hx Migraine Renal/ Medical History: Reports: Hx Ovarian Cysts, Hx Pelvic Inflammatory Disease. Denies: Hx Peritoneal Dialysis Musculoskeltal Medical History: Reports Hx Musculoskeletal Trauma Skin Medical History: Reports Hx Eczema Psychiatric Medical History: Reports: Hx Anxiety Past Surgical History: Reports: Hx Adenoidectomy, Hx Dilation and Curettage, Hx Gynecologic Surgery - D&C, Hx Tonsillectomy - and adenoids - Immunizations Immunizations up to date: Yes Hx Diphtheria, Pertussis, Tetanus Vaccination: Yes Physical Exam - Vital signs Vitals: Temp Pulse Resp BP Pulse Ox 98.2 F 64 16 109/66 99 06/11/20 16:15 06/11/20 16:15 06/11/20 16:15 06/11/20 16:15 06/11/20 16:15 - General General appearance: Appears well, Alert - Abdominal Tenderness: Tender - Lower pelvic tenderness Course - Vital Signs Vital signs: Temp Pulse Resp BP Pulse Ox 98.2 F 64 16 109/66 99 06/11/20 16:15 06/11/20 16:15 06/11/20 16:15 06/11/20 16:15 06/11/20 16:15
[2020-06-11 17:28] LABS: ABSOLUTE LYMPHOCYTES (AUTO) 2.2 10^3/uL (0.5-4.7); ABSOLUTE MONOCYTES (AUTO) 0.6 10^3/uL (0.1-1.4); ABSOLUTE NEUT (AUTO) 8.3 10^3/uL (1.7-8.2); BASOPHILS % (AUTO) 0.4 % (0-2); EOSINOPHILS % (AUTO) 0.4 % (0-6); HEMATOCRIT 39.5 % (36.0-47.0); HEMOGLOBIN 13.3 g/dL (12.0-15.5); LYMPHOCYTES % (AUTO) 19.3 % (13-45); MEAN CORPUSCULAR HGB CONC 33.6 g/dL (32.0-36.0); MEAN CORPUSCULAR VOLUME 89 fl (80-97); MONOCYTES % (AUTO) 5.6 % (3-13); PLATELET COUNT 292 10^3/uL (150-450); RED BLOOD COUNT 4.43 10^6/uL (3.72-5.28); RED CELL DISTRIBUTION WIDTH 13.2 % (11.5-14.0); SEGMENTED NEUTROPHILS % (AUTO) 74.3 % (42-78); TOTAL CELLS COUNTED % (AUTO) 100 %; WHITE BLOOD COUNT 11.2 10^3/uL (4.0-10.5)
--- NOTE | 2020-06-11 17:37 | RADIOLOGY REPORT (SQ) ---
EXAM DESCRIPTION: U/S OB TRANSVAGINAL W/O DOP IMAGES COMPLETED DATE/TIME: 06/11/2020 5:22 pm REASON FOR STUDY: pelvic pain, vag bleeding COMPARISON: No previous this TECHNIQUE: Endovaginal static and realtime grayscale images acquired of the pelvis. Additional selec carmel spectral and color Doppler images recorded. All images stored on PACs. bHCG: Pending CLINICAL DATES: Last menses 04/23/2020 LIMITATIONS: None. FINDINGS: FETUS: Single Living intrauterine . ULTRASOUND EGA: 6 weeks 4 days ULTRASOUND MEHRAN: 01/31/2021 EFW: Not applicable less than 20 weeks. CRL: 7 mm FHR: 114 beats per minute. SURVEY: Too early to assess. AMNIOTIC FLUID: Adequate amount. PLACENTA: Not yet developed due to early gestation. SUBCHORIONIC BLEED: No SIZE OF BLEED: Not applicable. UTERUS: No masses. No anomalies. Uterus is 8 by 6 by 5 cm in size CERVICAL LENGTH: 2.3 cm. Closed. RIGHT ADNEXA: Normal ovary with normal vascular flow. Right ovary 3.5 x 2.7 x 2.5 cm size. [address] likely the corpus luteum. No adnexal free fluid. No adnexal masses. LEFT ADNEXA: Normal ovary with normal vascular flow. Left ovary 3.2 x 2.1 x 1.7 cm. No adnexal free fluid.No adnexal masses. FREE FLUID: None. OTHER: No other significant finding. IMPRESSION: LIVING INTRAUTERINE . EGA 6 weeks 4 days Trimester of : First trimester - 0 to 13 weeks. TECHNICAL DOCUMENTATION: JOB ID: [id number] FRS- All Rights Reserved rev-03/01 Reading location - IP/workstation name: [id number]
[2020-06-11 17:40] LABS: APPEARANCE,URINE CLOUDY; BILIRUBIN,URINE NEGATIVE (NEGATIVE); COLOR,URINE AMBER; GLUCOSE, URINE NEGATIVE (NEGATIVE); KETONES,URINE 80 mg/dL (NEGATIVE); LEUKOCYTE ESTERASE,URINE LARGE (NEGATIVE); NITRITE,URINE NEGATIVE (NEGATIVE); PROTEIN,URINE 100 mg/dL (NEGATIVE); URINE SPECIFIC GRAVITY 1.027
[2020-06-11 17:47] LABS: ALBUMIN 4.8 g/dL (3.5-5.0); ALKALINE PHOSPHATASE 65 U/L (38-126); ANION GAP 12 (5-19); ASPARTATE AMINO TRANSFERASE 22 U/L (14-36); BILIRUBIN,DIRECT 0.2 mg/dL (0.0-0.4); BILIRUBIN,TOTAL 0.9 mg/dL (0.2-1.3); BLOOD UREA NITROGEN 8 mg/dL (7-20); CALCIUM 9.6 mg/dL (8.4-10.2); CARBON DIOXIDE 23 mmol/L (22-30); CHLORIDE 102 mmol/L (98-107); GLUCOSE 78 mg/dL (75-110); POTASSIUM 4.1 mmol/L (3.6-5.0); TOTAL PROTEIN 7.5 g/dL (6.3-8.2)
[2020-06-11] MEDS ORDERED: DIPHENHYDRAMINE HCL 50 MG/ML VIAL IV ONE (18:26)
--- NOTE | 2020-06-11 20:39 | ER Document Report ---
Entered by MARIFER SHIN SCRIBE 06/11/202031 Acting as scribe for:BANDAR JOE IV, MD ED GI/ - General Chief Complaint: Vomiting Stated Complaint: VOMITING BLOOD Time Seen by Provider: 06/11/20 16:32 Mode of Arrival: Ambulatory Information source: Patient Notes: This 30 year old female patient, , currently x6 weeks presents to the ED today with complaints of nausea/vomiting that started x3 days ago. Patient reports a total of x10 episodes of emesis today, x3 while in the ED. She also mentions vaginal bleeding that started today in addition to abdominal pain related to vomiting/. She notes that she has received Rhogam for her prior pregnancies and receives OB care at [facility]. Denies relations in the past x36 hours. TRAVEL OUTSIDE OF THE [place] IN LAST 30 DAYS: No - Related Data Allergies/Adverse Reactions: No Known Allergies Allergy (Verified 03/20/19 19:06) Past Medical History - General Information source: Patient, [facility] Records - Social History Smoking Status: Current Some Day Smoker Chew tobacco use (# tins/day): No Smoking Education Provided: No Frequency of alcohol use: None Drug Abuse: None Family History: Reviewed & Not Pertinent, Arthritis, COPD, DM, Hypertension Patient has suicidal ideation: No Patient has homicidal ideation: No Neurological Medical History: Reports: Hx Migraine Renal/ Medical History: Reports: Hx Ovarian Cysts, Hx Pelvic Inflammatory Disease Musculoskeletal Medical History: Reports Hx Musculoskeletal Trauma Skin Medical History: Reports Hx Eczema Psychiatric Medical History: Reports: Hx Anxiety Past Surgical History: Reports: Hx Adenoidectomy, Hx Dilation and Curettage, Hx Tonsillectomy - Immunizations Immunizations up to date: Yes Hx Diphtheria, Pertussis, Tetanus Vaccination: Yes Review of Systems - Review of Systems Constitutional: No symptoms reported EENT: No symptoms reported Cardiovascular: No symptoms reported Respiratory: No symptoms reported Gastrointestinal: See HPI, Abdominal pain, Nausea, Vomiting Genitourinary: No symptoms reported Female Genitourinary: See HPI, , Vaginal bleeding Musculoskeletal: No symptoms reported Skin: No symptoms reported Hematologic/Lymphatic: No symptoms reported Neurological/Psychological: No symptoms reported -: Yes All other systems reviewed and negative Physical Exam - Vital signs Vitals: Temp Pulse Resp BP Pulse Ox 98.2 F 64 16 109/66 99 06/11/20 16:15 06/11/20 16:15 06/11/20 16:15 06/11/20 16:15 06/11/20 16:15 Interpretation: Normal - General General appearance: Alert In distress: None - HEENT Head: Normocephalic, Atraumatic Eyes: Normal Pupils: PERRL - Respiratory Respiratory status: No respiratory distress Chest status: Nontender Breath sounds: Normal Chest palpation: Normal - Cardiovascular Rhythm: Regular Heart sounds: Normal auscultation Murmur: No Friction rub: No Gallop: None auscultated - Abdominal Inspection: Normal Distension: No distension Bowel sounds: Normal Tenderness: Nontender - Abdomen soft Organomegaly: No organomegaly - Back Back: Normal, Nontender - Extremities General upper extremity: Normal inspection General lower extremity: Normal inspection - Neurological Neuro grossly intact: Yes Orientation: AAOx4 [place] Coma Scale Eye Opening: Spontaneous [place] Coma Scale Verbal: Oriented [place] Coma Scale Motor: Obeys Commands [place] Coma Scale Total: 15 - Psychological Associated symptoms: Normal affect, Normal mood - Skin Skin Temperature: Warm Skin Moisture: Dry Skin Color: Normal Course - Re-evaluation Re-evalutation: 06/11/20 21:24 Patient states she is feeling better this time. Patient states she only had 1 episode of vaginal bleeding and has not had any further vaginal bleeding since. Results of ED MSE discussed with patient. Emergency signs and symptoms, reasons to return to the emergency department discussed with patient. All questions were answered prior to discharge. - Vital Signs Vital signs: Temp Pulse Resp BP Pulse Ox 98.7 F 57 L 18 108/57 L 99 06/11/20 21:18 06/11/20 21:18 06/11/20 21:18 06/11/20 21:18 06/11/20 21:18 - Laboratory Result Diagrams: 06/11/20 17:20 06/11/20 17:20 Laboratory results interpreted by me: 06/11/20 06/11/20 06/11/20 16:44 17:20 17:20 WBC 11.2 H Absolute Neuts (auto) 8.3 H Beta HCG, Quant 26919.00 H Urine Protein 100 H Urine Ketones 80 H Urine Blood SMALL H Urine Urobilinogen 4.0 H Ur Leukocyte Esterase LARGE H - Consults Dr. Hester, [employer], [facility] Time consulted: :45 - Dr. Hester agreed with plan of treatment with Macrobid for UTI and Zofran over the weekend for nausea and vomiting. She stated that she wants patient to follow-up on 06/14/2020 2 being switched over to Diclegis. Dr. Hester said that the dose of 300 mcg of RhoGam is not unreasonable given that she may end up needing a D&C. She stated that given the heart rate is 114, which is considerably lower than the 170 to 190 bpm should be a, she does not necessarily think the patient needs to be informed of that because it may cause excessive warning. Dr. Hester recommended a urine GC chlamydia and to the work-up if it has not been done already. She also recommended that Prometrium 200 mg capsules being inserted vaginally by the patient nightly with a supply to last 3 days until she is seen in clinic in follow-up where more can be written for the patient. Reason for consultation: 06/11/20 21:21 Vaginal bleeding, , less than 13 weeks gestation. Consulted provider: follow-up in office Discharge - Discharge Clinical Impression: First trimester bleeding, Intrauterine UTI (urinary tract infection) Qualifiers: Hematuria presence: with hematuria Condition: Stable Disposition: HOME, SELF-CARE Additional Instructions: Return to the Emergency Department without delay if any worse. You are being prescribed Macrobid to treat your urinary tract infection, Prometrium to help with vaginal bleeding during and Zofran for nausea. Be certain to follow-up with [facility] on 06/14/2020 for follow-up appointment. HOME CARE INSTRUCTIONS & INFORMATION: Thank you for choosing us for your medical needs. We hope you're satisfied with the care you received. After you leave, you must properly care for your problem and, at the same time, observe its progress. Any condition can change. Some illnesses can change rapidly over hours or days. If your condition worsens, return to the Emergency Department or see your physician promptly. ABOUT YOUR X-RAYS AND EKG'S: If you had an EKG or X-rays taken, they have been read by the Emergency Physician. The X-rays and EKG's will also be read by a Radiologist or Special Events Director within 24 hours. If discrepancies are noted, you will be notified by telephone. Please be certain the ED has a correct telephone number & address where you can be reached. Also, realize that some fractures or abnormalities do not show up on initial X-rays. If your symptoms continue, see your physician. ABOUT YOUR LABORATORY TEST: If you had laboratory tests, the results have been reviewed by the Emergency Physician. Some test results (for example cultures) may not be available for several days. You will be contacted if any test result shows you need additional treatment. Please be certain the ED has a correct telephone number and address where you can be reached. ABOUT YOUR MEDICATIONS: You will receive instructions on how to take your medicine on the prescription label you receive. Additional information may be provided by the Pharmacy. If you have questions afterwards, call the ED for clarification or further instructions. Some prescribed medications may cause dr nehemiah. Do not perform tasks such as driving a car or operating machinery without consulting your Pharmacist. If you feel you need a refill of pain medication, your condition will need re-evaluation. Please do not call for a refill of any medication. ABOUT YOUR SIGNATURE: Signature of this document acknowledges to followin. Understanding that you received emergency treatment and that you may be released before al medical problems are known or treated. Please be certain the ED has a correct phone number & address where you can be reached. 2. Acknowledgement that you will arrange for follow-up care as recommended. 3. Authorization for the Emergency Physician to provide information to your follow-up Physician in order to maximize your care. AT ANY TIME, IF YOUR SYMPTOMS CHANGE SIGNIFICANTLY OR WORSEN OR YOU DEVELOP NEW SYMPTOMS, RETURN TO THE EMERGENCY DEPARTMENT IMMEDIATELY FOR RE-EVALUATION. OUR GOAL IS TO PROVIDE EXCELLENT MEDICAL CARE! WE HOPE THAT WE HAVE MET YOUR EXPECTATIONS DURING YOUR EMERGENCY DEPARTMENT VISIT AND THAT YOU FEEL YOU HAVE RECEIVED EXCELLENT CARE! Urinary Tract Infection Your evaluation indicates that you have a urinary tract infection. This is due to germs growing in the bladder. This is a common problem. This infection usually responds quickly to antibiotics. Your antibiotic should be taken exactly as prescribed. Drink plenty of fluids -- three to four quarts a day. Occasionally, a bladder anesthetic will be prescribed to help stop the feeling of urgency until the antibiotic has a chance to clear the infection. This may cause your urine to be dark orange. Certain urine infections require a culture. If the doctor obtained a culture, the results will be back in two days. You should call to see if a change in treatment is needed. A repeat urinalysis after you finish treatment is often recommended. The physician will let you know if further testing is required. Call the doctor if you develop fever, chills, flank pain, inability to urinate, or blood in the urine. Prescriptions: Progesterone, Micronized [Prometrium] 200 mg PV QHS #3 capsule Ondansetron [Zofran Odt 4 mg Tablet] 1 tab PO Q8HP PRN #12 tab.rapdis PRN Reason: For Nausea/Vomiting Nitrofurantoin Monohyd/M-Cryst [Macrobid 100 mg Capsule] 100 mg PO BID 10 Days #20 cap Referrals: PAM HESTER MD [ACTIVE STAFF] - 06/14/20 (A certain to follow-up with [facility] on 06/14/2020.) I personally performed the services described in the documentation, reviewed and edited the documentation which was dictated to the scribe in my presence, and it accurately records my words and actions.
[2020-06-11] MEDS ORDERED: ONDANSETRON HCL INJ/PF 4 MG/2 ML SDV IV ONE (20:56)
[2020-06-11 21:13] LABS: CHLAM PCR NOT DETECTED (NOT DETECT)
[2020-06-11] MEDS ORDERED: NITROFURANTOIN MONOHYD/M-CRYST 100 MG CAPSULE PO ONE (21:16)
[2020-06-11] MEDS ORDERED: ONDANSETRON ODT 4 MG TAB (6 TAB/ER DISP) PO PRN (21:18)
[2020-06-11 22:47] VITALS: BP 105/56
== END 2020-06-11 23:05 | disposition home or self-care (01) ==
LOC: ER 16:10
DX: O23.41 Unspecified infection of urinary tract in pregnancy, first trimester (principal); R31.9 Hematuria, unspecified; O21.8 Other vomiting complicating pregnancy; K92.0 Hematemesis; O46.91 Antepartum hemorrhage, unspecified, first trimester; O26.891 Other specified pregnancy related conditions, first trimester; R10.9 Unspecified abdominal pain; O99.331 Smoking (tobacco) complicating pregnancy, first trimester; Z3A.01 Less than 8 weeks gestation of pregnancy
CPT/HCPCS: 99285; 96361; 96374; 86900; 86901; 36415; 87086; 86850; 84702; 83690; 85025; 80053; 81001; 87491; 87591; 76817; J2790; J2405; J7030; J8499